=== PATIENT | female | born 1960 | race Caucasian/White ===

== ENCOUNTER 2016-12-31 16:29 | Inpatient (IN) ==
[2016-12-31] MEDS ORDERED: 0.9 % Sodium Chloride 1,000 ML IVC ONE ×2 (17:31→18:59)
--- NOTE | 2016-12-31 18:02 | Emergency Department Note ---
Disposition Clinical Impression: Sepsis Qualifiers: Sepsis type: sepsis due to unspecified organism Qualified Code(s): A41.9 - Sepsis, unspecified organism Pneumonia Qualifiers: Pneumonia type: due to unspecified organism Laterality: right Lung location: upper lobe of lung Qualified Code(s): J18.1 - Lobar pneumonia, unspecified organism Disposition: Admitted As Inpatient Condition: Undetermined Referrals: Karen Jones, [facility]ER [Primary Care Provider] - Forms: ED Satisfaction Letter Time of Disposition: 19:04 General Adult HPI - General Chief complaint: ED Fever Stated complaint: fever- sent from cancer center Time Seen by Provider: 12/31/16 17:31 Source: patient, family Mode of arrival: ambulatory Limitations: no limitations Nursing Notes Reviewed: Yes Vital Signs Reviewed: Yes - History of Present Illness HPI Narrative: 56-year-old female with metastatic lung cancer arrives to [facility] emergency department with concern for her. The patient was at [facility] where she was being evaluated noted have a fever as high as 102 degrees Fahrenheit. The patient is currently on chemotherapy as well as radiation therapy. The patient denies any complaints at this time with the exception of left lower extremity swelling. The patient has numerous metastasis to the hip with associated pain. She denies any cough, difficulty breathing, nausea, vomiting, current diarrhea. The patient does state she has intermittent diarrhea over the course the past few weeks. Patient denies any other complaints at this time. Onset (ago): Just [facility] Location: pelvis Pain Severity: mild, moderate Pain Scale: 5 Consistency: constant Improves with: nothing Worsens with: nothing Associated symptoms: Reports: denies other symptoms Treatments Prior to Arrival: none - Related Data Home Medications Medication Instructions Recorded Confirmed Baclofen [Lioresal] 10 mg PO TID 04/02/16 12/31/16 Omeprazole 40 mg PO DAILY 04/02/16 12/31/16 Zolpidem [Ambien] 10 mg PO HS PRN 04/02/16 12/31/16 Dexamethasone [Decadron] 10 ml PO QID PRN 10/04/16 12/31/16 Polyethylene Glycol 3350 [MiraLAX] 17 gm PO DAILY PRN 10/04/16 12/31/16 metFORMIN [Glucophage] 500 mg PO BIDWM 10/04/16 12/31/16 Hydromorphone HCl [Dilaudid] 4 mg PO Q2-3H PRN 10/14/16 12/31/16 FentaNYL PATCH [Duragesic] 75 mcg TD Q48H 10/20/16 12/31/16 Previous Rx's Medication Instructions Recorded Loratadine [Claritin] 10 mg PO DAILY #30 tablet 05/07/16 Magic Mouthwash [Magic Mouthwash 10 ml PO QID PRN #240 ml 05/07/16 BLM] Ondansetron HCl [Zofran] 4 mg PO Q6H PRN #30 tablet 05/07/16 Prochlorperazine Maleate 10 mg PO Q6HR PRN #60 tablet 05/07/16 [Compazine] Lidocaine/Prilocaine CREAM [Emla] 5 gm TP PRN PRN #1 tube 05/19/16 Ferrous Sulfate [Iron] 325 mg PO DAILY #30 tablet 09/21/16 Gabapentin [Neurontin] 300 mg PO TID #90 capsule 11/22/16 Apixaban [Eliquis] 5 mg PO BID #60 tablet 12/06/16 Docusate Sodium [Colace] 100 mg PO BID #60 cap 12/06/16 GuaiFENesin ER [Mucinex] 600 mg PO BID #21 tbbp.12hr 12/06/16 Levofloxacin [Levaquin] 500 mg PO DAILY #5 tablet 12/06/16 Pantoprazole Sodium [Protonix] 40 mg PO DAILY #30 tablet. 12/30/16 Folic Acid 1 mg PO DAILY #30 tablet 12/31/16 Allergies Allergy/AdvReac Type Severity Reaction Status Date / Time menthol Allergy See Unverified 12/31/16 18:48 Comments meperidine Allergy See Unverified 12/31/16 18:48 Comments methyl salicylate Allergy See Unverified 12/31/16 18:48 Comments Psyllium [From Hydrocil] Allergy See Unverified 12/31/16 18:48 Comments codeine AdvReac Muscle Pain Verified 12/31/16 18:48 All systems ED: reviewed and negative except as stated. Constitutional: Reports: weakness, weight change. Denies: fever, chills Cardiovascular: Denies: chest pain, palpitations, dyspnea on exertion, edema, syncope Respiratory: Denies: cough, dyspnea, wheezes, hemoptysis, stridor Gastrointestinal: Reports: nausea, diarrhea. Denies: abdominal pain, vomiting, constipation, hematemesis, melena, hematochezia Genitourinary: Denies: dysuria, frequency, hematuria, discharge Musculoskeletal: Reports: back pain. Denies: neck pain, arthralgia, myalgia Integumentary: Denies: rash, abrasion, lesions Neurological: Denies: headache, weakness, numbness, paresthesias, confusion, abnormal gait, vertigo Past Medical History - Past Medical History Attestation: Yes The following information was validated with the patient. Source: patient, old records reviewed Medical history: Reports: cancer (metastatic lung), diabetes, GERD, hypertension Surgical history: Reports: cholecystectomy Psychiatric history: Reports: no psych history - Social History Smoking Status: Former smoker Smokeless Tobacco Status: No Alcohol use: Reports: none Drug use: Reports: none Physical Exam - General Limitations: no limitations General appearance: alert, in no apparent distress, cachectic - Head Head exam: atraumatic, normocephalic, normal inspection - Eye Eye exam: Present: normal appearance, PERRL, EOMI - ENT ENT exam: normal exam, normal oropharynx, mucous membranes moist, other (Mild right erythema of Right ear) - Neck Neck exam: Present: normal inspection, full ROM, trachea midline - Chest Chest inspection: Present: normal inspection, symmetric chest wall rise, other ( Right port in place) - Respiratory Respiratory exam: Present: normal lung sounds bilaterally - Cardiovascular Cardiovascular exam: Present: regular rate, normal rhythm, normal heart sounds - Abdominal Exam Abdominal exam: Present: soft, Non-Tender. Absent: tenderness, distention, guarding, rebound, rigidity - Extremities Exam Extremities exam: Present: normal inspection, full ROM. Absent: tenderness, pedal edema - Back Exam Back exam: Present: normal inspection, full ROM. Absent: tenderness - Neurological Exam Neurological exam: Present: alert, oriented X3, CN II-XII intact - Skin Skin exam: Present: warm, dry, intact, normal color Course Vital Signs Temperature 99.4 F 12/31/16 16:37 Pulse Rate 90 12/31/16 16:37 Respiratory Rate 18 12/31/16 16:37 Blood Pressure 89/53 12/31/16 16:37 O2 Sat by Pulse Oximetry 95 12/31/16 16:37 Temperature 99.4 F 12/31/16 16:37 Pulse Rate 88 12/31/16 18:47 Respiratory Rate 20 12/31/16 18:47 Blood Pressure 110/73 12/31/16 18:47 O2 Sat by Pulse Oximetry 98 12/31/16 18:47 Oxygen Delivery Oxygen Delivery Room Air Medical Decision Making - MDM Narrative Medical decision making narrative: Patient experienced leukocytosis as well as elevated lactic acid. The patient appears to be septic. Given the patient's symptoms and history of chemotherapy combined with radiation and metastatic lung cancer, we will admit the patient to the hospital for further care and workup. The patient was begun on vancomycin and Zosyn. The patient was made aware. The patient did have CT of head and cervical, thoracic, lumbar spine with concern for possible metastasis. The patient will be admitted to the hospitalist service with oncology notified. Accepted by Too Sheriff. - Lab Data Lab results reviewed: Yes I reviewed the patient's lab results. Result diagrams: 12/31/16 17:50 12/31/16 17:50 Lab Results 12/31/16 12/31/16 12/31/16 Range/Units 17:50 17:50 17:50 WBC 34.9 H* (4.3-11.1) K/mcL RBC 2.76 L (3.82-4.97) M/mcL Hgb 7.2 L (11.5-15.4) g/dL Hct 23.9 L (35.3-44.9) % MCV 86.6 (83.0-100.0) fL MCH 26.1 L (28.0-33.3) pg MCHC 30.1 L (31.6-35.5) g/dL RDW 18.3 H (11.5-14.5) % Plt Count 621 H (140-400) K/mcL MPV 8.4 L (9.4-12.4) fL Immature Gran % 1.6 (0-4) % Seg Neutrophils % 93.1 % Lymphocytes % 1.6 % Monocytes % 3.3 % Eosinophils % 0.2 % Basophils % 0.2 % Neutrophils # 32.5 H (1.6-8.9) K/mcL Lymphocytes # 0.6 (0.6-4.6) K/mcL Monocytes # 1.2 (0.0-1.3) K/mcL Eosinophils # 0.1 (0.0-0.6) K/mcL Basophils # 0.1 (0.0-0.2) K/mcL Platelet Estimate Marked Increase H (Normal) Hypochromasia Present A (Not Present) Anisocytosis 1+ A (Not Present) PT 19.6 H (9.4-12.1) Seconds INR 1.8 APTT 28.5 (26.0-36.0) Seconds Sodium 129 L (136-145) mEq/L Potassium 4.6 H (3.5-4.5) mEq/L Chloride 94 L (98-109) mEq/L Carbon Dioxide 25 (19-29) mEq/L BUN 17 (7-20) mg/dL Creatinine 0.61 (0.57-1.11) mg/dL Est GFR ( Amer) > 60 (> 60) Est GFR (Non-Af Amer) > 60 (> 60) BUN/Creatinine Ratio 28 H (6-26) Glucose 129 H (70-99) mg/dL Calculated Osmolality 271 L (280-300) Lactic Acid (0.5-2.2) mmol/L Uric Acid 4.6 (2.6-6.0) mg/dL Calcium 9.6 (8.6-10.8) mg/dL Phosphorus 3.1 (2.3-4.7) mg/dL Magnesium 1.5 L (1.6-2.6) mg/dL Total Bilirubin 0.4 (0.2-1.2) mg/dL Direct Bilirubin 0.3 (0.0-0.5) mg/dL Indirect Bilirubin 0.1 (0.0-1.2) mg/dL AST 25 (5-34) Units/L ALT 19 (0-55) Units/L Alkaline Phosphatase 87 (38-126) Units/L Lactate Dehydrogenase 263 (159-327) Units/L Troponin I (0-0.03) ng/mL B-Natriuretic Peptide (0-100) pg/mL Serum Total Protein 6.3 (6.0-8.3) g/dL Albumin 2.0 L (3.5-5.0) g/dL Globulin 4.3 H (2.4-3.5) g/dL Albumin/Globulin Ratio 0.5 L (1.1-2.2) Random Cortisol 13.2 mcg/dl 12/31/16 12/31/16 12/31/16 Range/Units 17:50 17:50 17:50 WBC (4.3-11.1) K/mcL RBC (3.82-4.97) M/mcL Hgb (11.5-15.4) g/dL Hct (35.3-44.9) % MCV (83.0-100.0) fL MCH (28.0-33.3) pg MCHC (31.6-35.5) g/dL RDW (11.5-14.5) % Plt Count (140-400) K/mcL MPV (9.4-12.4) fL Immature Gran % (0-4) % Seg Neutrophils % % Lymphocytes % % Monocytes % % Eosinophils % % Basophils % % Neutrophils # (1.6-8.9) K/mcL Lymphocytes # (0.6-4.6) K/mcL Monocytes # (0.0-1.3) K/mcL Eosinophils # (0.0-0.6) K/mcL Basophils # (0.0-0.2) K/mcL Platelet Estimate (Normal) Hypochromasia (Not Present) Anisocytosis (Not Present) PT (9.4-12.1) Seconds INR APTT (26.0-36.0) Seconds Sodium (136-145) mEq/L Potassium (3.5-4.5) mEq/L Chloride (98-109) mEq/L Carbon Dioxide (19-29) mEq/L BUN (7-20) mg/dL Creatinine (0.57-1.11) mg/dL Est GFR ( Amer) (> 60) Est GFR (Non-Af Amer) (> 60) BUN/Creatinine Ratio (6-26) Glucose (70-99) mg/dL Calculated Osmolality (280-300) Lactic Acid 2.4 H (0.5-2.2) mmol/L Uric Acid (2.6-6.0) mg/dL Calcium (8.6-10.8) mg/dL Phosphorus (2.3-4.7) mg/dL Magnesium (1.6-2.6) mg/dL Total Bilirubin (0.2-1.2) mg/dL Direct Bilirubin (0.0-0.5) mg/dL Indirect Bilirubin (0.0-1.2) mg/dL AST (5-34) Units/L ALT (0-55) Units/L Alkaline Phosphatase (38-126) Units/L Lactate Dehydrogenase (159-327) Units/L Troponin I 0.00 (0-0.03) ng/mL B-Natriuretic Peptide 62 (0-100) pg/mL Serum Total Protein (6.0-8.3) g/dL Albumin (3.5-5.0) g/dL Globulin (2.4-3.5) g/dL Albumin/Globulin Ratio (1.1-2.2) Random Cortisol mcg/dl - Radiology Data Radiology results reviewed: Yes I reviewed the patient's radiology results. - EKG Data EKG #1 EKG attestation: Yes I reviewed and interpreted this EKG. EKG results narrative: Rate is 70 bpm period. 117 milliseconds. QTc 350 ms. Normal axis. Normal sinus rhythm. No ST elevation or ST depression noted. No previous EKG. Attestation Statement - Attestation Attestation: I, Akin Alejandre DO, examined this patient [id number] and my medical decision-making was reviewed with Dr. Too Ochoa, Resident Physician. I agree with the documented findings, disposition and treatment plan as described except to the extent set forth below. Please see my progress notes for details. 1-year-old female presents emergency room at the request of her oncologist for evaluation of fever up to 102 at home. Vital signs at presentation otherwise stable here. Patient is currently in chemoradiation therapy for lung cancer metastases to bone. Concern is noted for infectious etiology. She has had some intermittent paresthesias in the upper and lower extremities and pain in the bones at this time. CT imaging of the cervical thoracic and lumbar spine as well as chest x-ray labs are collected this point. Patient does have a significantly elevated white blood cell count mild lactic acidosis. Patient provided with fluids and antibiotics for treatment of what appears to be ammonia on chest x-ray. Imaging still pending of the spine but this does not dictate the admission process of this point. Patient has otherwise been stable EKG and labs otherwise reviewed and are negative. Antibiotic regimen started on blood cultures. Patient will be admitted for definitive management. See detailed documentation of medical intervention medical decision-making process as well as the treatment course providing an emergency room consultation of hospitals. Physical exam is otherwise benign fair. Female mentating appropriately in no apparent distress presents for evaluation. Lungs are clear with no intermittent crackles noted on exam. Abdominal examination shows soft abdomen no distress admission process to be completed. Patient provided with antibiotics and fluid resuscitation here. Poor clinical outcome for future based on the patient's medical history and presentation her today. Patient family informed of the medical intervention recommended Ayan. Patient is otherwise stable.
[2016-12-31 18:06] LABS: Basophils # 0.1 K/mcL (0.0-0.2); Basophils % 0.2 %; Lymphocytes % 1.6 %; Mean Platelet Volume 8.4 fL (9.4-12.4); Monocytes # 1.2 K/mcL (0.0-1.3); Monocytes % 3.3 %
[2016-12-31] MEDS ORDERED: Piperacillin/Tazobactam 3.375 GM in D5% in Water (Mini-Bag+) 100 ML IVPB ONE (18:07)
[2016-12-31] MEDS ORDERED: Vancomycin 1,000 MG in D5% in Water 250 ML IVPB ONE (18:07)
[2016-12-31 18:08] LABS: Eosinophils # 0.1 K/mcL (0.0-0.6); Eosinophils % 0.2 %; Hematocrit 23.9 % (35.3-44.9); Immature Granulocytes % 1.6 % (0-4); Lymphocytes # 0.6 K/mcL (0.6-4.6); Mean Corpuscular HGB Conc 30.1 g/dL (31.6-35.5); Mean Corpuscular Hemoglobin 26.1 pg (28.0-33.3); Mean Corpuscular Volume 86.6 fL (83.0-100.0); Neutrophils # 32.5 K/mcL (1.6-8.9); Platelet Count 621 K/mcL (140-400); Red Blood Count 2.76 M/mcL (3.82-4.97); Red Cell Distribution Width 18.3 % (11.5-14.5); Segmented Neutrophils % 93.1 %
[2016-12-31 18:12] LABS: INR 1.8; Prothrombin Time 19.6 Seconds (9.4-12.1)
[2016-12-31 18:14] LABS: Activated Partial Thrombo Time 28.5 Seconds (26.0-36.0)
[2016-12-31 18:22] LABS: Alanine Aminotransferase 19 Units/L (0-55); Albumin/Globulin Ratio 0.5 (1.1-2.2); Alkaline Phosphatase 87 Units/L (38-126); Aspartate Amino Transferase 25 Units/L (5-34); BUN/Creatinine Ratio 28 (6-26); Bilirubin,Direct 0.3 mg/dL (0.0-0.5); Bilirubin,Indirect 0.1 mg/dL (0.0-1.2); Bilirubin,Total 0.4 mg/dL (0.2-1.2); Blood Urea Nitrogen 17 mg/dL (7-20); Calcium 9.6 mg/dL (8.6-10.8); Carbon Dioxide 25 mEq/L (19-29); Chloride 94 mEq/L (98-109); Globulin 4.3 g/dL (2.4-3.5); Glucose 129 mg/dL (70-99); Magnesium 1.5 mg/dL (1.6-2.6); Osmolality,Calculated 271 (280-300); Phosphorous 3.1 mg/dL (2.3-4.7); Potassium 4.6 mEq/L (3.5-4.5); Sodium 129 mEq/L (136-145); Total Protein 6.3 g/dL (6.0-8.3); eGFR For African Americans > 60 (> 60); eGFR For Non-African Americans > 60 (> 60)
[2016-12-31 18:24] LABS: Hemoglobin 7.2 g/dL (11.5-15.4)
[2016-12-31] MEDS ORDERED: *HR* FentaNYL PATCH 75 MCG PATCH TD STA (18:24)
[2016-12-31 18:42] LABS: Anisocytosis 1+ (Not Present); Hypochromasia Present (Not Present); Platelet Estimate Marked Increase (Normal)
[2016-12-31 19:17] LABS: Lactate Dehydrogenase 263 Units/L (159-327); Uric Acid 4.6 mg/dL (2.6-6.0)
[2016-12-31 19:34] LABS: Bilirubin,Urine Negative (Negative); Blood,Urine Negative (Negative); Clarity,Urine Cloudy (Clear); Color,Urine Dark Yellow (Yellow); Glucose,Urine (UA) Normal (Normal); Ketones,Urine Negative (Negative); Leukocyte Esterase,Urine Small (Negative); Nitrite,Urine Negative (Negative); Protein,Urine Trace mg/dL (Neg-Trace); Specific Gravity,Urine 1.022 (1.010-1.025); Urobilinogen,Urine Normal (Normal)
[2016-12-31 19:38] LABS: Bacteria,Urine None Seen per hpf (None-Few); Hyaline Casts,Urine None Seen per lpf (None-Few); RBC,Urine 0-3 per hpf (0-3); Squamous Epithelial Cell,Urine Many per lpf (None-Few)
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
[2016-12-31] MEDS ORDERED: Naloxone 0.4 MG/ML INJ IVP PRN (21:12)
[2016-12-31] MEDS ORDERED: D5% in Water 1,000 ML IVC PRN (21:12)
[2016-12-31] MEDS ORDERED: Dextrose Gel 15 GM PO PRN ×2 (21:12)
[2016-12-31] MEDS ORDERED: *HR* Dextrose 50 % in Water (Syg) 50 ML SYRINGE IVP PRN (21:12)
[2016-12-31] MEDS ORDERED: Ondansetron 4 MG/2 ML VIAL IVP PRN (21:12)
[2016-12-31] MEDS ORDERED: Magic Mouthwash 10 ML UD Cup PO PRN (21:22)
[2016-12-31] MEDS ORDERED: DEXAMETHASONE 0.5 MG/5 ML PO PRN (21:22)
[2016-12-31] MEDS ORDERED: *HR* FentaNYL PATCH 25 MCG PATCH TD SCH (22:00)
[2016-12-31] MEDS ORDERED: Vancomycin (wt based) 1,000 MG VIAL IVPB SCH (22:00)
[2016-12-31] MEDS: 0.9 % Sodium Chloride 1,000 ML IVC SCH (22:50)
[2016-12-31] MEDS: *HR* FentaNYL PATCH 75 MCG PATCH TD SCH (23:11)
[2017-01-01] MEDS ORDERED: Piperacillin/Tazobactam 3.375 GM in D5% in Water (Mini-Bag+) 100 ML IVPB SCH (02:00)
[2017-01-01] MEDS: Piperacillin/Tazobactam 3.375 GM in D5% in Water (Mini-Bag+) 100 ML IVPB SCH ×3 (03:45→20:01)
[2017-01-01 04:33] LABS: Basophils % 0.2 %; Hemoglobin 6.3 g/dL (11.5-15.4)
[2017-01-01 04:34] LABS: Basophils # 0.1 K/mcL (0.0-0.2); Eosinophils # 0.1 K/mcL (0.0-0.6); Eosinophils % 0.3 %; Hematocrit 20.7 % (35.3-44.9); Immature Granulocytes % 1.9 % (0-4); Lymphocytes # 0.4 K/mcL (0.6-4.6); Lymphocytes % 1.4 %; Mean Corpuscular HGB Conc 30.4 g/dL (31.6-35.5); Mean Corpuscular Hemoglobin 26.3 pg (28.0-33.3); Mean Corpuscular Volume 86.3 fL (83.0-100.0); Mean Platelet Volume 8.4 fL (9.4-12.4); Monocytes # 1.3 K/mcL (0.0-1.3); Monocytes % 4.3 %; Neutrophils # 28.5 K/mcL (1.6-8.9); Platelet Count 498 K/mcL (140-400); Red Cell Distribution Width 18.3 % (11.5-14.5); Segmented Neutrophils % 91.9 %
[2017-01-01 04:54] LABS: BUN/Creatinine Ratio 22 (6-26); Blood Urea Nitrogen 12 mg/dL (7-20); C-Reactive Protein 163 mg/L (Less than 5); Calcium 8.5 mg/dL (8.6-10.8); Carbon Dioxide 24 mEq/L (19-29); Chloride 98 mEq/L (98-109); Glucose 106 mg/dL (70-99); Magnesium 1.2 mg/dL (1.6-2.6); Osmolality,Calculated 270 (280-300); Phosphorous 3.3 mg/dL (2.3-4.7); Sodium 130 mEq/L (136-145); eGFR For African Americans > 60 (> 60); eGFR For Non-African Americans > 60 (> 60)
[2017-01-01 04:57] LABS: Anisocytosis 1+ (Not Present); Macrocytosis Present (Not Present); Microcytosis Present (Not Present); Platelet Estimate Increased (Normal)
--- NOTE | 2017-01-01 05:03 | Event Note ---
Date of Encounter: 01/01/17 Time of Encounter: 05:03 Patient seen and examined with director medical affairs. Agree with the assessment and plan
[2017-01-01] MEDS: Pantoprazole 40 MG VIAL IVP SCH (06:00)
[2017-01-01] MEDS: Vancomycin 1,000 MG in D5% in Water 250 ML IVPB SCH ×2 (07:37→20:00)
[2017-01-01] MEDS ORDERED: Magnesium Sulfate 2 GM in D5% in Water 100 ML IVPB ONE ×2 (08:04→15:00)
[2017-01-01] MEDS: Insulin LISPRO 300 UNITS/3 ML VIAL SQ SCH ×4 (08:18→20:26)
[2017-01-01] MEDS: Folic Acid 1 MG TABLET PO SCH (08:30)
[2017-01-01] MEDS: Gabapentin 300 MG CAPSULE PO SCH ×3 (08:30→20:00)
[2017-01-01] MEDS: Baclofen 10 MG TABLET PO SCH ×3 (08:30→20:00)
[2017-01-01] MEDS: *HR* HYDROmorphone 4 MG TABLET PO PRN ×5 (08:30→21:23)
[2017-01-01] MEDS: APIXABAN 5 MG TABLET PO SCH ×2 (08:30→20:00)
--- NOTE | 2017-01-01 08:54 | Internal Med Progress Note ---
<Napoleon Aldrich - Last Filed: 01/01/17 13:53> Date of Encounter: 01/01/17 Time of Encounter: 08:54 - Assessment and plan (1) Sepsis Current Visit: Yes Status: Acute Assessment and plan: Patient admitted form [facility] after having recorded temperature of 102F. Lactic Acid 2.4 on admission Hypotension 89/53 on admission WBC 34.9 on admission. CXR revealed mild hazy ground glass opacities in right upper lobe and irregular ill defined spiculation in left upper concerning for spiculated mass. Patient received 2L normal saline bolus in ED Started on Broad specturm antibiotics Urine antigens for Legioinella and S. pneumonia returned negative Influenza swab negative. No additional fevers overnight, nontachycardic, nontachypneic, bp 97-108/59-61, WBC decreased to 31.0, ESR elevated at 25, CRP 163 -Blood cultures ordered -Sputum cultures ordered -Urine culture ordered -Continue Vancomycin and Zosyn d1. -Continue monitoring vitals and labs. -Tylenol prn for fever -Echo ordered -Continue IV fluids Patient is at high risk due to her history of immunosuppression due to treatment with chem and radiation for her cancer. Qualifiers: Sepsis type: sepsis due to unspecified organism Qualified Code(s): A41.9 - Sepsis, unspecified organism (2) Healthcare-associated pneumonia Current Visit: Yes Status: Acute Assessment and plan: Due to history of immunosuppression due to cancer treatments and close interactions with medical community, patient's pneumonia based on imaging is likely HCAP vs CAP based on new guidelines. CXR revealed CXR revealed mild hazy ground glass opacities in right upper lobe and irregular ill defined spiculation in left upper concerning for spiculated mass. WBC down at 31.0 from 34.9 yesterday -Continue monitoring labs and vitals -Continue broad spectrum antibiotics per plan in assessmnet above. Vanc and Zosyn d1. (3) Anemia Current Visit: Yes Status: Acute Assessment and plan: Hb 6.3 this morning from 7.2 on admission. Known history of severe iron deficiency anemia, had recently received iron transfusion. -Transfusion pRBC ordered Continue monitoring labs Qualifiers: Anemia type: iron deficiency Iron deficiency anemia type: unspecified iron deficiency Qualified Code(s): D50.9 - Iron deficiency anemia, unspecified (4) Hyponatremia Current Visit: Yes Status: Chronic Assessment and plan: Patient determined to have sodium 129 on admission. Sodium 130 on labs this morning. Patient has known chronic hyponatremia. Continue to monitor labs. Cotinue with IV fluids. (5) Adenocarcinoma of left lung, stage 4 Current Visit: Yes Status: Chronic Assessment and plan: Known history of primary adenocarcinoma of left lung stage 4 with mets to spine and pelvis. Currently undergoing palliative chemoradiation at [facility]. (6) Cancer related pain Current Visit: Yes Status: Chronic Assessment and plan: Pain secondary to mets to pelvis, and pain of legs bilaterally resulting in her now wheelchair bound status. Conitnue home pain medication regimenL 75 mcg fentanyl patches q48 and 4mg hydromorphone po q2-3hr prn. (7) Bone metastasis Current Visit: Yes Status: Chronic Assessment and plan: Per cameron in assessment above. (8) DVT (deep venous thrombosis) Current Visit: Yes Status: Resolved Assessment and plan: Known history of DVT -Continue Eliquis. Qualifiers: DVT location: lower extremity Affected thrombotic vein of extremity: unspecified vein of extremity Chronicity: unspecified Laterality: left Qualified Code(s): I82.402 - Acute embolism and thrombosis of unspecified deep veins of left lower extremity (9) Abnormal finding on imaging Current Visit: Yes Status: Acute Assessment and plan: Patient found to have small focus of abnormal attenuation in the right thalamus that is nonspecific and possibly artifactual. Given patient history of lung cancer brain metastases cannot be ruled out. She might need MRI as outpatient for further evaluation per the discretion of her oncologist (10) Diabetes mellitus type 2 in nonobese Current Visit: Yes Status: Acute Assessment and plan: Continue with ADA diet and low dose insulin sliding scale. COntinue monitoring labs. - Subjective Interval history: Patient reprts having some sweats overnight, but overall is feeling better. Patient denies fevers, chills, nausea, vomiting, headache, changes in vision or hearing, chest pain, shorntess of breath, abdominal pain, changes in bowels or bladder, or loss of sensation. Patient reports chronic leg pain L>R due to metastatic cancer from lung cancer. Patient reports weakness due to pain and has resulted in her over the past couple months requiring wheelchair. - Constitutional Vitals: Temp Pulse Resp BP Pulse Ox 98.4 F 74 15 108/59 92 01/01/17 07:22 01/01/17 07:22 01/01/17 07:22 01/01/17 08:21 01/01/17 07:45 General appearance: Present: cooperative, A&O X 3, pleasant, no acute distress, answers questions appropriately - Head Head exam: Present: atraumatic, normal inspection, normocephalic - Eye Eye exam: Present: EOMI, normal appearance - ENT ENT exam: Present: mucous membranes moist, normal exam, normal oropharynx - Neck Neck exam general surgery: Present: full ROM, normal inspection, supple, trachea midline. Absent: tenderness - Respiratory Respiratory exam: Present: CTAB. Absent: decreased breath sounds, rales, respiratory distress, rhonchi, wheezes, tachypnea Additional comments: Right upper chest port, clean dry intact without surround erythema - Cardiovascular Cardiovascular exam: Present: RRR, +S1, +S2. Absent: diastolic murmur, JVD, systolic murmur - GI/Abdominal GI/Abdominal exam: Present: normal bowel sounds, soft. Absent: distended, guarding, tenderness - Extremities Exam Extremities exam: Present: full ROM, normal inspection, tenderness, warm, radial pulses palpable and symmetrical. Absent: pedal edema Additional comments: Upper extremities normal exam. Lower extremities bilaterally strenght 4/5, pain with movement and tenderness to palpation - Back Exam Back exam: Present: normal inspection, paraspinal tenderness, vertebral tenderness. Absent: rash noted - Neurological Exam Neurological exam: Present: alert, CN II-XII intact, oriented X3, no focal deficits, strengths equal and symetr throughout. Absent: facial droop, speech deficit - Psychiatric Psychiatric exam: Present: normal affect, normal mood - Skin Skin exam: Present: dry, intact, normal color, warm. Absent: rash Internal Medicine: Result - Labs CBC & Chem 7: 01/01/17 04:19 01/01/17 04:19 Labs: Short CBC 01/01/17 Range/Units 04:19 WBC 31.0 H* (4.3-11.1) K/mcL Hgb 6.3 L (11.5-15.4) g/dL Hct 20.7 L (35.3-44.9) % Plt Count 498 H (140-400) K/mcL Neutrophils # 28.5 H (1.6-8.9) K/mcL BMP 01/01/17 04:19 Sodium 130 L Potassium 4.0 Chloride 98 Carbon Dioxide 24 BUN 12 Creatinine 0.54 L Glucose 106 H Calcium 8.5 L - ABG Interpretation ABG results: PT/INR, D-dimer PT 19.6 Seconds (9.4-12.1) H 12/31/16 17:50 Consult Discharge Plan - Plan Referrals: Karen Jones, TAMALE MAKER [Primary Care Provider] - <Pierre Alex - Last Filed: 01/01/17 15:09> Date of Encounter: 01/01/17 - Constitutional Vitals: Temp Pulse Resp BP Pulse Ox 97.9 F 70 16 103/61 95 01/01/17 12:31 01/01/17 12:31 01/01/17 12:31 01/01/17 12:31 01/01/17 12:31 Internal Medicine: Result - Labs CBC & Chem 7: 01/01/17 04:19 01/01/17 04:19 Labs: Short CBC 01/01/17 Range/Units 04:19 WBC 31.0 H* (4.3-11.1) K/mcL Hgb 6.3 L (11.5-15.4) g/dL Hct 20.7 L (35.3-44.9) % Plt Count 498 H (140-400) K/mcL Neutrophils # 28.5 H (1.6-8.9) K/mcL [facility] 01/01/17 04:19 Sodium 130 L Potassium 4.0 Chloride 98 Carbon Dioxide 24 BUN 12 Creatinine 0.54 L Glucose 106 H Calcium 8.5 L - ABG Interpretation ABG results: PT/INR, D-dimer PT 19.6 Seconds (9.4-12.1) H 12/31/16 17:50 - Attending Attestation I have independently seen and examined this patient on 01/01/17, I have reviewed plan of care with patient and resident physician 56 YO F with PMH of Stage IV Lung adenocarcinoma with bone mets, on palliative chemo-radiation. She also has Iron deficiency anemia, DM, Chronic pain She is admitted and being managed for severe sepsis with hypotension on admission, lactic acidosis Sepsis is secondary to HCAP. Physical exam: She is afebrile, tachycardic, not in distress. Her BP is improving, She is chronically ill-looking and cachectic. She speaks full sentences and denies any pain. Oral mucosa is moist, she is not cyanotic, she has RML rhonchi. She has a nodular lesion on her back. Spine examination is unremarkable. She has no pedal edema Labs and Imaging reviewed Leukocytosis: WBC 31 with left shift, HB 6.3, thrombocytosis. mag 1.2. Random cortisol normal. CRP 163. UA dirty. Urine legionella and Strep Ag negative, Chest imaging shows pneumonia Blood, Urine cultures are pending. A/P *Severe Sepsis *lactic acidosis *HCAP *Iron deficiency anemia: *Moderate-Severe protein calorie malnutrition *Stage 4 Lung CA *Hypomagnessemia *DM *chronic pain *Chronic hyponatremia *Hx of DVT -Continue current antibiotics, add Levaquin for double pseudomonas coverage, follow all cultures -lactate is normal now -Blood pressure is improving -Leukocytosis is severe, but improving -Replace Mag -Continue home medications -Transfuse one unit RBC *Rpt CBC pm Rest of details as in resident physician's documentation
[2017-01-01] MEDS ORDERED: 0.9 % Sodium Chloride 250 ML ONE (09:04)
[2017-01-01] MEDS: Acetaminophen 325 MG TABLET PO PRN (16:45)
[2017-01-01] MEDS: 0.9 % Sodium Chloride 1,000 ML IVC SCH (18:13)
[2017-01-02 04:00] LABS: Basophils # 0.1 K/mcL (0.0-0.2); Basophils % 0.2 %; Eosinophils # 0.1 K/mcL (0.0-0.6); Eosinophils % 0.3 %; Hematocrit 23.7 % (35.3-44.9); Hemoglobin 7.3 g/dL (11.5-15.4); Immature Granulocytes % 1.6 % (0-4); Lymphocytes # 0.3 K/mcL (0.6-4.6); Lymphocytes % 0.9 %; Mean Corpuscular HGB Conc 30.8 g/dL (31.6-35.5); Mean Corpuscular Hemoglobin 25.7 pg (28.0-33.3); Mean Corpuscular Volume 83.5 fL (83.0-100.0); Mean Platelet Volume 8.5 fL (9.4-12.4); Monocytes # 1.2 K/mcL (0.0-1.3); Monocytes % 3.8 %; Neutrophils # 29.6 K/mcL (1.6-8.9); Platelet Count 513 K/mcL (140-400); Red Blood Count 2.84 M/mcL (3.82-4.97); Red Cell Distribution Width 19.8 % (11.5-14.5); Segmented Neutrophils % 93.2 %
[2017-01-02 04:03] LABS: BUN/Creatinine Ratio 18 (6-26); Blood Urea Nitrogen 11 mg/dL (7-20); Calcium 8.2 mg/dL (8.6-10.8); Carbon Dioxide 22 mEq/L (19-29); Chloride 99 mEq/L (98-109); Glucose 117 mg/dL (70-99); Osmolality,Calculated 268 (280-300); Potassium 4.4 mEq/L (3.5-4.5); Sodium 129 mEq/L (136-145); eGFR For African Americans > 60 (> 60); eGFR For Non-African Americans > 60 (> 60)
[2017-01-02] MEDS: 0.9 % Sodium Chloride 1,000 ML IVC SCH ×2 (04:16→09:01)
[2017-01-02] MEDS: Piperacillin/Tazobactam 3.375 GM in D5% in Water (Mini-Bag+) 100 ML IVPB SCH ×3 (04:17→19:54)
[2017-01-02 04:19] LABS: Anisocytosis 2+ (Not Present); Platelet Estimate Increased (Normal); Polychromasia 1+ (Not Present)
[2017-01-02 04:20] LABS: Hypochromasia Present (Not Present); Microcytosis Present (Not Present)
[2017-01-02] MEDS: Acetaminophen 325 MG TABLET PO PRN ×2 (04:28→17:28)
[2017-01-02] MEDS: Pantoprazole 40 MG VIAL IVP SCH (06:15)
--- NOTE | 2017-01-02 07:50 | Internal Med Progress Note ---
<Napoleon Aldrich - Last Filed: 01/02/17 11:51> Date of Encounter: 01/02/17 Time of Encounter: 07:49 - Assessment and plan (1) Sepsis Current Visit: Yes Status: Acute Assessment and plan: Patient admitted form [facility] after having recorded temperature of 102F. Lactic Acid 2.4 on admisson, dropped to 1.5 following antibiotics and fluids Hypotension 89/53 on admission WBC 34.9 on admission, Known baseline 19 prior to admission. CXR revealed mild hazy ground glass opacities in right upper lobe and irregular ill defined spiculation in left upper concerning for spiculated mass. Patient received 2L normal saline bolus in ED Started on Broad spectrum antibiotics Urine antigens for Legioinella and S. pneumonia returned negative Influenza swab negative. Mild fevers of 100.1 noted overnight, nontachycardic, nontachypneic, bp stable, WBC increased from 31.0 yesterday to 31.8. Urine culture negative. Echo revealed EF 60%, normal LV systolic and diastolic function, normal LV, mildly dilated LA, mild mitral regurgitation, no evidence of pulm htn, no evidence of valvular vegetations -Blood cultures pending. -Sputum cultures ordered -If develops notable fevers again, redraw blood cultures. -If has diarrhea, consider c.diff testing. -Continue Vancomycin and Zosyn d2, Levaquin d2 -Continue monitoring vitals and labs. -Tylenol prn for fever -Continue IV fluids -ID consulted -to consult oncology on Tuesday Patient is at high risk due to her history of immunosuppression due to treatment with chem and radiation for her cancer. Qualifiers: Sepsis type: sepsis due to unspecified organism Qualified Code(s): A41.9 - Sepsis, unspecified organism (2) Healthcare-associated pneumonia Current Visit: Yes Status: Acute Assessment and plan: Due to history of immunosuppression due to cancer treatments and close interactions with medical community, patient's pneumonia based on imaging is likely HCAP vs CAP based on new guidelines. CXR revealed CXR revealed mild hazy ground glass opacities in right upper lobe and irregular ill defined spiculation in left upper concerning for spiculated mass. WBC 31.8, increased from 31.0 yesterday. -Continue monitoring labs and vitals -Sputum culture ordered. -Continue broad spectrum antibiotics per plan in assessmnet above. Vanc and Zosyn d2, Levaquin d2 (3) Anemia Current Visit: Yes Status: Acute Assessment and plan: Hb 7.3 this morning Required pRBC transfusion x1 01/01/17 due to Hb 6.3 Known history of severe iron deficiency anemia, had recently received iron transfusion. Continue monitoring labs Qualifiers: Anemia type: iron deficiency Iron deficiency anemia type: unspecified iron deficiency Qualified Code(s): D50.9 - Iron deficiency anemia, unspecified (4) Hyponatremia Current Visit: Yes Status: Chronic Assessment and plan: Patient determined to have sodium 129 on admission. Sodium 129 on labs this morning. Patient has known chronic hyponatremia. Continue to monitor labs. Cotinue with IV fluids. (5) Adenocarcinoma of left lung, stage 4 Current Visit: Yes Status: Chronic Assessment and plan: Known history of primary adenocarcinoma of left lung stage 4 with mets to spine and pelvis. Currently undergoing palliative chemoradiation at [facility]. -Consult Oncology Tuesday, tomorrow for inpatient evaluation. (6) Cancer related pain Current Visit: Yes Status: Chronic Assessment and plan: Pain secondary to mets to pelvis, and pain of legs bilaterally resulting in her now wheelchair bound status. Conitnue home pain medication regimenL 75 mcg fentanyl patches q48 and 4mg hydromorphone po q2-3hr prn. -Social work for placement, currently wheelchair bound. (7) Bone metastasis Current Visit: Yes Status: Chronic Assessment and plan: Per plan in assessment above. (8) DVT (deep venous thrombosis) Current Visit: Yes Status: Resolved Assessment and plan: Known history of DVT -Continue Eliquis. Qualifiers: DVT location: lower extremity Affected thrombotic vein of extremity: unspecified vein of extremity Chronicity: unspecified Laterality: left Qualified Code(s): I82.402 - Acute embolism and thrombosis of unspecified deep veins of left lower extremity (9) Abnormal finding on imaging Current Visit: Yes Status: Acute Assessment and plan: Patient found to have small focus of abnormal attenuation in the right thalamus that is nonspecific and possibly artifact. Given patient history of lung cancer brain metastases cannot be ruled out. She might need MRI as outpatient for further evaluation per the discretion of her oncologist (10) Diabetes mellitus type 2 in nonobese Current Visit: Yes Status: Acute Assessment and plan: Continue with ADA diet and low dose insulin sliding scale. Continue monitoring labs. - Subjective Interval history: Patient reports no concern overnight other than continued night sweats. She is noted to have an almost completely drenched shirt. She continues to report feeling better overall and is having troubles coughing up sputum for the culture that was ordered. Patient denies fevers, chills, nausea, vomiting, headache, changes in vision or hearing, chest pain, shortness of breath, hemoptysis, abdominal pain, changes in bowels or bladder, or loss of sensation. Continues to have chronic leg pain and lower extremity weakness which was present before admission. - Constitutional Vitals: Temp Pulse Resp BP Pulse Ox 100.1 F H 79 18 104/48 94 01/02/17 04:01/02/17 04:01/02/17 04:01/02/17 04:01/02/17 04:09 General appearance: Present: cooperative, A&O X 3, pleasant, no acute distress, answers questions appropriately Exam: shirt drenched in sweat, no diaphoresis of face/forehead, skin otherwise not clammy or cold - Head Head exam: Present: atraumatic, normal inspection, normocephalic - Eye Eye exam: Present: EOMI, normal appearance - ENT ENT exam: Present: mucous membranes dry, normal exam, normal oropharynx - Neck Neck exam general surgery: Present: full ROM, normal inspection, supple, trachea midline. Absent: tenderness - Respiratory Respiratory exam: Present: CTAB. Absent: rales, rhonchi, wheezes Additional comments: Right upper chest port, clena dry intact without surrounding erythema - Cardiovascular Cardiovascular exam: Present: RRR, +S1, +S2. Absent: diastolic murmur, JVD, systolic murmur - GI/Abdominal GI/Abdominal exam: Present: normal bowel sounds, soft. Absent: diminished bowel sounds, guarding, tenderness - Extremities Exam Extremities exam: Present: full ROM, normal inspection, tenderness, warm, radial pulses palpable and symmetrical. Absent: pedal edema Additional comments: Upper ext exam normal. Lower ext exam with 4/5 strenght bilaterally, pain with movement and tenderness to palpation. - Neurological Exam Neurological exam: Present: alert, CN II-XII intact, oriented X3, no focal deficits, strengths equal and symetr throughout. Absent: facial droop, speech deficit - Psychiatric Psychiatric exam: Present: normal affect, normal mood - Skin Skin exam: Present: intact, normal color, warm. Absent: pallor, rash Internal Medicine: Result - Labs CBC & Chem 7: 01/02/17 03:40 01/02/17 03:40 Labs: Short CBC 01/02/17 Range/Units 03:40 WBC 31.8 H* (4.3-11.1) K/mcL Hgb 7.3 L (11.5-15.4) g/dL Hct 23.7 L (35.3-44.9) % Plt Count 513 H (140-400) K/mcL Neutrophils # 29.6 H (1.6-8.9) K/mcL BMP 01/02/17 03:40 Sodium 129 L Potassium 4.4 Chloride 99 Carbon Dioxide 22 BUN 11 Creatinine 0.62 Glucose 117 H Calcium 8.2 L - ABG Interpretation ABG results: PT/INR, D-dimer PT 19.6 Seconds (9.4-12.1) H 12/31/16 17:50 Consult Discharge Plan - Plan Referrals: Karen Jones, [employer] PREPARER [Primary Care Provider] - <Pierre Alex - Last Filed: 01/02/17 13:00> Date of Encounter: 01/02/17 - Constitutional Vitals: Temp Pulse Resp BP Pulse Ox 97.5 F L 69 14 120/73 100 01/02/17 12:27 01/02/17 12:27 01/02/17 12:27 01/02/17 12:27 01/02/17 12:27 Internal Medicine: Result - Labs CBC & Chem 7: 01/02/17 03:40 01/02/17 03:40 Labs: Short CBC 01/02/17 Range/Units 03:40 WBC 31.8 H* (4.3-11.1) K/mcL Hgb 7.3 L (11.5-15.4) g/dL Hct 23.7 L (35.3-44.9) % Plt Count 513 H (140-400) K/mcL Neutrophils # 29.6 H (1.6-8.9) K/mcL BMP 01/02/17 03:40 Sodium 129 L Potassium 4.4 Chloride 99 Carbon Dioxide 22 BUN 11 Creatinine 0.62 Glucose 117 H Calcium 8.2 L - ABG Interpretation ABG results: PT/INR, D-dimer PT 19.6 Seconds (9.4-12.1) H 12/31/16 17:50 - Attending Attestation I have independently seen and examined this patient on 01/02/17, I have reviewed plan of care with patient and resident physician 56 YO F with PMH of Stage IV Lung adenocarcinoma with bone mets, on palliative chemo-radiation. She also has Iron deficiency anemia, DM, Chronic pain She is admitted and being managed for severe sepsis with hypotension on admission, lactic acidosis Sepsis is secondary to HCAP. Today she reports her GERD symptoms have improved She also complains of drenching night sweats Physical exam: She is afebrile, tachycardic, not in distress. Her BP is improving, She is chronically ill-looking and cachectic. She speaks full sentences and denies any pain. Oral mucosa is moist, she is not cyanotic, she has RML rhonchi. She has a nodular lesion on her back. Spine examination is unremarkable. She has no pedal edema Labs and Imaging reviewed Leukocytosis: WBC 31.8 with left shift, HB 7.3, thrombocytosis. Urine legionella and Strep Ag negative, Chest imaging shows pneumonia Blood culture preliminary no growth Urine culture is negative vanco trough sub-therapeutic 11.2 A/P *Severe Sepsis *lactic acidosis *HCAP *Iron deficiency anemia: *Moderate-Severe protein calorie malnutrition *Stage 4 Lung CA *Hypomagnessemia *DM *chronic pain *Chronic hyponatremia *Hx of DVT -Continue current antibiotics, sputum culture is patient is able to make sputum. -Consult Onc. -lactate is normal now -Blood pressure is improving -D/C IVF -Leukocytosis is severe, rue out other causes like C.diff. EMR shows patient has been having leukocytosis since 09/2016 with her baseline around 17,000. -Check Mag -Continue home medications -Hb is stable now Rest of details as in resident physician's documentation
[2017-01-02] MEDS: Insulin LISPRO 300 UNITS/3 ML VIAL SQ SCH ×4 (09:00→22:18)
[2017-01-02] MEDS: APIXABAN 5 MG TABLET PO SCH ×2 (09:06→19:53)
[2017-01-02] MEDS: Baclofen 10 MG TABLET PO SCH ×3 (09:06→19:53)
[2017-01-02] MEDS: Folic Acid 1 MG TABLET PO SCH (09:06)
[2017-01-02] MEDS: Gabapentin 300 MG CAPSULE PO SCH ×3 (09:06→19:53)
[2017-01-02] MEDS: *HR* HYDROmorphone 4 MG TABLET PO PRN ×4 (09:06→16:42)
[2017-01-02] MEDS: Levofloxacin 750 MG/150 ML 750 MG/150 ML BAG IVPB SCH (09:08)
[2017-01-02] MEDS: Vancomycin 1,250 MG in D5% in Water 250 ML IVPB SCH ×2 (09:09→19:53)
[2017-01-02] MEDS: *HR* FentaNYL PATCH 75 MCG PATCH TD SCH (23:34)
[2017-01-03 04:39] LABS: Basophils % 0.3 %; Eosinophils % 0.1 %; Lymphocytes % 1.1 %; Red Cell Distribution Width 19.9 % (11.5-14.5)
[2017-01-03 04:40] LABS: Basophils # 0.1 K/mcL (0.0-0.2); Hematocrit 24.4 % (35.3-44.9); Hemoglobin 7.3 g/dL (11.5-15.4); Immature Granulocytes % 3.2 % (0-4); Lymphocytes # 0.4 K/mcL (0.6-4.6); Mean Corpuscular HGB Conc 29.9 g/dL (31.6-35.5); Mean Corpuscular Hemoglobin 24.8 pg (28.0-33.3); Mean Platelet Volume 8.4 fL (9.4-12.4); Monocytes # 1.5 K/mcL (0.0-1.3); Monocytes % 4.5 %; Neutrophils # 29.6 K/mcL (1.6-8.9); Platelet Count 573 K/mcL (140-400); Red Blood Count 2.94 M/mcL (3.82-4.97); Segmented Neutrophils % 90.8 %
[2017-01-03 04:50] LABS: BUN/Creatinine Ratio 16 (6-26); Blood Urea Nitrogen 9 mg/dL (7-20); Calcium 8.3 mg/dL (8.6-10.8); Carbon Dioxide 23 mEq/L (19-29); Chloride 100 mEq/L (98-109); Glucose 143 mg/dL (70-99); Osmolality,Calculated 275 (280-300); Potassium 4.3 mEq/L (3.5-4.5); Sodium 132 mEq/L (136-145); eGFR For African Americans > 60 (> 60); eGFR For Non-African Americans > 60 (> 60)
[2017-01-03] MEDS: *HR* HYDROmorphone 4 MG TABLET PO PRN ×6 (04:50→20:36)
[2017-01-03] MEDS: Piperacillin/Tazobactam 3.375 GM in D5% in Water (Mini-Bag+) 100 ML IVPB SCH ×3 (04:51→20:36)
[2017-01-03 05:15] LABS: Platelet Estimate Increased (Normal); Reactive Lymphocytes Present (Not Present)
[2017-01-03 05:16] LABS: Anisocytosis 1+ (Not Present); Hypersegmented Neutrophils Present (Not Present); Polychromasia 1+ (Not Present); Toxic Granulation Present (Not Present)
[2017-01-03] MEDS: Pantoprazole 40 MG VIAL IVP SCH (05:30)
[2017-01-03] MEDS: APIXABAN 5 MG TABLET PO SCH ×2 (08:34→20:36)
[2017-01-03] MEDS: Vancomycin 1,250 MG in D5% in Water 250 ML IVPB SCH ×2 (08:34→20:53)
[2017-01-03] MEDS: Baclofen 10 MG TABLET PO SCH ×3 (08:34→20:36)
[2017-01-03] MEDS: Folic Acid 1 MG TABLET PO SCH (08:34)
[2017-01-03] MEDS: Gabapentin 300 MG CAPSULE PO SCH ×3 (08:34→20:36)
--- NOTE | 2017-01-03 09:08 | Internal Med Progress Note ---
<Napoleon Aldrich - Last Filed: 01/03/17 11:58> Date of Encounter: 01/03/17 Time of Encounter: 09:08 - Assessment and plan (1) Sepsis Current Visit: Yes Status: Acute Assessment and plan: Patient admitted form [facility] after having recorded temperature of 102F. Lactic Acid 2.4 on admisson, dropped to 1.5 following antibiotics and fluids Hypotension 89/53 on admission WBC 34.9 on admission, Known baseline 19 prior to admission. CXR revealed mild hazy ground glass opacities in right upper lobe and irregular ill defined spiculation in left upper concerning for spiculated mass. Patient received 2L normal saline bolus in ED Started on Broad spectrum antibiotics Urine antigens for Legioinella and S. pneumonia returned negative Influenza swab negative. Fevere of 100.5 overnight, nontachycardic, nontachypneic, bp stable, WBC increased to 32.6 from 31.8 yesterday. Urine culture negative. Echo revealed EF 60%, normal LV systolic and diastolic function, normal LV, mildly dilated LA, mild mitral regurgitation, no evidence of pulm htn, no evidence of valvular vegetations -Blood cultures no growth to date -Sputum cultures pending -If develops notable fevers again, redraw blood cultures. -If has diarrhea, consider c.diff testing. -Continue Vancomycin d3 and Zosyn d3, Levaquin d3 -Continue monitoring vitals and labs. -Tylenol prn for fever -IV fluids discontinued -ID consulted -Oncology consulted -Blood smear ordered Patient is at high risk due to her history of immunosuppression due to treatment with chem and radiation for her cancer. Qualifiers: Sepsis type: sepsis due to unspecified organism Qualified Code(s): A41.9 - Sepsis, unspecified organism (2) Healthcare-associated pneumonia Current Visit: Yes Status: Acute Assessment and plan: Due to history of immunosuppression due to cancer treatments and close interactions with medical community, patient's pneumonia based on imaging is likely HCAP vs CAP based on new guidelines. CXR revealed CXR revealed mild hazy ground glass opacities in right upper lobe and irregular ill defined spiculation in left upper concerning for spiculated mass. WBC 32.6, increased from 31.8 yesterday. -Continue monitoring labs and vitals -Sputum culture pending -Continue broad spectrum antibiotics per plan in assessment above. Vanc and Zosyn d3, Levaquin d3 (3) Anemia Current Visit: Yes Status: Acute Assessment and plan: Hb 7.3 this morning Required pRBC transfusion x1 01/01/17 due to Hb 6.3 Known history of severe iron deficiency anemia, had recently received iron transfusion. Continue monitoring labs Qualifiers: Anemia type: iron deficiency Iron deficiency anemia type: unspecified iron deficiency Qualified Code(s): D50.9 - Iron deficiency anemia, unspecified (4) Hyponatremia Current Visit: Yes Status: Chronic Assessment and plan: Patient determined to have sodium 129 on admission. Sodium 132 on labs this morning. Patient has known chronic hyponatremia. Continue to monitor labs. Discontinued IV fluids. (5) Adenocarcinoma of left lung, stage 4 Current Visit: Yes Status: Chronic Assessment and plan: Known history of primary adenocarcinoma of left lung stage 4 with mets to spine and pelvis. Currently undergoing palliative chemoradiation at [facility]. -Oncology consulted -Blood smear ordered. (6) Cancer related pain Current Visit: Yes Status: Chronic Assessment and plan: Pain secondary to mets to pelvis, and pain of legs bilaterally resulting in her now wheelchair bound status. Conitnue home pain medication regimenL 75 mcg fentanyl patches q48 and 4mg hydromorphone po q2-3hr prn. -Social work for placement, currently wheelchair bound. (7) Bone metastasis Current Visit: Yes Status: Chronic Assessment and plan: Per plan in assessment above. (8) Hypomagnesemia Current Visit: Yes Status: Acute Assessment and plan: Magnesium 1.5 on admission, 1.4 this morning, -4 mg magnesium IV ordered. -repeat in the morning. (9) DVT (deep venous thrombosis) Current Visit: Yes Status: Resolved Assessment and plan: Known history of DVT -Continue Eliquis. Qualifiers: DVT location: lower extremity Affected thrombotic vein of extremity: unspecified vein of extremity Chronicity: unspecified Laterality: left Qualified Code(s): I82.402 - Acute embolism and thrombosis of unspecified deep veins of left lower extremity (10) Abnormal finding on imaging Current Visit: Yes Status: Acute Assessment and plan: Patient found to have small focus of abnormal attenuation in the right thalamus that is nonspecific and possibly artifact. Given patient history of lung cancer brain metastases cannot be ruled out. She might need MRI as outpatient for further evaluation per the discretion of her oncologist (11) Diabetes mellitus type 2 in nonobese Current Visit: Yes Status: Acute Assessment and plan: Continue with ADA diet and low dose insulin sliding scale. Continue monitoring labs. (12) Protein-calorie malnutrition, moderate Current Visit: Yes Status: Acute - Subjective Interval history: Patient reports no concern overnight other than continued night sweats. She is noted tagain to be completely drenched on her shirt. She continues to report feeling better overall. Patient denies fevers, chills, nausea, vomiting, headache, changes in vision or hearing, chest pain, shortness of breath, hemoptysis, abdominal pain, changes in bowels or bladder, or loss of sensation. Continues to have chronic leg pain and lower extremity weakness which was present before admission. - Constitutional Vitals: Temp Pulse Resp BP Pulse Ox 99.1 F 76 20 124/64 95 01/03/17 07:23 01/03/17 07:23 01/03/17 07:23 01/03/17 08:21 01/03/17 07:23 General appearance: Present: cooperative, A&O X 3, pleasant, no acute distress, answers questions appropriately Exam: shirt drenched in sweat but no diaphoresis of face or forehead and skin not clammy or cold. - Head Head exam: Present: atraumatic, normal inspection, normocephalic - Eye Eye exam: Present: EOMI, normal appearance - ENT ENT exam: Present: mucous membranes moist, normal exam, normal oropharynx - Neck Neck exam general surgery: Present: full ROM, normal inspection, supple, trachea midline. Absent: tenderness - Respiratory Respiratory exam: Present: CTAB. Absent: rales, respiratory distress, rhonchi, wheezes, tachypnea Additional comments: RIght upper chest port clean dry without erythema - Cardiovascular Cardiovascular exam: Present: RRR, +S1, +S2. Absent: diastolic murmur, JVD, systolic murmur - GI/Abdominal GI/Abdominal exam: Present: normal bowel sounds, soft. Absent: distended, guarding, tenderness - Extremities Exam Extremities exam: Present: full ROM, normal inspection, tenderness, warm, radial pulses palpable and symmetrical. Absent: pedal edema Additional comments: Upper ext exam normal. Lower ext exam with 4/5 strength bilaterally, pain with movement and tenderness to palpation - Neurological Exam Neurological exam: Present: alert, CN II-XII intact, oriented X3, no focal deficits, strengths equal and symetr throughout. Absent: motor sensory deficit , facial droop, speech deficit - Psychiatric Psychiatric exam: Present: normal affect, normal mood - Skin Skin exam: Present: diaphoretic, intact, normal color, warm. Absent: rash Internal Medicine: Result - Labs CBC & Chem 7: 01/03/17 04:00 01/03/17 04:00 Labs: Short CBC 01/03/17 Range/Units 04:00 WBC 32.6 H* (4.3-11.1) K/mcL Hgb 7.3 L (11.5-15.4) g/dL Hct 24.4 L (35.3-44.9) % Plt Count 573 H (140-400) K/mcL Neutrophils # 29.6 H (1.6-8.9) K/mcL BMP 01/03/17 04:00 Sodium 132 L Potassium 4.3 Chloride 100 Carbon Dioxide 23 BUN 9 Creatinine 0.58 Glucose 143 H Calcium 8.3 L - ABG Interpretation ABG results: PT/INR, D-dimer PT 19.6 Seconds (9.4-12.1) H 12/31/16 17:50 Consult Discharge Plan - Plan Referrals: Judy Montez MD [Partnered Physician] - 01/10/17 9:30 am Karen Jones CNP [Primary Care Provider] - <Pierre Alex - Last Filed: 01/03/17 15:57> Date of Encounter: 01/03/17 - Constitutional Vitals: Temp Pulse Resp BP Pulse Ox 99.3 F 82 16 112/63 99 01/03/17 15:39 01/03/17 15:39 01/03/17 15:39 01/03/17 15:39 01/03/17 15:39 Internal Medicine: Result - Labs CBC & Chem 7: 01/03/17 04:00 01/03/17 04:00 Labs: Short CBC 01/03/17 Range/Units 04:00 WBC 32.6 H* (4.3-11.1) K/mcL Hgb 7.3 L (11.5-15.4) g/dL Hct 24.4 L (35.3-44.9) % Plt Count 573 H (140-400) K/mcL Neutrophils # 29.6 H (1.6-8.9) K/mcL BMP 01/03/17 04:00 Sodium 132 L Potassium 4.3 Chloride 100 Carbon Dioxide 23 BUN 9 Creatinine 0.58 Glucose 143 H Calcium 8.3 L - ABG Interpretation ABG results: PT/INR, D-dimer PT 19.6 Seconds (9.4-12.1) H 12/31/16 17:50 - Attending Attestation I have independently seen and examined this patient on 01/03/17, I have reviewed plan of care with patient and resident physician 56 YO F with PMH of Stage IV Lung adenocarcinoma with bone mets, on palliative chemo-radiation. She also has Iron deficiency anemia, DM, Chronic pain She is admitted and being managed for severe sepsis with hypotension on admission, lactic acidosis Sepsis is secondary to HCAP. She continues to have fever and leukocytosis is worsening her cultures are negative till date-Blood/Urine/Sputum Physical exam: She is afebrile, tachycardic, not in distress. HShe is chronically ill-looking and cachectic. She speaks full sentences and denies any pain. Oral mucosa is moist, she is not cyanotic, she has RML rhonchi. She has a nodular lesion on her back. Spine examination is unremarkable. She has no pedal edema Labs and Imaging reviewed A/P *Severe Sepsis secondary to HCAP *HCAP *lactic acidosis *HCAP *Iron deficiency anemia: *Moderate-Severe protein calorie malnutrition *Stage 4 Lung CA *Hypomagnessemia *DM *chronic pain *Chronic hyponatremia *Hx of DVT -Continue current antibiotics, follow sputum cultures -Consult Onc. -Leukocytosis is severe, rule out other causes like C.diff or hematologic process. EMR shows patient has been having leukocytosis since 09/2016 with her baseline around 17,000. -Replace mag with 4g of Magnesium -ID was consulted, pending review -Monitor Vanco trough -Hyponatremia is chronic Rest of details as in resident physician's documentation
--- NOTE | 2017-01-03 09:22 | Venous Imaging Report ---
LE Venous Duplex Patient Name:Karen Coker Order Number:[id number] Procedure Date:12/31/2016 Date:1960ge:56 yrs Gender:Female Location:[facility] ED Room #: ED2 Stockbroking Dealer:Karen Dangelo RDCS Referring MD:Akin Alejandre DO house mover:Karen Jones NP Reading MD:Garland Johnson MD Primary Indications:Swelling Secondary Indications: Risk Factors Yes/No Anticoagulants Hx of Chemotherapy Impressions: Normal left lower extremity deep and superficial venous exam. Normal contralateral common femoral vein. Recommendations: Test completed on 12/31/2016 at 7:25:00 pm. Critical findings reported to Dr. Ochoa-ED- in person at 7:25:00 pm on 12/31/2016 by Karen Dangelo RDCS. Lower Extremity Venous Duplex Side Vein Compress Spontaneous Flow Augment Diameter (cm) Depth (cm) Left Distal Iliac Normal Yes Phasic Yes Left Common Femoral Normal Yes Phasic Yes Left Superficial Femoral Normal Yes Phasic Yes Left Popliteal Normal Yes Phasic Yes Left Posterior Tibial Normal Yes Phasic Yes Left Peroneal Normal Yes Phasic Yes Left Saphenofemoral [place]unction Normal Yes Phasic Yes Left Great Saphenous Normal Yes Phasic Yes Left Lesser Saphenous Normal Yes Phasic Yes Right Common Femoral Normal Yes Phasic Yes Updated by Garland Johnson MD on 01/03/2017 9:17:42 AM electronically signed on 01/03/2017 9:18:11 AM with status of Final
--- NOTE | 2017-01-03 10:31 | Electrocardiograph Report ---
[place] [id number] Test Date: 2016-12-31 Pat Name: Karen Coker Department: 102 Room: 2A Gender: F Director Ambulatory: Humberto : 1960 Requested By: Akin Alejandre Order Number: [id number] Reading MD: Luc Woods MD Measurements Intervals [place] Rate: 87 P: 60 [place]: 117 QRS: 38 QRSD: 79 T: 66 QT: 305 QTc: 350 Interpretive Statements SINUS RHYTHM WITH SHORT [place] INTERVAL BASELINE ARTIFACT Electronically Signed On 01-03-2017 10:29:38 EDT by Luc Woods MD
[2017-01-03] MEDS: Insulin LISPRO 300 UNITS/3 ML VIAL SQ SCH ×4 (10:32→23:42)
[2017-01-03] MEDS: Levofloxacin 750 MG/150 ML 750 MG/150 ML BAG IVPB SCH (10:50)
--- NOTE | 2017-01-03 12:10 | Oncology Inp Consult Note ---
Date of Encounter: 01/03/17 Time of Encounter: 11:00 Assessment and Plan (1) Leucocytosis Status: Acute Assessment and plan: I personally reviewed her blood smear, and there was not evidence of blasts or other immature forms suggestive of a primary malignant bone marrow disorder ( e.g secondary AML). Her blood smear shows predominant segmented WBC, with some bands and occasional metamyelocytes; bands showed dohle bodies and toxic granules, what would favor a reactive process. There was evidence of thrombocytosis, what would favor too a reactive process. The differential diagnosis in her case included an underlying infectious process ( such as HCAP in view of her CT findings). UTI would be another consideration, specially taking in consideration the associated left sided hydronephrosis, but the absence of left flank pain, significant pyuria ( only 5-15 HPF) and negative urine cultures, makes this diagnosis less likely. Another potential explanation would be cancer related leucocytosis/neuthrophilia secondary to cytokine release from the tumor. She denies any recent ingestion of steroids and this was confirmed by our inpatient pharmacy. I'd recommend an ID consult. Today is day 4 of empiric IV antibiotics. If her cultures remain negative, and clinically she does not present findings suggestive of a source of infection, a short course of antibiotic therapy ( ? 5 days) could be considered after discussion with ID. Qualifiers: Leukocytosis type: other Qualified Code(s): D72.828 - Other elevated white blood cell count (2) Fever Status: Acute Assessment and plan: Again, as discussed in the above section, her fever could be related to the above mentioned factors ( infection, cancer related fever). Please discuss with ID the consideration for a short course of antibiotics and symptomatic management of her fever with tylenol PRN ( no NSAIDS in view that she is taking apixaban). Qualifiers: Fever type: unspecified Qualified Code(s): R50.9 - Fever, unspecified (3) Adenocarcinoma of left lung, stage 4 Problem details: with bone metastases Status: Chronic Assessment and plan: She is currently on day 15 cycle 6 of palliative Nivolumab, in fact she is due for cycle 7 today. She is progressing on Nivolumab, so she will need to see her primary oncologist at the office shortly after discharge, to discuss options of third line therapy for management of her stage IV cancer. I discussed goals of care today, and she expressed clear her decision to pursue further therapy. - She is due for palliative radiation today, please inform radiation oncologist ( Dr. Martins) to assess whether her radiation treatments need to be resumed as inpatient. (4) Diabetes mellitus type 2 in nonobese Status: Acute Assessment and plan: Her BGs remain within acceptable values. Management as per primary team. (5) DVT (deep venous thrombosis) Status: Resolved Assessment and plan: - There is still some edema in her left lower extremity, probably due to post thrombotic syndrome in view that that her doppler US from 12/31/16 showed not evidence of residual DVT. - Continue apixaban 5 mg BID. Qualifiers: DVT location: lower extremity Affected thrombotic vein of extremity: unspecified vein of extremity Chronicity: unspecified Laterality: left Qualified Code(s): I82.402 - Acute embolism and thrombosis of unspecified deep veins of left lower extremity - Data of Consult Requesting Physician: Pierre Alex MD Primary Care Provider: Karen Jones CNP - Consult Narrative Reason for consult: Worsening leucocytosis. History of present illness: Ms. Coker is a 56 year old female with history of metastatic adenocarcinoma of likely lung origen, history of DM, DVT ( currently on full anticoagulation: apixaban) admitted due to sepsis-like picture consisting of fever, chills, worsening leucocytosis and lactic acidosis. Ms. Coker was seen by her primary oncologist Dr. Montez on 12/31/16 and referred to the ED due to persistent fever , and leucocytosis. She reports a history of fever and chills going on for several weeks. Reports that her fever does not have an specific pattern, and reports not being taken tylenol or NSAIDS at home for symptomatic management. Her labs revealed that on August 27, 2016 her WBC counts were within normal values, then since October 04, 2016 there has been a gradual increase of her WBC counts, with a peak on 12/20/16. Since being admitted, her WBC counts have continued to raise in despite of symptomatic improvement, and management with broad spectrum IV antibiotics. She was admitted on 12/31/16, and has experienced fever in a daily basis, last episode febrile on 01/02: 1005 F. Upon review of her records, I noticed that from the period of 04/02/16 and may 19, 2016 she experienced moderate degree of leucocytosis ( peak on 04/15/16 with 30.5 K) with counts returning to normal by 06/04/16. During her current admission her cultures have not shown conclusive evidence of infection, although her CT chest from 12/01/16 revealed patchy ground glass attenuation in the right upper lobe reported as likely infectious or inflammatory in etiology. Regarding her cancer history, she is due today 01/03/17 for cycle 7 of nivolumab that is administered as palliative chemotherapy, second line. Her disease progressed after 6 cycles of palliative chemotherapy ( first carbo/taxol/avastin , and for the last couple of cycles taxol was substituted for Alimta). She completed cycle 6 of carbo/alimta on 08/27/16. She was started on second line nivolumab on 10/01/16.. Her CT scans from 12/01/16 were consistent with disease progression, and her case was discussed in our weekly tumor board, with considerations for third line therapy with either single agent gemzar or combination chemotherapy with taxotere/ramucirumab. I personally reviewed her CT scan from 12/01/16 that revealed findings consistent with disease progression, including extension and enlargement of the left upper lobe nodule and slight incresase in size of the left iliac bone metastasis, as well as probable new L3-L4 bone metastasis. She denies pain at the level of her lumbar or thoracic spine. Her CT showed too increase in the size of retroperitoneal mass, now 7.5 x 7 cm ( previously 2.3 cm) what is causing left side ureter compression and hydronephrosis, interestingly she denies significant pain at that level, complaining of pain in the opposite flank/hip, what she attributes to referred pain. In despite of the hydronephrosis, her renal function remains within normal parameters. While discussing her prior cancer history, she expressed a strong determination to pursue further therapy. She reports that right prior to admission, she used to be independent at home, although with significant restrictions and limitations due to weakness and pain. She reports not being able to ambulate, but being independent with transfers from bed to her wheelchair, and being independent to go to the toilet and with feeding. Denies any recent fall. She was started on palliative radiation prior to admission ( she has received 2 prior courses of palliative radiation so far , this being number 2). She reports receiving 3 sessions of radiation therapy ( since last tuesday), with number 4th being due today. Past Med Surg Social Fam HX - Past Medical History Medical history: cancer (metastatic lung), diabetes, GERD, hypertension Psychiatric history: no psych history - Past Surgical History Surgical History: cholecystectomy - Social History Smoking Status: Former smoker Smokeless Tobacco Status: No Alcohol use: none Drug use: none - Family History Mother Age: 85 Living Status: Still Living Hx Family Cardiac Disorders: Yes Medications and Allergies Baclofen [Lioresal] 10 mg PO TID 04/02/16 [History] Omeprazole 40 mg PO DAILY 04/02/16 [History] Zolpidem [Ambien] 10 mg PO HS PRN 04/02/16 [History] Loratadine [Claritin] 10 mg PO DAILY #30 tablet 05/07/16 [Rx] Magic Mouthwash [Magic Mouthwash BLM] 10 ml PO QID PRN #240 ml 05/07/16 [Rx] Ondansetron HCl [Zofran] 4 mg PO Q6H PRN #30 tablet 05/07/16 [Rx] Prochlorperazine Maleate [Compazine] 10 mg PO Q6HR PRN #60 tablet 05/07/16 [Rx] Lidocaine/Prilocaine CREAM [Emla] 5 gm TP PRN PRN #1 tube 05/19/16 [Rx] Ferrous Sulfate [Iron] 325 mg PO DAILY #30 tablet 09/21/16 [Rx] Dexamethasone [Decadron] 1 mg PO QID PRN 10/04/16 [History] Polyethylene Glycol 3350 [MiraLAX] 17 gm PO DAILY PRN 10/04/16 [History] metFORMIN [Glucophage] 500 mg PO BIDWM 10/04/16 [History] Hydromorphone HCl [Dilaudid] 4 mg PO Q2-3H PRN 10/14/16 [History] FentaNYL PATCH [Duragesic] 75 mcg TD Q48H 10/20/16 [History] Gabapentin [Neurontin] 300 mg PO TID #90 capsule 11/22/16 [Rx] Apixaban [Eliquis] 5 mg PO BID #60 tablet 12/06/16 [Rx] Docusate Sodium [Colace] 100 mg PO BID #60 cap 12/06/16 [Rx] GuaiFENesin ER [Mucinex] 600 mg PO BID #21 tbbp.12hr 12/06/16 [Rx] Pantoprazole Sodium [Protonix] 40 mg PO DAILY #30 tablet. 12/30/16 [Rx] Folic Acid 1 mg PO DAILY #30 tablet 12/31/16 [Rx] 3 Allergy/AdvReac Type Severity Reaction Status Date / Time menthol Allergy See Verified 12/31/16 19:54 Comments meperidine Allergy See Verified 12/31/16 19:54 Comments methyl salicylate Allergy See Verified 12/31/16 19:54 Comments Psyllium [From Hydrocil] Allergy See Verified 12/31/16 19:54 Comments codeine AdvReac Muscle Pain Verified 12/31/16 19:53 Constitutional: Present: fatigue, fever(s), malaise, night sweats, weakness, weight loss. Absent: frequent falls, headache(s) Eyes: Absent: diplopia, discharge Cardiovascular: Absent: chest pain, chest pain at rest, chest pain with activity , dyspnea, leg ulcers, palpitations Respiratory: Present: cough (Occasional cough.). Absent: hemoptysis, dyspnea on exertion, wheezing, pain on inspiration, chest congestion, excessive phlegm production Gastrointestinal: Absent: abdominal pain, change in bowel habits, coffee ground emesis, constipation, diarrhea, hematemesis, hematochezia Genitourinary: Absent: flank pain, metrorrhagia Musculoskeletal: Present: muscle weakness. Absent: back pain Integumentary: Absent: change in pigmentation, photosensitivity, pruritus, rash , jaundice Neurological: Present: weakness. Absent: abnormal speech, behavioral changes, focal weakness, frequent falls Psychiatric: Absent: auditory hallucinations, panic attacks, visual hallucinations Endocrine: Present: fatigue. Absent: polyphagia Hematologic/Lymphatic: Absent: easy bleeding, easy bruising Allergic/Immunologic: Absent: throat swelling, wheezing Oncology - Exam - Constitutional Vitals: Temp Pulse Resp BP Pulse Ox 99.6 F 78 20 100/57 97 01/03/17 10:48 01/03/17 10:48 01/03/17 10:48 01/03/17 10:48 01/03/17 10:48 - Head Head exam: Absent: normal inspection, normocephalic - Eye Eye exam: Present: EOMI, normal appearance. Absent: periorbital swelling, periorbital tenderness - ENT ENT exam: Present: normal exam, normal external ear exam - Neck Neck exam: Present: normal inspection. Absent: lymphadenopathy - Respiratory Respiratory exam: Present: CTAB. Absent: chest wall tenderness, decreased breath sounds, prolonged expiratory phase, rales, respiratory distress - Cardiovascular Cardiovascular exam: Present: RRR. Absent: diastolic murmur, gallop, irregular rhythm - GI/Abdominal GI/Abdominal exam: Present: normal bowel sounds. Absent: distended, guarding, organomegaly, rebound - Extremities Exam Extremities exam: Present: normal capillary refill. Absent: joint swelling, tenderness (left leg edema, but not tenderness.) - Back Exam Back exam: Absent: paraspinal tenderness, rash noted (no cervical, thoracic or lumbar tenderness to palpation. ), vertebral tenderness - Neurological Exam Neurological exam: Present: alert, altered, CN II-XII intact, oriented X3, reflexes normal. Absent: no focal deficits (motor: 5/5 in upper extremities. 3/ 5 in both lower extremities, being able to move both extremties against gravity , although unble to hold it in that position.) - Psychiatric Psychiatric exam: Present: normal affect. Absent: anxious, flat affect - Skin Skin exam: Present: intact, normal color. Absent: diaphoretic, petechiae Oncology - Results Labs: Short CBC 01/03/17 Range/Units 04:00 WBC 32.6 H* (4.3-11.1) K/mcL Hgb 7.3 L (11.5-15.4) g/dL Hct 24.4 L (35.3-44.9) % Plt Count 573 H (140-400) K/mcL Neutrophils # 29.6 H (1.6-8.9) K/mcL BMP 01/03/17 04:00 Sodium 132 L Potassium 4.3 Chloride 100 Carbon Dioxide 23 BUN 9 Creatinine 0.58 Glucose 143 H Calcium 8.3 L Consult Discharge Plan - Plan Referrals: Karen Jones, [employer] [Primary Care Provider] -
[2017-01-03] MEDS: Magnesium Sulfate 1 GM in D5% in Water 100 ML IVPB SCH ×3 (12:13→19:27)
[2017-01-03] MEDS ORDERED: Aminoglycoside Consult 1 EACH MC ONE (12:54)
[2017-01-04] MEDS: *HR* HYDROmorphone 4 MG TABLET PO PRN ×7 (00:06→23:08)
[2017-01-04] MEDS: Magnesium Sulfate 1 GM in D5% in Water 100 ML IVPB SCH (00:06)
[2017-01-04] MEDS: Piperacillin/Tazobactam 3.375 GM in D5% in Water (Mini-Bag+) 100 ML IVPB SCH (04:15)
[2017-01-04 05:09] LABS: Basophils # 0.1 K/mcL (0.0-0.2); Basophils % 0.3 %; Eosinophils % 0.1 %; Hematocrit 21.4 % (35.3-44.9); Hemoglobin 6.6 g/dL (11.5-15.4); Immature Granulocytes % 1.9 % (0-4); Lymphocytes # 0.5 K/mcL (0.6-4.6); Lymphocytes % 1.6 %; Mean Corpuscular HGB Conc 30.8 g/dL (31.6-35.5); Mean Corpuscular Hemoglobin 25.8 pg (28.0-33.3); Mean Corpuscular Volume 83.6 fL (83.0-100.0); Mean Platelet Volume 8.6 fL (9.4-12.4); Monocytes # 1.5 K/mcL (0.0-1.3); Monocytes % 4.7 %; Platelet Count 495 K/mcL (140-400); Red Blood Count 2.56 M/mcL (3.82-4.97); Red Cell Distribution Width 19.8 % (11.5-14.5); Segmented Neutrophils % 91.4 %
[2017-01-04 05:24] LABS: Neutrophils # 28.5 K/mcL (1.6-8.9)
[2017-01-04 05:25] LABS: Alanine Aminotransferase 13 Units/L (0-55); Albumin/Globulin Ratio 0.4 (1.1-2.2); Alkaline Phosphatase 74 Units/L (38-126); Aspartate Amino Transferase 17 Units/L (5-34); BUN/Creatinine Ratio 15 (6-26); Bilirubin,Total 0.5 mg/dL (0.2-1.2); Blood Urea Nitrogen 9 mg/dL (7-20); Carbon Dioxide 23 mEq/L (19-29); Chloride 96 mEq/L (98-109); Globulin 3.5 g/dL (2.4-3.5); Glucose 110 mg/dL (70-99); Magnesium 1.8 mg/dL (1.6-2.6); Osmolality,Calculated 263 (280-300); Potassium 4.4 mEq/L (3.5-4.5); Sodium 127 mEq/L (136-145); eGFR For African Americans > 60 (> 60); eGFR For Non-African Americans > 60 (> 60)
[2017-01-04 05:27] LABS: Albumin 1.5 g/dL (3.5-5.0)
[2017-01-04] MEDS: Pantoprazole 40 MG VIAL IVP SCH (05:56)
[2017-01-04] MEDS: Insulin LISPRO 300 UNITS/3 ML VIAL SQ SCH ×4 (08:15→21:13)
[2017-01-04] MEDS: APIXABAN 5 MG TABLET PO SCH ×2 (08:16→19:35)
[2017-01-04] MEDS: Gabapentin 300 MG CAPSULE PO SCH ×3 (08:16→19:35)
[2017-01-04] MEDS: Baclofen 10 MG TABLET PO SCH ×3 (08:16→19:35)
[2017-01-04] MEDS: Folic Acid 1 MG TABLET PO SCH (08:16)
[2017-01-04] MEDS: Levofloxacin 750 MG/150 ML 750 MG/150 ML BAG IVPB SCH (08:16)
--- NOTE | 2017-01-04 08:30 | Internal Med Progress Note ---
<Napoleon Aldrich - Last Filed: 01/04/17 10:29> Date of Encounter: 01/04/17 Time of Encounter: 08:30 - Assessment and plan (1) Sepsis Current Visit: Yes Status: Acute Assessment and plan: Patient admitted form [facility], [place] after having recorded temperature of 102F. Lactic Acid 2.4 on admisson, dropped to 1.5 following antibiotics and fluids Hypotension 89/53 on admission WBC 34.9 on admission, Known baseline 19 prior to admission. CXR revealed mild hazy ground glass opacities in right upper lobe and irregular ill defined spiculation in left upper concerning for spiculated mass. Patient received 2L normal saline bolus in ED Started on Broad spectrum antibiotics Urine antigens for Legioinella and S. pneumonia returned negative Influenza swab negative. Urine culture negative. Echo revealed EF 60%, normal LV systolic and diastolic function, normal LV, mildly dilated LA, mild mitral regurgitation, no evidence of pulm htn, no evidence of valvular vegetations Sputum cultures mixed serg, moderate wbc. Blood smear 01/03/17 revealed reactive changes, no findings suggestive of new or active malignancy Fever of 100.4 overnight, nontachycardic, nontachypneic, bp stable but low normal, WBC increased to 31.2, decreased from 32.6 yesterday. Blood cultures 12/31/16 no growth to date -additional blood culutres ordered 01/04/17 -If continues to develop fevers, blood cultures draws -If has diarrhea, consider c.diff testing. -Stop Vancomycing d4, Zosyn d4. Continue Levaquin d4. -Start Cefepime d0 and Linezolid d0 -Continue monitoring vitals and labs. -Tylenol prn for fever -IV fluids discontinued -ID consulted, called 01/04/17 unable to see patient due to complexity of case. Transfer option was discussed with patient who wishes at this moment to continue medical treatment at [place]. -Oncology on board, recommended ID consult and continuance of therapy Patient is at high risk due to her history of immunosuppression due to treatment with chem and radiation for her cancer. Qualifiers: Sepsis type: sepsis due to unspecified organism Qualified Code(s): A41.9 - Sepsis, unspecified organism (2) Healthcare-associated pneumonia Current Visit: Yes Status: Acute Assessment and plan: Due to history of immunosuppression due to cancer treatments and close interactions with medical community, patient's pneumonia based on imaging is likely HCAP vs CAP based on new guidelines. CXR revealed CXR revealed mild hazy ground glass opacities in right upper lobe and irregular ill defined spiculation in left upper concerning for spiculated mass. SPutum cultures mixed serg, moderate wbc WBC 31.2, down from 32.6 yesterday. -Continue monitoring labs and vitals -Continue broad spectrum antibiotics per plan in assessment above. Vanc and Zosyn d4, Levaquin d4 (3) Anemia Current Visit: Yes Status: Acute Assessment and plan: Hb 6.6 this morning, from 7.3 yesterday Required pRBC transfusion x1 01/01/17 due to Hb 6.3 Known history of severe iron deficiency anemia, had recently received iron transfusion. Additional pRBC transfusion ordered 01/04/17 this morning. Continue monitoring labs Qualifiers: Anemia type: iron deficiency Iron deficiency anemia type: unspecified iron deficiency Qualified Code(s): D50.9 - Iron deficiency anemia, unspecified (4) Hyponatremia Current Visit: Yes Status: Chronic Assessment and plan: Patient determined to have sodium 129 on admission. Sodium 127 on labs this morning, from 132 yesterday Patient has known chronic hyponatremia. Continue to monitor labs. (5) Adenocarcinoma of left lung, stage 4 Current Visit: Yes Status: Chronic Assessment and plan: Known history of primary adenocarcinoma of left lung stage 4 with mets to spine and pelvis. Currently undergoing palliative chemoradiation at [facility]. -Oncology on board (6) Cancer related pain Current Visit: Yes Status: Chronic Assessment and plan: Pain secondary to mets to pelvis, and pain of legs bilaterally resulting in her now wheelchair bound status. Conitnue home pain medication regimenL 75 mcg fentanyl patches q48 and 4mg hydromorphone po q2-3hr prn. -Social work for placement, currently wheelchair bound. (7) Bone metastasis Current Visit: Yes Status: Chronic Assessment and plan: Per plan in assessment above. (8) Hypomagnesemia Current Visit: Yes Status: Acute Assessment and plan: Magnesium 1.5 on admission, 1.8 this morning, received 6mg magnesium replacement since admission. (9) DVT (deep venous thrombosis) Current Visit: Yes Status: Resolved Assessment and plan: Known history of DVT -Continue Eliquis. Qualifiers: DVT location: lower extremity Affected thrombotic vein of extremity: unspecified vein of extremity Chronicity: unspecified Laterality: left Qualified Code(s): I82.402 - Acute embolism and thrombosis of unspecified deep veins of left lower extremity (10) Abnormal finding on imaging Current Visit: Yes Status: Acute Assessment and plan: Patient found to have small focus of abnormal attenuation in the right thalamus that is nonspecific and possibly artifact. Given patient history of lung cancer brain metastases cannot be ruled out. She might need MRI as outpatient for further evaluation per the discretion of her oncologist (11) Diabetes mellitus type 2 in nonobese Current Visit: Yes Status: Acute Assessment and plan: Continue with ADA diet and low dose insulin sliding scale. Continue monitoring labs. (12) Protein-calorie malnutrition, severe Current Visit: Yes Status: Acute Assessment and plan: Consulted Nutrition for po recommendations. - Subjective Interval history: Patient reports no concerns overnight, still having continued night sweats. Her shirt looks less drenched than yesterday but is still moisty. Patient reports she feels about the same. Patient denies fevers, chills, nausea, vomiting, headache, changes in vision or hearing, chest pain, shortness of breath, hemoptysis, abdominal pain, changes in bowels or bladder, or loss of sensation. Continues to have chronic leg pain and lower extremity weakness which was present before admission. - Constitutional Vitals: Temp Pulse Resp BP Pulse Ox 98.1 F 86 18 127/65 100 01/04/17 07:50 01/04/17 07:50 01/04/17 07:50 01/04/17 07:50 01/04/17 07:50 General appearance: Present: cooperative, A&O X 3, pleasant, no acute distress, answers questions appropriately - Head Head exam: Present: atraumatic, normal inspection, normocephalic - Eye Eye exam: Present: EOMI, normal appearance - ENT ENT exam: Present: mucous membranes moist, normal exam, normal oropharynx - Neck Neck exam general surgery: Present: full ROM, normal inspection, supple, trachea midline. Absent: tenderness - Respiratory Respiratory exam: Present: CTAB. Absent: rales, respiratory distress, rhonchi, wheezes, tachypnea - Cardiovascular Cardiovascular exam: Present: RRR, +S1, +S2. Absent: diastolic murmur, JVD, systolic murmur - GI/Abdominal GI/Abdominal exam: Present: normal bowel sounds, soft. Absent: distended, guarding, tenderness - Extremities Exam Extremities exam: Present: normal capillary refill, normal inspection, tenderness, warm, radial pulses palpable and symmetrical. Absent: pedal edema Additional comments: Upper ext exam normal. Lower ext exam with 4/5 strength bilaterally, pain with movement and tenderness to palpation - Neurological Exam Neurological exam: Present: alert, CN II-XII intact, oriented X3, no focal deficits, strengths equal and symetr throughout. Absent: motor sensory deficit , facial droop, speech deficit - Psychiatric Psychiatric exam: Present: normal affect, normal mood - Skin Skin exam: Present: diaphoretic, intact, normal color, warm. Absent: rash Additional comments: Right upper chest port clean dry intact without erythema. Internal Medicine: Result - Labs CBC & Chem 7: 01/04/17 04:08 01/04/17 04:08 Labs: Short CBC 01/03/17 01/04/17 Range/Units 04:00 04:08 WBC 32.6 H* 31.2 H* (4.3-11.1) K/mcL Hgb 7.3 L 6.6 L (11.5-15.4) g/dL Hct 24.4 L 21.4 L (35.3-44.9) % Plt Count 573 H 495 H (140-400) K/mcL Neutrophils # 29.6 H 28.5 H (1.6-8.9) K/mcL BMP 01/04/17 04:08 Sodium 127 L Potassium 4.4 Chloride 96 L Carbon Dioxide 23 BUN 9 Creatinine 0.61 Glucose 110 H Calcium 8.0 L Liver Function 01/04/17 Range/Units 04:08 Total Bilirubin 0.5 (0.2-1.2) mg/dL AST 17 (5-34) Units/L ALT 13 (0-55) Units/L Alkaline Phosphatase 74 (38-126) Units/L Albumin 1.5 L (3.5-5.0) g/dL - ABG Interpretation ABG results: PT/INR, D-dimer PT 19.6 Seconds (9.4-12.1) H 12/31/16 17:50 Consult Discharge Plan - Plan Referrals: Judy Montez MD [Partnered Physician] - 01/10/17 9:30 am Karen Jones, EXTERNAL RELATIONS DIRECTOR [Primary Care Provider] - <Edward Ohara H - Last Filed: 01/04/17 10:34> Date of Encounter: 01/04/17 - Constitutional Vitals: Temp Pulse Resp BP Pulse Ox 98.1 F 86 18 127/65 100 01/04/17 07:50 01/04/17 07:50 01/04/17 07:50 01/04/17 07:50 01/04/17 07:50 Internal Medicine: Result - Labs CBC & Chem 7: 01/04/17 04:08 01/04/17 04:08 Labs: Short CBC 01/04/17 Range/Units 04:08 WBC 31.2 H* (4.3-11.1) K/mcL Hgb 6.6 L (11.5-15.4) g/dL Hct 21.4 L (35.3-44.9) % Plt Count 495 H (140-400) K/mcL Neutrophils # 28.5 H (1.6-8.9) K/mcL BMP 01/04/17 04:08 Sodium 127 L Potassium 4.4 Chloride 96 L Carbon Dioxide 23 BUN 9 Creatinine 0.61 Glucose 110 H Calcium 8.0 L Liver Function 01/04/17 Range/Units 04:08 Total Bilirubin 0.5 (0.2-1.2) mg/dL AST 17 (5-34) Units/L ALT 13 (0-55) Units/L Alkaline Phosphatase 74 (38-126) Units/L Albumin 1.5 L (3.5-5.0) g/dL - ABG Interpretation ABG results: PT/INR, D-dimer PT 19.6 Seconds (9.4-12.1) H 12/31/16 17:50 - Attending Attestation Sepsis secondary to healthcare associated pneumonia present upon admission, not improving on Vanc and Zosyn d4, Levaquin d4 Discontinue vancomycin and Zosyn, start cefepime and linezolid The patient was given the option to be transferred to another facility as we do not have an infectious diseases specialist at the moment in-house but she prefers to switch her antibiotic therapy and stay here for now I examined this patient and my medical decision-making was reviewed with the Resident Physician. I agree with the documented findings, disposition and treatment plan as described except to the extent set forth below.
[2017-01-04] MEDS: Vancomycin 1,250 MG in D5% in Water 250 ML IVPB SCH (08:37)
[2017-01-04] MEDS: Cefepime HCl 2,000 MG in D5% in Water (Mini-Bag+) 100 ML IVPB SCH ×2 (10:53→17:05)
[2017-01-04 16:06] LABS: Bilirubin,Urine Negative (Negative); Blood,Urine Negative (Negative); Clarity,Urine Clear (Clear); Color,Urine Yellow (Yellow); Glucose,Urine (UA) Normal (Normal); Ketones,Urine Negative (Negative); Leukocyte Esterase,Urine Negative (Negative); Nitrite,Urine Negative (Negative); PH,Urine 6.5 pH Units (5.0-8.0); Protein,Urine Negative (Neg-Trace); Specific Gravity,Urine 1.007 (1.010-1.025); Urobilinogen,Urine Normal (Normal)
[2017-01-04] MEDS: *HR* FentaNYL PATCH 75 MCG PATCH TD SCH (23:07)
[2017-01-05] MEDS: *HR* HYDROmorphone 4 MG TABLET PO PRN ×8 (02:48→23:35)
[2017-01-05 05:49] LABS: Basophils % 0.2 %; Red Blood Count 3.08 M/mcL (3.82-4.97)
[2017-01-05 05:50] LABS: Basophils # 0.1 K/mcL (0.0-0.2); Eosinophils # 0.1 K/mcL (0.0-0.6); Eosinophils % 0.2 %; Hematocrit 25.6 % (35.3-44.9); Immature Granulocytes % 2.6 % (0-4); Lymphocytes % 1.5 %; Mean Corpuscular HGB Conc 31.3 g/dL (31.6-35.5); Mean Corpuscular Volume 83.1 fL (83.0-100.0); Mean Platelet Volume 8.4 fL (9.4-12.4); Monocytes # 1.5 K/mcL (0.0-1.3); Monocytes % 5.2 %; Platelet Count 491 K/mcL (140-400); Red Cell Distribution Width 19.8 % (11.5-14.5); Segmented Neutrophils % 90.3 %
[2017-01-05 05:52] LABS: Lymphocytes # 0.4 K/mcL (0.6-4.6); Neutrophils # 26.6 K/mcL (1.6-8.9)
[2017-01-05 06:00] LABS: BUN/Creatinine Ratio 16 (6-26); Blood Urea Nitrogen 9 mg/dL (7-20); Calcium 8.7 mg/dL (8.6-10.8); Carbon Dioxide 25 mEq/L (19-29); Chloride 98 mEq/L (98-109); Glucose 106 mg/dL (70-99); Osmolality,Calculated 265 (280-300); Potassium 4.5 mEq/L (3.5-4.5); Sodium 128 mEq/L (136-145); eGFR For African Americans > 60 (> 60); eGFR For Non-African Americans > 60 (> 60)
[2017-01-05] MEDS: Cefepime HCl 2,000 MG in D5% in Water (Mini-Bag+) 100 ML IVPB SCH ×2 (06:18→17:16)
[2017-01-05 06:49] LABS: Anisocytosis 1+ (Not Present)
[2017-01-05 06:50] LABS: Hypochromasia Present (Not Present)
--- NOTE | 2017-01-05 07:24 | Internal Med Progress Note ---
<Napoleon Aldrich - Last Filed: 01/05/17 10:10> Date of Encounter: 01/05/17 Time of Encounter: 07:23 - Assessment and plan (1) Sepsis Current Visit: Yes Status: Acute Assessment and plan: Patient admitted form [facility] after having recorded temperature of 102F. Lactic Acid 2.4 on admisson, dropped to 1.5 following antibiotics and fluids Hypotension 89/53 on admission WBC 34.9 on admission, Known baseline 19 prior to admission. CXR revealed mild hazy ground glass opacities in right upper lobe and irregular ill defined spiculation in left upper concerning for spiculated mass. Patient received 2L normal saline bolus in ED Started on Broad spectrum antibiotics Urine antigens for Legioinella and S. pneumonia returned negative Influenza swab negative. Urine culture negative. Echo revealed EF 60%, normal LV systolic and diastolic function, normal LV, mildly dilated LA, mild mitral regurgitation, no evidence of pulm htn, no evidence of valvular vegetations Sputum cultures mixed serg, moderate wbc. Blood smear 01/03/17 revealed reactive changes, no findings suggestive of new or active malignancy Afebrile overnight, nontachycardic, nontachypneic, bp stable but low normal, WBC decreased to 29.4 from 31.2 yesterday. Blood cultures 12/31/16 no growth to date -additional blood cultures ordered 01/04/17, apparently not drawn? -If continues to develop fevers, blood cultures draws -If has diarrhea, consider c.diff testing. -Discontinued 01/04/17 Vancomycin d4, Zosyn d4. -Stop Levaquin d5. -Cefepime d1, and Linezolid d1. -Continue monitoring vitals and labs. -Tylenol prn for fever -ID consulted, called 01/04/17 unable to see patient due to complexity of case. Transfer option was discussed with patient who wishes at this moment to continue medical treatment at [place]. -Oncology on board, recommended ID consult and continuance of therapy Patient is at high risk due to her history of immunosuppression due to treatment with chem and radiation for her cancer. Qualifiers: Sepsis type: sepsis due to unspecified organism Qualified Code(s): A41.9 - Sepsis, unspecified organism (2) Healthcare-associated pneumonia Current Visit: Yes Status: Acute Assessment and plan: Due to history of immunosuppression due to cancer treatments and close interactions with medical community, patient's pneumonia based on imaging is likely HCAP vs CAP based on new guidelines. CXR revealed CXR revealed mild hazy ground glass opacities in right upper lobe and irregular ill defined spiculation in left upper concerning for spiculated mass. SPutum cultures mixed serg, moderate wbc WBC 29.4, down from 31.2 yesterday. -Continue monitoring labs and vitals -Continue broad spectrum antibiotics per plan in assessment above. Cefepime d1 , Linezolid d1. Stop Levaquin d5. (3) Anemia Current Visit: Yes Status: Acute Assessment and plan: Hb 8.0 this morning, from 6.6 yesterday Required pRBC transfusion x1 01/01/17 due to Hb 6.3 Required pRBC transfusion x1 01/04/17 due to Hb 6.6. Known history of severe iron deficiency anemia, had recently received iron transfusion. Continue monitoring labs Qualifiers: Anemia type: iron deficiency Iron deficiency anemia type: unspecified iron deficiency Qualified Code(s): D50.9 - Iron deficiency anemia, unspecified (4) Hyponatremia Current Visit: Yes Status: Chronic Assessment and plan: Patient determined to have sodium 129 on admission. Sodium 128 on labs this morning, from 127 yesterday Patient has known chronic hyponatremia. Continue to monitor labs. (5) Adenocarcinoma of left lung, stage 4 Current Visit: Yes Status: Chronic Assessment and plan: Known history of primary adenocarcinoma of left lung stage 4 with mets to spine and pelvis. Currently undergoing palliative chemoradiation at [facility]. -Oncology on board (6) Cancer related pain Current Visit: Yes Status: Chronic Assessment and plan: Pain secondary to mets to pelvis, and pain of legs bilaterally resulting in her now wheelchair bound status. Conitnue home pain medication regimenL 75 mcg fentanyl patches q48 and 4mg hydromorphone po q2-3hr prn. -Social work for placement, currently wheelchair bound. (7) Bone metastasis Current Visit: Yes Status: Chronic Assessment and plan: Per plan in assessment above. (8) Hypomagnesemia Current Visit: Yes Status: Acute Assessment and plan: Magnesium 1.5 on admission, 1.8 this morning, Received 6mg magnesium replacement since admission. -recheck today. (9) DVT (deep venous thrombosis) Current Visit: Yes Status: Resolved Assessment and plan: Known history of DVT -Continue Eliquis. Qualifiers: DVT location: lower extremity Affected thrombotic vein of extremity: unspecified vein of extremity Chronicity: unspecified Laterality: left Qualified Code(s): I82.402 - Acute embolism and thrombosis of unspecified deep veins of left lower extremity (10) Abnormal finding on imaging Current Visit: Yes Status: Acute Assessment and plan: Patient found to have small focus of abnormal attenuation in the right thalamus that is nonspecific and possibly artifact. Given patient history of lung cancer brain metastases cannot be ruled out. She might need MRI as outpatient for further evaluation per the discretion of her oncologist (11) Diabetes mellitus type 2 in nonobese Current Visit: Yes Status: Acute Assessment and plan: Continue with ADA diet and low dose insulin sliding scale. Continue monitoring labs. (12) Protein-calorie malnutrition, severe Current Visit: Yes Status: Acute Assessment and plan: Consulted Nutrition for po recommendations. - Subjective Interval history: Patient has no concerns overnight, though they have hooked her up to continuous oximeter. She reports she has had some sweats, but it has improved significantly from yesterday. She reports feeling about the same overall. She has nasal cannula sitting next to her on her bed and is satting 96-7% on room air, she reports she has not been using the oxygen. Patient denies fevers, chills, nausea, vomiting, headache, changes in vision or hearing, chest pain, shortness of breath, hemoptysis, abdominal pain, changes in bowels or bladder, or loss of sensation. Continues to have chronic leg pain and lower extremity weakness which was present before admission. - Constitutional Vitals: Temp Pulse Resp BP Pulse Ox 98.5 F 67 16 92/53 98 01/05/17 05:05 01/05/17 05:05 01/05/17 05:05 01/05/17 05:05 01/05/17 05:05 General appearance: Present: cooperative, A&O X 3, pleasant, no acute distress, answers questions appropriately - Head Head exam: Present: atraumatic, normal inspection, normocephalic - Eye Eye exam: Present: EOMI, normal appearance - ENT ENT exam: Present: mucous membranes moist, normal exam, normal oropharynx - Neck Neck exam general surgery: Present: full ROM, normal inspection, supple, trachea midline. Absent: tenderness - Respiratory Respiratory exam: Present: CTAB. Absent: rales, rhonchi, wheezes - Cardiovascular Cardiovascular exam: Present: RRR, +S1, +S2. Absent: diastolic murmur, JVD, systolic murmur - GI/Abdominal GI/Abdominal exam: Present: normal bowel sounds, soft. Absent: distended, guarding, tenderness - Extremities Exam Extremities exam: Present: normal capillary refill, normal inspection, tenderness, warm, radial pulses palpable and symmetrical. Absent: pedal edema Additional comments: Upper ext exam normal. Lower ext exam with 4/5 strength bilaterally, pain with movement and tenderness to palpation - Neurological Exam Neurological exam: Present: alert, oriented X3, no focal deficits, strengths equal and symetr throughout. Absent: motor sensory deficit, facial droop, speech deficit - Psychiatric Psychiatric exam: Present: normal affect, normal mood - Skin Skin exam: Present: dry, intact, normal color, warm. Absent: rash Internal Medicine: Result - Labs CBC & Chem 7: 01/05/17 05:20 01/05/17 05:20 Labs: Short CBC 01/05/17 Range/Units 05:20 WBC 29.4 H (4.3-11.1) K/mcL Hgb 8.0 L (11.5-15.4) g/dL Hct 25.6 L (35.3-44.9) % Plt Count 491 H (140-400) K/mcL Neutrophils # 26.6 H (1.6-8.9) K/mcL BMP 01/05/17 05:20 Sodium 128 L Potassium 4.5 Chloride 98 Carbon Dioxide 25 BUN 9 Creatinine 0.56 L Glucose 106 H Calcium 8.7 Urine 01/04/17 Range/Units 15:50 Urine Color Yellow (Yellow) Urine Clarity Clear (Clear) Urine pH 6.5 (5.0-8.0) pH Units Ur Specific [place] 1.007 L (1.010-1.025) Urine Protein Negative (Neg-Trace) mg/dL Urine Glucose (UA) Normal (Normal) mg/dL - ABG Interpretation ABG results: PT/INR, D-dimer PT 19.6 Seconds (9.4-12.1) H 12/31/16 17:50 Consult Discharge Plan - Plan Referrals: Judy Montez MD [Partnered Physician] - 01/10/17 9:30 am Karen Jones, COMBUSTION ANALYST [Primary Care Provider] - <Edward Ohara H - Last Filed: 01/05/17 14:20> Date of Encounter: 01/05/17 - Constitutional Vitals: Temp Pulse Resp BP Pulse Ox 98.2 F 64 17 105/66 97 01/05/17 11:14 01/05/17 11:14 01/05/17 11:14 01/05/17 11:14 01/05/17 11:14 Internal Medicine: Result - Labs CBC & Chem 7: 01/05/17 05:20 01/05/17 05:20 Labs: Short CBC 01/05/17 Range/Units 05:20 WBC 29.4 H (4.3-11.1) K/mcL Hgb 8.0 L (11.5-15.4) g/dL Hct 25.6 L (35.3-44.9) % Plt Count 491 H (140-400) K/mcL Neutrophils # 26.6 H (1.6-8.9) K/mcL BMP 01/05/17 05:20 Sodium 128 L Potassium 4.5 Chloride 98 Carbon Dioxide 25 BUN 9 Creatinine 0.56 L Glucose 106 H Calcium 8.7 Urine 01/04/17 Range/Units 15:50 Urine Color Yellow (Yellow) Urine Clarity Clear (Clear) Urine pH 6.5 (5.0-8.0) pH Units Ur Specific [place] 1.007 L (1.010-1.025) Urine Protein Negative (Neg-Trace) mg/dL Urine Glucose (UA) Normal (Normal) mg/dL - ABG Interpretation ABG results: PT/INR, D-dimer PT 19.6 Seconds (9.4-12.1) H 12/31/16 17:50 - Attending Attestation Sepsis secondary to healthcare associated pneumonia present upon admission Discontinue Levaquin at day 5 Patient is improving on cefepime and linezolid day 2 I examined this patient and my medical decision-making was reviewed with the Resident Physician. I agree with the documented findings, disposition and treatment plan as described except to the extent set forth below.
[2017-01-05] MEDS: Insulin LISPRO 300 UNITS/3 ML VIAL SQ SCH ×4 (08:42→22:19)
[2017-01-05] MEDS: Levofloxacin 750 MG/150 ML 750 MG/150 ML BAG IVPB SCH (08:50)
[2017-01-05] MEDS: APIXABAN 5 MG TABLET PO SCH ×2 (08:50→19:53)
[2017-01-05] MEDS: Baclofen 10 MG TABLET PO SCH ×3 (08:50→19:54)
[2017-01-05] MEDS: Folic Acid 1 MG TABLET PO SCH (08:50)
[2017-01-05] MEDS: Gabapentin 300 MG CAPSULE PO SCH ×3 (08:50→19:53)
[2017-01-06] MEDS: *HR* HYDROmorphone 4 MG TABLET PO PRN ×9 (03:05→21:51)
[2017-01-06 04:54] LABS: Basophils # 0.1 K/mcL (0.0-0.2); Basophils % 0.2 %; Eosinophils # 0.1 K/mcL (0.0-0.6); Eosinophils % 0.4 %; Hematocrit 25.3 % (35.3-44.9); Hemoglobin 7.8 g/dL (11.5-15.4); Immature Granulocytes % 2.1 % (0-4); Immature Platelets 1.4 % (1.1-6.1); Lymphocytes # 0.4 K/mcL (0.6-4.6); Lymphocytes % 1.4 %; Mean Corpuscular HGB Conc 30.8 g/dL (31.6-35.5); Mean Corpuscular Hemoglobin 25.5 pg (28.0-33.3); Mean Corpuscular Volume 82.7 fL (83.0-100.0); Mean Platelet Volume 8.5 fL (9.4-12.4); Monocytes % 5.2 %; Neutrophils # 25.1 K/mcL (1.6-8.9); Platelet Count 631 K/mcL (140-400); Red Blood Count 3.06 M/mcL (3.82-4.97); Red Cell Distribution Width 19.8 % (11.5-14.5); Segmented Neutrophils % 90.7 %
[2017-01-06 04:56] LABS: Monocytes # 1.4 K/mcL (0.0-1.3)
[2017-01-06 05:43] LABS: Platelet Estimate Marked Increase (Normal); Toxic Granulation Present (Not Present); Toxic Vacuolation Present (Not Present)
[2017-01-06 06:08] LABS: BUN/Creatinine Ratio 17 (6-26); Blood Urea Nitrogen 10 mg/dL (7-20); Calcium 8.5 mg/dL (8.6-10.8); Carbon Dioxide 24 mEq/L (19-29); Chloride 96 mEq/L (98-109); Glucose 106 mg/dL (70-99); Magnesium 1.5 mg/dL (1.6-2.6); Osmolality,Calculated 269 (280-300); Potassium 4.4 mEq/L (3.5-4.5); Sodium 130 mEq/L (136-145); eGFR For African Americans > 60 (> 60); eGFR For Non-African Americans > 60 (> 60)
[2017-01-06] MEDS: Cefepime HCl 2,000 MG in D5% in Water (Mini-Bag+) 100 ML IVPB SCH ×2 (06:16→16:50)
[2017-01-06] MEDS ORDERED: Magnesium Sulfate 2 GM in D5% in Water 100 ML IVPB ONE (06:43)
--- NOTE | 2017-01-06 07:13 | Internal Med Progress Note ---
<Naopleon Aldrich - Last Filed: 01/06/17 09:09> Date of Encounter: 01/06/17 Time of Encounter: 07:10 - Assessment and plan (1) Sepsis Current Visit: Yes Status: Acute Assessment and plan: Patient admitted from [facility] after having recorded temperature of 102F. Lactic Acid 2.4 on admisson, dropped to 1.5 following antibiotics and fluids Hypotension 89/53 on admission WBC 34.9 on admission, Known baseline 19 prior to admission. CXR revealed mild hazy ground glass opacities in right upper lobe and irregular ill defined spiculation in left upper concerning for spiculated mass. Patient received 2L normal saline bolus in ED Started on Broad spectrum antibiotics Urine antigens for Legioinella and S. pneumonia returned negative Influenza swab negative. Urine culture negative. Echo revealed EF 60%, normal LV systolic and diastolic function, normal LV, mildly dilated LA, mild mitral regurgitation, no evidence of pulm htn, no evidence of valvular vegetations Sputum cultures mixed serg, moderate wbc. Blood smear 01/03/17 revealed reactive changes, no findings suggestive of new or active malignancy Afebrile overnight, nontachycardic, nontachypneic, bp stable and normal, WBC decreased to 27.7 from 29.4 yesterday. Blood cultures 12/31/16 no growth to date, Blood cultures 01/03/17 no growth to date -If continues to develop fevers, blood cultures draws -If has diarrhea, consider c.diff testing. -Discontinued 01/04/17 Vancomycin d4, Zosyn d4. -Stop Levaquin d5. -Cefepime d2, and Linezolid d2. -Continue monitoring vitals and labs. -Tylenol prn for fever -ID consulted, called 01/04/17 unable to see patient due to complexity of case. Transfer option was discussed with patient who wishes at this moment to continue medical treatment at [place]. -Oncology on board, recommended ID consult and continuance of therapy Patient is at high risk due to her history of immunosuppression due to treatment with chem and radiation for her cancer. Qualifiers: Sepsis type: sepsis due to unspecified organism Qualified Code(s): A41.9 - Sepsis, unspecified organism (2) Healthcare-associated pneumonia Current Visit: Yes Status: Acute Assessment and plan: Due to history of immunosuppression due to cancer treatments and close interactions with medical community, patient's pneumonia based on imaging is likely HCAP vs CAP based on new guidelines. CXR revealed CXR revealed mild hazy ground glass opacities in right upper lobe and irregular ill defined spiculation in left upper concerning for spiculated mass. Sputum cultures mixed serg, moderate wbc WBC 27.7, down from 29.4 yesterday. -Continue monitoring labs and vitals -Continue broad spectrum antibiotics per plan in assessment above. Cefepime d2 , Linezolid d2. (3) Anemia Current Visit: Yes Status: Acute Assessment and plan: Hb 7.8 this morning, from 8.0 yesterday, stable Required pRBC transfusion x1 01/01/17 due to Hb 6.3 Required pRBC transfusion x1 01/04/17 due to Hb 6.6. Known history of severe iron deficiency anemia, had recently received iron transfusion prior to admission. Continue monitoring labs Qualifiers: Anemia type: iron deficiency Iron deficiency anemia type: unspecified iron deficiency Qualified Code(s): D50.9 - Iron deficiency anemia, unspecified (4) Hyponatremia Current Visit: Yes Status: Chronic Assessment and plan: Patient determined to have sodium 129 on admission. Sodium 130 on labs this morning, from 128 yesterday Patient has known chronic hyponatremia. Continue to monitor labs. (5) Adenocarcinoma of left lung, stage 4 Current Visit: Yes Status: Chronic Assessment and plan: Known history of primary adenocarcinoma of left lung stage 4 with mets to spine and pelvis. Currently undergoing palliative chemoradiation at [facility]. -Oncology on board (6) Cancer related pain Current Visit: Yes Status: Chronic Assessment and plan: Pain secondary to mets to pelvis, and pain of legs bilaterally resulting in her now wheelchair bound status. Conitnue home pain medication regimenL 75 mcg fentanyl patches q48 and 4mg hydromorphone po q2-3hr prn. -Social work for placement, currently wheelchair bound. (7) Bone metastasis Current Visit: Yes Status: Chronic Assessment and plan: Per plan in assessment above. (8) Hypomagnesemia Current Visit: Yes Status: Acute Assessment and plan: Magnesium 1.5 on admission, 1.5 this morning, Received 6mg magnesium replacement since admission. -ordered additional 2mg magnesium today (9) DVT (deep venous thrombosis) Current Visit: Yes Status: Resolved Assessment and plan: Known history of DVT -Continue Eliquis. Qualifiers: DVT location: lower extremity Affected thrombotic vein of extremity: unspecified vein of extremity Chronicity: unspecified Laterality: left Qualified Code(s): I82.402 - Acute embolism and thrombosis of unspecified deep veins of left lower extremity (10) Abnormal finding on imaging Current Visit: Yes Status: Acute Assessment and plan: Patient found to have small focus of abnormal attenuation in the right thalamus that is nonspecific and possibly artifact. Given patient history of lung cancer brain metastases cannot be ruled out. She might need MRI as outpatient for further evaluation per the discretion of her oncologist (11) Diabetes mellitus type 2 in nonobese Current Visit: Yes Status: Acute Assessment and plan: Continue with ADA diet and low dose insulin sliding scale. Continue monitoring labs. (12) Protein-calorie malnutrition, severe Current Visit: Yes Status: Acute Assessment and plan: Consulted Nutrition for po recommendations. - Subjective Interval history: Patient reports sweats are continuing to decrease in amount and frequency, denies fevers or chills. Patient does report she has a bed sore developing, has a history of bed sore in the past that healed on its own. Patient reports pain when laying on her back so she tries staying on her side. Patient denies fevers, chills, nausea, vomiting, headache, changes in vision or hearing, chest pain, shortness of breath, hemoptysis, abdominal pain, changes in bowels or bladder, new weakness, or loss of sensation. Continues having chronic leg pain and lower extremity weakness present before admission, but she reports improving slightly. - Constitutional Vitals: Temp Pulse Resp BP Pulse Ox 98.0 F 70 18 114/69 98 01/06/17 06:34 01/06/17 06:34 01/06/17 06:34 01/06/17 06:34 01/06/17 06:34 General appearance: Present: cooperative, A&O X 3, pleasant, no acute distress, answers questions appropriately - Head Head exam: Present: atraumatic, normal inspection, normocephalic - Eye Eye exam: Present: EOMI, normal appearance - ENT ENT exam: Present: mucous membranes moist, normal exam, normal oropharynx - Neck Neck exam general surgery: Present: full ROM, normal inspection, supple, trachea midline. Absent: tenderness - Respiratory Respiratory exam: Present: CTAB. Absent: rales, respiratory distress, rhonchi, wheezes, tachypnea Additional comments: Right upper chest port noted, clean dry intact without erythema. - Cardiovascular Cardiovascular exam: Present: RRR, +S1, +S2. Absent: JVD, systolic murmur - GI/Abdominal GI/Abdominal exam: Present: normal bowel sounds, soft. Absent: distended, guarding, tenderness - Extremities Exam Extremities exam: Present: full ROM, normal inspection, tenderness, warm, radial pulses palpable and symmetrical. Absent: pedal edema Additional comments: Upper ext exam normal. Lower ext exam with 4/5 strength bilaterally, pain with movement and tenderness to palpation - Back Exam Back exam: Present: paraspinal tenderness Additional comments: presacral 5cm x 3 cm skin erythema nonblanchable and laxity with tenderness and without sloughing and currently intact, likely bed sore stage 1. - Neurological Exam Neurological exam: Present: alert, oriented X3, no focal deficits, strengths equal and symetr throughout. Absent: facial droop, speech deficit - Psychiatric Psychiatric exam: Present: normal affect, normal mood - Skin Skin exam: Present: dry, intact, normal color, warm. Absent: rash Internal Medicine: Result - Labs CBC & Chem 7: 01/06/17 04:05 01/06/17 04:05 Labs: Short CBC 01/06/17 Range/Units 04:05 WBC 27.7 H (4.3-11.1) K/mcL Hgb 7.8 L (11.5-15.4) g/dL Hct 25.3 L (35.3-44.9) % Plt Count 631 H (140-400) K/mcL Neutrophils # 25.1 H (1.6-8.9) K/mcL BMP 01/06/17 04:05 Sodium 130 L Potassium 4.4 Chloride 96 L Carbon Dioxide 24 BUN 10 Creatinine 0.58 Glucose 106 H Calcium 8.5 L - ABG Interpretation ABG results: PT/INR, D-dimer PT 19.6 Seconds (9.4-12.1) H 12/31/16 17:50 Consult Discharge Plan - Plan Referrals: Judy Montez MD [Partnered Physician] - 01/10/17 9:30 am Karen Jones, BILLING SERVICES MANAGER [Primary Care Provider] - <Edward Ohara H - Last Filed: 01/06/17 10:57> Date of Encounter: 01/06/17 - Constitutional Vitals: Temp Pulse Resp BP Pulse Ox 98.0 F 70 18 114/69 98 01/06/17 06:34 01/06/17 06:34 01/06/17 06:34 01/06/17 06:34 01/06/17 06:34 Internal Medicine: Result - Labs CBC & Chem 7: 01/06/17 04:05 01/06/17 04:05 Labs: Short CBC 01/06/17 Range/Units 04:05 WBC 27.7 H (4.3-11.1) K/mcL Hgb 7.8 L (11.5-15.4) g/dL Hct 25.3 L (35.3-44.9) % Plt Count 631 H (140-400) K/mcL Neutrophils # 25.1 H (1.6-8.9) K/mcL BMP 01/06/17 04:05 Sodium 130 L Potassium 4.4 Chloride 96 L Carbon Dioxide 24 BUN 10 Creatinine 0.58 Glucose 106 H Calcium 8.5 L - ABG Interpretation ABG results: PT/INR, D-dimer PT 19.6 Seconds (9.4-12.1) H 12/31/16 17:50 - Attending Attestation Sepsis secondary to healthcare associated pneumonia present upon admission Discontinuedd Levaquin at day 5 Patient is improving on cefepime and linezolid day 3 I examined this patient and my medical decision-making was reviewed with the Resident Physician. I agree with the documented findings, disposition and treatment plan as described except to the extent set forth below.
[2017-01-06] MEDS: Insulin LISPRO 300 UNITS/3 ML VIAL SQ SCH ×4 (07:43→21:52)
[2017-01-06] MEDS: APIXABAN 5 MG TABLET PO SCH ×2 (08:41→21:50)
[2017-01-06] MEDS: Gabapentin 300 MG CAPSULE PO SCH ×3 (08:41→21:51)
[2017-01-06] MEDS: Folic Acid 1 MG TABLET PO SCH (08:42)
[2017-01-06] MEDS: Baclofen 10 MG TABLET PO SCH ×3 (08:47→21:51)
[2017-01-07] MEDS: Acetaminophen 325 MG TABLET PO PRN ×2 (00:18→18:05)
[2017-01-07] MEDS: *HR* FentaNYL PATCH 75 MCG PATCH TD SCH (00:23)
[2017-01-07] MEDS: *HR* HYDROmorphone 4 MG TABLET PO PRN ×9 (00:31→21:25)
[2017-01-07 04:38] LABS: Hemoglobin 8.4 g/dL (11.5-15.4); Mean Corpuscular Volume 83.3 fL (83.0-100.0); Mean Platelet Volume 8.2 fL (9.4-12.4); Platelet Count 531 K/mcL (140-400); Red Blood Count 3.36 M/mcL (3.82-4.97); Red Cell Distribution Width 19.5 % (11.5-14.5)
[2017-01-07 04:39] LABS: BUN/Creatinine Ratio 18 (6-26); Blood Urea Nitrogen 10 mg/dL (7-20); Calcium 8.7 mg/dL (8.6-10.8); Carbon Dioxide 24 mEq/L (19-29); Chloride 98 mEq/L (98-109); Glucose 114 mg/dL (70-99); Magnesium 1.5 mg/dL (1.6-2.6); Osmolality,Calculated 276 (280-300); Potassium 4.4 mEq/L (3.5-4.5); Sodium 133 mEq/L (136-145); eGFR For African Americans > 60 (> 60); eGFR For Non-African Americans > 60 (> 60)
[2017-01-07] MEDS: Cefepime HCl 2,000 MG in D5% in Water (Mini-Bag+) 100 ML IVPB SCH (05:56)
[2017-01-07 06:01] LABS: Eosinophils # 0.6 K/mcL (0.0-0.6); Lymphocytes # 1.2 K/mcL (0.6-4.6); Monocytes # 0.6 K/mcL (0.0-1.3); Neutrophils # 26.7 K/mcL (1.6-8.9)
[2017-01-07 06:02] LABS: Hypersegmented Neutrophils Present (Not Present); Platelet Estimate Increased (Normal); Toxic Granulation Present (Not Present)
[2017-01-07 06:03] LABS: Hypochromasia Present (Not Present)
[2017-01-07 06:04] LABS: Microcytosis Present (Not Present); Polychromasia 1+ (Not Present)
--- NOTE | 2017-01-07 07:08 | Internal Med Progress Note ---
<JonvictorinaNapoleon dwyer - Last Filed: 01/07/17 10:31> Date of Encounter: 01/07/17 Time of Encounter: 07:03 - Assessment and plan (1) Sepsis Current Visit: Yes Status: Acute Assessment and plan: Patient admitted from [facility] after having recorded temperature of 102F. Lactic Acid 2.4 on admisson, dropped to 1.5 following antibiotics and fluids Hypotension 89/53 on admission WBC 34.9 on admission, Known baseline 19 prior to admission. CXR revealed mild hazy ground glass opacities in right upper lobe and irregular ill defined spiculation in left upper concerning for spiculated mass. Patient received 2L normal saline bolus in ED Started on Broad spectrum antibiotics Urine antigens for Legioinella and S. pneumonia returned negative Influenza swab negative. Urine culture negative. Echo revealed EF 60%, normal LV systolic and diastolic function, normal LV, mildly dilated LA, mild mitral regurgitation, no evidence of pulm htn, no evidence of valvular vegetations Sputum cultures mixed serg, moderate wbc. Blood smear 01/03/17 revealed reactive changes, no findings suggestive of new or active malignancy Fever of 101.5 overnight, nontachycardic, nontachypneic, bp stable but low, WBC increased overnight to 29.0 from 27.7 yesterday. Blood cultures 12/31/16 negative. Sputum culture negative, normal serg. Blood cultures 01/03/17 no growth to date Blood cultures 01/06/17 received -If continues to develop fevers, blood cultures draws -If has diarrhea, consider c.diff testing. -Discontinued 01/04/17 Vancomycin d4, Zosyn d4. Discontinued 01/05/17 Levaquin d5. Discontinued Cefepime d3 01/07/17. -Continue Linezolid d3. -Start Meropenem d0 -Continue monitoring vitals and labs. -Tylenol prn for fever -ID consulted, called 01/04/17 unable to see patient due to complexity of case. Transfer option was discussed with patient who wishes at this moment to continue medical treatment at [facility]. -Oncology on board, recommended ID consult and continuance of therapy -CT chest 01/07/17 revealed 1. Mild nodular right upper lobe ground-glass infiltrate, likely infectious or inflammatory in etiology. 2. New trace left pleural effusion. 3. Continued progression in size of a now 1.5 x 1.9 cm spiculated left upper lobe nodule. 4. New nonspecific semisolid 1.2 cm posterior left upper lobe nodular opacity. This may be related to post treatment change or scarring. Malignancy is felt to be less likely given the appearance. 5. New 1.1 cm prevascular lymph node, concerning for metastatic disease given the known findings in the abdomen. 6. Partial visualization of moderate left hydronephrosis, which is secondary to obstruction of the left ureter secondary to a retroperitoneal mass, as seen on the prior CT abdomen exam. -Respiratory Viral panel ordered -UA with reflex ordered Noted on exam, rebound on the left abdomen. May consider CT abdomen if abdominal pain worsens or we continued to have worsening status/no improvement while switching antibiotics. Patient is at high risk due to her history of immunosuppression due to treatment with chem and radiation for her cancer. Qualifiers: Sepsis type: sepsis due to unspecified organism Qualified Code(s): A41.9 - Sepsis, unspecified organism (2) Healthcare-associated pneumonia Current Visit: Yes Status: Acute Assessment and plan: Due to history of immunosuppression due to cancer treatments and close interactions with medical community, patient's pneumonia based on imaging is likely HCAP vs CAP based on new guidelines. CXR revealed CXR revealed mild hazy ground glass opacities in right upper lobe and irregular ill defined spiculation in left upper concerning for spiculated mass. Sputum culture negative, normal serg. WBC 29.0, increased from 27.7 yesterday. Developed fever overnight to 101.5F. -Continue monitoring labs and vitals -Continue broad spectrum antibiotics per plan in assessment above. Cefepime d3 , Linezolid d3. (3) Abdominal pain Current Visit: Yes Status: Acute Assessment and plan: Patient denies abdominal pain, but was noted to have Rebound tenderness on the left on exam 01/07/17. Abdominal exam otherwise normal without guarding or rigidity. CT abdomen/pelvis 12/01/16 revealed 1. Overall progression of disease with extension/enlargement of the primary left upper lobe spiculated nodule, and slight interval increase in size of left iliac bone metastasis as well as probable new L3-L4 osseous metastatic disease. 2. There is also increasing Infiltrating enhancing soft tissue compatible with metastatic disease within the retroperitoneum encasing the retroperitoneal vessels and extending into the left pelvis as well as the left ureter resulting in moderate left hydroureteronephrosis. 3. Patchy ground-glass attenuation in the right upper lobe likely infectious or inflammatory in etiology. 4. There is slight interval increase in size of a precarinal/subcarinal mediastinal lymph node which is nonspecific. Metastatic disease is not excluded. -Serial abdominal exams -Meropenem d0 -If continues to have abdominal pain or worsening status despite change in antibiotics, consider CT abd/pelvis to rule out possible microperforations. Qualifiers: Abdominal location: left lower quadrant Qualified Code(s): R10.32 - Left lower quadrant pain (4) Anemia Current Visit: Yes Status: Acute Assessment and plan: Hb 8.4 this morning, from 7.8 yesterday. stable.e Required pRBC transfusion x1 01/01/17 due to Hb 6.3 Required pRBC transfusion x1 01/04/17 due to Hb 6.6. Known history of severe iron deficiency anemia, had recently received iron transfusion prior to admission. Continue monitoring labs Qualifiers: Anemia type: iron deficiency Iron deficiency anemia type: unspecified iron deficiency Qualified Code(s): D50.9 - Iron deficiency anemia, unspecified (5) Hyponatremia Current Visit: Yes Status: Chronic Assessment and plan: Patient determined to have sodium 129 on admission. Sodium 133 on labs this morning, from 130 yesterday Patient has known chronic hyponatremia. Continue to monitor labs. (6) Adenocarcinoma of left lung, stage 4 Current Visit: Yes Status: Chronic Assessment and plan: Known history of primary adenocarcinoma of left lung stage 4 with mets to spine and pelvis. Currently undergoing palliative chemoradiation at [facility]. -Oncology on board (7) Cancer related pain Current Visit: Yes Status: Chronic Assessment and plan: Pain secondary to mets to pelvis, and pain of legs bilaterally resulting in her now wheelchair bound status. Conitnue home pain medication regimenL 75 mcg fentanyl patches q48 and 4mg hydromorphone po q2-3hr prn. -Social work for placement, currently wheelchair bound. (8) Bone metastasis Current Visit: Yes Status: Chronic Assessment and plan: Per plan in assessment above. (9) Hypomagnesemia Current Visit: Yes Status: Acute Assessment and plan: Magnesium 1.5 on admission, 1.5 this morning again. Received 6mg magnesium replacement since admission, 2mg yesterday. -ordered additional 2mg magnesium today (10) DVT (deep venous thrombosis) Current Visit: Yes Status: Resolved Assessment and plan: Known history of DVT -Continue Eliquis. Qualifiers: DVT location: lower extremity Affected thrombotic vein of extremity: unspecified vein of extremity Chronicity: unspecified Laterality: left Qualified Code(s): I82.402 - Acute embolism and thrombosis of unspecified deep veins of left lower extremity (11) Abnormal finding on imaging Current Visit: Yes Status: Acute Assessment and plan: Patient found to have small focus of abnormal attenuation in the right thalamus that is nonspecific and possibly artifact. Given patient history of lung cancer brain metastases cannot be ruled out. She might need MRI as outpatient for further evaluation per the discretion of her oncologist (12) Diabetes mellitus type 2 in nonobese Current Visit: Yes Status: Acute Assessment and plan: Continue with ADA diet and low dose insulin sliding scale. Continue monitoring labs. (13) Protein-calorie malnutrition, severe Current Visit: Yes Status: Acute Assessment and plan: Consulted Nutrition for po recommendations. (14) Pressure ulcer of sacral region, stage 1 Current Visit: Yes Status: Acute Assessment and plan: Continue rotating patient every 2 hours Pressure ulcers management per protocol. - Subjective Interval history: Patient developed fever of 101.5F and heavy sweating overnight. Patient reports she has a bed sore developing, no significant change since yesterday. Patient denies chills, headaches, lightheadedness, dizziness, changes in vision or hearing, neck pain. Denies chest pain, chest pressure, shortness of breath, cough, increase sputum. Denies runny nose, sore throat. Denies abdominal pain , diarrhea, constipation, changes in urination, dysuria, increased urination, new weakness, new loss of sensation, new skin lesions or sores, or new pains. Continues having chronic leg pain and lower extremity weakness present before admission, but she reports improving slightly. - Constitutional Vitals: Temp Pulse Resp BP Pulse Ox 97.7 F 66 20 132/75 93 01/07/17 03:59 01/07/17 03:59 01/07/17 03:59 01/07/17 03:59 01/07/17 03:59 General appearance: Present: cooperative, A&O X 3, pleasant, no acute distress, answers questions appropriately - Head Head exam: Present: atraumatic, normal inspection, normocephalic - Eye Eye exam: Present: EOMI, normal appearance - ENT ENT exam: Present: mucous membranes moist, normal exam, normal oropharynx - Neck Neck exam general surgery: Present: full ROM, normal inspection, supple, trachea midline. Absent: tenderness - Respiratory Respiratory exam: Present: CTAB. Absent: rales, respiratory distress, rhonchi, wheezes, tachypnea Additional comments: Right upper chest port, clean dry intact without erythema - Cardiovascular Cardiovascular exam: Present: RRR, +S1, +S2. Absent: diastolic murmur, JVD, systolic murmur - GI/Abdominal GI/Abdominal exam: Present: normal bowel sounds, rebound (Left sided rebound noted, otherwise no other tenderness or pain), soft. Absent: distended, guarding, tenderness - Extremities Exam Extremities exam: Present: full ROM, normal capillary refill, normal inspection , tenderness, warm, radial pulses palpable and symmetrical Additional comments: Upper ext exam normal. Lower ext exam with 4/5 strength bilaterally, pain with movement and tenderness to palpation - Back Exam Additional comments: presacral 5cm x 3 cm skin erythema nonblanchable and laxity with tenderness and without sloughing and currently intact, likely bed sore stage 1. - Neurological Exam Neurological exam: Present: alert, oriented X3, no focal deficits, strengths equal and symetr throughout. Absent: motor sensory deficit, facial droop, speech deficit - Psychiatric Psychiatric exam: Present: normal affect, normal mood - Skin Skin exam: Present: dry, intact, normal color, warm. Absent: cyanosis, diaphoretic, rash Internal Medicine: Result - Labs CBC & Chem 7: 01/07/17 04:20 01/07/17 04:20 Labs: Short CBC 01/07/17 Range/Units 04:20 WBC 29.0 H (4.3-11.1) K/mcL Hgb 8.4 L (11.5-15.4) g/dL Hct 28.0 L (35.3-44.9) % Plt Count 531 H (140-400) K/mcL Neutrophils # 26.7 H (1.6-8.9) K/mcL BMP 01/07/17 04:20 Sodium 133 L Potassium 4.4 Chloride 98 Carbon Dioxide 24 BUN 10 Creatinine 0.56 L Glucose 114 H Calcium 8.7 - ABG Interpretation ABG results: PT/INR, D-dimer PT 19.6 Seconds (9.4-12.1) H 12/31/16 17:50 Consult Discharge Plan - Plan Referrals: Judy Montez MD [Partnered Physician] - 01/10/17 9:30 am Karen Jones CNP [Primary Care Provider] - 01/12/17 9:00 am <KellieprimopedroEdward H - Last Filed: 01/07/17 15:51> Date of Encounter: 01/07/17 - Constitutional Vitals: Temp Pulse Resp BP Pulse Ox 98.3 F 69 16 117/65 100 01/07/17 11:11 01/07/17 11:11 01/07/17 11:11 01/07/17 11:11 01/07/17 11:11 Internal Medicine: Result - Labs CBC & Chem 7: 01/07/17 04:20 01/07/17 04:20 Labs: Short CBC 01/07/17 Range/Units 04:20 WBC 29.0 H (4.3-11.1) K/mcL Hgb 8.4 L (11.5-15.4) g/dL Hct 28.0 L (35.3-44.9) % Plt Count 531 H (140-400) K/mcL Neutrophils # 26.7 H (1.6-8.9) K/mcL BMP 01/07/17 04:20 Sodium 133 L Potassium 4.4 Chloride 98 Carbon Dioxide 24 BUN 10 Creatinine 0.56 L Glucose 114 H Calcium 8.7 Urine 01/07/17 Range/Units 13:10 Urine Color Yellow (Yellow) Urine Clarity Clear (Clear) Urine pH 7.0 (5.0-8.0) pH Units Ur Specific [place] 1.011 (1.010-1.025) Urine Protein Negative (Neg-Trace) mg/dL Urine Glucose (UA) Normal (Normal) mg/dL - ABG Interpretation ABG results: PT/INR, D-dimer PT 19.6 Seconds (9.4-12.1) H 12/31/16 17:50 - Impressions Impressions Chest CT 01/07/17 08:30 IMPRESSION: 1. Mild nodular right upper lobe ground-glass infiltrate, likely infectious or inflammatory in etiology. 2. New trace left pleural effusion. 3. Continued increase in size of a now 1.5 x 1.9 cm spiculated left upper lobe nodule, consistent with progression of metastatic disease. 4. New nonspecific semisolid 1.2 cm posterior left upper lobe nodular opacity. This may be related to post treatment change or scarring. Malignancy is felt to be less likely given the appearance. Continued CT follow-up suggested. 5. New 1.1 cm prevascular lymph node, concerning for progression of metastatic disease in the chest. 6. Partial visualization of moderate left hydronephrosis, which is secondary to obstruction of the left ureter secondary to a retroperitoneal mass, as seen on the prior CT abdomen exam. D/ / 01/07/2017 09:43:07 Isauro Castillo MD / [facility] Interpreting Provider: Isauro Castillo MD - Attending Attestation Sepsis secondary to healthcare associated pneumonia present upon admission stop cefepime and start meropenem consider CT of the abdomen ( history of abdominal mets) I examined this patient and my medical decision-making was reviewed with the Resident Physician. I agree with the documented findings, disposition and treatment plan as described except to the extent set forth below.
[2017-01-07] MEDS ORDERED: Magnesium Sulfate 2 GM in D5% in Water 100 ML IVPB ONE (07:17)
[2017-01-07] MEDS: Insulin LISPRO 300 UNITS/3 ML VIAL SQ SCH ×4 (08:12→21:18)
[2017-01-07] MEDS: Baclofen 10 MG TABLET PO SCH ×3 (08:21→21:26)
[2017-01-07] MEDS: Gabapentin 300 MG CAPSULE PO SCH ×3 (08:22→21:26)
[2017-01-07] MEDS: APIXABAN 5 MG TABLET PO SCH ×2 (08:22→21:26)
[2017-01-07] MEDS: Folic Acid 1 MG TABLET PO SCH (08:23)
[2017-01-07] MEDS: Meropenem 1,000 MG in 0.9 % Sodium Chloride Mini Bag 100 ML IVPB SCH ×2 (11:05→15:56)
[2017-01-07 11:22] LABS: Adenovirus Not Detected (Not Detect); Bordetella Pertussis Not Detected (Not Detect); Chlamydophila pneumoniae Not Detected (Not Detect); Coronavirus 229E Not Detected (Not Detect); Coronavirus HKU1 Not Detected (Not Detect); Coronavirus NL63 Not Detected (Not Detect); Coronavirus OC43 Not Detected (Not Detect); Human Metapneumovirus Not Detected (Not Detect); Human Rhinovirus/Enterovirus Not Detected (Not Detect); Influenza A Subtype 2009 H1 Not Detected (Not Detect); Influenza A Untypeable Not Detected (Not Detect); Influenza B Not Detected (Not Detect); Mycoplasma pneumoniae Not Detected (Not Detect); Parainfluenza Virus 1 Not Detected (Not Detect); Parainfluenza Virus 2 Not Detected (Not Detect); Parainfluenza Virus 3 Not Detected (Not Detect); Parainfluenza Virus 4 Not Detected (Not Detect); Respiratory Syncytial Virus Not Detected (Not Detect)
[2017-01-07 13:44] LABS: Bilirubin,Urine Negative (Negative); Blood,Urine Negative (Negative); Clarity,Urine Clear (Clear); Color,Urine Yellow (Yellow); Glucose,Urine (UA) Normal (Normal); Ketones,Urine Negative (Negative); Leukocyte Esterase,Urine Negative (Negative); Nitrite,Urine Negative (Negative); Protein,Urine Negative (Neg-Trace); Specific Gravity,Urine 1.011 (1.010-1.025); Urobilinogen,Urine Normal (Normal)
[2017-01-07] MEDS: *HR* FentaNYL PATCH 100 MCG PATCH TD SCH (15:40)
[2017-01-07] MEDS: *HR* HYDROmorphone (PF) 1 MG/ML SYRINGE IVP PRN (18:05)
[2017-01-08] MEDS: *HR* HYDROmorphone 4 MG TABLET PO PRN ×10 (00:15→22:49)
[2017-01-08] MEDS: Meropenem 1,000 MG in 0.9 % Sodium Chloride Mini Bag 100 ML IVPB SCH ×4 (00:16→23:38)
[2017-01-08 04:03] LABS: Basophils % 0.2 %; Eosinophils % 0.2 %; Lymphocytes % 1.4 %; Red Cell Distribution Width 19.7 % (11.5-14.5)
[2017-01-08 04:04] LABS: Basophils # 0.1 K/mcL (0.0-0.2); Eosinophils # 0.1 K/mcL (0.0-0.6); Hematocrit 27.5 % (35.3-44.9); Hemoglobin 8.6 g/dL (11.5-15.4); Immature Granulocytes % 1.7 % (0-4); Lymphocytes # 0.5 K/mcL (0.6-4.6); Mean Corpuscular HGB Conc 31.3 g/dL (31.6-35.5); Mean Corpuscular Hemoglobin 26.1 pg (28.0-33.3); Mean Corpuscular Volume 83.3 fL (83.0-100.0); Mean Platelet Volume 8.4 fL (9.4-12.4); Monocytes # 1.6 K/mcL (0.0-1.3); Monocytes % 4.3 %; Neutrophils # 33.5 K/mcL (1.6-8.9); Platelet Count 520 K/mcL (140-400); Segmented Neutrophils % 92.2 %
[2017-01-08 04:15] LABS: BUN/Creatinine Ratio 14 (6-26); Blood Urea Nitrogen 8 mg/dL (7-20); Carbon Dioxide 24 mEq/L (19-29); Chloride 96 mEq/L (98-109); Glucose 116 mg/dL (70-99); Magnesium 1.5 mg/dL (1.6-2.6); Osmolality,Calculated 267 (280-300); Potassium 4.6 mEq/L (3.5-4.5); Sodium 129 mEq/L (136-145); eGFR For African Americans > 60 (> 60); eGFR For Non-African Americans > 60 (> 60)
[2017-01-08 04:56] LABS: Platelet Estimate Increased (Normal); Schistocytes 1+ (Not Present)
[2017-01-08 04:57] LABS: Anisocytosis 1+ (Not Present); Poikilocytosis 1+ (Not Present); Toxic Granulation Present (Not Present)
[2017-01-08] MEDS: Folic Acid 1 MG TABLET PO SCH (08:27)
[2017-01-08] MEDS: Gabapentin 300 MG CAPSULE PO SCH ×3 (08:27→20:03)
[2017-01-08] MEDS: Insulin LISPRO 300 UNITS/3 ML VIAL SQ SCH ×4 (08:29→20:35)
[2017-01-08] MEDS: APIXABAN 5 MG TABLET PO SCH ×2 (08:29→20:03)
[2017-01-08] MEDS: Baclofen 10 MG TABLET PO SCH ×3 (08:29→20:03)
--- NOTE | 2017-01-08 13:49 | Internal Med Progress Note ---
<Too Herrera - Last Filed: 01/08/17 16:36> Date of Encounter: 01/08/17 Time of Encounter: 13:47 - Assessment and plan (1) Sepsis Current Visit: Yes Status: Acute Assessment and plan: Patient admitted from [facility] after having recorded temperature of 102F. Lactic Acid 2.4 on admisson, dropped to 1.5 following antibiotics and fluids she also had Hypotension 89/53 on admission, WBC 34.9 on admission, Known baseline 19 prior to admission. -CT revealed mild hazy ground glass opacities in right upper lobe and irregular ill defined spiculation in left upper concerning for spiculated mass. Started on Broad spectrum antibiotics - She was initially placed on broad-spectrum antibiotics for which she demonstrates some clinical improvement but her WBC continued to climb and her antibiotics were switched to Zyvox and then the addition of meropenem without further improvement. - Viral panel was all negative, blood cultures from 01/11/2017 are negative, sputum cultures are negative, influenza was negative. - Repeat chest CT without any significant new findings Today patient stated he see count is 36,000 up from 29,000 the day prior with a neutrophil count of 33.5. Patient denies any discomforts pains, fevers or chills though she did have a low-grade fever with a high of a temp of 101.3 yesterday evening. - Given her current treatments with meropenem and Zyvox, negative viral panels this brings into question whether her elevation in WBC count is related to her cancer and possible formation of AML versus abscess or necrotic mass not yet identified. Plan: - Continue broad-spectrum antibiotics - CT abdomen and pelvis with IV contrast for evaluation for possible abscess versus other pathologies - Continue to monitor vitals closely Qualifiers: Sepsis type: sepsis due to unspecified organism Qualified Code(s): A41.9 - Sepsis, unspecified organism (2) Cancer related pain Current Visit: Yes Status: Chronic Assessment and plan: Pain secondary to mets to pelvis, and pain of legs bilaterally resulting in her now wheelchair bound status. Conitnue home pain medication regimenL 75 mcg fentanyl patches q48 and 4mg hydromorphone po q2-3hr prn. -Social work for placement, currently wheelchair bound. (3) Adenocarcinoma of left lung, stage 4 Current Visit: Yes Status: Chronic Assessment and plan: Known history of primary adenocarcinoma of left lung stage 4 with mets to spine and pelvis. Currently undergoing palliative chemoradiation at [facility]. -Oncology on board (4) Healthcare-associated pneumonia Current Visit: Yes Status: Acute Assessment and plan: 56-year-old female who is immunocompromised with current metastatic lung cancer admitted with pneumonia. CXR revealed CXR revealed mild hazy ground glass opacities in right upper lobe and irregular ill defined spiculation in left upper concerning for spiculated mass. Sputum culture negative, normal serg. WBC 36,000, occasional fever up to 101.5 Plan: -Continue monitoring labs and vitals -Continue broad spectrum antibiotics: Meropenem, Zyvox. (5) Diabetes mellitus type 2 in nonobese Current Visit: Yes Status: Acute Assessment and plan: Continue with ADA diet and low dose insulin sliding scale. Continue monitoring labs. (6) Hypomagnesemia Current Visit: Yes Status: Acute Assessment and plan: Magnesium 1.5 on admission, 1.5 this morning again. Plan: - 2 g magnesium - Repeat magnesium in a.m. (7) Leucocytosis Current Visit: Yes Status: Acute Assessment and plan: As discussed above. Qualifiers: Leukocytosis type: other Qualified Code(s): D72.828 - Other elevated white blood cell count (8) Pressure ulcer of sacral region, stage 1 Current Visit: Yes Status: Acute Assessment and plan: Continue rotating patient every 2 hours Pressure ulcers management per protocol. (9) Abdominal pain Current Visit: Yes Status: Acute Assessment and plan: Patient denies abdominal pain, but was noted to have Rebound tenderness on the left on exam 01/07/17. Abdominal exam otherwise normal without guarding or rigidity. 01/08: Abdominal exam without tenderness or guarding or fullness to examination. Unable to reproduce rebound tenderness on today's exam. - CT of the abdomen/pelvis with IV and oral contrast. Qualifiers: Abdominal location: left lower quadrant Qualified Code(s): R10.32 - Left lower quadrant pain (10) Anemia Current Visit: Yes Status: Acute Assessment and plan: Hb 8.6 which has remained stable. Patient received 2 units PRBC transfusion on 01/04/2017. - Monitor daily and replace if hemoglobin falls below 7.0 Qualifiers: Anemia type: iron deficiency Iron deficiency anemia type: unspecified iron deficiency Qualified Code(s): D50.9 - Iron deficiency anemia, unspecified - Subjective Interval history: Mrs. Coker 48-year-old female has been seen about a patient bedside. She denies any pains, discomforts, fevers, chills, sweating, shortness of breath, reductive cough or sputum production, she denies any headaches, chest pains, palpitations, pleuritic pain, abdominal pain, nausea, vomiting, diarrhea, burning with urination, bladder pain with stools are frequent stools, pain or warmth in her extremities. She says overall she feels pretty good. She denies any concerns or questions at this time. - Constitutional Vitals: Temp Pulse Resp BP Pulse Ox 98.5 F 69 18 112/69 96 01/08/17 11:10 01/08/17 11:10 01/08/17 11:10 01/08/17 11:10 01/08/17 11:10 General appearance: Present: cooperative, A&O X 3, pleasant, no acute distress, answers questions appropriately Exam: General: Patient alert, awake, oriented 3, interactive, in no acute distress, thin female HEENT: Normocephalic, atraumatic, pupils equal reactive to light, nasal cavity patent and open septum median position, oral mucosa moist, uvula midline, neck supple trachea midline no palpable lymphadenopathy, no thyromegaly. Chest: Symmetric bilateral correlating with respiratory effort, effort nonlabored. Port in her right upper chest Cardiac: Regular rate and rhythm, positive S1 and S2. no bruits appreciated bilateral carotids, Radial pulses 2+ bilateral. Respiratory: Clear to auscultation all lung ontiveros Abdomen: Soft, nontender, slightly distended, positive bowel sounds, no palpable masses appreciated on examination Extremities: Symmetric bilateral, bilateral lower extremities without erythema or edema patient moving all 4 extremities spontaneously. Neurologic: No focal deficits appreciated on examination. Face symmetric, muscle strength symmetric bilateral upper and lower extremities. Internal Medicine: Result - Labs CBC & Chem 7: 01/08/17 03:55 01/08/17 03:55 Labs: Short CBC 01/08/17 Range/Units 03:55 WBC 36.3 H* (4.3-11.1) K/mcL Hgb 8.6 L (11.5-15.4) g/dL Hct 27.5 L (35.3-44.9) % Plt Count 520 H (140-400) K/mcL Neutrophils # 33.5 H (1.6-8.9) K/mcL BMP 01/08/17 03:55 Sodium 129 L Potassium 4.6 H Chloride 96 L Carbon Dioxide 24 BUN 8 Creatinine 0.58 Glucose 116 H Calcium 9.0 Urine 01/07/17 Range/Units 13:10 Urine Color Yellow (Yellow) Urine Clarity Clear (Clear) Urine pH 7.0 (5.0-8.0) pH Units Ur Specific Satin 1.011 (1.010-1.025) Urine Protein Negative (Neg-Trace) mg/dL Urine Glucose (UA) Normal (Normal) mg/dL - ABG Interpretation ABG results: PT/INR, D-dimer PT 19.6 Seconds (9.4-12.1) H 12/31/16 17:50 - Impressions Impressions Chest CT 01/07/17 08:30 IMPRESSION: 1. Mild nodular right upper lobe ground-glass infiltrate, likely infectious or inflammatory in etiology. 2. New trace left pleural effusion. 3. Continued increase in size of a now 1.5 x 1.9 cm spiculated left upper lobe nodule, consistent with progression of metastatic disease. 4. New nonspecific semisolid 1.2 cm posterior left upper lobe nodular opacity. This may be related to post treatment change or scarring. Malignancy is felt to be less likely given the appearance. Continued CT follow-up suggested. 5. New 1.1 cm prevascular lymph node, concerning for progression of metastatic disease in the chest. 6. Partial visualization of moderate left hydronephrosis, which is secondary to obstruction of the left ureter secondary to a retroperitoneal mass, as seen on the prior CT abdomen exam. D/ / 01/07/2017 09:43:07 Isauro Castillo MD / [facility] Interpreting Provider: Isauro Castillo MD Consult Discharge Plan - Plan Referrals: Judy Montez MD [Partnered Physician] - 01/10/17 9:30 am Karen Jones CNP [Primary Care Provider] - 01/12/17 9:00 am <Oren Sharp - Last Filed: 01/08/17 19:14> Date of Encounter: 01/08/17 - Assessment and plan (1) Sepsis Current Visit: Yes Status: Acute Qualifiers: Sepsis type: sepsis due to unspecified organism Qualified Code(s): A41.9 - Sepsis, unspecified organism (2) Leucocytosis Current Visit: Yes Status: Acute Qualifiers: Leukocytosis type: other Qualified Code(s): D72.828 - Other elevated white blood cell count (3) Hyponatremia Current Visit: Yes Status: Chronic (4) Cancer related pain Current Visit: Yes Status: Chronic (5) Protein-calorie malnutrition, severe Current Visit: Yes Status: Acute (6) Anemia Current Visit: Yes Status: Acute Qualifiers: Anemia type: iron deficiency Iron deficiency anemia type: other iron deficiency Qualified Code(s): D50.8 - Other iron deficiency anemias (7) Diabetes mellitus type 2 in nonobese Current Visit: Yes Status: Acute - Constitutional Vitals: Temp Pulse Resp BP Pulse Ox 99.2 F 82 18 109/56 97 01/08/17 16:31 01/08/17 16:31 01/08/17 16:31 01/08/17 16:31 01/08/17 16:31 Internal Medicine: Result - Labs CBC & Chem 7: 01/08/17 03:55 01/08/17 03:55 Labs: Short CBC 01/08/17 Range/Units 03:55 WBC 36.3 H* (4.3-11.1) K/mcL Hgb 8.6 L (11.5-15.4) g/dL Hct 27.5 L (35.3-44.9) % Plt Count 520 H (140-400) K/mcL Neutrophils # 33.5 H (1.6-8.9) K/mcL BMP 01/08/17 03:55 Sodium 129 L Potassium 4.6 H Chloride 96 L Carbon Dioxide 24 BUN 8 Creatinine 0.58 Glucose 116 H Calcium 9.0 - ABG Interpretation ABG results: PT/INR, D-dimer PT 19.6 Seconds (9.4-12.1) H 12/31/16 17:50 - Impressions Impressions Abdomen/Pelvis CT 01/08/17 17:45 IMPRESSION: Increase in retroperitoneal mass. Slight increase in narrowing of the abdominal aorta and common iliac arteries. These appear patent. Slight progression of hydronephrosis bilaterally. Soft tissue edema as well as edema throughout the mesentery and small volume ascites, progressed. Slight progression of osseous metastatic disease. Compression deformity at L3 has significantly compress with loss of approximately 90% vertebral body. D/ / Ariela Santo MD / Ariela Santo MD Interpreting Provider: Ariela Santo MD - Attending Attestation I examined this patient and my medical decision-making was reviewed with the Resident Physician on 01/08/17. I agree with the documented findings, disposition and treatment plan as described except to the extent set forth below. Ms. Coker is currently admitted for sepsis, leukocytosis and metastatic cancer. She remains moderate to high risk due to potential for worsening clinical status. Ms. Coker is tearful and frightened. No CP or SOB. No abd pain. WBC remains elevated. No diarrhea noted. Exam Alert. Comfortable Heart reg No wheeze Abd soft No edema I/P 1. Leukocytosis 2. Sepsis Check CT of abd/pelvis. May need further intervention depending on results - ? stent.
[2017-01-08 16:10] LABS: % Iron Saturation 17 % (15-50); Iron 19 mcg/dL (50-170); Transferrin 81 mg/dL (180-382)
[2017-01-08 17:01] LABS: Ferritin 3571 ng/ml (5-204)
[2017-01-08] MEDS: *HR* HYDROmorphone (PF) 1 MG/ML SYRINGE IVP PRN ×2 (20:03→22:14)
[2017-01-09] MEDS: Acetaminophen 325 MG TABLET PO PRN ×2 (00:24→23:50)
[2017-01-09] MEDS: *HR* HYDROmorphone 4 MG TABLET PO PRN ×8 (04:24→23:51)
[2017-01-09 05:01] LABS: Basophils % 0.2 %; Lymphocytes % 1.7 %
[2017-01-09 05:02] LABS: Basophils # 0.1 K/mcL (0.0-0.2); Eosinophils # 0.1 K/mcL (0.0-0.6); Eosinophils % 0.3 %; Hematocrit 25.3 % (35.3-44.9); Hemoglobin 7.9 g/dL (11.5-15.4); Immature Granulocytes % 1.3 % (0-4); Lymphocytes # 0.5 K/mcL (0.6-4.6); Mean Corpuscular HGB Conc 31.2 g/dL (31.6-35.5); Mean Corpuscular Hemoglobin 26.1 pg (28.0-33.3); Mean Corpuscular Volume 83.5 fL (83.0-100.0); Mean Platelet Volume 8.4 fL (9.4-12.4); Monocytes # 1.6 K/mcL (0.0-1.3); Monocytes % 5.7 %; Neutrophils # 24.8 K/mcL (1.6-8.9); Platelet Count 466 K/mcL (140-400); Red Blood Count 3.03 M/mcL (3.82-4.97); Red Cell Distribution Width 19.7 % (11.5-14.5); Segmented Neutrophils % 90.8 %
[2017-01-09 05:19] LABS: Alanine Aminotransferase 17 Units/L (0-55); Albumin/Globulin Ratio 0.4 (1.1-2.2); Alkaline Phosphatase 97 Units/L (38-126); Aspartate Amino Transferase 17 Units/L (5-34); BUN/Creatinine Ratio 17 (6-26); Bilirubin,Total 0.5 mg/dL (0.2-1.2); Blood Urea Nitrogen 10 mg/dL (7-20); Calcium 8.7 mg/dL (8.6-10.8); Carbon Dioxide 25 mEq/L (19-29); Chloride 98 mEq/L (98-109); Globulin 3.9 g/dL (2.4-3.5); Glucose 117 mg/dL (70-99); Magnesium 1.6 mg/dL (1.6-2.6); Osmolality,Calculated 272 (280-300); Phosphorous 3.7 mg/dL (2.3-4.7); Potassium 4.1 mEq/L (3.5-4.5); Sodium 131 mEq/L (136-145); Total Protein 5.5 g/dL (6.0-8.3); eGFR For African Americans > 60 (> 60); eGFR For Non-African Americans > 60 (> 60)
[2017-01-09 05:20] LABS: Albumin 1.6 g/dL (3.5-5.0)
[2017-01-09 05:29] LABS: Toxic Granulation Present (Not Present)
[2017-01-09 05:30] LABS: Anisocytosis 2+ (Not Present); Microcytosis Present (Not Present); Platelet Estimate Increased (Normal)
[2017-01-09] MEDS: Baclofen 10 MG TABLET PO SCH ×3 (09:01→20:10)
[2017-01-09] MEDS: APIXABAN 5 MG TABLET PO SCH ×2 (09:01→20:10)
[2017-01-09] MEDS: Folic Acid 1 MG TABLET PO SCH (09:01)
[2017-01-09] MEDS: Gabapentin 300 MG CAPSULE PO SCH ×3 (09:02→20:10)
[2017-01-09] MEDS: Meropenem 1,000 MG in 0.9 % Sodium Chloride Mini Bag 100 ML IVPB SCH ×2 (09:03→15:27)
[2017-01-09] MEDS: Insulin LISPRO 300 UNITS/3 ML VIAL SQ SCH ×4 (09:03→23:01)
[2017-01-09] MEDS ORDERED: *HR* LORazepam 0.5 MG TABLET PO PRN (12:38)
--- NOTE | 2017-01-09 13:57 | Internal Med Progress Note ---
<Too Herrera - Last Filed: 01/09/17 13:55> Date of Encounter: 01/09/17 Time of Encounter: 13:55 - Assessment and plan (1) Sepsis Current Visit: Yes Status: Acute Assessment and plan: Patient admitted from [facility] after having recorded temperature of 102F. Lactic Acid 2.4 on admisson, dropped to 1.5 following antibiotics and fluids she also had Hypotension 89/53 on admission, WBC 34.9 on admission, Known baseline 19 prior to admission. -CT revealed mild hazy ground glass opacities in right upper lobe and irregular ill defined spiculation in left upper concerning for spiculated mass. Started on Broad spectrum antibiotics - She was initially placed on broad-spectrum antibiotics for which she demonstrates some clinical improvement but her WBC continued to climb and her antibiotics were switched to Zyvox and then the addition of meropenem without further improvement. - Viral panel was all negative, blood cultures from 01/11/2017 are negative, sputum cultures are negative, influenza was negative. - Repeat chest CT without any significant new findings 01/08: patient stated he see count is 36,000 up from 29,000 the day prior with a neutrophil count of 33.5. Patient denies any discomforts pains, fevers or chills though she did have a low-grade fever with a high of a temp of 101.3 yesterday evening. - Given her current treatments with meropenem and Zyvox, negative viral panels this brings into question whether her elevation in WBC count is related to her cancer and possible formation of AML versus abscess or necrotic mass not yet identified. 01/09: WBC 27.3, patient denies any abdominal pain, change in her back or hip pain or any other concerning symptoms or findings. She has been afebrile, normotensive, appropriate respiratory rate and pulse with oxygen saturations greater than 90% on room air. - Still highly suspicious that her elevated WBC may be related to her cancer or evolution AML. Plan: - Continue broad-spectrum antibiotics - CT abdomen and pelvis with IV contrast for evaluation for possible abscess versus other pathologies - Continue to monitor vitals closely Qualifiers: Sepsis type: sepsis due to unspecified organism Qualified Code(s): A41.9 - Sepsis, unspecified organism (2) Cancer related pain Current Visit: Yes Status: Chronic Assessment and plan: Pain secondary to mets to pelvis, and pain of legs bilaterally resulting in her now wheelchair bound status. Conitnue home pain medication regimenL 75 mcg fentanyl patches q48 and 4mg hydromorphone po q2-3hr prn. -Social work for placement, currently wheelchair bound. (3) Adenocarcinoma of left lung, stage 4 Current Visit: Yes Status: Chronic Assessment and plan: Known history of primary adenocarcinoma of left lung stage 4 with mets to spine and pelvis. Currently undergoing palliative chemoradiation at [facility]. -Oncology on board (4) Healthcare-associated pneumonia Current Visit: Yes Status: Acute Assessment and plan: 56-year-old female who is immunocompromised with current metastatic lung cancer admitted with pneumonia. CXR revealed mild hazy ground glass opacities in right upper lobe and irregular ill defined spiculation in left upper concerning for spiculated mass. Sputum culture negative, normal serg. WBC 27,000, afebrile for the past 24 hours Plan: -Continue monitoring labs and vitals -Continue broad spectrum antibiotics: Meropenem, Zyvox. (5) Diabetes mellitus type 2 in nonobese Current Visit: Yes Status: Acute Assessment and plan: Continue with ADA diet and low dose insulin sliding scale. Continue monitoring labs. (6) Hypomagnesemia Current Visit: Yes Status: Acute Assessment and plan: Magnesium 1.5 on admission, 1.6 this morning again. Plan: - 2 g magnesium - Repeat magnesium in a.m. (7) Leucocytosis Current Visit: Yes Status: Acute Assessment and plan: As discussed above. Qualifiers: Leukocytosis type: other Qualified Code(s): D72.828 - Other elevated white blood cell count (8) Pressure ulcer of sacral region, stage 1 Current Visit: Yes Status: Acute Assessment and plan: Continue rotating patient every 2 hours Pressure ulcers management per protocol. (9) Abdominal pain Current Visit: Yes Status: Acute Assessment and plan: Patient denies abdominal pain, but was noted to have Rebound tenderness on the left on exam 01/07/17. Abdominal exam otherwise normal without guarding or rigidity. 01/08: Abdominal exam without tenderness or guarding or fullness to examination. Unable to reproduce rebound tenderness on today's exam. 01/09: No change CT Abdomen/Pelvis with contrast 01/08: IMPRESSION: Increase in retroperitoneal mass. Slight increase in narrowing of the abdominal aorta and common iliac arteries. These appear patent. Slight progression of hydronephrosis bilaterally. Soft tissue edema as well as edema throughout the mesentery and small volume ascites, progressed. Slight progression of osseous metastatic disease. Compression deformity at L3 has significantly compress with loss of approximately 90% vertebral body. Qualifiers: Abdominal location: left lower quadrant Qualified Code(s): R10.32 - Left lower quadrant pain (10) Anemia Current Visit: Yes Status: Acute Assessment and plan: Anemia which has remained stable. Patient received 2 units PRBC transfusion on 01/04/2017. - Monitor daily and replace if hemoglobin falls below 7.0 Qualifiers: Anemia type: iron deficiency Iron deficiency anemia type: other iron deficiency Qualified Code(s): D50.8 - Other iron deficiency anemias - Subjective Interval history: Mrs. Coker 56-year-old female has been seen about a patient bedside. She denies any acute changes overnight continues to have some mild constipation. She does say that she cannot find a position to be comfortable as she has pain in her lower back, hips and pelvic girdle. She associates this with the tumor that has been invading her bones. She denies any pains, discomforts, fevers, chills, sweating, shortness of breath, reductive cough or sputum production, she denies any headaches, chest pains, palpitations, pleuritic pain, abdominal pain, nausea, vomiting, diarrhea, burning with urination, bladder pain with stools are frequent stools, pain or warmth in her extremities. I sat down and talked with Mrs. Coker regarding her CT scan and she was very tearful stating that she has been strong but scared. After a lengthy discussion regarding her wishes she does wish to talk with palliative care tomorrow. - Constitutional Vitals: Temp Pulse Resp BP Pulse Ox 98.2 F 74 17 107/55 96 01/09/17 10:28 01/09/17 10:28 01/09/17 10:28 01/09/17 10:28 01/09/17 10:28 General appearance: Present: cooperative, A&O X 3, pleasant, no acute distress, answers questions appropriately Exam: General: Patient alert, awake, oriented 3, interactive, in no acute distress, thin female HEENT: Normocephalic, atraumatic, pupils equal reactive to light, nasal cavity patent and open septum median position, oral mucosa moist, uvula midline, neck supple trachea midline no palpable lymphadenopathy, no thyromegaly. Chest: Symmetric bilateral correlating with respiratory effort, effort nonlabored. Port in her right upper chest Cardiac: Regular rate and rhythm, positive S1 and S2. no bruits appreciated bilateral carotids, Radial pulses 2+ bilateral. Respiratory: Clear to auscultation all lung ontiveros Abdomen: Soft, nontender, slightly distended, positive bowel sounds, no palpable masses appreciated on examination Extremities: Symmetric bilateral, bilateral lower extremities without erythema or edema patient moving all 4 extremities spontaneously. Neurologic: No focal deficits appreciated on examination. Face symmetric, muscle strength symmetric bilateral upper and lower extremities. Internal Medicine: Result - Labs CBC & Chem 7: 01/09/17 04:17 01/09/17 04:17 Labs: Short CBC 01/09/17 Range/Units 04:17 WBC 27.3 H (4.3-11.1) K/mcL Hgb 7.9 L (11.5-15.4) g/dL Hct 25.3 L (35.3-44.9) % Plt Count 466 H (140-400) K/mcL Neutrophils # 24.8 H (1.6-8.9) K/mcL BMP 01/09/17 04:17 Sodium 131 L Potassium 4.1 Chloride 98 Carbon Dioxide 25 BUN 10 Creatinine 0.58 Glucose 117 H Calcium 8.7 Liver Function 01/09/17 Range/Units 04:17 Total Bilirubin 0.5 (0.2-1.2) mg/dL AST 17 (5-34) Units/L ALT 17 (0-55) Units/L Alkaline Phosphatase 97 (38-126) Units/L Albumin 1.6 L (3.5-5.0) g/dL - ABG Interpretation ABG results: PT/INR, D-dimer PT 19.6 Seconds (9.4-12.1) H 12/31/16 17:50 - Impressions Impressions Abdomen/Pelvis CT 01/08/17 17:45 IMPRESSION: Increase in retroperitoneal mass. Slight increase in narrowing of the abdominal aorta and common iliac arteries. These appear patent. Slight progression of hydronephrosis bilaterally. Soft tissue edema as well as edema throughout the mesentery and small volume ascites, progressed. Slight progression of osseous metastatic disease. Compression deformity at L3 has significantly compress with loss of approximately 90% vertebral body. D/ / Ariela Santo MD / Ariela Santo MD Interpreting Provider: Ariela Santo MD Consult Discharge Plan - Plan Referrals: Judy Montez MD [Partnered Physician] - 01/10/17 9:30 am Karen Jones CNP [Primary Care Provider] - 01/12/17 9:00 am <Oren Sharp - Last Filed: 01/09/17 18:35> Date of Encounter: 01/09/17 - Assessment and plan (1) Cancer related pain Current Visit: Yes Status: Chronic (2) Leucocytosis Current Visit: Yes Status: Acute Qualifiers: Leukocytosis type: other Qualified Code(s): D72.828 - Other elevated white blood cell count (3) Sepsis Current Visit: Yes Status: Acute Qualifiers: Sepsis type: sepsis due to unspecified organism Qualified Code(s): A41.9 - Sepsis, unspecified organism (4) Hyponatremia Current Visit: Yes Status: Chronic (5) Protein-calorie malnutrition, severe Current Visit: Yes Status: Acute (6) Anemia Current Visit: Yes Status: Acute Qualifiers: Anemia type: iron deficiency Iron deficiency anemia type: other iron deficiency Qualified Code(s): D50.8 - Other iron deficiency anemias (7) Diabetes mellitus type 2 in nonobese Current Visit: Yes Status: Acute - Constitutional Vitals: Temp Pulse Resp BP Pulse Ox 98.9 F 78 16 122/62 98 01/09/17 16:08 01/09/17 16:08 01/09/17 16:08 01/09/17 16:08 01/09/17 16:08 Internal Medicine: Result - Labs CBC & Chem 7: 01/09/17 04:17 01/09/17 04:17 Labs: Short CBC 01/09/17 Range/Units 04:17 WBC 27.3 H (4.3-11.1) K/mcL Hgb 7.9 L (11.5-15.4) g/dL Hct 25.3 L (35.3-44.9) % Plt Count 466 H (140-400) K/mcL Neutrophils # 24.8 H (1.6-8.9) K/mcL BMP 01/09/17 04:17 Sodium 131 L Potassium 4.1 Chloride 98 Carbon Dioxide 25 BUN 10 Creatinine 0.58 Glucose 117 H Calcium 8.7 Liver Function 01/09/17 Range/Units 04:17 Total Bilirubin 0.5 (0.2-1.2) mg/dL AST 17 (5-34) Units/L ALT 17 (0-55) Units/L Alkaline Phosphatase 97 (38-126) Units/L Albumin 1.6 L (3.5-5.0) g/dL - ABG Interpretation ABG results: PT/INR, D-dimer PT 19.6 Seconds (9.4-12.1) H 12/31/16 17:50 - Impressions Impressions Abdomen/Pelvis CT 01/08/17 17:45 IMPRESSION: Increase in retroperitoneal mass. Slight increase in narrowing of the abdominal aorta and common iliac arteries. These appear patent. Slight progression of hydronephrosis bilaterally. Soft tissue edema as well as edema throughout the mesentery and small volume ascites, progressed. Slight progression of osseous metastatic disease. Compression deformity at L3 has significantly compress with loss of approximately 90% vertebral body. D/ / Ariela Santo MD / Ariela Santo MD Interpreting Provider: Ariela Santo MD - Attending Attestation /I examined this patient and my medical decision-making was reviewed with the Resident Physician on 01/09/17. I agree with the documented findings, disposition and treatment plan as described except to the extent set forth below. Ms Coker is currently admitted for presumed sepsis with persistent leukocytosis. She remains moderate to high risk due to potential for worsening clinical status. Ms. Coker is very tearful. She has a lot of pain still. CT reviewed and has bilateral hydronephrosis. Mass is bigger. Exam Alert. Tearful Heart reg No wheeze Abd soft I/P 1. Sepsis 2. Hydronephrosis Further diagnoses and plan as above.
[2017-01-09] MEDS ORDERED: Magnesium Sulfate 1 GM in D5% in Water 100 ML IVPB ONE (14:05)
[2017-01-09] MEDS: *HR* FentaNYL PATCH 100 MCG PATCH TD SCH (15:24)
[2017-01-09] MEDS: *HR* HYDROmorphone (PF) 1 MG/ML SYRINGE IVP PRN ×2 (18:01→20:10)
[2017-01-10] MEDS: Meropenem 1,000 MG in 0.9 % Sodium Chloride Mini Bag 100 ML IVPB SCH ×4 (00:28→23:23)
[2017-01-10] MEDS: *HR* HYDROmorphone (PF) 1 MG/ML SYRINGE IVP PRN ×4 (00:28→19:58)
[2017-01-10 03:58] LABS: Hematocrit 25.7 % (35.3-44.9); Mean Corpuscular Volume 83.7 fL (83.0-100.0); Mean Platelet Volume 8.2 fL (9.4-12.4); Monocytes % 5.9 %; Red Blood Count 3.07 M/mcL (3.82-4.97); Red Cell Distribution Width 19.6 % (11.5-14.5)
[2017-01-10 04:00] LABS: Basophils # 0.1 K/mcL (0.0-0.2); Basophils % 0.2 %; Eosinophils # 0.1 K/mcL (0.0-0.6); Eosinophils % 0.3 %; Hemoglobin 7.9 g/dL (11.5-15.4); Immature Granulocytes % 1.6 % (0-4); Lymphocytes # 0.5 K/mcL (0.6-4.6); Lymphocytes % 1.9 %; Mean Corpuscular HGB Conc 30.7 g/dL (31.6-35.5); Mean Corpuscular Hemoglobin 25.7 pg (28.0-33.3); Monocytes # 1.7 K/mcL (0.0-1.3); Neutrophils # 25.3 K/mcL (1.6-8.9); Platelet Count 462 K/mcL (140-400); Segmented Neutrophils % 90.1 %
[2017-01-10 04:13] LABS: Alanine Aminotransferase 18 Units/L (0-55); Albumin 1.7 g/dL (3.5-5.0); Albumin/Globulin Ratio 0.4 (1.1-2.2); Alkaline Phosphatase 96 Units/L (38-126); Aspartate Amino Transferase 23 Units/L (5-34); BUN/Creatinine Ratio 18 (6-26); Bilirubin,Total 0.6 mg/dL (0.2-1.2); Blood Urea Nitrogen 10 mg/dL (7-20); Calcium 8.7 mg/dL (8.6-10.8); Carbon Dioxide 24 mEq/L (19-29); Chloride 97 mEq/L (98-109); Glucose 113 mg/dL (70-99); Osmolality,Calculated 266 (280-300); Potassium 4.3 mEq/L (3.5-4.5); Sodium 128 mEq/L (136-145); Total Protein 5.7 g/dL (6.0-8.3); eGFR For African Americans > 60 (> 60); eGFR For Non-African Americans > 60 (> 60)
[2017-01-10 04:22] LABS: Platelet Estimate Increased (Normal)
[2017-01-10 04:23] LABS: Anisocytosis 2+ (Not Present); Hypochromasia Present (Not Present)
[2017-01-10 04:24] LABS: Toxic Granulation Present (Not Present)
[2017-01-10] MEDS: *HR* HYDROmorphone 4 MG TABLET PO PRN ×7 (05:43→22:40)
--- NOTE | 2017-01-10 08:00 | Oncology Inp Progress Note ---
Date of Encounter: 01/10/17 Time of Encounter: 06:45 (1) Adenocarcinoma of left lung, stage 4 Current Visit: Yes Status: Chronic Assessment and plan: Patient has recently progressed on the nivolumab. As of now, she is not a treatment candidate. She is currently debilitated with a performance status of 3. In addition, she has evidence of ongoing infection with a fever and persistent leukocytosis. Given her overall debility, home physical therapy or possible rehabilitation stay will be required. As patient wants to be proactive and move forward with treatment for her cancer, which should try to limit her rehabilitation stay minimally as I will be unable to treat her cancer while in rehabilitation. If she does not progress over the next few days, hospice measures could be entertained (2) Leucocytosis Current Visit: Yes Status: Acute Assessment and plan: This is secondary to underlying infection and possibly inflammation related to her cancer. Would continue with current care per the primary team. We will add Procalcitonin level to help delineate if underlying infection is present. The patient does not have acute leukemia. Qualifiers: Leukocytosis type: other Qualified Code(s): D72.828 - Other elevated white blood cell count Oncology: Subj Interval history: Ms. Coker is doing okay this morning. She had a fever again last night to 102.8. She is very weak and fatigued. She requires assistance up and out of bed. She requires assistance ambulating to the restroom. She has been receiving physical therapy and occupational therapy per her report. She tells me there is a plan for stent placement today to ureters - Constitutional Vitals: Vital Signs Temp Pulse Resp BP Pulse Ox 01/10/17 07:14 98.1 F 63 17 109/58 98 01/10/17 03:24 97.4 F L 68 16 119/85 100 01/09/17 23:45 102.8 F H 86 16 114/54 97 01/09/17 20:51 99.2 F 86 16 103/47 97 01/09/17 16:08 98.9 F 78 16 122/62 98 01/09/17 10:28 98.2 F 74 17 107/55 96 Intake and Output 01/09/17 01/10/17 01/10/17 16:59 00:59 08:59 Intake Total 1680 / 1680 420 / 420 Output Total 700 / 700 1300 / 1300 Balance 980 / 980 420 / 420 -1300 / -1300 Intake: IV Fluids 200 / 200 300 / 300 Zyvox Premix 600mg/300mL 300 / 300 600 mg In 300 ml @ 150 mls/hr IVPB Q12HR DEANDRA Rx# :[id number] Merrem 1,000 MG In 0.9 % 200 / 200 Sodium Chloride (Mini-Bag +) 100 ML @ 200 mls/hr IVPB Q8HR DEANDRA Rx#: [id number] Oral 1480 / 1480 120 / 120 Output: Urine 700 / 700 1300 / 1300 Other: Meal Lunch Dinner Percent of Meal Consumed 25% 85% Stool Size Moderate Stool Consistency formed Stool Characteristics Normal for Patient Stool Color Brown # Bowel Movement Diapers 1 Weight 60.9 kg Blood Glucose* 95 153 130 Patient Weight 01/11/17 00:59 Weight 60.9 kg - Head Head exam: Present: atraumatic, normal inspection, normocephalic - Eye Eye exam: Present: conjuntiva pink, sclera anicteric - ENT ENT exam: Present: mucous membranes moist, normal exam - Neck Neck exam: Present: full ROM, normal inspection - Respiratory Respiratory exam: Present: decreased breath sounds, rhonchi - Cardiovascular Cardiovascular exam: Present: RRR - GI/Abdominal GI/Abdominal exam: Present: normal bowel sounds, soft - Extremities Exam Extremities exam: Present: normal inspection - Neurological Exam Neurological exam: Present: alert, CN II-XII intact, oriented X3 Oncology: Obj Data - Labs CBC & Chem 7: 01/10/17 03:50 01/10/17 03:50 Labs: Laboratory Results - last 24 hr 01/09/17 01/10/17 01/10/17 11:51 03:50 03:50 WBC 28.1 H RBC 3.07 L Hgb 7.9 L Hct 25.7 L MCV 83.7 MCH 25.7 L MCHC 30.7 L RDW 19.6 H Plt Count 462 H MPV 8.2 L Immature Gran % 1.6 Seg Neutrophils % 90.1 Lymphocytes % 1.9 Monocytes % 5.9 Eosinophils % 0.3 Basophils % 0.2 Neutrophils # 25.3 H Lymphocytes # 0.5 L Monocytes # 1.7 H Eosinophils # 0.1 Basophils # 0.1 Toxic Granulation Present A Platelet Estimate Increased H Hypochromasia Present A Anisocytosis 2+ A Sodium 128 L Potassium 4.3 Chloride 97 L Carbon Dioxide 24 BUN 10 Creatinine 0.56 L Est GFR ( Amer) > 60 Est GFR (Non-Af Amer) > 60 BUN/Creatinine Ratio 18 Glucose 113 H POC Glucose 114 H Calculated Osmolality 266 L Calcium 8.7 Total Bilirubin 0.6 AST 23 ALT 18 Alkaline Phosphatase 96 Serum Total Protein 5.7 L Albumin 1.7 L Globulin 4.0 H Albumin/Globulin Ratio 0.4 L - ABG Interpretation ABG results: PT/INR, D-dimer PT 19.6 Seconds (9.4-12.1) H 12/31/16 17:50 Consult Discharge Plan - Plan Referrals: Judy Montez MD [Partnered Physician] - 01/10/17 9:30 am Karen Jones CNP [Primary Care Provider] - 01/12/17 9:00 am
[2017-01-10] MEDS: Gabapentin 300 MG CAPSULE PO SCH ×3 (08:04→19:58)
[2017-01-10] MEDS: APIXABAN 5 MG TABLET PO SCH ×2 (08:04→19:58)
[2017-01-10] MEDS: Baclofen 10 MG TABLET PO SCH ×3 (08:04→19:58)
[2017-01-10] MEDS: Folic Acid 1 MG TABLET PO SCH (08:04)
[2017-01-10] MEDS: Insulin LISPRO 300 UNITS/3 ML VIAL SQ SCH ×4 (08:05→21:56)
--- NOTE | 2017-01-10 08:45 | Internal Med Progress Note ---
<JonvictorinaNapoleon dwyer - Last Filed: 01/10/17 12:03> Date of Encounter: 01/10/17 Time of Encounter: 08:45 - Assessment and plan (1) Sepsis Current Visit: Yes Status: Acute Assessment and plan: Patient admitted from [facility] after having recorded temperature of 102F. Lactic Acid 2.4 on admisson, dropped to 1.5 following antibiotics and fluids Hypotension 89/53 on admission WBC 34.9 on admission, Known baseline 19 prior to admission. CXR revealed mild hazy ground glass opacities in right upper lobe and irregular ill defined spiculation in left upper concerning for spiculated mass. Patient received 2L normal saline bolus in ED Started on Broad spectrum antibiotics Urine antigens for Legioinella and S. pneumonia returned negative Influenza swab negative. Urine culture negative. Echo revealed EF 60%, normal LV systolic and diastolic function, normal LV, mildly dilated LA, mild mitral regurgitation, no evidence of pulm htn, no evidence of valvular vegetations Sputum cultures mixed serg, moderate wbc. Blood smear 01/03/17 revealed reactive changes, no findings suggestive of new or active malignancy Repeat CT chest 01/07/17 revealed continued progression of spiculated left upper obe nodule to 1.5 x 1.9 cm, new nonspecific semisolic 1.2 cm posterior left upper lobe nodular opacity, and new 1.[address] abdomen 01/08/17 revealed increase in retroperitoneal mass from prior, slight increase in narrowing of abdominal aorta and common vance arteries, but still patent, slight progression of hydronephrosis bilaterally, and compression deformity of L33 to 90% of vertebral body loss. Blood cultures 12/31/16 negative. Sputum culture negative, normal serg. Blood cultures 01/03/17 negative. Respiratory viral panel negative UA repeat negative. Discontinued 01/04/17 Vancomycin d4, Zosyn d4. Discontinued 01/05/17 Levaquin d5. Discontinued Cefepime d3 01/07/17. Fever of 102.8 overnight, nontachycardic, nontachypneic, bp stable but low, WBC increased overnight to 28.1, from 27.3 yesterday. Blood cultures 01/08/17 no growth to date. -If continues to develop fevers, blood cultures draws -If has diarrhea, consider c.diff testing. -Continue Linezolid d5 and Meropenem d3 -Continue monitoring vitals and labs. -Tylenol prn for fever -ID consulted, called 01/04/17 unable to see patient due to complexity of case. Transfer option was discussed with patient who wishes at this moment to continue medical treatment at [facility]. -Oncology on board, recommended ID consult and continuance of therapy -Palliative on board -Urology consulted for possible ureteral stenting Patient is at high risk due to her history of immunosuppression due to treatment with chem and radiation for her cancer. Suspect fevers are due to cancer. Qualifiers: Sepsis type: sepsis due to unspecified organism Qualified Code(s): A41.9 - Sepsis, unspecified organism (2) Healthcare-associated pneumonia Current Visit: Yes Status: Acute Assessment and plan: Due to history of immunosuppression due to cancer treatments and close interactions with medical community, patient's pneumonia based on imaging is likely HCAP vs CAP based on new guidelines. CXR revealed CXR revealed mild hazy ground glass opacities in right upper lobe and irregular ill defined spiculation in left upper concerning for spiculated mass. CT chest revealed mild nodular right upper lobe ground glass infiltrate, and increased size of nodules and nodes. Sputum culture negative, normal serg. WBC 28.1, increased from 27.3 yesterday, developed fever of 102.8F overnight. -Continue monitoring labs and vitals -Continue broad spectrum antibiotics per plan in assessment above. Continue Linezolid d5 and Meropenem d3 (3) Abdominal pain Current Visit: Yes Status: Acute Assessment and plan: Patient denies abdominal pain, but was noted to have Rebound tenderness on the left on exam 01/07/17. Abdominal exam otherwise normal without guarding or rigidity. No additional rebound or abdominal pain noted on exams since 01/07/17. CT Abdomen/Pelvis with contrast 01/08: IMPRESSION: Increase in retroperitoneal mass. Slight increase in narrowing of the abdominal aorta and common iliac arteries. These appear patent. Slight progression of hydronephrosis bilaterally. Soft tissue edema as well as edema throughout the mesentery and small volume ascites, progressed. Slight progression of osseous metastatic disease. Compression deformity at L3 has significantly compress with loss of approximately 90% vertebral body. Qualifiers: Abdominal location: left lower quadrant Qualified Code(s): R10.32 - Left lower quadrant pain (4) Anemia Current Visit: Yes Status: Acute Assessment and plan: Hb 7.9 this morning, from 7.9 yesterday. stable. Required pRBC transfusion x1 01/01/17 due to Hb 6.3 Required pRBC transfusion x1 01/04/17 due to Hb 6.6. Known history of severe iron deficiency anemia, had recently received iron transfusion prior to admission. Continue monitoring labs. Consider pRBC transfusion if Hb <7 Qualifiers: Anemia type: iron deficiency Iron deficiency anemia type: other iron deficiency Qualified Code(s): D50.8 - Other iron deficiency anemias (5) Hyponatremia Current Visit: Yes Status: Chronic Assessment and plan: Patient determined to have sodium 129 on admission. Sodium 128 on labs this morning, from 131 yesterday Patient has known chronic hyponatremia. Continue to monitor labs. (6) Adenocarcinoma of left lung, stage 4 Current Visit: Yes Status: Chronic Assessment and plan: Known history of primary adenocarcinoma of left lung stage 4 with mets to spine and pelvis. Currently undergoing palliative chemoradiation at [facility]. -Oncology on board (7) Cancer related pain Current Visit: Yes Status: Chronic Assessment and plan: Pain secondary to mets to pelvis, and pain of legs bilaterally resulting in her now wheelchair bound status. Conitnue home pain medication regimenL 75 mcg fentanyl patches q48 and 4mg hydromorphone po q2-3hr prn. -Social work for placement, currently wheelchair bound. (8) Bone metastasis Current Visit: Yes Status: Chronic Assessment and plan: Per plan in assessment above. (9) Hypomagnesemia Current Visit: Yes Status: Acute Assessment and plan: Magnesium 1.5 on admission, 1.6 yesterday. Has received a total of 10grams magnesium since admission. (10) DVT (deep venous thrombosis) Current Visit: Yes Status: Resolved Assessment and plan: Known history of DVT -Continue Eliquis. Qualifiers: DVT location: lower extremity Affected thrombotic vein of extremity: unspecified vein of extremity Chronicity: unspecified Laterality: left Qualified Code(s): I82.402 - Acute embolism and thrombosis of unspecified deep veins of left lower extremity (11) Abnormal finding on imaging Current Visit: Yes Status: Acute Assessment and plan: Patient found to have small focus of abnormal attenuation in the right thalamus that is nonspecific and possibly artifact. Given patient history of lung cancer brain metastases cannot be ruled out. She might need MRI as outpatient for further evaluation per the discretion of her oncologist (12) Diabetes mellitus type 2 in nonobese Current Visit: Yes Status: Acute Assessment and plan: Continue with ADA diet and low dose insulin sliding scale. Continue monitoring labs. (13) Protein-calorie malnutrition, severe Current Visit: Yes Status: Acute Assessment and plan: Consulted Nutrition for po recommendations. (14) Pressure ulcer of sacral region, stage 1 Current Visit: Yes Status: Acute Assessment and plan: Continue rotating patient every 2 hours Pressure ulcers management per protocol. - Subjective Interval history: Patient developed fever of 102.8F and heavy sweating overnight. Patient continues reporting bed sore, but improving. Patient denies chills, headaches, lightheadedness, dizziness, changes in vision or hearing, neck pain, chest pain or pressure, shortness of breath, cough, increased sputum, abdominal pain, diarrhea constipation, changes in urination, dysuria, new weakness, or new loss of sensation. Patient continues reporting chronic leg pain and lower extremitye weakness present before admission. - Constitutional Vitals: Temp Pulse Resp BP Pulse Ox 98.1 F 63 17 109/58 98 01/10/17 07:14 01/10/17 07:14 01/10/17 07:14 01/10/17 07:14 01/10/17 07:14 General appearance: Present: cooperative, A&O X 3, pleasant, no acute distress, answers questions appropriately - Head Head exam: Present: atraumatic, normal inspection, normocephalic - Eye Eye exam: Present: EOMI, normal appearance - ENT ENT exam: Present: mucous membranes moist, normal exam, normal oropharynx - Neck Neck exam general surgery: Present: full ROM, normal inspection, supple, trachea midline. Absent: tenderness - Respiratory Respiratory exam: Present: CTAB. Absent: rales, respiratory distress, rhonchi, wheezes, tachypnea - Cardiovascular Cardiovascular exam: Present: RRR, +S1, +S2. Absent: JVD, systolic murmur - GI/Abdominal GI/Abdominal exam: Present: normal bowel sounds, soft. Absent: distended, guarding, tenderness, no peritoneal signs - Extremities Exam Extremities exam: Present: full ROM, normal capillary refill, normal inspection , tenderness, warm, radial pulses palpable and symmetrical. Absent: pedal edema Additional comments: normal upper extremities bilaterally, 4/5 strength lower extremities bilaterally , decreased ROM due to pain, normal capillary refill, warm - Neurological Exam Neurological exam: Present: alert, oriented X3, no focal deficits, strengths equal and symetr throughout. Absent: motor sensory deficit, facial droop, speech deficit - Psychiatric Psychiatric exam: Present: normal affect, normal mood - Skin Skin exam: Present: dry, intact, normal color, warm. Absent: rash Additional comments: mild nonblanching erythema over prescral region. Internal Medicine: Result - Labs CBC & Chem 7: 01/10/17 03:50 01/10/17 03:50 Labs: Short CBC 01/10/17 Range/Units 03:50 WBC 28.1 H (4.3-11.1) K/mcL Hgb 7.9 L (11.5-15.4) g/dL Hct 25.7 L (35.3-44.9) % Plt Count 462 H (140-400) K/mcL Neutrophils # 25.3 H (1.6-8.9) K/mcL BMP 01/10/17 03:50 Sodium 128 L Potassium 4.3 Chloride 97 L Carbon Dioxide 24 BUN 10 Creatinine 0.56 L Glucose 113 H Calcium 8.7 Liver Function 01/10/17 Range/Units 03:50 Total Bilirubin 0.6 (0.2-1.2) mg/dL AST 23 (5-34) Units/L ALT 18 (0-55) Units/L Alkaline Phosphatase 96 (38-126) Units/L Albumin 1.7 L (3.5-5.0) g/dL - ABG Interpretation ABG results: PT/INR, D-dimer PT 19.6 Seconds (9.4-12.1) H 12/31/16 17:50 Consult Discharge Plan - Plan Referrals: Judy Montez MD [Partnered Physician] - 01/10/17 9:30 am Karen Jones CNP [Primary Care Provider] - 01/12/17 9:00 am <Oren Sharp - Last Filed: 01/10/17 18:13> Date of Encounter: 01/10/17 - Assessment and plan (1) Adenocarcinoma of left lung, stage 4 Current Visit: Yes Status: Chronic (2) Cancer related pain Current Visit: Yes Status: Chronic (3) Hydronephrosis Current Visit: Yes Status: Acute Assessment and plan: Plan for cysto and stenting tomorrow. Qualifiers: Hydronephrosis type: with other ureteral stricture Qualified Code(s): N13.1 - Hydronephrosis with ureteral stricture, not elsewhere classified (4) Leucocytosis Current Visit: Yes Status: Acute Qualifiers: Leukocytosis type: other Qualified Code(s): D72.828 - Other elevated white blood cell count (5) Sepsis Current Visit: Yes Status: Acute Qualifiers: Sepsis type: sepsis due to unspecified organism Qualified Code(s): A41.9 - Sepsis, unspecified organism (6) Hyponatremia Current Visit: Yes Status: Chronic (7) Protein-calorie malnutrition, severe Current Visit: Yes Status: Acute (8) Anemia Current Visit: Yes Status: Acute Qualifiers: Anemia type: iron deficiency Iron deficiency anemia type: other iron deficiency Qualified Code(s): D50.8 - Other iron deficiency anemias (9) Diabetes mellitus type 2 in nonobese Current Visit: Yes Status: Acute - Constitutional Vitals: Temp Pulse Resp BP Pulse Ox 98.6 F 70 17 100/55 97 01/10/17 16:38 01/10/17 16:38 01/10/17 16:38 01/10/17 16:38 01/10/17 16:38 Internal Medicine: Result - Labs CBC & Chem 7: 01/10/17 03:50 01/10/17 03:50 Labs: Short CBC 01/10/17 Range/Units 03:50 WBC 28.1 H (4.3-11.1) K/mcL Hgb 7.9 L (11.5-15.4) g/dL Hct 25.7 L (35.3-44.9) % Plt Count 462 H (140-400) K/mcL Neutrophils # 25.3 H (1.6-8.9) K/mcL BMP 01/10/17 03:50 Sodium 128 L Potassium 4.3 Chloride 97 L Carbon Dioxide 24 BUN 10 Creatinine 0.56 L Glucose 113 H Calcium 8.7 Liver Function 01/10/17 Range/Units 03:50 Total Bilirubin 0.6 (0.2-1.2) mg/dL AST 23 (5-34) Units/L ALT 18 (0-55) Units/L Alkaline Phosphatase 96 (38-126) Units/L Albumin 1.7 L (3.5-5.0) g/dL - ABG Interpretation ABG results: PT/INR, D-dimer PT 19.6 Seconds (9.4-12.1) H 12/31/16 17:50 - Attending Attestation I examined this patient and my medical decision-making was reviewed with the Resident Physician on 01/10/17. I agree with the documented findings, disposition and treatment plan as described except to the extent set forth below. Ms. Coker is currently admitted for fever and leukocytosis with metastatic lung cancer. She remains moderate to high risk due to potential for worsening respiratory and onc issues. Ms. Coker feels about the same but had fever again last night. No fever now. No CP or SOB. Back and leg pain persists. Seen by palliative today and working on pain management and future plans. Exam Alert. Tearful Heart reg Lungs diminished Abd soft No edema I/P 1. Fever and leukocytosis - ? tumor related 2. Abd mass Further diagnoses and plan as above.
--- NOTE | 2017-01-10 11:20 | Palliative - Consult Note ---
Date of Encounter: 01/10/17 Time of Encounter: 11:15 - Assessment and Plan (1) Cancer related pain Current Visit: Yes Status: Chronic Assessment and plan: Patient continues to have what appears to be bony pain, states that increased in Fentanyl patch has helped some. Still utilizing Hydromorphone frequently = po x 9 doses last 24 hours and 3 IV doses. May benefit from steroids, will begin Dexamethasone 4mg BID, D/W Sue Aguilar NP. (2) Protein-calorie malnutrition, severe Current Visit: Yes Status: Acute Assessment and plan: She has adequate intake and eating approx 50-90 % of meals. Janitorial Services Supervisor following and receiving ensure shakes. Alb 1.7. Monitor (3) Counseling regarding advanced care planning and goals of care Current Visit: Yes Status: Acute Assessment and plan: Discussed goals of care with pt. She was very emotional and tearful during the conversation. She stated "I know they tell me I'm dying, I just don't feel like I'm dying". She has been told and understands that tumors are progressing despite treatment. Discussed code status, and she will consider, but did not make any decisions today. She has been given power of commercial real estate attorney papers previously, but has not filled these out. Stated her family situation is "complicated", and states some of her family not "even dealing with my illness as well as I am". She has limited support at home, and is willing to consider d/c to rehab facility to try and improve on strength. (Desires Signature) She previously did have [facility] prior to admission. She is aware that she may not improve enough for further treatment, and we did discuss hospice. She had hospice care when her passed in 2008 and is familiar with their services. She has limited support for care and this will be an issue for her moving forward. Will D/W Social work. Will follow up tomorrow with discussions. (4) Adenocarcinoma of left lung, stage 4 Current Visit: Yes Status: Chronic (5) Leucocytosis Current Visit: Yes Status: Acute Qualifiers: Leukocytosis type: other Qualified Code(s): D72.828 - Other elevated white blood cell count (6) Fever Current Visit: Yes Status: Acute Qualifiers: Fever type: unspecified Qualified Code(s): R50.9 - Fever, unspecified Palliative-CN HPI - Data of Consult Consult date: 01/10/17 Requesting Physician: Oren Sharp DO Primary Care Provider: Karen Jones CNP - Consult Narrative History of present illness: Ms. Coker is a 56 year old female with a history of metastatic lung cancer, who has now been in the hospital for 10 days. She was sent from [facility] , where she was found to have fever, and was admitted with suspected infection. She has been treated since admission with IV antibiotics, cultures have been negative and no infectious source found. Oncology has been following pt closely. She was most recently on nivolumab, but has had disease progression. She currently is quite debilitated, unable to get out of bed without assistance , has severe protein calorie malnutrition, and has developed a pressure ulcer. PT/OT is following. [facility] has also been consulted for possible stent placement as well. She continues to spike fevers (greater than 102 last night) . Upon my visit, no family is present. She is alert and oriented, does appear drowsy, and loses focus during conversation at times. C/o back pain, bilateral hip and leg pain at present. Describes pain as "constant", with sharp intermittent "stabbing" at times. Pain is worsened with movement. States has had few episodes nausea since admission, but overall eating fairly well. + BM this am and on 01/08. Participating with PT/OT and states mostly does exercises on edge of bed. Appears in no distress, does frequently rub right hip and leg during conversation. CC: Oren Sharp DO Past Med Surg Social Fam HX - Past Medical History Medical history: cancer (metastatic lung), diabetes, GERD, hypertension Psychiatric history: no psych history - Past Surgical History Surgical History: cholecystectomy - Social History Smoking Status: Former smoker Smokeless Tobacco Status: No Alcohol use: none Drug use: none - Family History Mother Age: 85 Living Status: Still Living Hx Family Cardiac Disorders: Yes Medications and Allergies Baclofen [Lioresal] 10 mg PO TID 04/02/16 [History] Omeprazole 40 mg PO DAILY 04/02/16 [History] Zolpidem [Ambien] 10 mg PO HS PRN 04/02/16 [History] Loratadine [Claritin] 10 mg PO DAILY #30 tablet 05/07/16 [Rx] Magic Mouthwash [Magic Mouthwash BLM] 10 ml PO QID PRN #240 ml 05/07/16 [Rx] Ondansetron HCl [Zofran] 4 mg PO Q6H PRN #30 tablet 05/07/16 [Rx] Prochlorperazine Maleate [Compazine] 10 mg PO Q6HR PRN #60 tablet 05/07/16 [Rx] Lidocaine/Prilocaine CREAM [Emla] 5 gm TP PRN PRN #1 tube 05/19/16 [Rx] Ferrous Sulfate [Iron] 325 mg PO DAILY #30 tablet 09/21/16 [Rx] Dexamethasone [Decadron] 1 mg PO QID PRN 10/04/16 [History] Polyethylene Glycol 3350 [MiraLAX] 17 gm PO DAILY PRN 10/04/16 [History] metFORMIN [Glucophage] 500 mg PO BIDWM 10/04/16 [History] Hydromorphone HCl [Dilaudid] 4 mg PO Q2-3H PRN 10/14/16 [History] FentaNYL PATCH [Duragesic] 75 mcg TD Q48H 10/20/16 [History] Gabapentin [Neurontin] 300 mg PO TID #90 capsule 11/22/16 [Rx] Apixaban [Eliquis] 5 mg PO BID #60 tablet 12/06/16 [Rx] Docusate Sodium [Colace] 100 mg PO BID #60 cap 12/06/16 [Rx] GuaiFENesin ER [Mucinex] 600 mg PO BID #21 tbbp.12hr 12/06/16 [Rx] Pantoprazole Sodium [Protonix] 40 mg PO DAILY #30 tablet. 12/30/16 [Rx] Folic Acid 1 mg PO DAILY #30 tablet 12/31/16 [Rx] 3 Allergy/AdvReac Type Severity Reaction Status Date / Time menthol Allergy See Verified 12/31/16 19:54 Comments meperidine Allergy See Verified 12/31/16 19:54 Comments methyl salicylate Allergy See Verified 12/31/16 19:54 Comments Psyllium [From Hydrocil] Allergy See Verified 12/31/16 19:54 Comments codeine AdvReac Muscle Pain Verified 12/31/16 19:53 All systems: reviewed and no additional remarkable complaints except as stated ( Pain in lower back, bilateral hips radiating to knees, generalized weakness, intermittent nausea) Palliative Care-Exam - Constitutional Vitals: Temp Pulse Resp BP Pulse Ox 98.1 F 63 17 109/58 98 01/10/17 07:14 01/10/17 07:14 01/10/17 07:14 01/10/17 07:14 01/10/17 07:14 General appearance: Present: no acute distress - Head Head Exam: Present: normal inspection, normocephalic - Respiratory Respiratory exam: Present: decreased breath sounds, CTAB - Cardiovascular Cardiovascular exam: Present: +S1, +S2 - GI/Abdominal Exam GI/Abdominal exam: Present: normal bowel sounds, soft - Extremities Exam Extremities exam: Present: normal capillary refill, normal inspection - Neurological Exam Neurological exam: Present: alert, oriented X3 - Psychiatric Psychiatric exam: Present: depressed, normal affect - Skin Skin exam: Present: dry, pallor, warm Internal Medicine - CN: Reslt - Labs CBC & Chem 7: 01/10/17 03:50 01/10/17 03:50 Labs: Short CBC 01/10/17 Range/Units 03:50 WBC 28.1 H (4.3-11.1) K/mcL Hgb 7.9 L (11.5-15.4) g/dL Hct 25.7 L (35.3-44.9) % Plt Count 462 H (140-400) K/mcL Neutrophils # 25.3 H (1.6-8.9) K/mcL BMP 01/10/17 03:50 Sodium 128 L Potassium 4.3 Chloride 97 L Carbon Dioxide 24 BUN 10 Creatinine 0.56 L Glucose 113 H Calcium 8.7 Liver Function 01/10/17 Range/Units 03:50 Total Bilirubin 0.6 (0.2-1.2) mg/dL AST 23 (5-34) Units/L ALT 18 (0-55) Units/L Alkaline Phosphatase 96 (38-126) Units/L Albumin 1.7 L (3.5-5.0) g/dL - ABG Interpretation ABG results: PT/INR, D-dimer PT 19.6 Seconds (9.4-12.1) H 12/31/16 17:50 Consult Discharge Plan - Plan Referrals: Judy Montez MD [Partnered Physician] - 01/10/17 9:30 am Karen Jones CNP [Primary Care Provider] - 01/12/17 9:00 am Palliative Quality Palliative Quality: Screen for Code Status: Yes, Screen for Goals of Care: Yes, Screen for Pain: Yes, If Pain Regimen Started, Initiate Bowel Regimen: Yes, Screen for Nausea/Vomitting: Yes
--- NOTE | 2017-01-10 13:58 | Urology - Consult Note ---
Date of Encounter: 01/10/17 Time of Encounter: 13:55 - Assessment and Plan (1) Hydronephrosis Current Visit: Yes Status: Acute Assessment and plan: 56-year-old woman with metastatic lung cancer and bilateral hydronephrosis with the left side being more severe than the right. I reviewed her CT scan. I discussed management with Mrs. Coker. Her performance status is poor. Fortunately, her renal function has been stable. We discussed management including observation versus bilateral ureteral stent placement versus bilateral nephrostomy tube. I reviewed the risks and benefits of all approaches. After discussion she wishes to proceed with a cystoscopy and bilateral ureteral stent placement. She was informed of the risks of the surgery which include but are not limited to bleeding, infection, injury to other structures, need for further procedures, failure in placement of the stents, need for nephrostomy tubes, and the risk of anesthesia. She is willing to proceed. 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 She has had fevers and an elevated white count. Although her blood cultures and urine cultures have been negative, a source other than her cancer has not been identified for her fevers. She has had a recent CT scan which shows worsening left hydroureteronephrosis associated with obstruction from this retroperitoneal mass. In addition there is now new right-sided hydronephrosis. Her kidney function has remained stable at 0.58. She is not having any flank pain associated with the obstruction. Past Med Surg Social Fam HX - Past Medical History Medical history: cancer (metastatic lung), diabetes, GERD, hypertension Psychiatric history: no psych history - Past Surgical History Surgical History: cholecystectomy - Social History Smoking Status: Former smoker Smokeless Tobacco Status: No Alcohol use: none Drug use: none - Family History Mother Age: 85 Living Status: Still Living Hx Family Cardiac Disorders: Yes Medications and Allergies Baclofen [Lioresal] 10 mg PO TID 04/02/16 [History] Omeprazole 40 mg PO DAILY 04/02/16 [History] Zolpidem [Ambien] 10 mg PO HS PRN 12/09/16 [History] Loratadine [Claritin] 10 mg PO DAILY #30 tablet 05/07/16 [Rx] Magic Mouthwash [Magic Mouthwash BLM] 10 ml PO QID PRN #240 ml 05/07/16 [Rx] Ondansetron HCl [Zofran] 4 mg PO Q6H PRN #30 tablet 05/07/16 [Rx] Prochlorperazine Maleate [Compazine] 10 mg PO Q6HR PRN #60 tablet 05/07/16 [Rx] Lidocaine/Prilocaine CREAM [Emla] 5 gm TP PRN PRN #1 tube 05/19/16 [Rx] Ferrous Sulfate [Iron] 325 mg PO DAILY #30 tablet 09/21/16 [Rx] Dexamethasone [Decadron] 1 mg PO QID PRN 10/04/16 [History] Polyethylene Glycol 3350 [MiraLAX] 17 gm PO DAILY PRN 10/04/16 [History] metFORMIN [Glucophage] 500 mg PO BIDWM 10/04/16 [History] Hydromorphone HCl [Dilaudid] 4 mg PO Q2-3H PRN 10/14/16 [History] FentaNYL PATCH [Duragesic] 75 mcg TD Q48H 10/20/16 [History] Gabapentin [Neurontin] 300 mg PO TID #90 capsule 11/22/16 [Rx] Apixaban [Eliquis] 5 mg PO BID #60 tablet 12/06/16 [Rx] Docusate Sodium [Colace] 100 mg PO BID #60 cap 12/06/16 [Rx] GuaiFENesin ER [Mucinex] 600 mg PO BID #21 tbbp.12hr 12/06/16 [Rx] Pantoprazole Sodium [Protonix] 40 mg PO DAILY #30 tablet. 12/30/16 [Rx] Folic Acid 1 mg PO DAILY #30 tablet 12/31/16 [Rx] 3 Allergy/AdvReac Type Severity Reaction Status Date / Time menthol Allergy See Verified 12/31/16 19:54 Comments meperidine Allergy See Verified 12/31/16 19:54 Comments methyl salicylate Allergy See Verified 12/31/16 19:54 Comments Psyllium [From Hydrocil] Allergy See Verified 12/31/16 19:54 Comments codeine AdvReac Muscle Pain Verified 12/31/16 19:53 Review of Systems - Constitutional no chills, no fever(s) - EENT Nose, mouth and throat: no dizziness - Cardiovascular no chest pain - Respiratory no dyspnea - Gastrointestinal no nausea, no vomiting - Genitourinary Genitourinary: no flank pain, no hematuria - Musculoskeletal no back pain - Integumentary no erythema, no rash - Neurological no weakness - Psychiatric no suicidal ideation - Hematologic/Lymphatic no easy bleeding - Allergic/Immunologic no wheezing Exam Initial Vital Signs Temp Pulse Resp BP Pulse Ox 99.4 F 90 18 89/53 95 12/31/16 16:37 12/31/16 16:37 12/31/16 16:37 12/31/16 16:37 12/31/16 16:37 - General physical appearance Present: well developed, well nourished, no distress - Eyes Absent: icteric - ENT Present: normal nares - Neck Present: trachea midline - Respiratory Present: normal respiratory effort - Cardiovascular Cardiovascular exam IM: RRR - Abdomen Abdomen: Present: soft Urology Results - Labs 01/10/17 03:50 01/10/17 03:50 Abnormal lab results WBC 28.1 K/mcL (4.3-11.1) H 01/10/17 03:50 RBC 3.07 M/mcL (3.82-4.97) L 01/10/17 03:50 Hgb 7.9 g/dL (11.5-15.4) L 01/10/17 03:50 Hct 25.7 % (35.3-44.9) L 01/10/17 03:50 MCH 25.7 pg (28.0-33.3) L 01/10/17 03:50 MCHC 30.7 g/dL (31.6-35.5) L 01/10/17 03:50 RDW 19.6 % (11.5-14.5) H 01/10/17 03:50 Plt Count 462 K/mcL (140-400) H 01/10/17 03:50 MPV 8.2 fL (9.4-12.4) L 01/10/17 03:50 Neutrophils # 25.3 K/mcL (1.6-8.9) H 01/10/17 03:50 Lymphocytes # 0.5 K/mcL (0.6-4.6) L 01/10/17 03:50 Monocytes # 1.7 K/mcL (0.0-1.3) H 01/10/17 03:50 Hypersegmented Neuts Present (Not Present) A 01/07/17 04:20 Reactive Lymphocytes Present (Not Present) A 01/03/17 04:00 Toxic Granulation Present (Not Present) A 01/10/17 03:50 Toxic Vacuolation Present (Not Present) A 01/06/17 04:05 Platelet Estimate Increased (Normal) H 01/10/17 03:50 Polychromasia 1+ (Not Present) A 01/07/17 04:20 Hypochromasia Present (Not Present) A 01/10/17 03:50 Poikilocytosis 1+ (Not Present) A 01/08/17 03:55 Anisocytosis 2+ (Not Present) A 01/10/17 03:50 Microcytosis Present (Not Present) A 01/09/17 04:17 Macrocytosis Present (Not Present) A 01/01/17 04:19 Schistocytes 1+ (Not Present) A 01/08/17 03:55 ESR 25 mm/hr (0-15) H 01/01/17 04:19 PT 19.6 Seconds (9.4-12.1) H 12/31/16 17:50 Sodium 128 mEq/L (136-145) L 01/10/17 03:50 Chloride 97 mEq/L (98-109) L 01/10/17 03:50 Creatinine 0.56 mg/dL (0.57-1.11) L 01/10/17 03:50 Glucose 113 mg/dL (70-99) H 01/10/17 03:50 POC Glucose 153 (58-89) H 01/09/17 20:48 Calculated Osmolality 266 (280-300) L 01/10/17 03:50 Iron 19 mcg/dL (50-170) L 01/08/17 15:52 Transferrin 81 mg/dL (180-382) L 01/08/17 15:52 Ferritin 3571 ng/ml (5-204) H 01/08/17 15:52 C-Reactive Protein 163 mg/L (Less than 5) H 01/01/17 04:19 Serum Total Protein 5.7 g/dL (6.0-8.3) L 01/10/17 03:50 Albumin 1.7 g/dL (3.5-5.0) L 01/10/17 03:50 Globulin 4.0 g/dL (2.4-3.5) H 01/10/17 03:50 Albumin/Globulin Ratio 0.4 (1.1-2.2) L 01/10/17 03:50 Urine Microscopic WBC 5-15 per hpf (0-3) H 12/31/16 19:00 Ur Squamous Epith Cells Many per lpf (None-Few) H 12/31/16 19:00 Diabetes panel 01/10/17 Range/Units 03:50 Sodium 128 L (136-145) mEq/L Potassium 4.3 (3.5-4.5) mEq/L Chloride 97 L (98-109) mEq/L Carbon Dioxide 24 (19-29) mEq/L BUN 10 (7-20) mg/dL Creatinine 0.56 L (0.57-1.11) mg/dL Glucose 113 H (70-99) mg/dL Calcium 8.7 (8.6-10.8) mg/dL AST 23 (5-34) Units/L ALT 18 (0-55) Units/L Alkaline Phosphatase 96 (38-126) Units/L Albumin 1.7 L (3.5-5.0) g/dL Calcium panel 01/10/17 Range/Units 03:50 Calcium 8.7 (8.6-10.8) mg/dL Albumin 1.7 L (3.5-5.0) g/dL Pituitary panel 01/10/17 Range/Units 03:50 Sodium 128 L (136-145) mEq/L Potassium 4.3 (3.5-4.5) mEq/L Chloride 97 L (98-109) mEq/L Carbon Dioxide 24 (19-29) mEq/L BUN 10 (7-20) mg/dL Creatinine 0.56 L (0.57-1.11) mg/dL Glucose 113 H (70-99) mg/dL Calcium 8.7 (8.6-10.8) mg/dL Adrenal panel 01/10/17 Range/Units 03:50 Sodium 128 L (136-145) mEq/L Potassium 4.3 (3.5-4.5) mEq/L Chloride 97 L (98-109) mEq/L Carbon Dioxide 24 (19-29) mEq/L BUN 10 (7-20) mg/dL Creatinine 0.56 L (0.57-1.11) mg/dL Glucose 113 H (70-99) mg/dL Calcium 8.7 (8.6-10.8) mg/dL Total Bilirubin 0.6 (0.2-1.2) mg/dL AST 23 (5-34) Units/L ALT 18 (0-55) Units/L Alkaline Phosphatase 96 (38-126) Units/L Albumin 1.7 L (3.5-5.0) g/dL All other labs normal. - Imaging CT scan - abdomen: report reviewed, image reviewed CT scan - pelvis: report reviewed, image reviewed Consult Discharge Plan - Plan Referrals: Judy Montez MD [Partnered Physician] - 01/10/17 9:30 am Karen Jones CNP [Primary Care Provider] - 01/12/17 9:00 am
--- NOTE | 2017-01-10 19:39 | Anesthesia Evaluation PreOp ---
Date of Encounter: 01/10/17 Time of Encounter: 19:00 - Past History Planned Operation: Cystoscopy Bilateral Stent Cardiac History: HTN, Hyperlipidemia, Other (Iron Deficiency Anemia) Pulmonary History: Other (Pneumonia on admission and treated, Stage 4 adenocarcinoma lung finished chemo radiation therapy) ELEVATOR MECHANIC History: Denies Any Significant HX Other Medical History: Renal (Hydronephrosis due to retroperitoneal mass), Diabetes Type II, GERD, Other (Bony metastasis to pelvis, Hyponatremia) Anesthesia History: No Prior Anesthetic Complications : No Alcohol Use: none Drug use: none Medications and Allergies Baclofen [Lioresal] 10 mg PO TID 04/02/16 [History] Omeprazole 40 mg PO DAILY 04/02/16 [History] Zolpidem [Ambien] 10 mg PO HS PRN 04/02/16 [History] Loratadine [Claritin] 10 mg PO DAILY #30 tablet 05/07/16 [Rx] Magic Mouthwash [Magic Mouthwash BLM] 10 ml PO QID PRN #240 ml 05/07/16 [Rx] Ondansetron HCl [Zofran] 4 mg PO Q6H PRN #30 tablet 05/07/16 [Rx] Prochlorperazine Maleate [Compazine] 10 mg PO Q6HR PRN #60 tablet 05/07/16 [Rx] Lidocaine/Prilocaine CREAM [Emla] 5 gm TP PRN PRN #1 tube 05/19/16 [Rx] Ferrous Sulfate [Iron] 325 mg PO DAILY #30 tablet 09/21/16 [Rx] Dexamethasone [Decadron] 1 mg PO QID PRN 10/04/16 [History] Polyethylene Glycol 3350 [MiraLAX] 17 gm PO DAILY PRN 10/04/16 [History] metFORMIN [Glucophage] 500 mg PO BIDWM 10/04/16 [History] Hydromorphone HCl [Dilaudid] 4 mg PO Q2-3H PRN 10/14/16 [History] FentaNYL PATCH [Duragesic] 75 mcg TD Q48H 10/20/16 [History] Gabapentin [Neurontin] 300 mg PO TID #90 capsule 11/22/16 [Rx] Apixaban [Eliquis] 5 mg PO BID #60 tablet 12/06/16 [Rx] Docusate Sodium [Colace] 100 mg PO BID #60 cap 12/06/16 [Rx] GuaiFENesin ER [Mucinex] 600 mg PO BID #21 tbbp.12hr 12/06/16 [Rx] Pantoprazole Sodium [Protonix] 40 mg PO DAILY #30 tablet. 12/30/16 [Rx] Folic Acid 1 mg PO DAILY #30 tablet 12/31/16 [Rx] 3 Allergy/AdvReac Type Severity Reaction Status Date / Time menthol Allergy See Verified 12/31/16 19:54 Comments meperidine Allergy See Verified 12/31/16 19:54 Comments methyl salicylate Allergy See Verified 12/31/16 19:54 Comments Psyllium [From Hydrocil] Allergy See Verified 12/31/16 19:54 Comments codeine AdvReac Muscle Pain Verified 12/31/16 19:53 - Meds/Allergy Pre-op Review Medications Reviewed: Yes Allergies Reviewed: Yes Beta Blockers on Current Med List: No Anesthesia Results - Labs 01/10/17 03:50 01/10/17 03:50 Laboratory Tests 01/10/17 01/10/17 03:50 03:50 Hgb 7.9 L Hct 25.7 L Plt Count 462 H Sodium 128 L Potassium 4.3 BUN 10 Creatinine 0.56 L - Imaging EKG: report reviewed (SR short IA) Additional studies: LVEF 60%, no vegetations Anesthesia Exam O2 Sat Weight 60.9 kg Weight 60.9 kg O2 Sat by Pulse Oximetry 97 O2 Sat by Pulse Oximetry 97 O2 Sat by Pulse Oximetry 98 O2 Sat by Pulse Oximetry 100 O2 Sat by Pulse Oximetry 97 O2 Sat by Pulse Oximetry 97 Vital Signs Temp Pulse Resp BP Pulse Ox 99.4 F 90 18 89/53 95 12/31/16 16:37 12/31/16 16:37 12/31/16 16:37 12/31/16 16:37 12/31/16 16:37 Height: 5'2 Weight: 134 lbs NPO (# of Hours): MN Pain Scale: 0 - HEENT Pupil (Motor): Pupils equal, EOMI Mallampati: II Teeth: Normal Oral Opening: Greater than 3 - ELEVATOR MECHANIC LOC: Oriented ELEVATOR MECHANIC Motor: Normal RUE, Normal LUE, Normal RLE, Normal LLE, Normal Face ELEVATOR MECHANIC Sensory: Normal: RUE, LUE, RLE, LLE, Face - Cardiac Rhythm: Regular Murmur: None JVD: No Carotid Bruit: No - Pulmonary Breath Sounds: bilateral Clear Respiratory Effort: Symmetrical Anesthesia Assess/Plan ASA Score: 4 (HTN, Anemia, Lung Cancer mets to bones and retroperitoneum, DM) Modified Mau Scale for Level of Consciousness: Cooperative, oriented, and tranquil Anesthetic Plan: General Monitoring Plan: Standard Monitors Recovery Plan: PACU (Discussed GA, agrees to proceed)
[2017-01-11] MEDS: *HR* HYDROmorphone 4 MG TABLET PO PRN ×5 (03:11→21:41)
[2017-01-11 03:26] LABS: Basophils % 0.1 %; Hematocrit 28.1 % (35.3-44.9); Hemoglobin 8.6 g/dL (11.5-15.4); Immature Granulocytes % 1.1 % (0-4); Lymphocytes # 0.3 K/mcL (0.6-4.6); Lymphocytes % 1.7 %; Mean Corpuscular HGB Conc 30.6 g/dL (31.6-35.5); Mean Corpuscular Volume 84.9 fL (83.0-100.0); Mean Platelet Volume 8.2 fL (9.4-12.4); Monocytes # 0.1 K/mcL (0.0-1.3); Monocytes % 0.6 %; Neutrophils # 18.9 K/mcL (1.6-8.9); Platelet Count 431 K/mcL (140-400); Red Blood Count 3.31 M/mcL (3.82-4.97); Red Cell Distribution Width 19.3 % (11.5-14.5); Segmented Neutrophils % 96.5 %
[2017-01-11 03:39] LABS: BUN/Creatinine Ratio 20 (6-26); Blood Urea Nitrogen 11 mg/dL (7-20); Carbon Dioxide 28 mEq/L (19-29); Chloride 100 mEq/L (98-109); Glucose 120 mg/dL (70-99); Osmolality,Calculated 283 (280-300); Potassium 4.6 mEq/L (3.5-4.5); Sodium 136 mEq/L (136-145); eGFR For African Americans > 60 (> 60); eGFR For Non-African Americans > 60 (> 60)
[2017-01-11] MEDS: *HR* HYDROmorphone (PF) 1 MG/ML SYRINGE IVP PRN ×5 (08:33→18:27)
--- NOTE | 2017-01-11 08:35 | Urology Progress Note ---
Date of Encounter: 01/11/17 Time of Encounter: 08:33 - Assessment and Plan (1) Hydronephrosis Current Visit: Yes Status: Acute Assessment and plan: Bilateral ureteral obstruction secondary to retroperitoneal mass. Plan for cystoscopy and bilateral stent placement. All risks were reviewed. She understands that I might not be able to get a stent in place. Qualifiers: Hydronephrosis type: with other ureteral stricture Qualified Code(s): N13.1 - Hydronephrosis with ureteral stricture, not elsewhere classified Progress Note Narrative: Doing well this morning. Plan for bilateral stent placement today. Objective Initial Vital Signs Temp Pulse Resp BP Pulse Ox 99.4 F 90 18 89/53 95 12/31/16 16:37 12/31/16 16:37 12/31/16 16:37 12/31/16 16:37 12/31/16 16:37 - General physical appearance Present: well developed, well nourished, no distress - Respiratory Present: normal respiratory effort - Abdomen Present: soft - Labs 01/11/17 03:17 01/11/17 03:17 Diabetes panel 01/11/17 Range/Units 03:17 Sodium 136 D (136-145) mEq/L Potassium 4.6 H (3.5-4.5) mEq/L Chloride 100 (98-109) mEq/L Carbon Dioxide 28 (19-29) mEq/L BUN 11 (7-20) mg/dL Creatinine 0.55 L (0.57-1.11) mg/dL Glucose 120 H (70-99) mg/dL Calcium 9.0 (8.6-10.8) mg/dL Calcium panel 01/11/17 Range/Units 03:17 Calcium 9.0 (8.6-10.8) mg/dL Pituitary panel 01/11/17 Range/Units 03:17 Sodium 136 D (136-145) mEq/L Potassium 4.6 H (3.5-4.5) mEq/L Chloride 100 (98-109) mEq/L Carbon Dioxide 28 (19-29) mEq/L BUN 11 (7-20) mg/dL Creatinine 0.55 L (0.57-1.11) mg/dL Glucose 120 H (70-99) mg/dL Calcium 9.0 (8.6-10.8) mg/dL Adrenal panel 01/11/17 Range/Units 03:17 Sodium 136 D (136-145) mEq/L Potassium 4.6 H (3.5-4.5) mEq/L Chloride 100 (98-109) mEq/L Carbon Dioxide 28 (19-29) mEq/L BUN 11 (7-20) mg/dL Creatinine 0.55 L (0.57-1.11) mg/dL Glucose 120 H (70-99) mg/dL Calcium 9.0 (8.6-10.8) mg/dL Consult Discharge Plan - Plan Referrals: Judy Montez MD [Partnered Physician] - 01/10/17 9:30 am Karen Jones CNP [Primary Care Provider] - 01/12/17 9:00 am
[2017-01-11] MEDS: Gabapentin 300 MG CAPSULE PO SCH ×3 (08:36→20:02)
[2017-01-11] MEDS: Baclofen 10 MG TABLET PO SCH ×3 (08:36→20:02)
[2017-01-11] MEDS: Meropenem 1,000 MG in 0.9 % Sodium Chloride Mini Bag 100 ML IVPB SCH ×3 (08:37→23:39)
[2017-01-11] MEDS: Folic Acid 1 MG TABLET PO SCH (08:37)
[2017-01-11] MEDS: APIXABAN 5 MG TABLET PO SCH ×2 (08:37→20:02)
[2017-01-11] MEDS: Insulin LISPRO 300 UNITS/3 ML VIAL SQ SCH ×4 (08:38→21:10)
--- NOTE | 2017-01-11 09:17 | Internal Med Progress Note ---
<JonvictorinaNapoleon dwyer - Last Filed: 01/11/17 11:05> Date of Encounter: 01/11/17 Time of Encounter: 09:17 - Assessment and plan (1) Sepsis Current Visit: Yes Status: Resolved Assessment and plan: Resolved 01/11/17 Patient admitted from [facility] after having recorded temperature of 102F. Lactic Acid 2.4 on admisson, dropped to 1.5 following antibiotics and fluids Hypotension 89/53 on admission WBC 34.9 on admission, Known baseline 19 prior to admission. CXR revealed mild hazy ground glass opacities in right upper lobe and irregular ill defined spiculation in left upper concerning for spiculated mass. Patient received 2L normal saline bolus in ED Started on Broad spectrum antibiotics Urine antigens for Legioinella and S. pneumonia returned negative Influenza swab negative. Urine culture negative. Echo revealed EF 60%, normal LV systolic and diastolic function, normal LV, mildly dilated LA, mild mitral regurgitation, no evidence of pulm htn, no evidence of valvular vegetations Sputum cultures mixed serg, moderate wbc. Blood smear 01/03/17 revealed reactive changes, no findings suggestive of new or active malignancy Repeat CT chest 01/07/17 revealed continued progression of spiculated left upper obe nodule to 1.5 x 1.9 cm, new nonspecific semisolic 1.2 cm posterior left upper lobe nodular opacity, and new 1.[address] abdomen 01/08/17 revealed increase in retroperitoneal mass from prior, slight increase in narrowing of abdominal aorta and common vance arteries, but still patent, slight progression of hydronephrosis bilaterally, and compression deformity of L33 to 90% of vertebral body loss. Blood cultures 12/31/16 negative. Sputum culture negative, normal serg. Blood cultures 01/03/17 negative. Respiratory viral panel negative UA repeat negative. Discontinued 01/04/17 Vancomycin d4, Zosyn d4. Discontinued 01/05/17 Levaquin d5. Discontinued Cefepime d3 01/07/17. Afebrile overnight, nontachycardic, nontachypneic, bp stable but low, WBC 19.6, down from 28.1 yesterday, approximate baseline of 19 prior to admission. Blood cultures 01/08/17 no growth to date. -If continues to develop fevers, blood cultures draws -If has diarrhea, consider c.diff testing. -Continue Linezolid d6 and Meropenem d4 -Continue monitoring vitals and labs. -Tylenol prn for fever -ID consulted, called 01/04/17 unable to see patient due to complexity of case. Transfer option was discussed with patient who wishes at this moment to continue medical treatment at [place]. -Oncology on board, recommended ID consult and continuance of therapy -Palliative on board -Urology consulted for ureteral stenting later today. Patient is at high risk due to her history of immunosuppression due to treatment with chem and radiation for her cancer. Suspect fevers are due to cancer. Qualifiers: Sepsis type: sepsis due to unspecified organism Qualified Code(s): A41.9 - Sepsis, unspecified organism (2) Healthcare-associated pneumonia Current Visit: Yes Status: Acute Assessment and plan: Due to history of immunosuppression due to cancer treatments and close interactions with medical community, patient's pneumonia based on imaging is likely HCAP vs CAP based on new guidelines. CXR revealed CXR revealed mild hazy ground glass opacities in right upper lobe and irregular ill defined spiculation in left upper concerning for spiculated mass. CT chest revealed mild nodular right upper lobe ground glass infiltrate, and increased size of nodules and nodes. Sputum culture negative, normal serg. WBC 19.7, down from 28.1 yesterday, afebrile overnight. -Continue monitoring labs and vitals -Continue broad spectrum antibiotics per plan in assessment above. Continue Linezolid d6 and Meropenem d4 (3) Abdominal pain Current Visit: Yes Status: Acute Assessment and plan: Patient denies abdominal pain, but was noted to have Rebound tenderness on the left on exam 01/07/17. Abdominal exam otherwise normal without guarding or rigidity. No additional rebound or abdominal pain noted on exams since 01/07/17. CT Abdomen/Pelvis with contrast 01/08: IMPRESSION: Increase in retroperitoneal mass. Slight increase in narrowing of the abdominal aorta and common iliac arteries. These appear patent. Slight progression of hydronephrosis bilaterally. Soft tissue edema as well as edema throughout the mesentery and small volume ascites, progressed. Slight progression of osseous metastatic disease. Compression deformity at L3 has significantly compress with loss of approximately 90% vertebral body. Qualifiers: Abdominal location: left lower quadrant Qualified Code(s): R10.32 - Left lower quadrant pain (4) Anemia Current Visit: Yes Status: Acute Assessment and plan: Hb 8.6 this morning, from 7.9 yesterday. stable. Required pRBC transfusion x1 01/01/17 due to Hb 6.3 Required pRBC transfusion x1 01/04/17 due to Hb 6.6. Known history of severe iron deficiency anemia, had recently received iron transfusion prior to admission. Continue monitoring labs. Consider pRBC transfusion if Hb <7 Qualifiers: Anemia type: iron deficiency Iron deficiency anemia type: other iron deficiency Qualified Code(s): D50.8 - Other iron deficiency anemias (5) Hyponatremia Current Visit: Yes Status: Chronic Assessment and plan: Patient determined to have sodium 129 on admission. Sodium 136 on labs this morning, from 128 yesterday Patient has known chronic hyponatremia. Likely improved due to NPO status overnight Continue to monitor labs. (6) Adenocarcinoma of left lung, stage 4 Current Visit: Yes Status: Chronic Assessment and plan: Known history of primary adenocarcinoma of left lung stage 4 with mets to spine and pelvis. Currently undergoing palliative chemoradiation at [facility]. -Oncology on board -Palliative on board (7) Cancer related pain Current Visit: Yes Status: Chronic Assessment and plan: Pain secondary to mets to pelvis, and pain of legs bilaterally resulting in her now wheelchair bound status. Conitnue home pain medication regimenL 75 mcg fentanyl patches q48 and 4mg hydromorphone po q2-3hr prn. -Social work for placement, currently wheelchair bound. (8) Bone metastasis Current Visit: Yes Status: Chronic Assessment and plan: Per plan in assessment above. (9) Hypomagnesemia Current Visit: Yes Status: Acute Assessment and plan: Magnesium 1.5 on admission, 1.6 01/09/17. Has received a total of 10grams magnesium since admission. -Recheck Magnesium later tomorrow. (10) DVT (deep venous thrombosis) Current Visit: Yes Status: Resolved Assessment and plan: Known history of DVT -Continue Eliquis. Qualifiers: DVT location: lower extremity Affected thrombotic vein of extremity: unspecified vein of extremity Chronicity: unspecified Laterality: left Qualified Code(s): I82.402 - Acute embolism and thrombosis of unspecified deep veins of left lower extremity (11) Abnormal finding on imaging Current Visit: Yes Status: Acute Assessment and plan: Patient found to have small focus of abnormal attenuation in the right thalamus that is nonspecific and possibly artifact. Given patient history of lung cancer brain metastases cannot be ruled out. She might need MRI as outpatient for further evaluation per the discretion of her oncologist (12) Diabetes mellitus type 2 in nonobese Current Visit: Yes Status: Acute Assessment and plan: Continue with ADA diet and low dose insulin sliding scale. Continue monitoring labs. (13) Protein-calorie malnutrition, severe Current Visit: Yes Status: Acute Assessment and plan: Consulted Nutrition for po recommendations. (14) Pressure ulcer of sacral region, stage 1 Current Visit: Yes Status: Acute Assessment and plan: Improving, almost resolved. Continue rotating patient every 2 hours Pressure ulcers management per protocol. - Subjective Interval history: Patient did well overnight, has no complaints. Reports that she is ready for them to put the stents in for her kidneys. Patient continues reports bed sore, but improving still. Denies fevers, chills, sweats, headaches, lightheadedness , nausea, vomiting, chest pain, shortness of breath, cough, abdominal pain, changes in bowels or bladder, weakness, or loss of sensation. Patient continues reports chronic leg pain and lower extremity weakness present before admission. - Constitutional Vitals: Temp Pulse Resp BP Pulse Ox 97.4 F L 64 14 106/65 99 01/11/17 06:54 01/11/17 06:54 01/11/17 06:54 01/11/17 06:54 01/11/17 06:54 General appearance: Present: cooperative, A&O X 3, pleasant, no acute distress, answers questions appropriately - Head Head exam: Present: atraumatic, normal inspection, normocephalic - Eye Eye exam: Present: EOMI, normal appearance - ENT ENT exam: Present: mucous membranes moist, normal exam, normal oropharynx - Neck Neck exam general surgery: Present: full ROM, normal inspection, supple, trachea midline. Absent: tenderness - Respiratory Respiratory exam: Present: CTAB. Absent: rales, rhonchi, wheezes - Cardiovascular Cardiovascular exam: Present: RRR, +S1, +S2. Absent: diastolic murmur, JVD, systolic murmur - GI/Abdominal GI/Abdominal exam: Present: normal bowel sounds, soft. Absent: distended, guarding, rebound, tenderness, no peritoneal signs - Extremities Exam Extremities exam: Present: full ROM, normal capillary refill, normal inspection , tenderness, warm, radial pulses palpable and symmetrical. Absent: pedal edema Additional comments: Normal upper extremities, 4/5 strength bilateral lower extremities, decreased ROM due to pain, normal capillary refill - Back Exam Back exam: Present: tenderness (mild presacral tenderness, improved almost unnoticeable nonblanching erythematous region) - Neurological Exam Neurological exam: Present: alert, oriented X3, no focal deficits, strengths equal and symetr throughout. Absent: motor sensory deficit, facial droop, speech deficit - Psychiatric Psychiatric exam: Present: normal affect, normal mood - Skin Skin exam: Present: dry, intact, normal color, warm. Absent: rash Internal Medicine: Result - Labs CBC & Chem 7: 01/11/17 03:17 01/11/17 03:17 Labs: Short CBC 01/11/17 Range/Units 03:17 WBC 19.6 H (4.3-11.1) K/mcL Hgb 8.6 L (11.5-15.4) g/dL Hct 28.1 L (35.3-44.9) % Plt Count 431 H (140-400) K/mcL Neutrophils # 18.9 H (1.6-8.9) K/mcL BMP 01/11/17 03:17 Sodium 136 D Potassium 4.6 H Chloride 100 Carbon Dioxide 28 BUN 11 Creatinine 0.55 L Glucose 120 H Calcium 9.0 - ABG Interpretation ABG results: PT/INR, D-dimer PT 19.6 Seconds (9.4-12.1) H 12/31/16 17:50 Consult Discharge Plan - Plan Referrals: Judy Montez MD [Partnered Physician] - 01/10/17 9:30 am Karen Jones CNP [Primary Care Provider] - 01/12/17 9:00 am <Frandy Carpenter - Last Filed: 01/11/17 19:19> Date of Encounter: 01/11/17 - Constitutional Vitals: Temp Pulse Resp BP Pulse Ox 97.5 F L 60 16 143/78 98 01/11/17 19:13 01/11/17 19:13 01/11/17 18:57 01/11/17 19:13 01/11/17 18:57 Internal Medicine: Result - Labs CBC & Chem 7: 01/11/17 03:17 01/11/17 03:17 Labs: Short CBC 01/11/17 Range/Units 03:17 WBC 19.6 H (4.3-11.1) K/mcL Hgb 8.6 L (11.5-15.4) g/dL Hct 28.1 L (35.3-44.9) % Plt Count 431 H (140-400) K/mcL Neutrophils # 18.9 H (1.6-8.9) K/mcL BMP 01/11/17 03:17 Sodium 136 D Potassium 4.6 H Chloride 100 Carbon Dioxide 28 BUN 11 Creatinine 0.55 L Glucose 120 H Calcium 9.0 - ABG Interpretation ABG results: PT/INR, D-dimer PT 19.6 Seconds (9.4-12.1) H 12/31/16 17:50 - Impressions Impressions Retrograde Pyelogram 01/11/17 00:00 IMPRESSION: Intraprocedural fluoroscopic spot images as above. See separate procedure report for more information. D/ / Rinku Bess MD / Rinku Bess MD Interpreting Provider: Rinku Bess MD - Attending Attestation I examined this patient and my medical decision-making was reviewed with the Resident Physician. I agree with the documented findings, disposition and treatment plan as described except to the extent set forth below. On exam she is in no acute distress heart is regular. Abdomen is soft. Lung sounds are diminished. There is 1+ lower extremity pitting edema bilaterally. Plan: Pain control, follow-up with palliative care.
--- NOTE | 2017-01-11 09:38 | Palliative Progress Note ---
Date of Encounter: 01/11/17 Time of Encounter: 09:30 - Assessment and plan (1) Cancer related pain Current Visit: Yes Status: Chronic Assessment and plan: Continue current regimen with Fentanyl 100mcg and Hydromorphone for breakthrough pain. Continue Decadron as started yesterday. She utilized less breakthrough pain medications over last 12 hours. Monitor (2) Protein-calorie malnutrition, severe Current Visit: Yes Status: Acute Assessment and plan: NPO at present for procedure. [employer] Wa[employer] Machine Operator following. Receiving ensure. Monitor (3) Counseling regarding advanced care planning and goals of care Current Visit: Yes Status: Acute Assessment and plan: Long discussion again this am re: goals of care. Patient remains very emotional when discussing. Revisits her husbands and daughter deaths, and fears of leaving her other 2 children when they have had so much loss. She has good support from relocation commissioner at [facility] and he was here this am. She is considering son Surya to be her primary POA, however, wants to speak with him first to ensure he is comfortable with her decision. Social work will follow up with her tomorrow regarding this. Re-discussed code status - she is leaning toward DNR-Arrest at this time, but still wants some time to consider. (4) Adenocarcinoma of left lung, stage 4 Current Visit: Yes Status: Chronic (5) Leucocytosis Current Visit: Yes Status: Acute Qualifiers: Leukocytosis type: other Qualified Code(s): D72.828 - Other elevated white blood cell count (6) Fever Current Visit: Yes Status: Acute Qualifiers: Fever type: unspecified Qualified Code(s): R50.9 - Fever, unspecified - Time Spent With Patient Total time spent is greater than 50% in coordination of care (as documented) at patient's floor/unit and/or counseling patient: 25 - 35 minutes - Subjective Interval history: Patient awake and alert. States slept very well last night - had increased pain this am, as she slept so well, she did not receive much medication through the night. NPO at present for stents later today. BM x2 yesterday. No temperature spike last night. WBC down to 19.6 - Constitutional Vitals: Abnormal lab results WBC 19.6 K/mcL (4.3-11.1) H 01/11/17 03:17 RBC 3.31 M/mcL (3.82-4.97) L 01/11/17 03:17 Hgb 8.6 g/dL (11.5-15.4) L 01/11/17 03:17 Hct 28.1 % (35.3-44.9) L 01/11/17 03:17 MCH 26.0 pg (28.0-33.3) L 01/11/17 03:17 MCHC 30.6 g/dL (31.6-35.5) L 01/11/17 03:17 RDW 19.3 % (11.5-14.5) H 01/11/17 03:17 Plt Count 431 K/mcL (140-400) H 01/11/17 03:17 MPV 8.2 fL (9.4-12.4) L 01/11/17 03:17 Neutrophils # 18.9 K/mcL (1.6-8.9) H 01/11/17 03:17 Lymphocytes # 0.3 K/mcL (0.6-4.6) L 01/11/17 03:17 Hypersegmented Neuts Present (Not Present) A 01/07/17 04:20 Reactive Lymphocytes Present (Not Present) A 01/03/17 04:00 Toxic Granulation Present (Not Present) A 01/10/17 03:50 Toxic Vacuolation Present (Not Present) A 01/06/17 04:05 Platelet Estimate Increased (Normal) H 01/10/17 03:50 Polychromasia 1+ (Not Present) A 01/07/17 04:20 Hypochromasia Present (Not Present) A 01/10/17 03:50 Poikilocytosis 1+ (Not Present) A 01/08/17 03:55 Anisocytosis 2+ (Not Present) A 01/10/17 03:50 Microcytosis Present (Not Present) A 01/09/17 04:17 Macrocytosis Present (Not Present) A 01/01/17 04:19 Schistocytes 1+ (Not Present) A 01/08/17 03:55 ESR 25 mm/hr (0-15) H 01/01/17 04:19 PT 19.6 Seconds (9.4-12.1) H 12/31/16 17:50 Potassium 4.6 mEq/L (3.5-4.5) H 01/11/17 03:17 Creatinine 0.55 mg/dL (0.57-1.11) L 01/11/17 03:17 Glucose 120 mg/dL (70-99) H 01/11/17 03:17 POC Glucose 166 (58-89) H 01/11/17 06:56 Iron 19 mcg/dL (50-170) L 01/08/17 15:52 Transferrin 81 mg/dL (180-382) L 01/08/17 15:52 Ferritin 3571 ng/ml (5-204) H 01/08/17 15:52 C-Reactive Protein 163 mg/L (Less than 5) H 01/01/17 04:19 Serum Total Protein 5.7 g/dL (6.0-8.3) L 01/10/17 03:50 Albumin 1.7 g/dL (3.5-5.0) L 01/10/17 03:50 Globulin 4.0 g/dL (2.4-3.5) H 01/10/17 03:50 Albumin/Globulin Ratio 0.4 (1.1-2.2) L 01/10/17 03:50 Urine Microscopic WBC 5-15 per hpf (0-3) H 12/31/16 19:00 Ur Squamous Epith Cells Many per lpf (None-Few) H 12/31/16 19:00 General appearance: Present: no acute distress - Respiratory Respiratory exam: Present: CTAB - Cardiovascular Cardiovascular exam: Present: +S1, +S2 - GI/Abdominal GI/Abdominal exam: Present: normal bowel sounds, soft - Extremities Exam Extremities exam: Present: normal capillary refill, normal inspection - Neurological Exam Neurological exam: Present: alert, oriented X3 - Skin Skin exam: Present: dry, pallor, warm Palliative Quality Palliative Quality: Screen for Code Status: Yes, Screen for Goals of Care: Yes, Screen for Pain: Yes, If Pain Regimen Started, Initiate Bowel Regimen: Yes, Screen for Nausea/Vomitting: Yes - Labs CBC & Chem 7: 01/11/17 03:17 01/11/17 03:17 Labs: Laboratory Results - last 24 hr 01/09/17 01/09/17 01/09/17 07:47 16:13 20:48 WBC RBC Hgb Hct MCV MCH MCHC RDW Plt Count MPV Immature Gran % Seg Neutrophils % Lymphocytes % Monocytes % Eosinophils % Basophils % Neutrophils # Lymphocytes # Monocytes # Eosinophils # Basophils # Sodium Potassium Chloride Carbon Dioxide BUN Creatinine Est GFR ( Amer) Est GFR (Non-Af Amer) BUN/Creatinine Ratio Glucose POC Glucose 113 H 95 H 153 H Calculated Osmolality Calcium 01/10/17 01/10/17 01/10/17 07:18 11:42 16:43 WBC RBC Hgb Hct MCV MCH MCHC RDW Plt Count MPV Immature Gran % Seg Neutrophils % Lymphocytes % Monocytes % Eosinophils % Basophils % Neutrophils # Lymphocytes # Monocytes # Eosinophils # Basophils # Sodium Potassium Chloride Carbon Dioxide BUN Creatinine Est GFR ( Amer) Est GFR (Non-Af Amer) BUN/Creatinine Ratio Glucose POC Glucose 130 H 115 H 168 H Calculated Osmolality Calcium 01/10/17 01/11/17 01/11/17 20:52 03:17 03:17 WBC 19.6 H RBC 3.31 L Hgb 8.6 L Hct 28.1 L MCV 84.9 MCH 26.0 L MCHC 30.6 L RDW 19.3 H Plt Count 431 H MPV 8.2 L Immature Gran % 1.1 Seg Neutrophils % 96.5 Lymphocytes % 1.7 Monocytes % 0.6 Eosinophils % 0.0 Basophils % 0.1 Neutrophils # 18.9 H Lymphocytes # 0.3 L Monocytes # 0.1 Eosinophils # 0.0 Basophils # 0.0 Sodium 136 D Potassium 4.6 H Chloride 100 Carbon Dioxide 28 BUN 11 Creatinine 0.55 L Est GFR ( Amer) > 60 Est GFR (Non-Af Amer) > 60 BUN/Creatinine Ratio 20 Glucose 120 H POC Glucose 264 H Calculated Osmolality 283 Calcium 9.0 01/11/17 06:56 WBC RBC Hgb Hct MCV MCH MCHC RDW Plt Count MPV Immature Gran % Seg Neutrophils % Lymphocytes % Monocytes % Eosinophils % Basophils % Neutrophils # Lymphocytes # Monocytes # Eosinophils # Basophils # Sodium Potassium Chloride Carbon Dioxide BUN Creatinine Est GFR ( Amer) Est GFR (Non-Af Amer) BUN/Creatinine Ratio Glucose POC Glucose 166 H Calculated Osmolality Calcium - ABG Interpretation ABG results: PT/INR, D-dimer PT 19.6 Seconds (9.4-12.1) H 12/31/16 17:50 Consult Discharge Plan - Plan Referrals: Judy Montez MD [Partnered Physician] - 01/10/17 9:30 am Karen Jones CNP [Primary Care Provider] - 01/12/17 9:00 am
[2017-01-11] MEDS ORDERED: *HR* Labetalol 20 MG/4 ML SYRINGE IVP PRN (15:58)
[2017-01-11] MEDS ORDERED: *HR* Promethazine 25 MG/ML VIAL IVP PRN (15:58)
[2017-01-11] MEDS ORDERED: *HR* FentaNYL (PF) 100 MCG/2 ML VIAL ONE ×2 (16:03→16:31)
[2017-01-11] MEDS ORDERED: *HR* Propofol 200 MG/20 ML VIAL IVP ONE (16:03)
[2017-01-11] MEDS ORDERED: Lidocaine -MPF 2% 2 ML VIAL ONE ×2 (16:04→16:07)
[2017-01-11] MEDS ORDERED: *HR* Succinylcholine 200 MG/10 ML VIAL IVP ONE (16:04)
[2017-01-11] MEDS ORDERED: Ondansetron 4 MG/2 ML VIAL ONE (16:20)
--- NOTE | 2017-01-11 16:52 | Operative Note ---
Date of procedure: 01/11/17 Pre-op diagnosis: Bilateral ureteral obstruction Post-op diagnosis: same Procedure: Cystoscopy, bilateral retrograde pyelogram, bilateral ureteral stent placement. Implants: Right 4.8 [place] by 24 cm double-J stent. Left 6 [place] by 26 cm double-J stent. Complications: none Anesthesia: DESMONDA Surgeon: Isauro Driscoll Estimated blood loss (cc): 1 Specimen: none Condition: stable Disposition: PACU Procedure in Detail: Indications: Lissette is a 56-year-old woman who has a history of bilateral ureteral obstruction secondary to malignancy. She elected to undergo a cystoscopy, bilateral retrograde pyelogram, and bilateral ureteral stent placement. She was informed of the risks of the surgery which include but are not limited to bleeding, infection, injury or structures, need for further procedures, and the risk of anesthesia. She is willing to proceed. Procedure: After informed consent was obtained the patient was brought back to the operating room and placed in the supine position. A timeout was performed. Gen. anesthesia was administered and an endotracheal tube was placed. She was then placed in the lithotomy position. Her genitalia were prepped and draped in usual sterile fashion. Cystoscopy was performed. The anterior urethra was remarkable. The ureteral orifices were in the normal orthotopic position. There is no bladder tumor. A zip wire was placed up the right ureteral orifice and brought the kidney under fluoroscopic guidance. A retrograde pyelogram was performed. There was mild hydronephrosis. There wire was replaced. I attempted to place a 6 [place] stent, but did not move past the distal ureter. Therefore, a 4.8 [place] by 24 cm double -J stent was then placed in the kidney with a good curl seen there and in the bladder. The dangle string was removed. Attention was then turned to the left ureteral orifice. The sensor wire was placed up the left ureteral orifice and brought into the kidney under fluoroscopic guidance. The previously used zip wire had fallen off the field. A retrograde pyelogram was performed. There was more severe hydronephrosis noted. The sensor wire was replaced and a 6 [place] by 24 cm double-J stent was placed with a good curl seen within the kidney and the bladder. The dangle string was removed. The bladder was emptied. She was then awakened from general anesthesia and brought to the recovery room in good condition. All sponge, needle, and instrument counts were correct.
--- NOTE | 2017-01-11 17:57 | Anesthesia Evaluation Post Op ---
Date of Encounter: 01/11/17 Time of Encounter: 17:56 - Vital Signs Vital Signs: Vital Signs/O2 Sat, Most Current Temp Pulse Resp BP Pulse Ox 97.2 F L 66 16 133/57 99 01/11/17 17:53 01/11/17 17:53 01/11/17 17:53 01/11/17 17:53 01/11/17 17:53 - Lungs Lungs: Clear Ascult./Percussion - Airway Airway: Non-obstructed - Cardiovascular Regular Rate - Mental Status Mental Status: Alert & Oriented, Answers Appropriately - Pain Pain Scale: 3 Pain Scale used: Numeric (1 - 10) - Nausea Vomiting Nausea Vomiting: Not Present - Hydration Hydration: Ice chips, Has not voided - Discharge PostOp Status: Transfer Patient to floor
[2017-01-11] MEDS: *HR* FentaNYL PATCH 100 MCG PATCH TD SCH (18:27)
[2017-01-12] MEDS ORDERED: Naloxone 0.4 MG/ML INJ IVP PRN (00:12)
[2017-01-12] MEDS ORDERED: Ondansetron 4 MG/2 ML VIAL IVP PRN (00:12)
[2017-01-12] MEDS ORDERED: D5% in Water 1,000 ML IVC PRN (00:12)
[2017-01-12] MEDS ORDERED: *HR* LORazepam 0.5 MG TABLET PO PRN (00:12)
[2017-01-12] MEDS ORDERED: Magic Mouthwash 10 ML UD Cup PO PRN (00:12)
[2017-01-12] MEDS ORDERED: *HR* Dextrose 50 % in Water (Syg) 50 ML SYRINGE IVP PRN (00:12)
[2017-01-12] MEDS ORDERED: Dextrose Gel 15 GM PO PRN ×2 (00:12)
[2017-01-12] MEDS ORDERED: Acetaminophen 325 MG TABLET PO PRN (00:12)
[2017-01-12 06:27] LABS: Basophils % 0.1 %; Immature Granulocytes % 1.3 % (0-4)
[2017-01-12 06:28] LABS: Hematocrit 28.9 % (35.3-44.9); Hemoglobin 8.7 g/dL (11.5-15.4); Lymphocytes # 0.5 K/mcL (0.6-4.6); Lymphocytes % 1.7 %; Mean Corpuscular HGB Conc 30.1 g/dL (31.6-35.5); Mean Corpuscular Volume 86.5 fL (83.0-100.0); Mean Platelet Volume 8.5 fL (9.4-12.4); Neutrophils # 25.7 K/mcL (1.6-8.9); Platelet Count 498 K/mcL (140-400); Red Blood Count 3.34 M/mcL (3.82-4.97); Red Cell Distribution Width 19.8 % (11.5-14.5); Segmented Neutrophils % 94.9 %
[2017-01-12] MEDS: *HR* HYDROmorphone 4 MG TABLET PO PRN ×6 (06:38→21:29)
[2017-01-12 06:46] LABS: Monocytes # 0.5 K/mcL (0.0-1.3)
[2017-01-12 07:09] LABS: BUN/Creatinine Ratio 24 (6-26); Blood Urea Nitrogen 13 mg/dL (7-20); Calcium 8.9 mg/dL (8.6-10.8); Carbon Dioxide 25 mEq/L (19-29); Chloride 104 mEq/L (98-109); Glucose 130 mg/dL (70-99); Magnesium 1.8 mg/dL (1.6-2.6); Osmolality,Calculated 288 (280-300); Potassium 4.6 mEq/L (3.5-4.5); Sodium 138 mEq/L (136-145); eGFR For African Americans > 60 (> 60); eGFR For Non-African Americans > 60 (> 60)
[2017-01-12 07:11] LABS: Anisocytosis 2+ (Not Present); Microcytosis Present (Not Present); Platelet Estimate Increased (Normal)
[2017-01-12 07:12] LABS: Polychromasia 1+ (Not Present)
--- NOTE | 2017-01-12 07:30 | Internal Med Progress Note ---
Date of Encounter: 01/12/17 Time of Encounter: 07:30 - Assessment and plan (1) Sepsis Current Visit: Yes Status: Resolved Assessment and plan: DOCUMENT CANCELLED, MEDITECH ERROR needing cosigner despite cancelled document. Qualifiers: Sepsis type: sepsis due to unspecified organism Qualified Code(s): A41.9 - Sepsis, unspecified organism (2) Healthcare-associated pneumonia Current Visit: Yes Status: Acute (3) Abdominal pain Current Visit: Yes Status: Acute Qualifiers: Abdominal location: left lower quadrant Qualified Code(s): R10.32 - Left lower quadrant pain (4) Anemia Current Visit: Yes Status: Acute Qualifiers: Anemia type: iron deficiency Iron deficiency anemia type: other iron deficiency Qualified Code(s): D50.8 - Other iron deficiency anemias (5) Hyponatremia Current Visit: Yes Status: Chronic (6) Adenocarcinoma of left lung, stage 4 Current Visit: Yes Status: Chronic (7) Cancer related pain Current Visit: Yes Status: Chronic (8) Bone metastasis Current Visit: Yes Status: Chronic (9) Hypomagnesemia Current Visit: Yes Status: Acute (10) DVT (deep venous thrombosis) Current Visit: Yes Status: Resolved Qualifiers: DVT location: lower extremity Affected thrombotic vein of extremity: unspecified vein of extremity Chronicity: unspecified Laterality: left Qualified Code(s): I82.402 - Acute embolism and thrombosis of unspecified deep veins of left lower extremity (11) Abnormal finding on imaging Current Visit: Yes Status: Acute (12) Diabetes mellitus type 2 in nonobese Current Visit: Yes Status: Acute (13) Protein-calorie malnutrition, severe Current Visit: Yes Status: Acute (14) Pressure ulcer of sacral region, stage 1 Current Visit: Yes Status: Resolved - Subjective Interval history: DOCUMENT CANCELLED, MEDITECH ERROR needing cosigner despite cancelled document. - Constitutional Vitals: Temp Pulse Resp BP Pulse Ox 97.5 F L 78 16 112/61 95 01/11/17 23:10 01/11/17 23:10 01/11/17 23:10 01/11/17 23:10 01/11/17 23:10 General appearance: Present: cooperative, A&O X 3, pleasant, no acute distress, answers questions appropriately Internal Medicine: Result - Labs CBC & Chem 7: 01/12/17 03:30 01/12/17 03:30 Labs: Short CBC 01/12/17 Range/Units 03:30 WBC 27.1 H (4.3-11.1) K/mcL Hgb 8.7 L (11.5-15.4) g/dL Hct 28.9 L (35.3-44.9) % Plt Count 498 H (140-400) K/mcL Neutrophils # 25.7 H (1.6-8.9) K/mcL BMP 01/12/17 03:30 Sodium 138 Potassium 4.6 H Chloride 104 Carbon Dioxide 25 BUN 13 Creatinine 0.54 L Glucose 130 H Calcium 8.9 - ABG Interpretation ABG results: PT/INR, D-dimer PT 19.6 Seconds (9.4-12.1) H 12/31/16 17:50 - Impressions Impressions Retrograde Pyelogram 01/11/17 00:00 IMPRESSION: Intraprocedural fluoroscopic spot images as above. See separate procedure report for more information. D/ / Rinku Bess MD / Rinku Bess MD Interpreting Provider: Rinku Bess MD - VTE Documentation of Mechanical Device: Intermittent pneumatic compression device Consult Discharge Plan - Plan Referrals: Judy Montez MD [Partnered Physician] - 01/10/17 9:30 am Karen Jones CNP [Primary Care Provider] - 01/12/17 9:00 am
[2017-01-12] MEDS: Insulin LISPRO 300 UNITS/3 ML VIAL SQ SCH ×4 (07:47→21:22)
--- NOTE | 2017-01-12 08:40 | Urology Progress Note ---
Date of Encounter: 01/12/17 Time of Encounter: 08:38 - Assessment and Plan (1) Hydronephrosis Current Visit: Yes Status: Acute Assessment and plan: s/p bilateral stents. POD #1. 1. Doing well. Urinating well. Pain is controlled. 2. Okay to follow up with me in the office in 2 weeks after discharge. 3. Will change out stents in 3-4 months. Qualifiers: Hydronephrosis type: with other ureteral stricture Qualified Code(s): N13.1 - Hydronephrosis with ureteral stricture, not elsewhere classified Progress Note Narrative: 56 year old woman status post bilateral stent placement. POD #1. Doing well. Objective Initial Vital Signs Temp Pulse Resp BP Pulse Ox 99.4 F 90 18 89/53 95 12/31/16 16:37 12/31/16 16:37 12/31/16 16:37 12/31/16 16:37 12/31/16 16:37 - General physical appearance Present: well developed, well nourished, no distress - Respiratory Present: normal respiratory effort - Abdomen Present: soft - Labs 01/12/17 03:30 01/12/17 03:30 Diabetes panel 01/12/17 Range/Units 03:30 Sodium 138 (136-145) mEq/L Potassium 4.6 H (3.5-4.5) mEq/L Chloride 104 (98-109) mEq/L Carbon Dioxide 25 (19-29) mEq/L BUN 13 (7-20) mg/dL Creatinine 0.54 L (0.57-1.11) mg/dL Glucose 130 H (70-99) mg/dL Calcium 8.9 (8.6-10.8) mg/dL Calcium panel 01/12/17 Range/Units 03:30 Calcium 8.9 (8.6-10.8) mg/dL Pituitary panel 01/12/17 Range/Units 03:30 Sodium 138 (136-145) mEq/L Potassium 4.6 H (3.5-4.5) mEq/L Chloride 104 (98-109) mEq/L Carbon Dioxide 25 (19-29) mEq/L BUN 13 (7-20) mg/dL Creatinine 0.54 L (0.57-1.11) mg/dL Glucose 130 H (70-99) mg/dL Calcium 8.9 (8.6-10.8) mg/dL Adrenal panel 01/12/17 Range/Units 03:30 Sodium 138 (136-145) mEq/L Potassium 4.6 H (3.5-4.5) mEq/L Chloride 104 (98-109) mEq/L Carbon Dioxide 25 (19-29) mEq/L BUN 13 (7-20) mg/dL Creatinine 0.54 L (0.57-1.11) mg/dL Glucose 130 H (70-99) mg/dL Calcium 8.9 (8.6-10.8) mg/dL - VTE Documentation of Mechanical Device: Intermittent pneumatic compression device Consult Discharge Plan - Plan Referrals: Judy Montez MD [Partnered Physician] - 01/10/17 9:30 am Karen Jones CNP [Primary Care Provider] - 01/12/17 9:00 am
[2017-01-12] MEDS: Baclofen 10 MG TABLET PO SCH ×3 (09:13→21:29)
[2017-01-12] MEDS: APIXABAN 5 MG TABLET PO SCH ×2 (09:14→21:29)
[2017-01-12] MEDS: Gabapentin 300 MG CAPSULE PO SCH ×3 (09:14→21:39)
[2017-01-12] MEDS: Meropenem 1,000 MG in 0.9 % Sodium Chloride Mini Bag 100 ML IVPB SCH ×2 (09:15→14:49)
[2017-01-12] MEDS: Folic Acid 1 MG TABLET PO SCH (09:15)
--- NOTE | 2017-01-12 09:37 | Palliative Progress Note ---
Date of Encounter: 01/12/17 Time of Encounter: 07:05 - Assessment and plan (1) Cancer related pain Current Visit: Yes Status: Chronic Assessment and plan: Current regimen is working well. Patient got a total of 5 doses yesterday allotted and 3 mg 3 doses of IV. However after the procedure it was only for a total of 3 doses. I think we will watch today and then adjust patch tomorrow. The patient agrees. I believe that the Decadron is helping we will continue this. I do not feel we need to go up on it at this time although there is room for that. (2) Counseling regarding advanced care planning and goals of care Current Visit: Yes Status: Acute Assessment and plan: The patient remains full code. He has no questions regarding conversation that was at length yesterday. We will continue to follow up on this. (3) Bone metastasis Current Visit: Yes Status: Chronic Assessment and plan: Continue Decadron, do not feel we need to go up on the dose at this time although there is room to do so. Continue current meds we will adjust fentanyl patch as needed tomorrow. - Time Spent With Patient Total time spent is greater than 50% in coordination of care (as documented) at patient's floor/unit and/or counseling patient: - Subjective Interval history: Pain medications are working well for the patient. Feels that the Decadron has probably helped to some degree. Appetite may be getting a little bit better. - Constitutional Vitals: Abnormal lab results WBC 27.1 K/mcL (4.3-11.1) H 01/12/17 03:30 RBC 3.34 M/mcL (3.82-4.97) L 01/12/17 03:30 Hgb 8.7 g/dL (11.5-15.4) L 01/12/17 03:30 Hct 28.9 % (35.3-44.9) L 01/12/17 03:30 MCH 26.0 pg (28.0-33.3) L 01/12/17 03:30 MCHC 30.1 g/dL (31.6-35.5) L 01/12/17 03:30 RDW 19.8 % (11.5-14.5) H 01/12/17 03:30 Plt Count 498 K/mcL (140-400) H 01/12/17 03:30 MPV 8.5 fL (9.4-12.4) L 01/12/17 03:30 Neutrophils # 25.7 K/mcL (1.6-8.9) H 01/12/17 03:30 Lymphocytes # 0.5 K/mcL (0.6-4.6) L 01/12/17 03:30 Hypersegmented Neuts Present (Not Present) A 01/07/17 04:20 Reactive Lymphocytes Present (Not Present) A 01/03/17 04:00 Toxic Granulation Present (Not Present) A 01/10/17 03:50 Toxic Vacuolation Present (Not Present) A 01/06/17 04:05 Platelet Estimate Increased (Normal) H 01/12/17 03:30 Polychromasia 1+ (Not Present) A 01/12/17 03:30 Hypochromasia Present (Not Present) A 01/10/17 03:50 Poikilocytosis 1+ (Not Present) A 01/08/17 03:55 Anisocytosis 2+ (Not Present) A 01/12/17 03:30 Microcytosis Present (Not Present) A 01/12/17 03:30 Macrocytosis Present (Not Present) A 01/01/17 04:19 Schistocytes 1+ (Not Present) A 01/08/17 03:55 ESR 25 mm/hr (0-15) H 01/01/17 04:19 PT 19.6 Seconds (9.4-12.1) H 12/31/16 17:50 Potassium 4.6 mEq/L (3.5-4.5) H 01/12/17 03:30 Creatinine 0.54 mg/dL (0.57-1.11) L 01/12/17 03:30 Glucose 130 mg/dL (70-99) H 01/12/17 03:30 POC Glucose 171 (58-89) H 01/11/17 20:32 Iron 19 mcg/dL (50-170) L 01/08/17 15:52 Transferrin 81 mg/dL (180-382) L 01/08/17 15:52 Ferritin 3571 ng/ml (5-204) H 01/08/17 15:52 C-Reactive Protein 163 mg/L (Less than 5) H 01/01/17 04:19 Serum Total Protein 5.7 g/dL (6.0-8.3) L 01/10/17 03:50 Albumin 1.7 g/dL (3.5-5.0) L 01/10/17 03:50 Globulin 4.0 g/dL (2.4-3.5) H 01/10/17 03:50 Albumin/Globulin Ratio 0.4 (1.1-2.2) L 01/10/17 03:50 Procalcitonin 0.21 ng/mL (<=0.10) H 01/10/17 08:21 Urine Microscopic WBC 5-15 per hpf (0-3) H 12/31/16 19:00 Ur Squamous Epith Cells Many per lpf (None-Few) H 12/31/16 19:00 General appearance: Present: no acute distress - Head Head exam: Present: atraumatic, normal inspection - Eye Eye exam: Present: normal appearance - ENT ENT exam: Present: mucous membranes moist - Neck Neck exam: Present: normal inspection - Respiratory Respiratory exam: Present: CTAB - Cardiovascular Cardiovascular exam: Present: RRR - GI/Abdominal GI/Abdominal exam: Present: normal bowel sounds, soft. Absent: tenderness - Extremities Exam Extremities exam: Present: normal inspection. Absent: tenderness - Neurological Exam Neurological exam: Present: alert, oriented X3 - Psychiatric Psychiatric exam: Present: normal affect, normal mood. Absent: agitated, anxious - Skin Skin exam: Present: dry, warm Palliative Quality Palliative Quality: Screen for Code Status: Yes, Screen for Goals of Care: Yes, Screen for Pain: Yes, If Pain Regimen Started, Initiate Bowel Regimen: Yes, Screen for Nausea/Vomitting: Yes - Labs CBC & Chem 7: 01/12/17 03:30 01/12/17 03:30 Labs: Laboratory Results - last 24 hr 01/10/17 01/11/17 01/11/17 08:21 10:44 18:58 WBC RBC Hgb Hct MCV MCH MCHC RDW Plt Count MPV Immature Gran % Seg Neutrophils % Lymphocytes % Monocytes % Eosinophils % Basophils % Neutrophils # Lymphocytes # Monocytes # Eosinophils # Basophils # Platelet Estimate Polychromasia Anisocytosis Microcytosis Sodium Potassium Chloride Carbon Dioxide BUN Creatinine Est GFR ( Amer) Est GFR (Non-Af Amer) BUN/Creatinine Ratio Glucose POC Glucose 125 H 133 H Calculated Osmolality Calcium Magnesium Procalcitonin 0.21 H 01/11/17 01/12/17 01/12/17 20:32 03:30 03:30 WBC 27.1 H RBC 3.34 L Hgb 8.7 L Hct 28.9 L MCV 86.5 MCH 26.0 L MCHC 30.1 L RDW 19.8 H Plt Count 498 H MPV 8.5 L Immature Gran % 1.3 Seg Neutrophils % 94.9 Lymphocytes % 1.7 Monocytes % 2.0 Eosinophils % 0.0 Basophils % 0.1 Neutrophils # 25.7 H Lymphocytes # 0.5 L Monocytes # 0.5 Eosinophils # 0.0 Basophils # 0.0 Platelet Estimate Increased H Polychromasia 1+ A Anisocytosis 2+ A Microcytosis Present A Sodium 138 Potassium 4.6 H Chloride 104 Carbon Dioxide 25 BUN 13 Creatinine 0.54 L Est GFR ( Amer) > 60 Est GFR (Non-Af Amer) > 60 BUN/Creatinine Ratio 24 Glucose 130 H POC Glucose 171 H Calculated Osmolality 288 Calcium 8.9 Magnesium 1.8 Procalcitonin - Impressions Impressions Retrograde Pyelogram 01/11/17 00:00 IMPRESSION: Intraprocedural fluoroscopic spot images as above. See separate procedure report for more information. D/ / Rinku Bess MD / Rinku Bess MD Interpreting Provider: Rinku Bess MD - ABG Interpretation ABG results: PT/INR, D-dimer PT 19.6 Seconds (9.4-12.1) H 12/31/16 17:50 Consult Discharge Plan - Plan Referrals: Judy Montez MD [Partnered Physician] - 01/10/17 9:30 am Karen Jones CNP [Primary Care Provider] - 01/12/17 9:00 am
[2017-01-12] MEDS: *HR* HYDROmorphone (PF) 1 MG/ML SYRINGE IVP PRN ×5 (10:15→22:59)
--- NOTE | 2017-01-12 13:36 | Internal Med Progress Note ---
<Napoleon Aldrich - Last Filed: 01/12/17 15:49> Date of Encounter: 01/12/17 Time of Encounter: 13:33 - Assessment and plan (1) Sepsis Current Visit: Yes Status: Resolved Assessment and plan: Resolved 01/11/17 Patient admitted from [facility] after having recorded temperature of 102F. Lactic Acid 2.4 on admisson, dropped to 1.5 following antibiotics and fluids Hypotension 89/53 on admission WBC 34.9 on admission, Known baseline 19 prior to admission. CXR revealed mild hazy ground glass opacities in right upper lobe and irregular ill defined spiculation in left upper concerning for spiculated mass. Patient received 2L normal saline bolus in ED Started on Broad spectrum antibiotics Urine antigens for Legioinella and S. pneumonia returned negative Influenza swab negative. Urine culture negative. Echo revealed EF 60%, normal LV systolic and diastolic function, normal LV, mildly dilated LA, mild mitral regurgitation, no evidence of pulm htn, no evidence of valvular vegetations Sputum cultures mixed serg, moderate wbc. Blood smear 01/03/17 revealed reactive changes, no findings suggestive of new or active malignancy Repeat CT chest 01/07/17 revealed continued progression of spiculated left upper obe nodule to 1.5 x 1.9 cm, new nonspecific semisolic 1.2 cm posterior left upper lobe nodular opacity, and new 1.[address] abdomen 01/08/17 revealed increase in retroperitoneal mass from prior, slight increase in narrowing of abdominal aorta and common vance arteries, but still patent, slight progression of hydronephrosis bilaterally, and compression deformity of L33 to 90% of vertebral body loss. Blood cultures 12/31/16 negative. Sputum culture negative, normal serg. Blood cultures 01/03/17 negative. Respiratory viral panel negative UA repeat negative. Discontinued 01/04/17 Vancomycin d4, Zosyn d4. Discontinued 01/05/17 Levaquin d5. Discontinued Cefepime d3 01/07/17. Afebrile overnight, nontachycardic, nontachypneic, bp stable but low, WBC increased to 27.1 from 19.6 yesterday, approximate baseline of 19 prior to admission. Most likely associated to Decadron for bone pain per Palliative. Blood cultures 01/08/17 no growth to date. -If continues to develop fevers, blood cultures draws -If has diarrhea, consider c.diff testing. -Discontinue Linezolid d7 and Meropenem d5 -Continue monitoring vitals and labs. -Tylenol prn for fever -ID consulted, called 01/04/17 unable to see patient due to complexity of case. Transfer option was discussed with patient who wishes at this moment to continue medical treatment at [facility]. -Oncology on board, recommended ID consult and continuance of therapy -Palliative on board -Urology performed bilateral ureteral stenting yesterday. Patient is at high risk due to her history of immunosuppression due to treatment with chem and radiation for her cancer. Suspect fevers are due to cancer. Qualifiers: Sepsis type: sepsis due to unspecified organism Qualified Code(s): A41.9 - Sepsis, unspecified organism (2) Healthcare-associated pneumonia Current Visit: Yes Status: Acute Assessment and plan: Due to history of immunosuppression due to cancer treatments and close interactions with medical community, patient's pneumonia based on imaging is likely HCAP vs CAP based on new guidelines. CXR revealed CXR revealed mild hazy ground glass opacities in right upper lobe and irregular ill defined spiculation in left upper concerning for spiculated mass. CT chest revealed mild nodular right upper lobe ground glass infiltrate, and increased size of nodules and nodes. Sputum culture negative, normal serg. WBC 27.1, increased from 19.6 yesterday, afebrile overnight. Likely secondary to Decadron. -Continue monitoring labs and vitals -Continue broad spectrum antibiotics per plan in assessment above. Discontinue Linezolid d7 and Meropenem d5 (3) Abdominal pain Current Visit: Yes Status: Acute Assessment and plan: Patient denies abdominal pain, but was noted to have Rebound tenderness on the left on exam 01/07/17. Abdominal exam otherwise normal without guarding or rigidity. No additional rebound or abdominal pain noted on exams since 01/07/17. CT Abdomen/Pelvis with contrast 01/08: IMPRESSION: Increase in retroperitoneal mass. Slight increase in narrowing of the abdominal aorta and common iliac arteries. These appear patent. Slight progression of hydronephrosis bilaterally. Soft tissue edema as well as edema throughout the mesentery and small volume ascites, progressed. Slight progression of osseous metastatic disease. Compression deformity at L3 has significantly compress with loss of approximately 90% vertebral body. Qualifiers: Abdominal location: left lower quadrant Qualified Code(s): R10.32 - Left lower quadrant pain (4) Anemia Current Visit: Yes Status: Acute Assessment and plan: Hb 8.7 this morning, from 8.6 yesterday. stable. Required pRBC transfusion x1 01/01/17 due to Hb 6.3 Required pRBC transfusion x1 01/04/17 due to Hb 6.6. Known history of severe iron deficiency anemia, had recently received iron transfusion prior to admission. Continue monitoring labs. Consider pRBC transfusion if Hb <7 Qualifiers: Anemia type: iron deficiency Iron deficiency anemia type: other iron deficiency Qualified Code(s): D50.8 - Other iron deficiency anemias (5) Hyponatremia Current Visit: Yes Status: Chronic Assessment and plan: Patient determined to have sodium 129 on admission. Sodium 138 on labs this morning, from 136 yesterday Patient has known chronic hyponatremia. Likely improved due to NPO status overnight Continue to monitor labs. (6) Adenocarcinoma of left lung, stage 4 Current Visit: Yes Status: Chronic Assessment and plan: Known history of primary adenocarcinoma of left lung stage 4 with mets to spine and pelvis. Currently undergoing palliative chemoradiation at [facility]. -Oncology on board -Palliative on board (7) Cancer related pain Current Visit: Yes Status: Chronic Assessment and plan: Pain secondary to mets to pelvis, and pain of legs bilaterally resulting in her now wheelchair bound status. Conitnue home pain medication regimenL 75 mcg fentanyl patches q48 and 4mg hydromorphone po q2-3hr prn. -Social work for placement, currently wheelchair bound. (8) Bone metastasis Current Visit: Yes Status: Chronic Assessment and plan: Per plan in assessment above. (9) Hypomagnesemia Current Visit: Yes Status: Acute Assessment and plan: Magnesium 1.5 on admission, 1.6 01/09/17. Has received a total of 10grams magnesium since admission. Magnesium is 1.8 today. (10) DVT (deep venous thrombosis) Current Visit: Yes Status: Resolved Assessment and plan: Known history of DVT -Continue Eliquis. Qualifiers: DVT location: lower extremity Affected thrombotic vein of extremity: unspecified vein of extremity Chronicity: unspecified Laterality: left Qualified Code(s): I82.402 - Acute embolism and thrombosis of unspecified deep veins of left lower extremity (11) Abnormal finding on imaging Current Visit: Yes Status: Acute Assessment and plan: Patient found to have small focus of abnormal attenuation in the right thalamus that is nonspecific and possibly artifact. Given patient history of lung cancer brain metastases cannot be ruled out. She might need MRI as outpatient for further evaluation per the discretion of her oncologist (12) Diabetes mellitus type 2 in nonobese Current Visit: Yes Status: Acute Assessment and plan: Continue with ADA diet and low dose insulin sliding scale. Continue monitoring labs. (13) Protein-calorie malnutrition, severe Current Visit: Yes Status: Acute Assessment and plan: Consulted Nutrition for po recommendations. (14) Pressure ulcer of sacral region, stage 1 Current Visit: Yes Status: Resolved Assessment and plan: Resolved Pressure ulcers management per protocol. (15) Hydronephrosis Current Visit: Yes Status: Acute Assessment and plan: Hydronephrosis noted on CT abdomen/pelvis worsening. Underwent bilateral stenting of ureters bilaterally 01/11/17. Continues to have some dysuria at end of urination and hematuria. Continue to monitor urine output and monitor for improvement in symptoms and labs. Qualifiers: Hydronephrosis type: with other ureteral stricture Qualified Code(s): N13.1 - Hydronephrosis with ureteral stricture, not elsewhere classified (16) Leucocytosis Current Visit: Yes Status: Chronic Assessment and plan: Acute on chronic, baseline about 19 prior to admission. Baseline elevation likely secondary to chemo medications. Blood smear was unconcerning for malignancy of blood. Continue per plan in assessments above. Likely secondary to Decadron adminstration for Palliative bone pain. Has been afebrile and no sweats. Qualifiers: Leukocytosis type: other Qualified Code(s): D72.828 - Other elevated white blood cell count - Subjective Interval history: Patient did well overnight, no fevers or sweats. Reports she had stents placed yesterday and has had some burning at end of urination and some blood in her urine. Patient reports her bed sore is no longer painful and resolved. Patient denies headaches, lightheadedness, nausea, vomiting, chest pain, shortness of breaht, abdominal pain, changes in bowels, new weakness, or loss of sensation. Continues to have chronic leg pain and lower extremity weakness that was present before admission, but patient reports slight improvement in strength now that she has been participating with PT/OT. Social work note reviewed 01/12/17, continue to wait for precert on [facility]. - Constitutional Vitals: Temp Pulse Resp BP Pulse Ox 97.9 F 73 16 125/69 99 01/12/17 11:06 01/12/17 11:06 01/12/17 11:06 01/12/17 11:06 01/12/17 11:06 General appearance: Present: cooperative, A&O X 3, pleasant, no acute distress, answers questions appropriately - Head Head exam: Present: atraumatic, normal inspection, normocephalic - Eye Eye exam: Present: EOMI, normal appearance - ENT ENT exam: Present: mucous membranes moist, normal exam, normal oropharynx - Neck Neck exam general surgery: Present: full ROM, normal inspection, supple, trachea midline. Absent: tenderness - Respiratory Respiratory exam: Present: CTAB. Absent: rales, rhonchi, wheezes - Cardiovascular Cardiovascular exam: Present: RRR, +S1, +S2. Absent: diastolic murmur, JVD, systolic murmur - GI/Abdominal GI/Abdominal exam: Present: normal bowel sounds, soft. Absent: distended, guarding, rebound, tenderness, no peritoneal signs - Extremities Exam Extremities exam: Present: full ROM, normal capillary refill, normal inspection , pedal edema (1+ nonpitting left foot edema), tenderness, warm, radial pulses palpable and symmetrical Additional comments: Normal upper extremities, 4/5 strength bilateral lower extremities, decreased ROM due to pain, normal capillary refill. Decreased muscle tone extremities. - Neurological Exam Neurological exam: Present: alert, oriented X3, no focal deficits, strengths equal and symetr throughout. Absent: facial droop, speech deficit - Psychiatric Psychiatric exam: Present: normal affect, normal mood - Skin Skin exam: Present: dry, intact, normal color, warm. Absent: rash Additional comments: presacral region without erythema or bed pressure sore noted. Internal Medicine: Result - Labs CBC & Chem 7: 01/12/17 03:30 01/12/17 03:30 Labs: Short CBC 01/12/17 Range/Units 03:30 WBC 27.1 H (4.3-11.1) K/mcL Hgb 8.7 L (11.5-15.4) g/dL Hct 28.9 L (35.3-44.9) % Plt Count 498 H (140-400) K/mcL Neutrophils # 25.7 H (1.6-8.9) K/mcL BMP 01/12/17 03:30 Sodium 138 Potassium 4.6 H Chloride 104 Carbon Dioxide 25 BUN 13 Creatinine 0.54 L Glucose 130 H Calcium 8.9 - ABG Interpretation ABG results: PT/INR, D-dimer PT 19.6 Seconds (9.4-12.1) H 12/31/16 17:50 - Impressions Impressions Retrograde Pyelogram 01/11/17 00:00 IMPRESSION: Intraprocedural fluoroscopic spot images as above. See separate procedure report for more information. D/ / Rinku Bess MD / Rinku Bess MD Interpreting Provider: Rinku Bess MD - VTE Documentation of Mechanical Device: Intermittent pneumatic compression device Consult Discharge Plan - Plan Referrals: Judy Montez MD [Partnered Physician] - 01/10/17 9:30 am Karen Jones CNP [Primary Care Provider] - 01/12/17 9:00 am <Frandy Carpenter - Last Filed: 01/12/17 17:15> Date of Encounter: 01/12/17 - Constitutional Vitals: Temp Pulse Resp BP Pulse Ox 97.7 F 68 18 154/78 98 01/12/17 16:20 01/12/17 16:20 01/12/17 16:20 01/12/17 16:20 01/12/17 16:20 Internal Medicine: Result - Labs CBC & Chem 7: 01/12/17 03:30 01/12/17 03:30 Labs: Short CBC 01/12/17 Range/Units 03:30 WBC 27.1 H (4.3-11.1) K/mcL Hgb 8.7 L (11.5-15.4) g/dL Hct 28.9 L (35.3-44.9) % Plt Count 498 H (140-400) K/mcL Neutrophils # 25.7 H (1.6-8.9) K/mcL BMP 01/12/17 03:30 Sodium 138 Potassium 4.6 H Chloride 104 Carbon Dioxide 25 BUN 13 Creatinine 0.54 L Glucose 130 H Calcium 8.9 - ABG Interpretation ABG results: PT/INR, D-dimer PT 19.6 Seconds (9.4-12.1) H 12/31/16 17:50 - Impressions Impressions Retrograde Pyelogram 01/11/17 00:00 IMPRESSION: Intraprocedural fluoroscopic spot images as above. See separate procedure report for more information. D/ / Rinku Bess MD / Rinku Bess MD Interpreting Provider: Rinku Bess MD - Attending Attestation I examined this patient and my medical decision-making was reviewed with the Resident Physician. I agree with the documented findings, disposition and treatment plan as described except to the extent set forth below. Patient is in no acute distress awake alert oriented. Heart is regular. Lungs are clear. Abdomen is soft and nontender. We will stop meropenem and Zyvox. Monitor WBC trend and temperature curve. There is no clear source of infection. Follow-up with palliative care. Discharge planning and placement.
[2017-01-13] MEDS: Meropenem 1,000 MG in 0.9 % Sodium Chloride Mini Bag 100 ML IVPB SCH ×2 (01:00→07:47)
[2017-01-13] MEDS: *HR* HYDROmorphone 4 MG TABLET PO PRN ×5 (03:43→16:18)
[2017-01-13 04:07] LABS: Mean Platelet Volume 8.1 fL (9.4-12.4)
[2017-01-13 04:09] LABS: Basophils # 0.1 K/mcL (0.0-0.2); Basophils % 0.2 %; Hematocrit 30.5 % (35.3-44.9); Hemoglobin 9.2 g/dL (11.5-15.4); Immature Granulocytes % 1.8 % (0-4); Immature Platelets 0.7 % (1.1-6.1); Lymphocytes # 0.5 K/mcL (0.6-4.6); Lymphocytes % 1.4 %; Mean Corpuscular HGB Conc 30.2 g/dL (31.6-35.5); Mean Corpuscular Hemoglobin 26.1 pg (28.0-33.3); Mean Corpuscular Volume 86.6 fL (83.0-100.0); Monocytes # 0.8 K/mcL (0.0-1.3); Monocytes % 2.3 %; Neutrophils # 31.3 K/mcL (1.6-8.9); Platelet Count 648 K/mcL (140-400); Red Blood Count 3.52 M/mcL (3.82-4.97); Segmented Neutrophils % 94.3 %
[2017-01-13 04:21] LABS: BUN/Creatinine Ratio 29 (6-26); Blood Urea Nitrogen 15 mg/dL (7-20); Calcium 9.2 mg/dL (8.6-10.8); Carbon Dioxide 25 mEq/L (19-29); Chloride 102 mEq/L (98-109); Glucose 129 mg/dL (70-99); Osmolality,Calculated 287 (280-300); Potassium 4.5 mEq/L (3.5-4.5); Sodium 137 mEq/L (136-145); eGFR For African Americans > 60 (> 60); eGFR For Non-African Americans > 60 (> 60)
[2017-01-13 04:44] LABS: Anisocytosis 1+ (Not Present); Platelet Estimate Increased (Normal)
[2017-01-13] MEDS: *HR* HYDROmorphone (PF) 1 MG/ML SYRINGE IVP PRN ×7 (05:28→23:21)
[2017-01-13] MEDS: Insulin LISPRO 300 UNITS/3 ML VIAL SQ SCH ×4 (07:01→20:11)
[2017-01-13] MEDS: Folic Acid 1 MG TABLET PO SCH (07:46)
[2017-01-13] MEDS: Baclofen 10 MG TABLET PO SCH ×3 (07:46→20:28)
[2017-01-13] MEDS: Gabapentin 300 MG CAPSULE PO SCH ×3 (07:47→20:29)
[2017-01-13] MEDS: APIXABAN 5 MG TABLET PO SCH ×2 (07:47→20:29)
--- NOTE | 2017-01-13 08:39 | Internal Med Progress Note ---
<Napoleon Aldrich - Last Filed: 01/13/17 17:27> Date of Encounter: 01/13/17 Time of Encounter: 08:39 - Assessment and plan (1) Sepsis Current Visit: Yes Status: Resolved Assessment and plan: Resolved. Patient admitted from [facility] after having recorded temperature of 102F. Lactic Acid 2.4 on admisson, dropped to 1.5 following antibiotics and fluids Hypotension 89/53 on admission WBC 34.9 on admission, Known baseline 19 prior to admission. CXR revealed mild hazy ground glass opacities in right upper lobe and irregular ill defined spiculation in left upper concerning for spiculated mass. Patient received 2L normal saline bolus in ED Started on Broad spectrum antibiotics Urine antigens for Legioinella and S. pneumonia returned negative Influenza swab negative. Urine culture negative. Echo revealed EF 60%, normal LV systolic and diastolic function, normal LV, mildly dilated LA, mild mitral regurgitation, no evidence of pulm htn, no evidence of valvular vegetations Sputum cultures mixed serg, moderate wbc. Blood smear 01/03/17 revealed reactive changes, no findings suggestive of new or active malignancy Repeat CT chest 01/07/17 revealed continued progression of spiculated left upper obe nodule to 1.5 x 1.9 cm, new nonspecific semisolic 1.2 cm posterior left upper lobe nodular opacity, and new 1.[address] abdomen 01/08/17 revealed increase in retroperitoneal mass from prior, slight increase in narrowing of abdominal aorta and common vance arteries, but still patent, slight progression of hydronephrosis bilaterally, and compression deformity of L33 to 90% of vertebral body loss. Blood cultures 12/31/16 negative. Sputum culture negative, normal serg. Blood cultures 01/03/17 negative. Respiratory viral panel negative UA repeat negative. Discontinued 01/04/17 Vancomycin d4, Zosyn d4. Discontinued 01/05/17 Levaquin d5. Discontinued Cefepime d3 01/07/17. Discontinued Linezolid d7, Meropenem d5. Afebrile overnight, nontachycardic, nontachypneic, bp stable but low, WBC increased to 33.2 from 27.1 yesterday, approximate baseline of 19 prior to admission. Most likely associated to Decadron for bone pain per Palliative. Blood cultures 01/08/17 no growth to date. -If continues to develop fevers, blood cultures draws -If has diarrhea, consider c.diff testing. -Continue monitoring vitals and labs. -Tylenol prn for fever -ID consulted, called 01/04/17 unable to see patient due to complexity of case. Transfer option was discussed with patient who wishes at this moment to continue medical treatment at [place]. -Oncology on board, recommended ID consult and continuance of therapy -Palliative on board -Urology performed bilateral ureteral stenting 01/11/17 Patient is at high risk due to her history of immunosuppression due to treatment with chem and radiation for her cancer. Suspect fevers are due to cancer. Placement prior to discharge pending. Qualifiers: Sepsis type: sepsis due to unspecified organism Qualified Code(s): A41.9 - Sepsis, unspecified organism (2) Healthcare-associated pneumonia Current Visit: Yes Status: Acute Assessment and plan: Due to history of immunosuppression due to cancer treatments and close interactions with medical community, patient's pneumonia based on imaging is likely HCAP vs CAP based on new guidelines. CXR revealed CXR revealed mild hazy ground glass opacities in right upper lobe and irregular ill defined spiculation in left upper concerning for spiculated mass. CT chest revealed mild nodular right upper lobe ground glass infiltrate, and increased size of nodules and nodes. Sputum culture negative, normal serg. WBC 33.2, increased from 27.1 yesterday, afebrile overnight. Likely secondary to Decadron. -Continue monitoring labs and vitals -Continue broad spectrum antibiotics per plan in assessment above. Discontinue Linezolid d7 and Meropenem d5 (3) Abdominal pain Current Visit: Yes Assessment and plan: Patient denies abdominal pain, but was noted to have Rebound tenderness on the left on exam 01/07/17. Abdominal exam otherwise normal without guarding or rigidity. No additional rebound or abdominal pain noted on exams since 01/07/17. CT Abdomen/Pelvis with contrast 01/08: IMPRESSION: Increase in retroperitoneal mass. Slight increase in narrowing of the abdominal aorta and common iliac arteries. These appear patent. Slight progression of hydronephrosis bilaterally. Soft tissue edema as well as edema throughout the mesentery and small volume ascites, progressed. Slight progression of osseous metastatic disease. Compression deformity at L3 has significantly compress with loss of approximately 90% vertebral body. Qualifiers: Abdominal location: left lower quadrant Qualified Code(s): R10.32 - Left lower quadrant pain (4) Anemia Current Visit: Yes Status: Acute Assessment and plan: Hb 9.2 this morning, from 8.7 yesterday. stable. Required pRBC transfusion x1 01/01/17 due to Hb 6.3 Required pRBC transfusion x1 01/04/17 due to Hb 6.6. Known history of severe iron deficiency anemia, had recently received iron transfusion prior to admission. Continue monitoring labs. Consider pRBC transfusion if Hb <7 Qualifiers: Anemia type: iron deficiency Iron deficiency anemia type: other iron deficiency Qualified Code(s): D50.8 - Other iron deficiency anemias (5) Hyponatremia Current Visit: Yes Status: Resolved Assessment and plan: Patient determined to have sodium 129 on admission. Sodium 137 on labs this morning, from 138 yesterday Patient has known chronic hyponatremia. Continue to monitor labs. (6) Adenocarcinoma of left lung, stage 4 Current Visit: Yes Status: Chronic Assessment and plan: Known history of primary adenocarcinoma of left lung stage 4 with mets to spine and pelvis. Currently undergoing palliative chemoradiation at [facility], [place]. -Oncology on board -Palliative on board (7) Cancer related pain Current Visit: Yes Status: Chronic Assessment and plan: Pain secondary to mets to pelvis, and pain of legs bilaterally resulting in her now wheelchair bound status. Conitnue home pain medication regimenL 125 mcg fentanyl patches q48 and 4mg hydromorphone po q2-3hr prn. 4mg Decadron bid -Social work for placement, currently wheelchair bound. -Palliative on board. (8) Bone metastasis Current Visit: Yes Status: Chronic Assessment and plan: Per plan in assessment above. (9) Hypomagnesemia Current Visit: Yes Status: Acute Assessment and plan: Magnesium 1.5 on admission, 1.6 01/09/17. Has received a total of 10grams magnesium since admission. Magnesium is 1.8 yesterday. (10) DVT (deep venous thrombosis) Current Visit: Yes Status: Resolved Assessment and plan: Known history of DVT -Continue Eliquis. Qualifiers: DVT location: lower extremity Affected thrombotic vein of extremity: unspecified vein of extremity Chronicity: unspecified Laterality: left Qualified Code(s): I82.402 - Acute embolism and thrombosis of unspecified deep veins of left lower extremity (11) Abnormal finding on imaging Current Visit: Yes Status: Acute Assessment and plan: Patient found to have small focus of abnormal attenuation in the right thalamus that is nonspecific and possibly artifact. Given patient history of lung cancer brain metastases cannot be ruled out. She might need MRI as outpatient for further evaluation per the discretion of her oncologist (12) Diabetes mellitus type 2 in nonobese Current Visit: Yes Status: Acute Assessment and plan: Continue with ADA diet and low dose insulin sliding scale. Continue monitoring labs. (13) Protein-calorie malnutrition, severe Current Visit: Yes Status: Acute Assessment and plan: Consulted Nutrition for po recommendations. (14) Pressure ulcer of sacral region, stage 1 Current Visit: Yes Status: Resolved Assessment and plan: Resolved Pressure ulcers management per protocol. (15) Leucocytosis Current Visit: Yes Status: Chronic Assessment and plan: Acute on chronic, baseline about 19 prior to admission. Baseline elevation likely secondary to chemo medications. Blood smear was unconcerning for malignancy of blood. WBC 33.2 from 27.1 yesterday. Continue per plan in assessments above. Likely secondary to Decadron adminstration for Palliative bone pain. Has been afebrile and no sweats. Qualifiers: Leukocytosis type: other Qualified Code(s): D72.828 - Other elevated white blood cell count (16) Hydronephrosis Current Visit: Yes Status: Acute Assessment and plan: Hydronephrosis noted on CT abdomen/pelvis worsening. Underwent bilateral stenting of ureters bilaterally 01/11/17. Continues to have some dysuria at end of urination and hematuria. Continue to monitor urine output and monitor for improvement in symptoms and labs. Qualifiers: Hydronephrosis type: with other ureteral stricture Qualified Code(s): N13.1 - Hydronephrosis with ureteral stricture, not elsewhere classified (17) Hematuria Current Visit: Yes Status: Acute Assessment and plan: Continues to have hematuria. S/p bilateral ureteral stents 01/11/17. Continue to monitor. Qualifiers: Hematuria type: unspecified type Qualified Code(s): R31.9 - Hematuria, unspecified - Subjective Interval history: Patient did well overnight, no fevers or sweats. Reports having continued blood in urine, but burning and pain at end of urination now has resolved. Patient denies headaches, lightheadedness, nausea, vomiting, chest pain, shortness of breaht, abdominal pain, changes in bowels, new weakness, or loss of sensation. Continues to have chronic leg pain and lower extremity weakness that was present before admission, but patient reports continued improvement in strength now that she has been participating with PT/OT. Social work note reviewed 01/12/17, continue to wait for precert on [facility]. - Constitutional Vitals: Temp Pulse Resp BP Pulse Ox 98.0 F 64 18 155/88 96 01/13/17 06:54 01/13/17 06:54 01/13/17 06:54 01/13/17 06:54 01/13/17 06:54 General appearance: Present: cooperative, A&O X 3, pleasant, no acute distress, answers questions appropriately - Head Head exam: Present: atraumatic, normal inspection, normocephalic - Eye Eye exam: Present: EOMI, normal appearance - ENT ENT exam: Present: mucous membranes moist, normal exam, normal oropharynx - Neck Neck exam general surgery: Present: full ROM, normal inspection, supple, trachea midline. Absent: tenderness - Respiratory Respiratory exam: Present: CTAB. Absent: rales, respiratory distress, rhonchi, wheezes, tachypnea - Cardiovascular Cardiovascular exam: Present: RRR, +S1, +S2. Absent: diastolic murmur, JVD, systolic murmur - GI/Abdominal GI/Abdominal exam: Present: normal bowel sounds, soft. Absent: distended, guarding, tenderness - Extremities Exam Extremities exam: Present: full ROM, normal capillary refill, normal inspection , pedal edema (1+ nonpitting left foot edema), tenderness, warm, radial pulses palpable and symmetrical Additional comments: Normal upper extremities, 5/5 strength bilateral lower extremities, decreased ROM due to pain, normal capillary refill. Decreased muscle tone extremities. - Back Exam Back exam: Present: normal inspection. Absent: rash noted - Neurological Exam Neurological exam: Present: alert, oriented X3, no focal deficits, strengths equal and symetr throughout. Absent: motor sensory deficit, facial droop, speech deficit - Psychiatric Psychiatric exam: Present: normal affect, normal mood - Skin Skin exam: Present: dry, intact, normal color, warm. Absent: rash Internal Medicine: Result - Labs CBC & Chem 7: 01/13/17 03:53 01/13/17 03:53 Labs: Short CBC 01/13/17 Range/Units 03:53 WBC 33.2 H* (4.3-11.1) K/mcL Hgb 9.2 L (11.5-15.4) g/dL Hct 30.5 L (35.3-44.9) % Plt Count 648 H (140-400) K/mcL Neutrophils # 31.3 H (1.6-8.9) K/mcL BMP 01/13/17 03:53 Sodium 137 Potassium 4.5 Chloride 102 Carbon Dioxide 25 BUN 15 Creatinine 0.52 L Glucose 129 H Calcium 9.2 - ABG Interpretation ABG results: PT/INR, D-dimer PT 19.6 Seconds (9.4-12.1) H 12/31/16 17:50 - VTE Documentation of Mechanical Device: Intermittent pneumatic compression device Consult Discharge Plan - Plan Referrals: Judy Montez MD [Partnered Physician] - Karen Jones CNP [Primary Care Provider] - (Patient will follow up with ECF PCP ) <Frandy Carpenter - Last Filed: 01/13/17 18:20> Date of Encounter: 01/13/17 - Constitutional Vitals: Temp Pulse Resp BP Pulse Ox 98.2 F 75 17 160/84 99 01/13/17 15:51 01/13/17 15:51 01/13/17 15:51 01/13/17 15:51 01/13/17 15:51 Internal Medicine: Result - Labs CBC & Chem 7: 01/13/17 03:53 01/13/17 03:53 Labs: Short CBC 01/13/17 Range/Units 03:53 WBC 33.2 H* (4.3-11.1) K/mcL Hgb 9.2 L (11.5-15.4) g/dL Hct 30.5 L (35.3-44.9) % Plt Count 648 H (140-400) K/mcL Neutrophils # 31.3 H (1.6-8.9) K/mcL BMP 01/13/17 03:53 Sodium 137 Potassium 4.5 Chloride 102 Carbon Dioxide 25 BUN 15 Creatinine 0.52 L Glucose 129 H Calcium 9.2 - ABG Interpretation ABG results: PT/INR, D-dimer PT 19.6 Seconds (9.4-12.1) H 12/31/16 17:50 - Attending Attestation I examined this patient and my medical decision-making was reviewed with the Resident Physician. I agree with the documented findings, disposition and treatment plan as described except to the extent set forth below. She reports left leg pain and back pain which is fairly controlled with oral and IV Dilaudid. On exam she is in no acute distress. Abdomen is soft, nontender and nondistended. We will continue adjusting her pain medication. I discussed the case in a [id number] appeal with her insurance medical authorization specialist who upheld his denial of the patient's transfer to subacute rehabilitation. The argument being that she has poor rehabilitation potential due to uncontrolled pain and advanced metastatic cancer.
--- NOTE | 2017-01-13 09:25 | Palliative Progress Note ---
Date of Encounter: 01/13/17 Time of Encounter: 09:20 - Assessment and plan (1) Cancer related pain Current Visit: Yes Status: Chronic Assessment and plan: Has utilized po breakthrough pain medication x7 and IV x6 last 24 hours. Will increase Fentanyl patch today to 125mcg. Will re-eval in am and most likely increase breakthrough pain medication dose. Monitor (2) Protein-calorie malnutrition, severe Current Visit: Yes Status: Acute Assessment and plan: Continue monitoring intake. No n/v. [employer] Supervisor following (3) Counseling regarding advanced care planning and goals of care Current Visit: Yes Status: Acute Assessment and plan: Code status changed to DNRCC-Arrest after another lengthy conversation. Patient still continues to desire aggressive care, but no resuscitation for cardiac/resp arrest. Awaiting approval for [facility]. (4) Adenocarcinoma of left lung, stage 4 Current Visit: Yes Status: Chronic (5) Leucocytosis Current Visit: Yes Status: Chronic Qualifiers: Leukocytosis type: other Qualified Code(s): D72.828 - Other elevated white blood cell count (6) Fever Current Visit: Yes Status: Acute Qualifiers: Fever type: unspecified Qualified Code(s): R50.9 - Fever, unspecified - Time Spent With Patient Total time spent is greater than 50% in coordination of care (as documented) at patient's floor/unit and/or counseling patient: - Subjective Interval history: Patient awake and alert. C/o increasing pelvic pain and has required more breakthrough medication last 24 hours. States groin pain and urination have improved after stent placement. Denies constipation. Reports eating well. No fever greater than 48 hours. - Constitutional Vitals: Abnormal lab results WBC 33.2 K/mcL (4.3-11.1) H* 01/13/17 03:53 RBC 3.52 M/mcL (3.82-4.97) L 01/13/17 03:53 Hgb 9.2 g/dL (11.5-15.4) L 01/13/17 03:53 Hct 30.5 % (35.3-44.9) L 01/13/17 03:53 MCH 26.1 pg (28.0-33.3) L 01/13/17 03:53 MCHC 30.2 g/dL (31.6-35.5) L 01/13/17 03:53 RDW 20.0 % (11.5-14.5) H 01/13/17 03:53 Plt Count 648 K/mcL (140-400) H 01/13/17 03:53 MPV 8.1 fL (9.4-12.4) L 01/13/17 03:53 Neutrophils # 31.3 K/mcL (1.6-8.9) H 01/13/17 03:53 Lymphocytes # 0.5 K/mcL (0.6-4.6) L 01/13/17 03:53 Hypersegmented Neuts Present (Not Present) A 01/07/17 04:20 Reactive Lymphocytes Present (Not Present) A 01/03/17 04:00 Toxic Granulation Present (Not Present) A 01/10/17 03:50 Toxic Vacuolation Present (Not Present) A 01/06/17 04:05 Platelet Estimate Increased (Normal) H 01/13/17 03:53 Immature Plt Fraction 0.7 % (1.1-6.1) L 01/13/17 03:53 Polychromasia 1+ (Not Present) A 01/12/17 03:30 Hypochromasia Present (Not Present) A 01/10/17 03:50 Poikilocytosis 1+ (Not Present) A 01/08/17 03:55 Anisocytosis 1+ (Not Present) A 01/13/17 03:53 Microcytosis Present (Not Present) A 01/12/17 03:30 Macrocytosis Present (Not Present) A 01/01/17 04:19 Schistocytes 1+ (Not Present) A 01/08/17 03:55 ESR 25 mm/hr (0-15) H 01/01/17 04:19 PT 19.6 Seconds (9.4-12.1) H 12/31/16 17:50 Creatinine 0.52 mg/dL (0.57-1.11) L 01/13/17 03:53 BUN/Creatinine Ratio 29 (6-26) H 01/13/17 03:53 Glucose 129 mg/dL (70-99) H 01/13/17 03:53 POC Glucose 133 (58-89) H 01/13/17 06:52 Iron 19 mcg/dL (50-170) L 01/08/17 15:52 Transferrin 81 mg/dL (180-382) L 01/08/17 15:52 Ferritin 3571 ng/ml (5-204) H 01/08/17 15:52 C-Reactive Protein 163 mg/L (Less than 5) H 01/01/17 04:19 Serum Total Protein 5.7 g/dL (6.0-8.3) L 01/10/17 03:50 Albumin 1.7 g/dL (3.5-5.0) L 01/10/17 03:50 Globulin 4.0 g/dL (2.4-3.5) H 01/10/17 03:50 Albumin/Globulin Ratio 0.4 (1.1-2.2) L 01/10/17 03:50 Procalcitonin 0.21 ng/mL (<=0.10) H 01/10/17 08:21 Urine Microscopic WBC 5-15 per hpf (0-3) H 12/31/16 19:00 Ur Squamous Epith Cells Many per lpf (None-Few) H 12/31/16 19:00 General appearance: Present: no acute distress - Respiratory Respiratory exam: Present: decreased breath sounds, CTAB - Cardiovascular Cardiovascular exam: Present: +S1, +S2 - GI/Abdominal GI/Abdominal exam: Present: normal bowel sounds, soft - Extremities Exam Extremities exam: Present: normal capillary refill, normal inspection - Neurological Exam Neurological exam: Present: alert, oriented X3 - Skin Skin exam: Present: dry, pallor, warm Palliative Quality Palliative Quality: Screen for Code Status: Yes, Screen for Goals of Care: Yes, Screen for Pain: Yes, If Pain Regimen Started, Initiate Bowel Regimen: Yes, Screen for Nausea/Vomitting: Yes - Labs CBC & Chem 7: 01/13/17 03:53 01/13/17 03:53 Labs: Laboratory Results - last 24 hr 01/12/17 01/12/17 01/12/17 07:34 11:07 16:23 WBC RBC Hgb Hct MCV MCH MCHC RDW Plt Count MPV Immature Gran % Seg Neutrophils % Lymphocytes % Monocytes % Eosinophils % Basophils % Neutrophils # Lymphocytes # Monocytes # Eosinophils # Basophils # Platelet Estimate Immature Plt Fraction Anisocytosis Sodium Potassium Chloride Carbon Dioxide BUN Creatinine Est GFR ( Amer) Est GFR (Non-Af Amer) BUN/Creatinine Ratio Glucose POC Glucose 116 H 171 H 166 H Calculated Osmolality Calcium 01/12/17 01/13/17 01/13/17 20:23 03:53 03:53 WBC 33.2 H* RBC 3.52 L Hgb 9.2 L Hct 30.5 L MCV 86.6 MCH 26.1 L MCHC 30.2 L RDW 20.0 H Plt Count 648 H MPV 8.1 L Immature Gran % 1.8 Seg Neutrophils % 94.3 Lymphocytes % 1.4 Monocytes % 2.3 Eosinophils % 0.0 Basophils % 0.2 Neutrophils # 31.3 H Lymphocytes # 0.5 L Monocytes # 0.8 Eosinophils # 0.0 Basophils # 0.1 Platelet Estimate Increased H Immature Plt Fraction 0.7 L Anisocytosis 1+ A Sodium 137 Potassium 4.5 Chloride 102 Carbon Dioxide 25 BUN 15 Creatinine 0.52 L Est GFR ( Amer) > 60 Est GFR (Non-Af Amer) > 60 BUN/Creatinine Ratio 29 H Glucose 129 H POC Glucose 168 H Calculated Osmolality 287 Calcium 9.2 01/13/17 06:52 WBC RBC Hgb Hct MCV MCH MCHC RDW Plt Count MPV Immature Gran % Seg Neutrophils % Lymphocytes % Monocytes % Eosinophils % Basophils % Neutrophils # Lymphocytes # Monocytes # Eosinophils # Basophils # Platelet Estimate Immature Plt Fraction Anisocytosis Sodium Potassium Chloride Carbon Dioxide BUN Creatinine Est GFR ( Amer) Est GFR (Non-Af Amer) BUN/Creatinine Ratio Glucose POC Glucose 133 H Calculated Osmolality Calcium - ABG Interpretation ABG results: PT/INR, D-dimer PT 19.6 Seconds (9.4-12.1) H 12/31/16 17:50 Consult Discharge Plan - Plan Referrals: Judy Montez MD [Partnered Physician] - Karen Jones CNP [Primary Care Provider] - (Patient will follow up with ECF PCP )
[2017-01-13] MEDS: FentaNYL PATCH 100 MCG, FentaNYL PATCH 25 MCG TD SCH (09:42)
[2017-01-13] MEDS ORDERED: *HR* FentaNYL PATCH 100 MCG PATCH TD SCH ×3 (10:00→18:00)
[2017-01-14] MEDS: *HR* HYDROmorphone (PF) 1 MG/ML SYRINGE IVP PRN ×2 (02:32→05:23)
[2017-01-14 05:57] LABS: Lymphocytes % 1.8 %
[2017-01-14 05:59] LABS: Basophils % 0.1 %; Hemoglobin 9.5 g/dL (11.5-15.4); Immature Granulocytes % 1.2 % (0-4); Lymphocytes # 0.6 K/mcL (0.6-4.6); Mean Corpuscular HGB Conc 29.7 g/dL (31.6-35.5); Mean Corpuscular Hemoglobin 25.8 pg (28.0-33.3); Mean Platelet Volume 8.5 fL (9.4-12.4); Monocytes # 1.1 K/mcL (0.0-1.3); Monocytes % 3.3 %; Neutrophils # 31.3 K/mcL (1.6-8.9); Platelet Count 507 K/mcL (140-400); Red Blood Count 3.68 M/mcL (3.82-4.97); Segmented Neutrophils % 93.6 %
[2017-01-14 06:14] LABS: BUN/Creatinine Ratio 25 (6-26); Blood Urea Nitrogen 13 mg/dL (7-20); Calcium 9.6 mg/dL (8.6-10.8); Carbon Dioxide 27 mEq/L (19-29); Chloride 103 mEq/L (98-109); Glucose 133 mg/dL (70-99); Osmolality,Calculated 292 (280-300); Potassium 4.3 mEq/L (3.5-4.5); Sodium 140 mEq/L (136-145); eGFR For African Americans > 60 (> 60); eGFR For Non-African Americans > 60 (> 60)
[2017-01-14 06:49] LABS: Anisocytosis 1+ (Not Present); Hypochromasia Present (Not Present); Platelet Estimate Increased (Normal)
[2017-01-14] MEDS: Insulin LISPRO 300 UNITS/3 ML VIAL SQ SCH ×4 (08:39→20:00)
[2017-01-14] MEDS: *HR* HYDROmorphone 4 MG TABLET PO PRN ×6 (08:50→23:17)
[2017-01-14] MEDS: APIXABAN 5 MG TABLET PO SCH ×2 (08:50→20:10)
[2017-01-14] MEDS: Gabapentin 300 MG CAPSULE PO SCH ×3 (08:50→20:10)
[2017-01-14] MEDS: Baclofen 10 MG TABLET PO SCH ×3 (08:51→20:10)
[2017-01-14] MEDS: Folic Acid 1 MG TABLET PO SCH (08:51)
--- NOTE | 2017-01-14 10:22 | Palliative Progress Note ---
Date of Encounter: 01/14/17 Time of Encounter: 10:15 - Assessment and plan (1) Cancer related pain Current Visit: Yes Status: Chronic Assessment and plan: Fentanyl patch was increased to 125mcg yesterday afternoon. She still is using multiple doses of IV Hydromorphone (8mg in last 24 hours) and PO Hydromorphone ( 4mg last 24 hours.). Will increase breakthrough po dose to 8mg and D/C IV Hydromorphone. Continue Dexamethasone and Neurontin. I did discuss pt with Dr. Emmanuel Martins, who stated that further radiation treatments would not be beneficial for her. Continue to monitor closely. (2) Protein-calorie malnutrition, severe Current Visit: Yes Status: Acute (3) Counseling regarding advanced care planning and goals of care Current Visit: Yes Status: Acute Assessment and plan: Meeting held with pt and her 2 aunts, who are actually the family that participates most in her care. KRISHAN Hayes present and notified that her insurance will not approve ECF. Patient's aunts are elderly and not physically able to care for pt at home. They are also assisted with pt mother and pt brother. 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 Updated Dr. Carpenter (4) Adenocarcinoma of left lung, stage 4 Current Visit: Yes Status: Chronic (5) Leucocytosis Current Visit: Yes Status: Chronic Qualifiers: Leukocytosis type: other Qualified Code(s): D72.828 - Other elevated white blood cell count (6) Fever Current Visit: Yes Status: Acute Qualifiers: Fever type: unspecified Qualified Code(s): R50.9 - Fever, unspecified - Time Spent With Patient Total time spent is greater than 50% in coordination of care (as documented) at patient's floor/unit and/or counseling patient: 25 - 35 minutes - Subjective Interval history: Patient awake and alert. Still C/o severe pain in lower back, bilateral hips and thighs. Aunts at bedside. - Constitutional Vitals: Abnormal lab results WBC 33.4 K/mcL (4.3-11.1) H* 01/14/17 05:52 RBC 3.68 M/mcL (3.82-4.97) L 01/14/17 05:52 Hgb 9.5 g/dL (11.5-15.4) L 01/14/17 05:52 Hct 32.0 % (35.3-44.9) L 01/14/17 05:52 MCH 25.8 pg (28.0-33.3) L 01/14/17 05:52 MCHC 29.7 g/dL (31.6-35.5) L 01/14/17 05:52 RDW 20.0 % (11.5-14.5) H 01/14/17 05:52 Plt Count 507 K/mcL (140-400) H 01/14/17 05:52 MPV 8.5 fL (9.4-12.4) L 01/14/17 05:52 Neutrophils # 31.3 K/mcL (1.6-8.9) H 01/14/17 05:52 Hypersegmented Neuts Present (Not Present) A 01/07/17 04:20 Reactive Lymphocytes Present (Not Present) A 01/03/17 04:00 Toxic Granulation Present (Not Present) A 01/10/17 03:50 Toxic Vacuolation Present (Not Present) A 01/06/17 04:05 Platelet Estimate Increased (Normal) H 01/14/17 05:52 Immature Plt Fraction 0.7 % (1.1-6.1) L 01/13/17 03:53 Polychromasia 1+ (Not Present) A 01/12/17 03:30 Hypochromasia Present (Not Present) A 01/14/17 05:52 Poikilocytosis 1+ (Not Present) A 01/08/17 03:55 Anisocytosis 1+ (Not Present) A 01/14/17 05:52 Microcytosis Present (Not Present) A 01/12/17 03:30 Macrocytosis Present (Not Present) A 01/01/17 04:19 Schistocytes 1+ (Not Present) A 01/08/17 03:55 ESR 25 mm/hr (0-15) H 01/01/17 04:19 PT 19.6 Seconds (9.4-12.1) H 12/31/16 17:50 Creatinine 0.52 mg/dL (0.57-1.11) L 01/14/17 05:52 Glucose 133 mg/dL (70-99) H 01/14/17 05:52 POC Glucose 133 (58-89) H 01/13/17 06:52 Iron 19 mcg/dL (50-170) L 01/08/17 15:52 Transferrin 81 mg/dL (180-382) L 01/08/17 15:52 Ferritin 3571 ng/ml (5-204) H 01/08/17 15:52 C-Reactive Protein 163 mg/L (Less than 5) H 01/01/17 04:19 Serum Total Protein 5.7 g/dL (6.0-8.3) L 01/10/17 03:50 Albumin 1.7 g/dL (3.5-5.0) L 01/10/17 03:50 Globulin 4.0 g/dL (2.4-3.5) H 01/10/17 03:50 Albumin/Globulin Ratio 0.4 (1.1-2.2) L 01/10/17 03:50 Procalcitonin 0.21 ng/mL (<=0.10) H 01/10/17 08:21 Urine Microscopic WBC 5-15 per hpf (0-3) H 12/31/16 19:00 Ur Squamous Epith Cells Many per lpf (None-Few) H 12/31/16 19:00 General appearance: Present: no acute distress - Respiratory Respiratory exam: Present: decreased breath sounds - Cardiovascular Cardiovascular exam: Present: +S1, +S2 - GI/Abdominal GI/Abdominal exam: Present: normal bowel sounds, soft - Extremities Exam Extremities exam: Present: normal capillary refill, normal inspection - Neurological Exam Neurological exam: Present: alert, oriented X3 - Skin Skin exam: Present: dry, pallor, warm Palliative Quality Palliative Quality: Screen for Code Status: Yes, Screen for Goals of Care: Yes, Screen for Pain: Yes, If Pain Regimen Started, Initiate Bowel Regimen: Yes, Screen for Nausea/Vomitting: Yes Code Status: 01/13/17 09:22 DNR [Resuscitation Status: Active] [RES] Routine Comment: Resuscitation Status: DNR-Comfort Care-Arrest - Labs CBC & Chem 7: 01/14/17 05:52 01/14/17 05:52 Labs: Laboratory Results - last 24 hr 01/14/17 01/14/17 05:52 05:52 WBC 33.4 H* RBC 3.68 L Hgb 9.5 L Hct 32.0 L MCV 87.0 MCH 25.8 L MCHC 29.7 L RDW 20.0 H Plt Count 507 H MPV 8.5 L Immature Gran % 1.2 Seg Neutrophils % 93.6 Lymphocytes % 1.8 Monocytes % 3.3 Eosinophils % 0.0 Basophils % 0.1 Neutrophils # 31.3 H Lymphocytes # 0.6 Monocytes # 1.1 Eosinophils # 0.0 Basophils # 0.0 Platelet Estimate Increased H Hypochromasia Present A Anisocytosis 1+ A Sodium 140 Potassium 4.3 Chloride 103 Carbon Dioxide 27 BUN 13 Creatinine 0.52 L Est GFR ( Amer) > 60 Est GFR (Non-Af Amer) > 60 BUN/Creatinine Ratio 25 Glucose 133 H Calculated Osmolality 292 Calcium 9.6 - ABG Interpretation ABG results: PT/INR, D-dimer PT 19.6 Seconds (9.4-12.1) H 12/31/16 17:50 Consult Discharge Plan - Plan Referrals: Judy Montez MD [Partnered Physician] - Karen Jones CNP [Primary Care Provider] - (Patient will follow up with ECF PCP )
--- NOTE | 2017-01-14 11:24 | Internal Med Progress Note ---
<Napoleon Aldrich - Last Filed: 01/14/17 11:30> Date of Encounter: 01/14/17 Time of Encounter: 11:24 - Assessment and plan (1) Sepsis Current Visit: Yes Status: Resolved Assessment and plan: Resolved. Patient admitted from [facility] after having recorded temperature of 102F. Lactic Acid 2.4 on admisson, dropped to 1.5 following antibiotics and fluids Hypotension 89/53 on admission WBC 34.9 on admission, Known baseline 19 prior to admission. CXR revealed mild hazy ground glass opacities in right upper lobe and irregular ill defined spiculation in left upper concerning for spiculated mass. Patient received 2L normal saline bolus in ED Started on Broad spectrum antibiotics Urine antigens for Legioinella and S. pneumonia returned negative Influenza swab negative. Urine culture negative. Echo revealed EF 60%, normal LV systolic and diastolic function, normal LV, mildly dilated LA, mild mitral regurgitation, no evidence of pulm htn, no evidence of valvular vegetations Sputum cultures mixed serg, moderate wbc. Blood smear 01/03/17 revealed reactive changes, no findings suggestive of new or active malignancy Repeat CT chest 01/07/17 revealed continued progression of spiculated left upper obe nodule to 1.5 x 1.9 cm, new nonspecific semisolic 1.2 cm posterior left upper lobe nodular opacity, and new 1.[address] abdomen 01/08/17 revealed increase in retroperitoneal mass from prior, slight increase in narrowing of abdominal aorta and common vance arteries, but still patent, slight progression of hydronephrosis bilaterally, and compression deformity of L33 to 90% of vertebral body loss. Blood cultures 12/31/16 negative. Sputum culture negative, normal serg. Blood cultures 01/03/17 negative. Blood cultures 01/08/17 negative. Respiratory viral panel negative UA repeat negative. Discontinued 01/04/17 Vancomycin d4, Zosyn d4. Discontinued 01/05/17 Levaquin d5. Discontinued Cefepime d3 01/07/17. Discontinued Linezolid d7, Meropenem d5. Afebrile overnight, nontachycardic, nontachypneic, bp stable but low, WBC increased to 33.4 from 33.2 yesterday, approximate baseline of 19 prior to admission. Most likely associated to Decadron for bone pain per Palliative. -If continues to develop fevers, blood cultures draws -If has diarrhea, consider c.diff testing. -Continue monitoring vitals -Tylenol prn for fever -ID consulted, called 01/04/17 unable to see patient due to complexity of case. Transfer option was discussed with patient who wishes at this moment to continue medical treatment at [place]. -Oncology on board, recommended ID consult and continuance of therapy -Palliative on board -Urology performed bilateral ureteral stenting 01/11/17 -No additional lab testing recommended, unless change in status. Patient is at high risk due to her history of immunosuppression due to treatment with chem and radiation for her cancer. Suspect fevers are due to cancer. Placement prior to discharge pending. Qualifiers: Sepsis type: sepsis due to unspecified organism Qualified Code(s): A41.9 - Sepsis, unspecified organism (2) Healthcare-associated pneumonia Current Visit: Yes Status: Acute Assessment and plan: Due to history of immunosuppression due to cancer treatments and close interactions with medical community, patient's pneumonia based on imaging is likely HCAP vs CAP based on new guidelines. CXR revealed CXR revealed mild hazy ground glass opacities in right upper lobe and irregular ill defined spiculation in left upper concerning for spiculated mass. CT chest revealed mild nodular right upper lobe ground glass infiltrate, and increased size of nodules and nodes. Sputum culture negative, normal serg. WBC 33.4, increased from 33.2 yesterday, afebrile overnight. Likely secondary to Decadron. -Continue monitoring labs and vitals -Continue broad spectrum antibiotics per plan in assessment above. Discontinue Linezolid d7 and Meropenem d5 (3) Abdominal pain Current Visit: Yes Assessment and plan: Patient denies abdominal pain, but was noted to have Rebound tenderness on the left on exam 01/07/17. Abdominal exam otherwise normal without guarding or rigidity. No additional rebound or abdominal pain noted on exams since 01/07/17. CT Abdomen/Pelvis with contrast 01/08: IMPRESSION: Increase in retroperitoneal mass. Slight increase in narrowing of the abdominal aorta and common iliac arteries. These appear patent. Slight progression of hydronephrosis bilaterally. Soft tissue edema as well as edema throughout the mesentery and small volume ascites, progressed. Slight progression of osseous metastatic disease. Compression deformity at L3 has significantly compress with loss of approximately 90% vertebral body. Qualifiers: Abdominal location: left lower quadrant Qualified Code(s): R10.32 - Left lower quadrant pain (4) Anemia Current Visit: Yes Status: Chronic Assessment and plan: Hb 9.5 this morning, from 9.2 yesterday. stable. Required pRBC transfusion x1 01/01/17 due to Hb 6.3 Required pRBC transfusion x1 01/04/17 due to Hb 6.6. Known history of severe iron deficiency anemia, had recently received iron transfusion prior to admission. -No additional lab testing recommended, unless change in status. Qualifiers: Anemia type: iron deficiency Iron deficiency anemia type: other iron deficiency Qualified Code(s): D50.8 - Other iron deficiency anemias (5) Hyponatremia Current Visit: Yes Status: Resolved Assessment and plan: Patient determined to have sodium 129 on admission. Sodium 140 on labs this morning, from 137 yesterday Patient has known chronic hyponatremia. -No additional lab testing recommended, unless change in status. (6) Adenocarcinoma of left lung, stage 4 Current Visit: Yes Status: Chronic Assessment and plan: Known history of primary adenocarcinoma of left lung stage 4 with mets to spine and pelvis. Currently undergoing palliative chemoradiation at [facility]. -Oncology on board -Palliative on board (7) Cancer related pain Current Visit: Yes Status: Chronic Assessment and plan: Pain secondary to mets to pelvis, and pain of legs bilaterally resulting in her now wheelchair bound status. Conitnue home pain medication regimenL 125 mcg fentanyl patches q48 and 4mg hydromorphone po q2-3hr prn. 4mg Decadron bid Consider switching to oral pain medication prior to discharge. -Social work for placement, currently wheelchair bound. -Palliative on board. (8) Bone metastasis Current Visit: Yes Status: Chronic Assessment and plan: Per plan in assessment above. (9) Hypomagnesemia Current Visit: Yes Status: Acute Assessment and plan: Magnesium 1.5 on admission, 1.6 01/09/17. Has received a total of 10grams magnesium since admission. Magnesium is 1.8 01/12/17. (10) DVT (deep venous thrombosis) Current Visit: Yes Status: Resolved Assessment and plan: Known history of DVT -Continue Eliquis. Qualifiers: DVT location: lower extremity Affected thrombotic vein of extremity: unspecified vein of extremity Chronicity: unspecified Laterality: left Qualified Code(s): I82.402 - Acute embolism and thrombosis of unspecified deep veins of left lower extremity (11) Abnormal finding on imaging Current Visit: Yes Status: Acute Assessment and plan: Patient found to have small focus of abnormal attenuation in the right thalamus that is nonspecific and possibly artifact. Given patient history of lung cancer brain metastases cannot be ruled out. She might need MRI as outpatient for further evaluation per the discretion of her oncologist (12) Diabetes mellitus type 2 in nonobese Current Visit: Yes Status: Acute Assessment and plan: Continue with ADA diet and low dose insulin sliding scale. Continue monitoring labs. (13) Protein-calorie malnutrition, severe Current Visit: Yes Status: Acute Assessment and plan: Consulted Nutrition for po recommendations. (14) Pressure ulcer of sacral region, stage 1 Current Visit: Yes Status: Resolved Assessment and plan: Resolved Pressure ulcers management per protocol. (15) Leucocytosis Current Visit: Yes Status: Chronic Assessment and plan: Acute on chronic, baseline about 19 prior to admission. Baseline elevation likely secondary to chemo medications. Blood smear was unconcerning for malignancy of blood. WBC 33.4 from 33.2 yesterday. Continue per plan in assessments above. Likely secondary to Decadron adminstration for Palliative bone pain. Has been afebrile and no sweats. -No additional lab testing recommended, unless change in status. Qualifiers: Leukocytosis type: other Qualified Code(s): D72.828 - Other elevated white blood cell count (16) Hydronephrosis Current Visit: Yes Status: Acute Assessment and plan: Hydronephrosis noted on CT abdomen/pelvis worsening. Underwent bilateral stenting of ureters bilaterally 01/11/17. hematuria and dysuria s/p stenting resolved. Continue to monitor urine output and monitor for improvement in symptoms and labs. Qualifiers: Hydronephrosis type: with other ureteral stricture Qualified Code(s): N13.1 - Hydronephrosis with ureteral stricture, not elsewhere classified (17) Hematuria Current Visit: Yes Status: Resolved Assessment and plan: Resolved. S/p bilateral ureteral stents 01/11/17. Qualifiers: Hematuria type: unspecified type Qualified Code(s): R31.9 - Hematuria, unspecified - Subjective Interval history: Patient did well overnight, no fevers or sweats, reports no additional blood in urine. Patient denies headaches, lightheadedness, nausea, vomiting, chest pain , shortness of breath, abdominal pain, changes in bowels, new weakness, or loss of sensation. Continues to have chronic leg pain and lower extremity weakness that was present before admission, but patient reports continued improvement in strength now that she has been participating with PT/OT. Social work note reviewed. Still pending placement. - Constitutional Vitals: Temp Pulse Resp BP Pulse Ox 97.6 F 96 18 139/89 99 01/14/17 08:10 01/14/17 08:10 01/14/17 08:10 01/14/17 08:10 01/14/17 08:10 General appearance: Present: cooperative, A&O X 3, pleasant, no acute distress, answers questions appropriately - Head Head exam: Present: atraumatic, normal inspection, normocephalic - Eye Eye exam: Present: EOMI, normal appearance - ENT ENT exam: Present: mucous membranes moist, normal exam, normal oropharynx - Neck Neck exam general surgery: Present: full ROM, normal inspection, supple, trachea midline. Absent: tenderness - Respiratory Respiratory exam: Present: CTAB. Absent: rales, respiratory distress, rhonchi, wheezes - Cardiovascular Cardiovascular exam: Present: RRR, +S1, +S2. Absent: diastolic murmur, JVD, systolic murmur - GI/Abdominal GI/Abdominal exam: Present: normal bowel sounds, soft. Absent: distended, guarding, tenderness - Extremities Exam Extremities exam: Present: full ROM, normal capillary refill, normal inspection , pedal edema (1+ nonpitting left foot edema), tenderness, warm, radial pulses palpable and symmetrical Additional comments: Normal upper extremities, 5/5 strength bilateral lower extremities, decreased ROM due to pain, normal capillary refill. Decreased muscle tone extremities. - Back Exam Back exam: Present: normal inspection. Absent: rash noted - Neurological Exam Neurological exam: Present: alert, oriented X3, no focal deficits, strengths equal and symetr throughout. Absent: motor sensory deficit, facial droop, speech deficit - Psychiatric Psychiatric exam: Present: normal affect, normal mood - Skin Skin exam: Present: dry, intact, normal color, warm. Absent: rash Internal Medicine: Result - Labs CBC & Chem 7: 01/14/17 05:52 01/14/17 05:52 Labs: Short CBC 01/14/17 Range/Units 05:52 WBC 33.4 H* (4.3-11.1) K/mcL Hgb 9.5 L (11.5-15.4) g/dL Hct 32.0 L (35.3-44.9) % Plt Count 507 H (140-400) K/mcL Neutrophils # 31.3 H (1.6-8.9) K/mcL [facility] 01/14/17 05:52 Sodium 140 Potassium 4.3 Chloride 103 Carbon Dioxide 27 BUN 13 Creatinine 0.52 L Glucose 133 H Calcium 9.6 - ABG Interpretation ABG results: PT/INR, D-dimer PT 19.6 Seconds (9.4-12.1) H 12/31/16 17:50 - VTE Documentation of Mechanical Device: Intermittent pneumatic compression device Consult Discharge Plan - Plan Referrals: Judy Montez MD [Partnered Physician] - Karen Jones CNP [Primary Care Provider] - (Patient will follow up with ECF PCP ) <Frandy Carpenter - Last Filed: 01/14/17 17:21> Date of Encounter: 01/14/17 - Constitutional Vitals: Temp Pulse Resp BP Pulse Ox 98.0 F 75 18 147/84 98 01/14/17 16:18 01/14/17 16:18 01/14/17 16:18 01/14/17 16:18 01/14/17 16:18 Internal Medicine: Result - Labs CBC & Chem 7: 01/14/17 05:52 01/14/17 05:52 Labs: Short CBC 01/14/17 Range/Units 05:52 WBC 33.4 H* (4.3-11.1) K/mcL Hgb 9.5 L (11.5-15.4) g/dL Hct 32.0 L (35.3-44.9) % Plt Count 507 H (140-400) K/mcL Neutrophils # 31.3 H (1.6-8.9) K/mcL [facility] 01/14/17 05:52 Sodium 140 Potassium 4.3 Chloride 103 Carbon Dioxide 27 BUN 13 Creatinine 0.52 L Glucose 133 H Calcium 9.6 - ABG Interpretation ABG results: PT/INR, D-dimer PT 19.6 Seconds (9.4-12.1) H 09/08/17 17:50 - Attending Attestation I examined this patient and my medical decision-making was reviewed with the Resident Physician. I agree with the documented findings, disposition and treatment plan as described except to the extent set forth below. The patient still requires multiple doses of IV Dilaudid. She is at high risk for morbidity, mortality and complications due to treatment with IV opiates for pain. I discussed the case with palliative care who recommends increasing fentanyl patch and considering methadone for pain.
[2017-01-15] MEDS: *HR* HYDROmorphone 4 MG TABLET PO PRN ×7 (04:25→21:42)
[2017-01-15] MEDS: Insulin LISPRO 300 UNITS/3 ML VIAL SQ SCH ×4 (08:15→20:12)
[2017-01-15] MEDS: Baclofen 10 MG TABLET PO SCH ×3 (08:27→20:05)
[2017-01-15] MEDS: Folic Acid 1 MG TABLET PO SCH (08:27)
[2017-01-15] MEDS: Gabapentin 300 MG CAPSULE PO SCH ×3 (08:27→20:05)
[2017-01-15] MEDS: APIXABAN 5 MG TABLET PO SCH ×2 (08:28→20:05)
[2017-01-15] MEDS: FentaNYL PATCH 100 MCG, FentaNYL PATCH 25 MCG TD SCH (11:04)
--- NOTE | 2017-01-15 11:08 | Palliative Progress Note ---
Date of Encounter: 01/15/17 Time of Encounter: 10:30 - Assessment and plan (1) Cancer related pain Current Visit: Yes Status: Chronic Assessment and plan: Patient receiving Fentanyl patch 125mcg and po Dilaudid 8mg po PRN. Requested 5 doses in past 24hrs for 40 mg po intake. Complained of bed mattress uncomfortable and positioned for comfort. No overlay for bed available. May consider specialty bed if long stay given DC plan. Will leave current regimen and evaluate in AM. Also has decradon ad neurontin. (2) Protein-calorie malnutrition, moderate Current Visit: Yes Status: Acute Assessment and plan: Appetite is doing well. Ensure protein supplement being consumed. Likes meals. (3) Counseling regarding advanced care planning and goals of care Current Visit: Yes Status: Acute Assessment and plan: Discussed goals for possible PT/OT. Patient reports she is participating but it induces a great deal of discomfort. Discussed options and patient is well informed of options for hospice care and is deciding on ECF placement. SS on case. Filed for Medicaid and this is pending. (4) Adenocarcinoma of left lung, stage 4 Current Visit: Yes Status: Chronic Assessment and plan: Metastatic to pelvis and spine. Discussed goals for pain and comfort. - Time Spent With Patient Total time spent is greater than 50% in coordination of care (as documented) at patient's floor/unit and/or counseling patient: 25 - 35 minutes - Subjective Interval history: Sitting up in bed watching TV. Reports having some pain to back area in the area of L3 and across abdomen, generalized. Reports pain is little better. Chart reviewed and discussed hospital course with patient. - Constitutional Vitals: Abnormal lab results WBC 33.4 K/mcL (4.3-11.1) H* 01/14/17 05:52 RBC 3.68 M/mcL (3.82-4.97) L 01/14/17 05:52 Hgb 9.5 g/dL (11.5-15.4) L 01/14/17 05:52 Hct 32.0 % (35.3-44.9) L 01/14/17 05:52 MCH 25.8 pg (28.0-33.3) L 01/14/17 05:52 MCHC 29.7 g/dL (31.6-35.5) L 01/14/17 05:52 RDW 20.0 % (11.5-14.5) H 01/14/17 05:52 Plt Count 507 K/mcL (140-400) H 01/14/17 05:52 MPV 8.5 fL (9.4-12.4) L 01/14/17 05:52 Neutrophils # 31.3 K/mcL (1.6-8.9) H 01/14/17 05:52 Hypersegmented Neuts Present (Not Present) A 01/07/17 04:20 Reactive Lymphocytes Present (Not Present) A 01/03/17 04:00 Toxic Granulation Present (Not Present) A 01/10/17 03:50 Toxic Vacuolation Present (Not Present) A 01/06/17 04:05 Platelet Estimate Increased (Normal) H 01/14/17 05:52 Immature Plt Fraction 0.7 % (1.1-6.1) L 01/13/17 03:53 Polychromasia 1+ (Not Present) A 01/12/17 03:30 Hypochromasia Present (Not Present) A 01/14/17 05:52 Poikilocytosis 1+ (Not Present) A 01/08/17 03:55 Anisocytosis 1+ (Not Present) A 01/14/17 05:52 Microcytosis Present (Not Present) A 01/12/17 03:30 Macrocytosis Present (Not Present) A 01/01/17 04:19 Schistocytes 1+ (Not Present) A 01/08/17 03:55 ESR 25 mm/hr (0-15) H 01/01/17 04:19 PT 19.6 Seconds (9.4-12.1) H 12/31/16 17:50 Creatinine 0.52 mg/dL (0.57-1.11) L 01/14/17 05:52 Glucose 133 mg/dL (70-99) H 01/14/17 05:52 POC Glucose 205 (58-89) H 01/14/17 16:21 Iron 19 mcg/dL (50-170) L 01/08/17 15:52 Transferrin 81 mg/dL (180-382) L 01/08/17 15:52 Ferritin 3571 ng/ml (5-204) H 01/08/17 15:52 C-Reactive Protein 163 mg/L (Less than 5) H 01/01/17 04:19 Serum Total Protein 5.7 g/dL (6.0-8.3) L 01/10/17 03:50 Albumin 1.7 g/dL (3.5-5.0) L 01/10/17 03:50 Globulin 4.0 g/dL (2.4-3.5) H 01/10/17 03:50 Albumin/Globulin Ratio 0.4 (1.1-2.2) L 01/10/17 03:50 Procalcitonin 0.21 ng/mL (<=0.10) H 01/10/17 08:21 Urine Microscopic WBC 5-15 per hpf (0-3) H 12/31/16 19:00 Ur Squamous Epith Cells Many per lpf (None-Few) H 12/31/16 19:00 - Head Head exam: Present: atraumatic - Eye Eye exam: Present: PERRL Pupils: Present: PERRL - ENT ENT exam: Present: mucous membranes moist - Neck Neck exam: Present: full ROM - Respiratory Respiratory exam: Present: decreased breath sounds, CTAB - Expanded Respiratory Exam Location: decreased breath sounds: Left, Right, Lower - Cardiovascular Cardiovascular exam: Present: +S1, +S2 - Expanded Cardiovascular Exam Peripheral pulses: 1+: Femoral (L) PM, Femoral (R) PM, Posterior Tibialis (L), Posterior Tibialis (R), 2+: Carotid (L) PM, Carotid (R) PM, Radial (L), Radial ( R), Dorsalis Pedis (L) PM, Dorsalis Pedis (R) PM - GI/Abdominal GI/Abdominal exam: Present: normal bowel sounds, soft, tenderness (left lower quad tenderness with palpation) - Extremities Exam Extremities exam: Present: tenderness (left hip and lower back area) - Back Exam Back exam: Present: tenderness, vertebral tenderness (L3) - Neurological Exam Neurological exam: Present: alert, CN II-XII intact, oriented X3 - Psychiatric Psychiatric exam: Present: normal affect, normal mood - Skin Skin exam: Present: pallor, warm Palliative Quality Palliative Quality: Screen for Code Status: Yes, Screen for Goals of Care: Yes, Screen for Pain: Yes, If Pain Regimen Started, Initiate Bowel Regimen: Yes, Screen for Nausea/Vomitting: Yes Code Status: 01/13/17 09:22 DNR [Resuscitation Status: Active] [RES] Routine Comment: Resuscitation Status: DNR-Comfort Care-Arrest - Labs CBC & Chem 7: 01/14/17 05:52 01/14/17 05:52 Labs: Laboratory Results - last 24 hr 01/13/17 01/13/17 01/13/17 10:48 15:49 19:21 POC Glucose 188 H 174 H 169 H 01/14/17 01/14/17 01/14/17 08:16 11:28 16:21 POC Glucose 102 H 169 H 205 H - ABG Interpretation ABG results: PT/INR, D-dimer PT 19.6 Seconds (9.4-12.1) H 12/31/16 17:50 Consult Discharge Plan - Plan Referrals: Judy Montez MD [Partnered Physician] - Karen Jones CNP [Primary Care Provider] - (Patient will follow up with ECF PCP )
--- NOTE | 2017-01-15 15:31 | Internal Med Progress Note ---
Date of Encounter: 01/15/17 Time of Encounter: 15:27 - Assessment and plan (1) Cancer related pain Current Visit: Yes Status: Chronic Assessment and plan: Pain secondary to mets to pelvis, and pain of legs bilaterally resulting in her now wheelchair bound status. Conitnue home pain medication regimenL 125 mcg fentanyl patches q48 and 8mg hydromorphone po q2-3hr prn. 4mg Decadron bid She is off IV opiates in preparation for discharge. We will continue to avoid IV pain medication. -Social work for placement, currently wheelchair bound. Pending application for Medicaid for long-term placement. She was denied subacute rehabilitation, I have called and discussed the case in a [id number] appeal and a denial was upheld. -Palliative on board. (2) Adenocarcinoma of left lung, stage 4 Current Visit: Yes Status: Chronic Assessment and plan: Known history of primary adenocarcinoma of left lung stage 4 with mets to spine and pelvis. Currently undergoing palliative chemoradiation at [facility]. -Oncology on board -Palliative on board (3) Diabetes mellitus type 2 in nonobese Current Visit: Yes Status: Acute Assessment and plan: Continue with ADA diet and low dose insulin sliding scale. Continue monitoring labs. (4) Hydronephrosis Current Visit: Yes Status: Acute Assessment and plan: Hydronephrosis noted on CT abdomen/pelvis worsening. Underwent bilateral stenting of ureters bilaterally 01/11/17. hematuria and dysuria s/p stenting resolved. Continue to monitor urine output and monitor for improvement in symptoms and labs. Qualifiers: Hydronephrosis type: with other ureteral stricture Qualified Code(s): N13.1 - Hydronephrosis with ureteral stricture, not elsewhere classified (5) DVT (deep venous thrombosis) Current Visit: Yes Status: Resolved Assessment and plan: Known history of DVT -Continue Eliquis. Qualifiers: DVT location: lower extremity Affected thrombotic vein of extremity: unspecified vein of extremity Chronicity: unspecified Laterality: left Qualified Code(s): I82.402 - Acute embolism and thrombosis of unspecified deep veins of left lower extremity - Subjective Interval history: Patient reports lower back pain and bilateral thigh pain, dull and aching, well- controlled at rest and improved with oral Dilaudid, worse with any kind of movement. Denies chest pain shortness of breath fevers chills and cough. - Constitutional Vitals: Temp Pulse Resp BP Pulse Ox 97.6 F 82 18 121/66 97 01/15/17 11:23 01/15/17 11:23 01/15/17 11:23 01/15/17 11:23 01/15/17 11:23 General appearance: Present: cooperative, A&O X 3, pleasant, no acute distress, answers questions appropriately - Respiratory Respiratory exam: Present: CTAB. Absent: accessory muscle use, rales, rhonchi, wheezes - Cardiovascular Cardiovascular exam: Present: RRR, +S1, +S2. Absent: diastolic murmur, gallop, rubs, systolic murmur - GI/Abdominal GI/Abdominal exam: Present: normal bowel sounds, soft, no peritoneal signs. Absent: distended, tenderness - Extremities Exam Extremities exam: Present: warm, radial pulses palpable and symmetrical. Absent : calf tenderness, cyanotic, pedal edema - Skin Skin exam: Present: dry, intact Internal Medicine: Result - Labs CBC & Chem 7: 01/14/17 05:52 01/14/17 05:52 - ABG Interpretation ABG results: PT/INR, D-dimer PT 19.6 Seconds (9.4-12.1) H 12/31/16 17:50 - VTE Documentation of Mechanical Device: Intermittent pneumatic compression device Consult Discharge Plan - Plan Referrals: Judy Montez MD [Partnered Physician] - Karen Jones CNP [Primary Care Provider] - (Patient will follow up with ECF PCP )
[2017-01-16] MEDS: *HR* HYDROmorphone 4 MG TABLET PO PRN ×6 (04:59→20:29)
[2017-01-16] MEDS: Baclofen 10 MG TABLET PO SCH ×3 (08:05→20:29)
[2017-01-16] MEDS: Gabapentin 300 MG CAPSULE PO SCH ×3 (08:05→20:29)
[2017-01-16] MEDS: APIXABAN 5 MG TABLET PO SCH ×2 (08:05→20:30)
[2017-01-16] MEDS: Folic Acid 1 MG TABLET PO SCH (08:06)
[2017-01-16] MEDS: Insulin LISPRO 300 UNITS/3 ML VIAL SQ SCH ×4 (08:06→20:33)
--- NOTE | 2017-01-16 12:19 | Palliative Progress Note ---
Date of Encounter: 01/16/17 Time of Encounter: 11:00 - Assessment and plan (1) Cancer related pain Current Visit: Yes Status: Chronic Assessment and plan: Patient receiving Fentanyl patch 125mcg and po Dilaudid 8mg po PRN. Requested 7 doses in past 24hrs for 48 mg po intake. Complained of bed mattress uncomfortable and positioned for comfort. No overlay for bed available. May consider specialty bed if long stay given DC plan. Will continue current regimen. Also has decradon ad neurontin. (2) Protein-calorie malnutrition, moderate Current Visit: Yes Status: Acute Assessment and plan: Appetite is doing well. Ensure protein supplement being consumed. Likes meals. (3) Counseling regarding advanced care planning and goals of care Current Visit: Yes Status: Acute Assessment and plan: Discussed goals for possible PT/OT. Patient reports she is participating but it induces a great deal of discomfort. Discussed options and patient is well informed of options for hospice care and is deciding on ECF placement. SS on case. Filed for Medicaid and this is pending. (4) Adenocarcinoma of left lung, stage 4 Current Visit: Yes Status: Chronic Assessment and plan: Metastatic to pelvis and spine. Discussed goals for pain and comfort. - Time Spent With Patient Total time spent is greater than 50% in coordination of care (as documented) at patient's floor/unit and/or counseling patient: 25 - 35 minutes - Subjective Interval history: Sitting up in bed. Visitors at bedside. Patient reports pain has improved. - Constitutional Vitals: Abnormal lab results WBC 33.4 K/mcL (4.3-11.1) H* 01/14/17 05:52 RBC 3.68 M/mcL (3.82-4.97) L 01/14/17 05:52 Hgb 9.5 g/dL (11.5-15.4) L 01/14/17 05:52 Hct 32.0 % (35.3-44.9) L 01/14/17 05:52 MCH 25.8 pg (28.0-33.3) L 01/14/17 05:52 MCHC 29.7 g/dL (31.6-35.5) L 01/14/17 05:52 RDW 20.0 % (11.5-14.5) H 01/14/17 05:52 Plt Count 507 K/mcL (140-400) H 01/14/17 05:52 MPV 8.5 fL (9.4-12.4) L 01/14/17 05:52 Neutrophils # 31.3 K/mcL (1.6-8.9) H 01/14/17 05:52 Hypersegmented Neuts Present (Not Present) A 01/07/17 04:20 Reactive Lymphocytes Present (Not Present) A 01/03/17 04:00 Toxic Granulation Present (Not Present) A 01/10/17 03:50 Toxic Vacuolation Present (Not Present) A 01/06/17 04:05 Platelet Estimate Increased (Normal) H 01/14/17 05:52 Immature Plt Fraction 0.7 % (1.1-6.1) L 01/13/17 03:53 Polychromasia 1+ (Not Present) A 01/12/17 03:30 Hypochromasia Present (Not Present) A 01/14/17 05:52 Poikilocytosis 1+ (Not Present) A 01/08/17 03:55 Anisocytosis 1+ (Not Present) A 01/14/17 05:52 Microcytosis Present (Not Present) A 01/12/17 03:30 Macrocytosis Present (Not Present) A 01/01/17 04:19 Schistocytes 1+ (Not Present) A 01/08/17 03:55 ESR 25 mm/hr (0-15) H 01/01/17 04:19 PT 19.6 Seconds (9.4-12.1) H 12/31/16 17:50 Creatinine 0.52 mg/dL (0.57-1.11) L 01/14/17 05:52 Glucose 133 mg/dL (70-99) H 01/14/17 05:52 POC Glucose 175 (58-89) H 01/14/17 19:50 Iron 19 mcg/dL (50-170) L 01/08/17 15:52 Transferrin 81 mg/dL (180-382) L 01/08/17 15:52 Ferritin 3571 ng/ml (5-204) H 01/08/17 15:52 C-Reactive Protein 163 mg/L (Less than 5) H 01/01/17 04:19 Serum Total Protein 5.7 g/dL (6.0-8.3) L 01/10/17 03:50 Albumin 1.7 g/dL (3.5-5.0) L 01/10/17 03:50 Globulin 4.0 g/dL (2.4-3.5) H 01/10/17 03:50 Albumin/Globulin Ratio 0.4 (1.1-2.2) L 01/10/17 03:50 Procalcitonin 0.21 ng/mL (<=0.10) H 01/10/17 08:21 Urine Microscopic WBC 5-15 per hpf (0-3) H 12/31/16 19:00 Ur Squamous Epith Cells Many per lpf (None-Few) H 12/31/16 19:00 - Head Head exam: Present: atraumatic - Eye Eye exam: Present: PERRL Pupils: Present: PERRL - ENT ENT exam: Present: mucous membranes moist - Neck Neck exam: Present: full ROM - Respiratory Respiratory exam: Present: decreased breath sounds - Expanded Respiratory Exam Location: decreased breath sounds: Left, Right, Lower - Cardiovascular Cardiovascular exam: Present: RRR, +S1, +S2 - GI/Abdominal GI/Abdominal exam: Present: normal bowel sounds - Extremities Exam Extremities exam: Present: full ROM - Neurological Exam Neurological exam: Present: alert, oriented X3 - Psychiatric Psychiatric exam: Present: normal affect, normal mood - Skin Skin exam: Present: intact, pallor, warm Palliative Quality Palliative Quality: Screen for Code Status: Yes, Screen for Goals of Care: Yes, Screen for Pain: Yes, If Pain Regimen Started, Initiate Bowel Regimen: Yes, Screen for Nausea/Vomitting: Yes Code Status: 01/13/17 09:22 DNR [Resuscitation Status: Active] [RES] Routine Comment: Resuscitation Status: DNR-Comfort Care-Arrest - Labs CBC & Chem 7: 01/14/17 05:52 01/14/17 05:52 Labs: Laboratory Results - last 24 hr 01/14/17 19:50 POC Glucose 175 H - ABG Interpretation ABG results: PT/INR, D-dimer PT 19.6 Seconds (9.4-12.1) H 12/31/16 17:50 Consult Discharge Plan - Plan Referrals: Judy Montez MD [Partnered Physician] - Karen Jones CNP [Primary Care Provider] - (Patient will follow up with ECF PCP )
--- NOTE | 2017-01-16 15:17 | Internal Med Progress Note ---
Date of Encounter: 01/16/17 Time of Encounter: 13:00 - Assessment and plan (1) Cancer related pain Current Visit: Yes Status: Chronic Assessment and plan: Pain secondary to mets to pelvis, and pain of legs bilaterally resulting in her now wheelchair bound status. Conitnue home pain medication regimenL 125 mcg fentanyl patches q48 and 8mg hydromorphone po q2-3hr prn. 4mg Decadron bid She is off IV opiates in anticipation of discharge. We will continue to avoid IV pain medication. -Social work for placement, currently wheelchair bound. - Pending application for Medicaid for long-term placement. -Palliative on board. (2) Adenocarcinoma of left lung, stage 4 Current Visit: Yes Status: Chronic Assessment and plan: Known history of primary adenocarcinoma of left lung stage 4 with mets to spine and pelvis. Currently undergoing palliative chemoradiation at [facility]. -Oncology on board -Palliative on board (3) Diabetes mellitus type 2 in nonobese Current Visit: Yes Status: Acute Assessment and plan: I will resume ADA diet , the patient is currently on regular diet. Continue with low dose insulin sliding scale. (4) Hydronephrosis Current Visit: Yes Status: Acute Assessment and plan: Hydronephrosis noted on CT abdomen/pelvis worsening. Underwent bilateral stenting of ureters bilaterally 01/11/17. hematuria and dysuria s/p stenting resolved. Continue to monitor urine output and monitor for improvement in symptoms and labs. Qualifiers: Hydronephrosis type: with other ureteral stricture Qualified Code(s): N13.1 - Hydronephrosis with ureteral stricture, not elsewhere classified (5) DVT (deep venous thrombosis) Current Visit: Yes Status: Resolved Assessment and plan: Known history of DVT -Continue Eliquis. Qualifiers: DVT location: lower extremity Affected thrombotic vein of extremity: unspecified vein of extremity Chronicity: unspecified Laterality: left Qualified Code(s): I82.402 - Acute embolism and thrombosis of unspecified deep veins of left lower extremity - Subjective Interval history: Patient reports lower back pain and mild left thigh pain, dull and aching, well- controlled at rest and improved with oral Dilaudid, worse with movement in bed. She has not been able to ambulate. Denies chest pain shortness of breath fevers chills and cough. - Constitutional Vitals: Temp Pulse Resp BP Pulse Ox 97.6 F 83 17 133/76 98 01/16/17 10:40 01/16/17 10:40 01/16/17 10:40 01/16/17 10:40 01/16/17 10:40 General appearance: Present: cooperative, A&O X 3, pleasant, no acute distress, answers questions appropriately - Respiratory Respiratory exam: Present: CTAB. Absent: accessory muscle use, rales, rhonchi, wheezes - Cardiovascular Cardiovascular exam: Present: RRR, +S1, +S2. Absent: diastolic murmur, gallop, rubs, systolic murmur - GI/Abdominal GI/Abdominal exam: Present: normal bowel sounds, soft, no peritoneal signs. Absent: distended, tenderness - Extremities Exam Extremities exam: Present: warm, radial pulses palpable and symmetrical. Absent : calf tenderness, cyanotic, pedal edema - Skin Skin exam: Present: dry, intact Internal Medicine: Result - Labs CBC & Chem 7: 01/14/17 05:52 01/14/17 05:52 - ABG Interpretation ABG results: PT/INR, D-dimer PT 19.6 Seconds (9.4-12.1) H 12/31/16 17:50 - VTE Documentation of Mechanical Device: Intermittent pneumatic compression device Consult Discharge Plan - Plan Referrals: Judy Montez MD [Partnered Physician] - Karen Jones CNP [Primary Care Provider] - (Patient will follow up with ECF PCP )
[2017-01-17] MEDS: *HR* HYDROmorphone 4 MG TABLET PO PRN ×8 (00:32→23:44)
[2017-01-17] MEDS: Baclofen 10 MG TABLET PO SCH ×3 (08:08→21:42)
[2017-01-17] MEDS: APIXABAN 5 MG TABLET PO SCH ×2 (08:08→21:42)
[2017-01-17] MEDS: Folic Acid 1 MG TABLET PO SCH (08:09)
[2017-01-17] MEDS: Gabapentin 300 MG CAPSULE PO SCH (08:09)
[2017-01-17] MEDS: FentaNYL PATCH 100 MCG, FentaNYL PATCH 25 MCG TD SCH (08:16)
[2017-01-17] MEDS: Insulin LISPRO 300 UNITS/3 ML VIAL SQ SCH ×4 (08:18→21:43)
--- NOTE | 2017-01-17 10:31 | Internal Med Progress Note ---
<Miladys Worthington - Last Filed: 01/17/17 14:08> Date of Encounter: 01/17/17 Time of Encounter: 10:30 - Assessment and plan (1) Cancer related pain Current Visit: Yes Status: Chronic Assessment and plan: -Pain secondary to mets to pelvis, and pain of legs bilaterally resulting in her now wheelchair bound status -Continue home pain medication regimen 125 mcg fentanyl patches q48 and 8mg hydromorphone po q2-3hr prn. 4mg Decadron bid Continue to avoid IV pain medication due to anticipation of discharge -Social work- placement and currently wheelchair bound -Pending application for Medicaid for long-term placement -Palliative on board (2) Adenocarcinoma of left lung, stage 4 Current Visit: Yes Status: Chronic Assessment and plan: -Known history of primary adenocarcinoma of left lung stage 4 with mets to spine and pelvis. Currently undergoing palliative chemoradiation at [facility]. -Oncology on board -Palliative on board (3) Diabetes mellitus type 2 in nonobese Current Visit: Yes Status: Acute Assessment and plan: -Continue with low dose insulin sliding scale -diabetic diet (4) Hydronephrosis Current Visit: Yes Status: Acute Assessment and plan: -Hydronephrosis noted on CT abdomen/pelvis worsening -Underwent bilateral stenting of ureters bilaterally 01/11/17 -patient reports that hematuria and dysuria s/p stenting resolved -Continue to monitor urine output Qualifiers: Hydronephrosis type: with other ureteral stricture Qualified Code(s): N13.1 - Hydronephrosis with ureteral stricture, not elsewhere classified (5) DVT (deep venous thrombosis) Current Visit: Yes Status: Resolved Assessment and plan: -history of DVT -Continue Eliquis. Qualifiers: DVT location: lower extremity Affected thrombotic vein of extremity: unspecified vein of extremity Chronicity: unspecified Laterality: left Qualified Code(s): I82.402 - Acute embolism and thrombosis of unspecified deep veins of left lower extremity - Subjective Interval history: Patient is sitting up in bed doing well. She has no complaints at this time. She is curious to where she will be transferred to. - Constitutional Vitals: Temp Pulse Resp BP Pulse Ox 97.5 F L 59 17 135/74 99 01/17/17 07:31 01/17/17 07:31 01/17/17 07:31 01/17/17 07:31 01/17/17 07:31 General appearance: Present: cooperative, A&O X 3, pleasant, no acute distress, answers questions appropriately Exam: Gen.: Vitals noted. No acute distress. AAOx3 HEENT: oropharynx clear, Normocephalic, atraumatic Cardiac: RRR, no murmur, +S1/S2 Pulmonary: CTA bilaterally, no wheezes, rales or rhonchi, equal chest expansion Abdomen: soft, nontender, Bowel sounds noted, no guarding Extremities: no BLE edema, nontender calf, no cyanosis or clubbing Neuro: A&Ox3, moves all extremities, no focal deficits Psych: Appropriate mood and behavior Internal Medicine: Result - Labs CBC & Chem 7: 01/14/17 05:52 01/14/17 05:52 - ABG Interpretation ABG results: PT/INR, D-dimer PT 19.6 Seconds (9.4-12.1) H 12/31/16 17:50 - VTE Documentation of Mechanical Device: Intermittent pneumatic compression device Consult Discharge Plan - Plan Referrals: Judy Montez MD [Partnered Physician] - Karen Jones CNP [Primary Care Provider] - (Patient will follow up with [facility] PCP ) <Frandy Carpenter - Last Filed: 01/17/17 18:36> Date of Encounter: 01/17/17 - Assessment and plan (1) Cancer related pain Current Visit: Yes Status: Chronic (2) Adenocarcinoma of left lung, stage 4 Current Visit: Yes Status: Chronic (3) Diabetes mellitus type 2 in nonobese Current Visit: Yes Status: Acute (4) Hydronephrosis Current Visit: Yes Status: Acute Qualifiers: Hydronephrosis type: with other ureteral stricture Qualified Code(s): N13.1 - Hydronephrosis with ureteral stricture, not elsewhere classified (5) DVT (deep venous thrombosis) Current Visit: Yes Status: Resolved Qualifiers: DVT location: lower extremity Affected thrombotic vein of extremity: unspecified vein of extremity Chronicity: unspecified Laterality: left Qualified Code(s): I82.402 - Acute embolism and thrombosis of unspecified deep veins of left lower extremity - Constitutional Vitals: Temp Pulse Resp BP Pulse Ox 98.3 F 84 16 134/82 98 01/17/17 10:42 01/17/17 10:42 01/17/17 10:42 01/17/17 10:42 01/17/17 10:42 Internal Medicine: Result - Labs CBC & Chem 7: 01/14/17 05:52 01/14/17 05:52 - ABG Interpretation ABG results: PT/INR, D-dimer PT 19.6 Seconds (9.4-12.1) H 12/31/16 17:50 - Attending Attestation I examined this patient and my medical decision-making was reviewed with the Resident Physician, Dr Worthington. I agree with the documented findings, disposition and treatment plan as described except to the extent set forth below. My findings are summarized below: Patient is in no acute distress awake alert oriented. Heart is regular abdomen is soft. Continue discharge planning, pending Medicaid approval she has a bed at [facility].
--- NOTE | 2017-01-17 12:01 | Palliative Progress Note ---
Date of Encounter: 01/17/17 Time of Encounter: 11:50 - Assessment and plan (1) Cancer related pain Current Visit: Yes Status: Chronic Assessment and plan: Continue current regimen with Fentanyl 125mcg patch and Hydromorphone 8mg for breakthrough. Utilized x7 last 24 hours. Will increase Gabapentin to 400 tid for increase in neuropathic pain to left upper leg. MOnitor (2) Protein-calorie malnutrition, severe Current Visit: Yes Status: Acute (3) Counseling regarding advanced care planning and goals of care Current Visit: Yes Status: Acute Assessment and plan: Awaiting Medicaid for placement. Patient states she has not heard any updates since Tuesday. Plan on rat exterminator placement. (4) Adenocarcinoma of left lung, stage 4 Current Visit: Yes Status: Chronic (5) Leucocytosis Current Visit: Yes Status: Chronic Qualifiers: Leukocytosis type: other Qualified Code(s): D72.828 - Other elevated white blood cell count (6) Fever Current Visit: Yes Status: Acute Qualifiers: Fever type: unspecified Qualified Code(s): R50.9 - Fever, unspecified - Time Spent With Patient Total time spent is greater than 50% in coordination of care (as documented) at patient's floor/unit and/or counseling patient: 25 - 35 minutes - Subjective Interval history: Patient awake and alert. Aunt and father at bedside. C/o some tingling pain left thigh, other than that, states pain regimen working well. + BM. Good appetite. - Constitutional Vitals: Abnormal lab results WBC 33.4 K/mcL (4.3-11.1) H* 01/14/17 05:52 RBC 3.68 M/mcL (3.82-4.97) L 01/14/17 05:52 Hgb 9.5 g/dL (11.5-15.4) L 01/14/17 05:52 Hct 32.0 % (35.3-44.9) L 01/14/17 05:52 MCH 25.8 pg (28.0-33.3) L 01/14/17 05:52 MCHC 29.7 g/dL (31.6-35.5) L 01/14/17 05:52 RDW 20.0 % (11.5-14.5) H 01/14/17 05:52 Plt Count 507 K/mcL (140-400) H 01/14/17 05:52 MPV 8.5 fL (9.4-12.4) L 01/14/17 05:52 Neutrophils # 31.3 K/mcL (1.6-8.9) H 01/14/17 05:52 Hypersegmented Neuts Present (Not Present) A 01/07/17 04:20 Reactive Lymphocytes Present (Not Present) A 01/03/17 04:00 Toxic Granulation Present (Not Present) A 01/10/17 03:50 Toxic Vacuolation Present (Not Present) A 01/06/17 04:05 Platelet Estimate Increased (Normal) H 01/14/17 05:52 Immature Plt Fraction 0.7 % (1.1-6.1) L 01/13/17 03:53 Polychromasia 1+ (Not Present) A 01/12/17 03:30 Hypochromasia Present (Not Present) A 01/14/17 05:52 Poikilocytosis 1+ (Not Present) A 01/08/17 03:55 Anisocytosis 1+ (Not Present) A 01/14/17 05:52 Microcytosis Present (Not Present) A 01/12/17 03:30 Macrocytosis Present (Not Present) A 01/01/17 04:19 Schistocytes 1+ (Not Present) A 01/08/17 03:55 ESR 25 mm/hr (0-15) H 01/01/17 04:19 PT 19.6 Seconds (9.4-12.1) H 12/31/16 17:50 Creatinine 0.52 mg/dL (0.57-1.11) L 01/14/17 05:52 Glucose 133 mg/dL (70-99) H 01/14/17 05:52 POC Glucose 185 (58-89) H 01/17/17 10:43 Iron 19 mcg/dL (50-170) L 01/08/17 15:52 Transferrin 81 mg/dL (180-382) L 01/08/17 15:52 Ferritin 3571 ng/ml (5-204) H 01/08/17 15:52 C-Reactive Protein 163 mg/L (Less than 5) H 01/01/17 04:19 Serum Total Protein 5.7 g/dL (6.0-8.3) L 01/10/17 03:50 Albumin 1.7 g/dL (3.5-5.0) L 01/10/17 03:50 Globulin 4.0 g/dL (2.4-3.5) H 01/10/17 03:50 Albumin/Globulin Ratio 0.4 (1.1-2.2) L 01/10/17 03:50 Procalcitonin 0.21 ng/mL (<=0.10) H 01/10/17 08:21 Urine Microscopic WBC 5-15 per hpf (0-3) H 12/31/16 19:00 Ur Squamous Epith Cells Many per lpf (None-Few) H 12/31/16 19:00 General appearance: Present: no acute distress - Respiratory Respiratory exam: Present: CTAB - Cardiovascular Cardiovascular exam: Present: +S1, +S2 - GI/Abdominal GI/Abdominal exam: Present: normal bowel sounds, soft - Extremities Exam Extremities exam: Present: normal capillary refill, normal inspection - Neurological Exam Neurological exam: Present: alert, oriented X3 Additional comments: Limited motion to lower extremities r/t pain. Uses upper body to move left lower extremity - Skin Skin exam: Present: dry, pallor, warm Palliative Quality Palliative Quality: Screen for Code Status: Yes, Screen for Goals of Care: Yes, Screen for Pain: Yes, If Pain Regimen Started, Initiate Bowel Regimen: Yes, Screen for Nausea/Vomitting: Yes Code Status: 01/13/17 09:22 DNR [Resuscitation Status: Active] [RES] Routine Comment: Resuscitation Status: DNR-Comfort Care-Arrest - Labs CBC & Chem 7: 01/14/17 05:52 01/14/17 05:52 Labs: Laboratory Results - last 24 hr 01/15/17 01/16/17 01/16/17 16:06 16:55 20:33 POC Glucose 225 H 120 H 237 H 01/17/17 01/17/17 07:43 10:43 POC Glucose 117 H 185 H - ABG Interpretation ABG results: PT/INR, D-dimer PT 19.6 Seconds (9.4-12.1) H 12/31/16 17:50 Consult Discharge Plan - Plan Referrals: Judy Montez MD [Partnered Physician] - Karen Jones CNP [Primary Care Provider] - (Patient will follow up with [facility] PCP )
[2017-01-17] MEDS: Gabapentin 400 MG CAPSULE PO SCH ×2 (16:30→21:42)
[2017-01-18] MEDS: *HR* HYDROmorphone 4 MG TABLET PO PRN ×8 (03:05→22:40)
[2017-01-18] MEDS: Insulin LISPRO 300 UNITS/3 ML VIAL SQ SCH ×4 (08:58→22:41)
[2017-01-18] MEDS: Folic Acid 1 MG TABLET PO SCH (09:00)
[2017-01-18] MEDS: Gabapentin 400 MG CAPSULE PO SCH ×3 (09:00→20:51)
[2017-01-18] MEDS: Baclofen 10 MG TABLET PO SCH ×3 (09:00→20:51)
[2017-01-18] MEDS: APIXABAN 5 MG TABLET PO SCH ×2 (09:01→20:51)
--- NOTE | 2017-01-18 10:18 | Internal Med Progress Note ---
<Miladys Worthington - Last Filed: 01/18/17 16:13> Date of Encounter: 01/18/17 Time of Encounter: 09:45 - Assessment and plan (1) Cancer related pain Current Visit: Yes Status: Chronic Assessment and plan: -Pain secondary to mets to pelvis, and pain of legs bilaterally resulting in her now wheelchair bound status -Continue home pain medication regimen 125 mcg fentanyl patches q48 and 8mg hydromorphone po q2-3hr prn. 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 Currently undergoing palliative chemoradiation at [facility]. -Oncology on board -Palliative on board (3) Diabetes mellitus type 2 in nonobese Current Visit: Yes Status: Acute Assessment and plan: -Continue with low dose insulin sliding scale -diabetic diet (4) Hydronephrosis Current Visit: Yes Status: Acute Assessment and plan: -Hydronephrosis noted on CT abdomen/pelvis worsening -Underwent bilateral stenting of ureters bilaterally 01/11/17 -patient reports that hematuria and dysuria s/p stenting resolved -Continue to monitor urine output Qualifiers: Hydronephrosis type: with other ureteral stricture Qualified Code(s): N13.1 - Hydronephrosis with ureteral stricture, not elsewhere classified (5) DVT (deep venous thrombosis) Current Visit: Yes Status: Resolved Assessment and plan: -history of DVT -Continue Eliquis. Qualifiers: DVT location: lower extremity Affected thrombotic vein of extremity: unspecified vein of extremity Chronicity: unspecified Laterality: left Qualified Code(s): I82.402 - Acute embolism and thrombosis of unspecified deep veins of left lower extremity - Subjective Interval history: Patient is sitting up in bed doing well. She has no complaints at this time. Patient is in good spirits eating candy talking with her nurse denies chest pain, shortness of breathe, fever, chills, - Constitutional Vitals: Temp Pulse Resp BP Pulse Ox 97.5 F L 55 18 111/58 100 01/18/17 07:14 09/26/17 07:14 01/18/17 07:14 01/18/17 07:14 01/18/17 07:14 General appearance: Present: cooperative, A&O X 3, pleasant, no acute distress, answers questions appropriately Exam: Gen.: Vitals noted. No acute distress. AAOx3 HEENT: oropharynx clear, Normocephalic, atraumatic Cardiac: bradycardia, regular, no murmur, +S1/S2 Pulmonary: CTA bilaterally, no wheezes, rales or rhonchi, equal chest expansion Abdomen: soft, nontender, Bowel sounds noted, no guarding MSK: ROM intact, no joint swelling noted Extremities: no BLE edema, nontender calf, no cyanosis or clubbing Neuro: A&Ox3, moves all extremities, Psych: Appropriate mood and behavior Internal Medicine: Result - Labs CBC & Chem 7: 01/14/17 05:52 01/14/17 05:52 - ABG Interpretation ABG results: PT/INR, D-dimer PT 19.6 Seconds (9.4-12.1) H 12/31/16 17:50 - VTE Documentation of Mechanical Device: Intermittent pneumatic compression device Consult Discharge Plan - Plan Referrals: Judy Montez MD [Partnered Physician] - Karen Jones CNP [Primary Care Provider] - (Patient will follow up with [facility] PCP ) <Frandy Carpenter - Last Filed: 01/19/17 07:30> Date of Encounter: 01/18/17 - Assessment and plan (1) Cancer related pain Current Visit: Yes Status: Chronic (2) Adenocarcinoma of left lung, stage 4 Current Visit: Yes Status: Chronic (3) Diabetes mellitus type 2 in nonobese Current Visit: Yes Status: Acute (4) Hydronephrosis Current Visit: Yes Status: Acute Qualifiers: Hydronephrosis type: with other ureteral stricture Qualified Code(s): N13.1 - Hydronephrosis with ureteral stricture, not elsewhere classified (5) DVT (deep venous thrombosis) Current Visit: Yes Status: Resolved Qualifiers: DVT location: lower extremity Affected thrombotic vein of extremity: unspecified vein of extremity Chronicity: unspecified Laterality: left Qualified Code(s): I82.402 - Acute embolism and thrombosis of unspecified deep veins of left lower extremity - Constitutional Vitals: Temp Pulse Resp BP Pulse Ox 97.9 F 56 17 150/70 99 01/19/17 07:27 01/19/17 07:27 01/19/17 07:27 01/19/17 07:27 01/19/17 07:27 Internal Medicine: Result - Labs CBC & Chem 7: 01/14/17 05:52 01/14/17 05:52 - ABG Interpretation ABG results: PT/INR, D-dimer PT 19.6 Seconds (9.4-12.1) H 12/31/16 17:50 - Attending Attestation I examined this patient and my medical decision-making was reviewed with the Resident Physician, Dr. Worthington. I agree with the documented findings, disposition and treatment plan as described except to the extent set forth below. I have independently obtained history and examined the patient and my findings are summarized below: Patient's pain is controlled with oral medication. Heart exam reveals regular S1-S2. Lungs are clear. Plan: We will continue with pain control. Discharge planning is ongoing pending Medicaid approval.
--- NOTE | 2017-01-18 13:07 | Palliative Progress Note ---
Date of Encounter: 01/18/17 Time of Encounter: 11:20 - Assessment and plan (1) Cancer related pain Current Visit: Yes Status: Chronic Assessment and plan: Continue current regimen with Fentanyl 125mcg, Hydromorphone 8mg, and Gabapentin 400 TID. MOnitor (2) Protein-calorie malnutrition, severe Current Visit: Yes Status: Acute (3) Counseling regarding advanced care planning and goals of care Current Visit: Yes Status: Acute Assessment and plan: Awaiting placement and approval for Medicaid. D/W social work. Hopefully process will be completed within next 24-48 hours (4) Adenocarcinoma of left lung, stage 4 Current Visit: Yes Status: Chronic (5) Leucocytosis Current Visit: Yes Status: Chronic Qualifiers: Leukocytosis type: other Qualified Code(s): D72.828 - Other elevated white blood cell count (6) Fever Current Visit: Yes Status: Acute Qualifiers: Fever type: unspecified Qualified Code(s): R50.9 - Fever, unspecified - Time Spent With Patient Total time spent is greater than 50% in coordination of care (as documented) at patient's floor/unit and/or counseling patient: 25 - 35 minutes - Subjective Interval history: Patient awake and alert. Aunt at bedside. Patient in good spirits, stated had good night. Pain well controlled on current regiment. Good appetite. +BM - Constitutional Vitals: Abnormal lab results WBC 33.4 K/mcL (4.3-11.1) H* 01/14/17 05:52 RBC 3.68 M/mcL (3.82-4.97) L 01/14/17 05:52 Hgb 9.5 g/dL (11.5-15.4) L 01/14/17 05:52 Hct 32.0 % (35.3-44.9) L 01/14/17 05:52 MCH 25.8 pg (28.0-33.3) L 01/14/17 05:52 MCHC 29.7 g/dL (31.6-35.5) L 01/14/17 05:52 RDW 20.0 % (11.5-14.5) H 01/14/17 05:52 Plt Count 507 K/mcL (140-400) H 01/14/17 05:52 MPV 8.5 fL (9.4-12.4) L 01/14/17 05:52 Neutrophils # 31.3 K/mcL (1.6-8.9) H 01/14/17 05:52 Hypersegmented Neuts Present (Not Present) A 01/07/17 04:20 Reactive Lymphocytes Present (Not Present) A 01/03/17 04:00 Toxic Granulation Present (Not Present) A 01/10/17 03:50 Toxic Vacuolation Present (Not Present) A 01/06/17 04:05 Platelet Estimate Increased (Normal) H 01/14/17 05:52 Immature Plt Fraction 0.7 % (1.1-6.1) L 01/13/17 03:53 Polychromasia 1+ (Not Present) A 01/12/17 03:30 Hypochromasia Present (Not Present) A 01/14/17 05:52 Poikilocytosis 1+ (Not Present) A 01/08/17 03:55 Anisocytosis 1+ (Not Present) A 01/14/17 05:52 Microcytosis Present (Not Present) A 01/12/17 03:30 Macrocytosis Present (Not Present) A 01/01/17 04:19 Schistocytes 1+ (Not Present) A 01/08/17 03:55 ESR 25 mm/hr (0-15) H 01/01/17 04:19 PT 19.6 Seconds (9.4-12.1) H 12/31/16 17:50 Creatinine 0.52 mg/dL (0.57-1.11) L 01/14/17 05:52 Glucose 133 mg/dL (70-99) H 01/14/17 05:52 POC Glucose 172 (58-89) H 01/18/17 11:06 Iron 19 mcg/dL (50-170) L 01/08/17 15:52 Transferrin 81 mg/dL (180-382) L 01/08/17 15:52 Ferritin 3571 ng/ml (5-204) H 01/08/17 15:52 C-Reactive Protein 163 mg/L (Less than 5) H 01/01/17 04:19 Serum Total Protein 5.7 g/dL (6.0-8.3) L 01/10/17 03:50 Albumin 1.7 g/dL (3.5-5.0) L 01/10/17 03:50 Globulin 4.0 g/dL (2.4-3.5) H 01/10/17 03:50 Albumin/Globulin Ratio 0.4 (1.1-2.2) L 01/10/17 03:50 Procalcitonin 0.21 ng/mL (<=0.10) H 01/10/17 08:21 Urine Microscopic WBC 5-15 per hpf (0-3) H 12/31/16 19:00 Ur Squamous Epith Cells Many per lpf (None-Few) H 12/31/16 19:00 General appearance: Present: no acute distress - Respiratory Respiratory exam: Present: decreased breath sounds, CTAB - Cardiovascular Cardiovascular exam: Present: +S1, +S2 - GI/Abdominal GI/Abdominal exam: Present: normal bowel sounds, soft - Extremities Exam Extremities exam: Present: normal capillary refill, normal inspection - Neurological Exam Neurological exam: Present: alert, oriented X3 Additional comments: Difficulty with lower leg strength r/t metastatic disease - Skin Skin exam: Present: dry, pallor, warm Palliative Quality Palliative Quality: Screen for Code Status: Yes, Screen for Goals of Care: Yes, Screen for Pain: Yes, If Pain Regimen Started, Initiate Bowel Regimen: Yes, Screen for Nausea/Vomitting: Yes Code Status: 01/13/17 09:22 DNR [Resuscitation Status: Active] [RES] Routine Comment: Resuscitation Status: DNR-Comfort Care-Arrest - Labs CBC & Chem 7: 01/14/17 05:52 01/14/17 05:52 Labs: Laboratory Results - last 24 hr 01/15/17 01/16/17 01/16/17 20:11 07:48 10:43 POC Glucose 191 H 112 H 195 H 01/18/17 01/18/17 07:20 11:06 POC Glucose 122 H 172 H - ABG Interpretation ABG results: PT/INR, D-dimer PT 19.6 Seconds (9.4-12.1) H 12/31/16 17:50 Consult Discharge Plan - Plan Referrals: Judy Montez MD [Partnered Physician] - Karen Jones CNP [Primary Care Provider] - (Patient will follow up with [facility] PCP )
--- NOTE | 2017-01-18 13:27 | Oncology Inp Progress Note ---
Date of Encounter: 01/18/17 Time of Encounter: 13:25 (1) Leucocytosis Current Visit: Yes Status: Chronic Assessment and plan: More likely non infectious. Remains afebrile in despite of being off antibiotics. Low pro calcitonin. Qualifiers: Leukocytosis type: other Qualified Code(s): D72.828 - Other elevated white blood cell count (2) Adenocarcinoma of left lung, stage 4 Current Visit: Yes Status: Chronic Assessment and plan: -No acute oncology issues. Follow up with primary oncologist Dr. Barber to discuss further options of therapy. Oncology: Subj Interval history: Patient reports feeling well. Denies complaints. remains afebrile. Tolerating meals. - Constitutional Vitals: Vital Signs Temp Pulse Resp BP Pulse Ox 01/18/17 07:14 97.5 F L 55 18 111/58 100 01/17/17 23:32 98.5 F 67 16 98/62 96 01/17/17 20:17 99.3 F 86 16 121/75 96 Intake and Output 01/17/17 01/18/17 01/18/17 23:59 07:59 15:59 Intake Total 270 / 270 Output Total 1300 / 1300 650 / 650 0 / 0 Balance -1300 / -1300 -650 / -650 270 / 270 Intake: Oral 270 / 270 Output: Urine 1300 / 1300 650 / 650 0 / 0 Other: Meal Lunch Percent of Meal Consumed 100% # Voids 1 Weight 50.8 kg Blood Glucose* 162 112 172 Patient Weight 01/18/17 23:59 Weight 50.8 kg - Head Head exam: Present: normal inspection, normocephalic - Eye Eye exam: Present: EOMI - ENT ENT exam: Present: normal exam - Respiratory Respiratory exam: Present: CTAB - Cardiovascular Cardiovascular exam: Present: RRR - GI/Abdominal GI/Abdominal exam: Present: normal bowel sounds Oncology: Obj Data - Labs CBC & Chem 7: 01/14/17 05:52 01/14/17 05:52 Labs: Laboratory Results - last 24 hr 01/15/17 01/16/17 01/16/17 20:11 07:48 10:43 POC Glucose 191 H 112 H 195 H 01/18/17 01/18/17 07:20 11:06 POC Glucose 122 H 172 H - ABG Interpretation ABG results: PT/INR, D-dimer PT 19.6 Seconds (9.4-12.1) H 12/31/16 17:50 Consult Discharge Plan - Plan Referrals: Judy Montez MD [Partnered Physician] - Karen Jones CNP [Primary Care Provider] - (Patient will follow up with [facility] PCP )
[2017-01-19] MEDS: *HR* HYDROmorphone 4 MG TABLET PO PRN ×9 (01:52→23:16)
[2017-01-19] MEDS: Gabapentin 400 MG CAPSULE PO SCH ×3 (08:13→21:15)
[2017-01-19] MEDS: Baclofen 10 MG TABLET PO SCH ×3 (08:13→21:15)
[2017-01-19] MEDS: Folic Acid 1 MG TABLET PO SCH (08:13)
[2017-01-19] MEDS: FentaNYL PATCH 100 MCG, FentaNYL PATCH 25 MCG TD SCH (08:14)
[2017-01-19] MEDS: APIXABAN 5 MG TABLET PO SCH ×2 (08:14→21:15)
[2017-01-19] MEDS: Insulin LISPRO 300 UNITS/3 ML VIAL SQ SCH ×4 (08:18→21:20)
--- NOTE | 2017-01-19 09:40 | Internal Med Progress Note ---
<Miladys Worthington - Last Filed: 01/19/17 10:59> Date of Encounter: 01/19/17 Time of Encounter: 09:38 - Assessment and plan (1) Cancer related pain Current Visit: Yes Status: Chronic Assessment and plan: -Pain secondary to mets to pelvis, and pain of legs bilaterally resulting in her now wheelchair bound status -patient reports that her pain is tolerable in this controlled with the medication regimen -Continue home pain medication regimen 125 mcg fentanyl patches q48 and 8mg hydromorphone po q2-3hr prn. 4mg Decadron bid Continue to avoid IV pain medication due to anticipation of discharge -Social work- placement and currently wheelchair bound -Pending application for Medicaid for long-term placement: patient reported that she was told she will probably be transferred on January 23 -Palliative on board (2) Adenocarcinoma of left lung, stage 4 Current Visit: Yes Status: Chronic Assessment and plan: -Known history of primary adenocarcinoma of left lung stage 4 with mets to spine and pelvis. Currently undergoing palliative chemoradiation at [facility]. -Oncology on board -Palliative on board (3) Diabetes mellitus type 2 in nonobese Current Visit: Yes Status: Acute Assessment and plan: -Continue with low dose insulin sliding scale -diabetic diet (4) Hydronephrosis Current Visit: Yes Status: Acute Assessment and plan: -Hydronephrosis noted on CT abdomen/pelvis worsening -Underwent bilateral stenting of ureters bilaterally 01/11/17 -patient reports that hematuria and dysuria s/p stenting resolved -Continue to monitor urine output Qualifiers: Hydronephrosis type: with other ureteral stricture Qualified Code(s): N13.1 - Hydronephrosis with ureteral stricture, not elsewhere classified (5) DVT (deep venous thrombosis) Current Visit: Yes Status: Resolved Assessment and plan: -history of DVT -Continue Eliquis. Qualifiers: DVT location: lower extremity Affected thrombotic vein of extremity: unspecified vein of extremity Chronicity: unspecified Laterality: left Qualified Code(s): I82.402 - Acute embolism and thrombosis of unspecified deep veins of left lower extremity - Subjective Interval history: Patient is sitting up in bed doing well. She has no complaints at this time. She states that she has some pain but it is tolerable. Patient is in good spirits drawling with her coloring book. She denies chest pain, shortness of breathe, fever, chills, - Constitutional Vitals: Temp Pulse Resp BP Pulse Ox 97.9 F 56 17 150/70 99 01/19/17 07:27 01/19/17 07:27 01/19/17 07:27 01/19/17 07:27 01/19/17 07:27 General appearance: Present: cooperative, A&O X 3, pleasant, no acute distress, answers questions appropriately Exam: Gen.: Vitals noted. No acute distress. AAOx3 HEENT: oropharynx clear, Normocephalic, atraumatic Cardiac: RRR, no murmur, +S1/S2 Pulmonary: CTA bilaterally, no wheezes, rales or rhonchi, equal chest expansion Abdomen: soft, nontender, Bowel sounds noted, no guarding MSK: ROM intact, no joint swelling noted Extremities: no BLE edema, nontender calf, no cyanosis or clubbing Neuro: A&Ox3, moves all extremities Psych: Appropriate mood and behavior Internal Medicine: Result - Labs CBC & Chem 7: 01/14/17 05:52 01/14/17 05:52 - ABG Interpretation ABG results: PT/INR, D-dimer PT 19.6 Seconds (9.4-12.1) H 12/31/16 17:50 - VTE Documentation of Mechanical Device: Intermittent pneumatic compression device Consult Discharge Plan - Plan Referrals: Judy Montez MD [Partnered Physician] - Karen Jones CNP [Primary Care Provider] - ([facility] ) Prescriptions: FentaNYL PATCH [Duragesic] 100 mcg TD Q48H #10 patch.[id number] FentaNYL PATCH [Duragesic] 25 mcg TD Q48H #10 patch.td72 HYDROmorphone [Dilaudid] 8 mg PO Q2H PRN #120 tablet PRN Reason: Cancer related pain <Frandy Carpenter - Last Filed: 01/19/17 17:48> Date of Encounter: 01/19/17 - Assessment and plan (1) Cancer related pain Current Visit: Yes Status: Chronic (2) Adenocarcinoma of left lung, stage 4 Current Visit: Yes Status: Chronic (3) Diabetes mellitus type 2 in nonobese Current Visit: Yes Status: Acute (4) Hydronephrosis Current Visit: Yes Status: Acute Qualifiers: Hydronephrosis type: with other ureteral stricture Qualified Code(s): N13.1 - Hydronephrosis with ureteral stricture, not elsewhere classified (5) DVT (deep venous thrombosis) Current Visit: Yes Status: Resolved Qualifiers: DVT location: lower extremity Affected thrombotic vein of extremity: unspecified vein of extremity Chronicity: unspecified Laterality: left Qualified Code(s): I82.402 - Acute embolism and thrombosis of unspecified deep veins of left lower extremity - Constitutional Vitals: Temp Pulse Resp BP Pulse Ox 98.4 F 81 17 147/82 96 01/19/17 15:36 01/19/17 15:36 01/19/17 15:36 01/19/17 15:36 01/19/17 15:36 Internal Medicine: Result - Labs CBC & Chem 7: 01/14/17 05:52 01/14/17 05:52 - ABG Interpretation ABG results: PT/INR, D-dimer PT 19.6 Seconds (9.4-12.1) H 12/31/16 17:50 - Attending Attestation I examined this patient and my medical decision-making was reviewed with the Resident Physician, Dr. Worthington. I agree with the documented findings, disposition and treatment plan as described except to the extent set forth below. I have independently obtained history and examined the patient and my findings are summarized below: She is in no acute distress. Heart regular S1-S2, no murmurs. Lungs are clear. Plan: Her inpatient medical needs have been met. She is medically stable for discharge to [facility]. Pending Medicaid application.
--- NOTE | 2017-01-19 09:43 | Palliative Progress Note ---
Date of Encounter: 01/19/17 Time of Encounter: 09:30 - Assessment and plan (1) Cancer related pain Current Visit: Yes Status: Chronic Assessment and plan: Continue current regimen. She is using 7-9 breakthough doses of Hydromorphone every 24 hours. Discussed could increase patch to 150 mcg, however, she would like to maintain with current medication schedule at this time. Gabapentin was increased to 400tid on Tuesday (2) Protein-calorie malnutrition, severe Current Visit: Yes Status: Acute (3) Counseling regarding advanced care planning and goals of care Current Visit: Yes Status: Acute Assessment and plan: Awaiting placement. SW involved. (4) Adenocarcinoma of left lung, stage 4 Current Visit: Yes Status: Chronic (5) Leucocytosis Current Visit: Yes Status: Chronic Qualifiers: Leukocytosis type: other Qualified Code(s): D72.828 - Other elevated white blood cell count (6) Fever Current Visit: Yes Status: Acute Qualifiers: Fever type: unspecified Qualified Code(s): R50.9 - Fever, unspecified - Time Spent With Patient Total time spent is greater than 50% in coordination of care (as documented) at patient's floor/unit and/or counseling patient: - Subjective Interval history: Patient awake and alert In good spirits. Eating well. Pain well controlled on current regimen. Awaiting placement at [facility]. She is pleased with this plan. - Constitutional Vitals: Abnormal lab results WBC 33.4 K/mcL (4.3-11.1) H* 01/14/17 05:52 RBC 3.68 M/mcL (3.82-4.97) L 01/14/17 05:52 Hgb 9.5 g/dL (11.5-15.4) L 01/14/17 05:52 Hct 32.0 % (35.3-44.9) L 01/14/17 05:52 MCH 25.8 pg (28.0-33.3) L 01/14/17 05:52 MCHC 29.7 g/dL (31.6-35.5) L 01/14/17 05:52 RDW 20.0 % (11.5-14.5) H 01/14/17 05:52 Plt Count 507 K/mcL (140-400) H 01/14/17 05:52 MPV 8.5 fL (9.4-12.4) L 01/14/17 05:52 Neutrophils # 31.3 K/mcL (1.6-8.9) H 01/14/17 05:52 Hypersegmented Neuts Present (Not Present) A 01/07/17 04:20 Reactive Lymphocytes Present (Not Present) A 01/03/17 04:00 Toxic Granulation Present (Not Present) A 01/10/17 03:50 Toxic Vacuolation Present (Not Present) A 01/06/17 04:05 Platelet Estimate Increased (Normal) H 01/14/17 05:52 Immature Plt Fraction 0.7 % (1.1-6.1) L 01/13/17 03:53 Polychromasia 1+ (Not Present) A 01/12/17 03:30 Hypochromasia Present (Not Present) A 01/14/17 05:52 Poikilocytosis 1+ (Not Present) A 01/08/17 03:55 Anisocytosis 1+ (Not Present) A 01/14/17 05:52 Microcytosis Present (Not Present) A 01/12/17 03:30 Macrocytosis Present (Not Present) A 01/01/17 04:19 Schistocytes 1+ (Not Present) A 01/08/17 03:55 ESR 25 mm/hr (0-15) H 01/01/17 04:19 PT 19.6 Seconds (9.4-12.1) H 12/31/16 17:50 Creatinine 0.52 mg/dL (0.57-1.11) L 01/14/17 05:52 Glucose 133 mg/dL (70-99) H 01/14/17 05:52 POC Glucose 125 (58-89) H 01/19/17 07:36 Iron 19 mcg/dL (50-170) L 01/08/17 15:52 Transferrin 81 mg/dL (180-382) L 01/08/17 15:52 Ferritin 3571 ng/ml (5-204) H 01/08/17 15:52 C-Reactive Protein 163 mg/L (Less than 5) H 01/01/17 04:19 Serum Total Protein 5.7 g/dL (6.0-8.3) L 01/10/17 03:50 Albumin 1.7 g/dL (3.5-5.0) L 01/10/17 03:50 Globulin 4.0 g/dL (2.4-3.5) H 01/10/17 03:50 Albumin/Globulin Ratio 0.4 (1.1-2.2) L 01/10/17 03:50 Procalcitonin 0.21 ng/mL (<=0.10) H 01/10/17 08:21 Urine Microscopic WBC 5-15 per hpf (0-3) H 12/31/16 19:00 Ur Squamous Epith Cells Many per lpf (None-Few) H 12/31/16 19:00 General appearance: Present: no acute distress - Respiratory Respiratory exam: Present: decreased breath sounds, CTAB - Cardiovascular Cardiovascular exam: Present: +S1, +S2 - GI/Abdominal GI/Abdominal exam: Present: normal bowel sounds, soft - Extremities Exam Extremities exam: Present: normal capillary refill, normal inspection - Neurological Exam Neurological exam: Present: alert, oriented X3, strengths equal and symetr throughout - Skin Skin exam: Present: dry, warm Palliative Quality Palliative Quality: Screen for Code Status: Yes, Screen for Goals of Care: Yes, Screen for Pain: Yes, If Pain Regimen Started, Initiate Bowel Regimen: Yes, Screen for Nausea/Vomitting: Yes Code Status: 01/13/17 09:22 DNR [Resuscitation Status: Active] [RES] Routine Comment: Resuscitation Status: DNR-Comfort Care-Arrest - Labs CBC & Chem 7: 01/14/17 05:52 01/14/17 05:52 Labs: Laboratory Results - last 24 hr 01/17/17 01/17/17 01/18/17 16:34 20:28 07:20 POC Glucose 263 H 162 H 122 H 01/18/17 01/18/17 01/18/17 11:06 15:32 21:15 POC Glucose 172 H 222 H 324 H 01/19/17 07:36 POC Glucose 125 H - ABG Interpretation ABG results: PT/INR, D-dimer PT 19.6 Seconds (9.4-12.1) H 12/31/16 17:50 Consult Discharge Plan - Plan Referrals: Judy Montez MD [Partnered Physician] - Karen Jones CNP [Primary Care Provider] - (Patient will follow up with F PCP )
[2017-01-20] MEDS: *HR* HYDROmorphone 4 MG TABLET PO PRN ×3 (03:46→08:17)
[2017-01-20 06:55] VITALS: BP 113/68
[2017-01-20] MEDS: Folic Acid 1 MG TABLET PO SCH (08:17)
[2017-01-20] MEDS: Baclofen 10 MG TABLET PO SCH (08:17)
[2017-01-20] MEDS: Gabapentin 400 MG CAPSULE PO SCH (08:18)
[2017-01-20] MEDS: Insulin LISPRO 300 UNITS/3 ML VIAL SQ SCH (08:19)
[2017-01-20] MEDS: APIXABAN 5 MG TABLET PO SCH (08:19)
[2017-01-20] MEDS ORDERED: *HR* HYDROmorphone 4 MG TABLET PO PRN (09:09)
--- NOTE | 2017-01-20 09:35 | Discharge Summary ---
<Miladys Worthington - Last Filed: 01/20/17 10:17> Date of Encounter: 01/20/17 Time of Encounter: 09:33 - Discharge Diagnosis (1) Cancer related pain Priority: Primary Status: Chronic (2) Adenocarcinoma of left lung, stage 4 Priority: Secondary Status: Chronic (3) Diabetes mellitus type 2 in nonobese Priority: Secondary Status: Acute (4) Hydronephrosis Priority: Secondary Status: Acute Qualifiers: Hydronephrosis type: with other ureteral stricture Qualified Code(s): N13.1 - Hydronephrosis with ureteral stricture, not elsewhere classified (5) DVT (deep venous thrombosis) Priority: Secondary Status: Resolved Qualifiers: DVT location: lower extremity Affected thrombotic vein of extremity: unspecified vein of extremity Chronicity: unspecified Laterality: left Qualified Code(s): I82.402 - Acute embolism and thrombosis of unspecified deep veins of left lower extremity - Discharge Medications Prescriptions: FentaNYL PATCH [Duragesic] 100 mcg TD Q48H #10 patch.td72 FentaNYL PATCH [Duragesic] 25 mcg TD Q48H #10 patch.td72 Gabapentin [Neurontin] 400 mg PO TID 7 Days #21 capsule HYDROmorphone [Dilaudid] 8 mg PO Q2H PRN #120 tablet PRN Reason: Cancer related pain LORazepam [Ativan] 0.5 mg PO TID PRN 7 Days #21 tablet PRN Reason: Anxiety Home Medications: Baclofen [Lioresal] 10 mg PO TID 04/02/16 [History] Omeprazole 40 mg PO DAILY 04/02/16 [History] Zolpidem [Ambien] 10 mg PO HS PRN 04/02/16 [History] Loratadine [Claritin] 10 mg PO DAILY #30 tablet 05/07/16 [Rx] Magic Mouthwash [Magic Mouthwash BLM] 10 ml PO QID PRN #240 ml 05/07/16 [Rx] Ondansetron HCl [Zofran] 4 mg PO Q6H PRN #30 tablet 05/07/16 [Rx] Prochlorperazine Maleate [Compazine] 10 mg PO Q6HR PRN #60 tablet 05/07/16 [Rx] Lidocaine/Prilocaine CREAM [Emla] 5 gm TP PRN PRN #1 tube 05/19/16 [Rx] Ferrous Sulfate [Iron] 325 mg PO DAILY #30 tablet 09/21/16 [Rx] Dexamethasone [Decadron] 1 mg PO QID PRN 10/04/16 [History] Polyethylene Glycol 3350 [MiraLAX] 17 gm PO DAILY PRN 10/04/16 [History] metFORMIN [Glucophage] 500 mg PO BIDWM 10/04/16 [History] Hydromorphone HCl [Dilaudid] 4 mg PO Q2-3H PRN 10/14/16 [History] FentaNYL PATCH [Duragesic] 75 mcg TD Q48H 10/20/16 [History] Apixaban [Eliquis] 5 mg PO BID #60 tablet 12/06/16 [Rx] Docusate Sodium [Colace] 100 mg PO BID #60 cap 12/06/16 [Rx] GuaiFENesin ER [Mucinex] 600 mg PO BID #21 tbbp.12hr 12/06/16 [Rx] Pantoprazole Sodium [Protonix] 40 mg PO DAILY #30 tablet. 12/30/16 [Rx] Folic Acid 1 mg PO DAILY #30 tablet 12/31/16 [Rx] FentaNYL PATCH [Duragesic] 25 mcg TD Q48H #10 patch.td72 01/19/17 [Rx] FentaNYL PATCH [Duragesic] 100 mcg TD Q48H #10 patch.td72 01/19/17 [Rx] HYDROmorphone [Dilaudid] 8 mg PO Q2H PRN #120 tablet 01/19/17 [Rx] Gabapentin [Neurontin] 400 mg PO TID 7 Days #21 capsule 01/20/17 [Rx] LORazepam [Ativan] 0.5 mg PO TID PRN 7 Days #21 tablet 01/20/17 [Rx] Allergies/Adverse Reactions: 3 Allergy/AdvReac Type Severity Reaction Status Date / Time menthol Allergy See Verified 12/31/16 19:54 Comments meperidine Allergy See Verified 12/31/16 19:54 Comments methyl salicylate Allergy See Verified 12/31/16 19:54 Comments Psyllium [From Hydrocil] Allergy See Verified 12/31/16 19:54 Comments codeine AdvReac Muscle Pain Verified 12/31/16 19:53 Date of admission: 12/31/16 21:12 Primary care physician: Karen Jones CNP Consults: 12/31/16 21:39 Consult to Infectious Diseases [CONS] Routine Consulting Provider: [facility] [place] Reason for Consult: Patient has history of lung cancer, currently on chemoradiation, who has fever/chills that has been ongoing for weeks. CXR shows mild upper lobe infiltrate. Concern for additional infectious process. Call Completed: No 12/31/16 22:58 Consult to [employer] Programs Director [CONS] Routine Reason for SW Consult: speak about advanced directives setup 12/31/16 23:00 Consult to Pastoral Services [CONS] Routine Comment: Patient requests to see a hospital director of individual giving 01/03/17 09:05 Consult to Oncology [CONS] Routine Consulting Provider: [facility] [place] Reason for Consult: Fevers, continued elevated WBC from baseline of 19, adenoCA stage 4 with mets, not responding to triple antibiotic therapy Call Completed: Yes 01/04/17 07:22 Consult to Nutrition [CONS] Routine Comment: severe protein malnutrition Consulting Provider: NUTRITION Reason for Dietary Consult: PO Supplementation 01/06/17 11:11 Consult to Occupational Therapy [CONS] Routine Comment: Evaluate, develop and implement POC Reason for Consult: eval for poss ecf Consult to Physical Therapy [CONS] Routine Comment: Evaluate, develop and implement POC Reason for Consult: eval for poss ecf 01/09/17 14:04 Consult to Palliative Care [CONS] Routine Comment: Consulting Provider: [facility] [place] Reason for Consult: Terminal cancer, goals of care and palliative care discussion. Spoke with patient and she agrees. Call Completed: No 01/10/17 11:24 Consult to Urology [CONS] Routine Consulting Provider: Urology [place] Reason for Consult: Hydronephrosis Left, mass surrounding ureter and aorta, palliative. Call Completed: Yes Discharging clinician: Frandy Carpenter - Patient Status Disposition: Transfer LTC Condition: Serious Functional capacity at discharge: uses cane/walker Overall status at discharge: patient is not back to baseline - Discharge Instructions Follow Up With: Judy Montez MD [Partnered Physician] - Karen Jones CNP [Primary Care Provider] - (Patient will follow up with ECF PCP ) - Diet and Activity Activity: ambulate only with your walker Diet: regular diet Hospital course: Ms. 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 She is currently undergoing palliative chemoradiation through the [facility], she was at the office of her oncologist, Dr. Montez, he was found to have an elevated temperature of 102 degrees and was sent to the ER for further evaluation and workup. She reports that she has had intermittent fevers have been ongoing for several weeks and had received a short course of Bactrim prior, but only came to the hospital for the recommendation of her oncologist. She states the fever/chills spine intermittent and feels that in the time she said the fevers she has been feeling progressively weaker. She does report she has had some nausea and vomiting, but is unsure if this is due to the current chemotherapy or possible infection. She does report having chronic diarrhea without any sign of blood or melena. She denies any lightheadedness, confusion, or vision changes but does report that she does have some tingling in her extremities on account of her chemotherapy. She reports that for several weeks she has been having intermittent stream in her urine or she will stop and wait a while before restarting again. She denies having any dysuria, hematuria, or flank painShe had been diagnosed with iron deficiency anemia and received a iron infusion 2 weeks ago with another scheduled iron infusion on Tuesday01/03/17. She denies having any hematuria, hematochezia, melena, hematemesis. The patient was admitted and treated for sepsis upon admission. CXR and CT revealed mild hazy ground glass opacities in right upper lobe and irregular ill defined spiculation in left upper concerning for spiculated mass. Started on Broad specturm antibiotics. The patient was admitted. She was also found to have hemoglobin of 6.3 it was transfused pRBC. Echo revealed EF 60%, normal LV systolic and diastolic function, normal LV, mildly dilated LA, mild mitral regurgitation, no evidence of pulm htn, no evidence of valvular vegetations. Influenza flop, urine culture, blood cultures revealed no organisms. Sputum culture showed mixed serg moderate WBC. Oncology and palliative care from participation and a medication regimen was in place. Patient's pain has been well controlled according to the patient. Patient was continued on Steph M eponym. Urology was consulted due to bilateral hydronephrosis to review the CT scan abdomen and placement of bilateral stents was performed. The patient tolerated the treatment well. Patient continue to improve and was a febrile, non-tachycardic and non- tachypnieic. Antibiotics were discontinued. The elevated WBC was most likely due to Decadron she takes for bone pain. Palliative care for the patient who chose to change her current status to DNR- [facility]. [facility] notified the patient that her insurance would not approve ECF and so the patient filed for Medicaid for long-term placement. Patient was continually monitored and Medicaid approval was pending. The day that Medicaid was approved the patient denied chest pain, shortness of breath, palpitations, wheezing, abdominal pain, fever, chills, abdominal pain, , dysuria, hematuria. The patient stated a clear understanding of the treatment plan and all questions were answered. The patient will be going to [facility] upon her own request. The patient was advised to protective hospital should she worsen. - Time Spent with Patient Total time spent providing and/or coordinating discharge services: - Constitutional Vitals: Temp Pulse Resp BP Pulse Ox 97.8 F 68 18 113/68 99 01/20/17 06:52 01/20/17 06:52 01/20/17 06:52 01/20/17 06:52 01/20/17 06:52 General appearance: Present: cooperative, A&O X 3, pleasant, no acute distress, answers questions appropriately Exam: Gen.: Vitals noted. No acute distress. AAOx3 HEENT: oropharynx clear, Normocephalic, atraumatic Neck: Supple. No adenopathy. Cardiac: RRR, no murmur, +S1/S2 Pulmonary: CTA bilaterally, no wheezes, rales or rhonchi, equal chest expansion Abdomen: soft, nontender, Bowel sounds noted, no guarding MSK: no joint swelling noted Extremities: no BLE edema, nontender calf, no cyanosis or clubbing Neuro: A&Ox3, moves all extremities Psych: Appropriate mood and behavior - VTE Documentation of Mechanical Device: Intermittent pneumatic compression device <Frandy Carpenter - Last Filed: 01/20/17 14:50> Date of Encounter: 01/20/17 - Discharge Diagnosis (1) Cancer related pain Status: Chronic (2) Adenocarcinoma of left lung, stage 4 Status: Chronic (3) Diabetes mellitus type 2 in nonobese Status: Acute (4) Hydronephrosis Status: Acute Qualifiers: Hydronephrosis type: with other ureteral stricture Qualified Code(s): N13.1 - Hydronephrosis with ureteral stricture, not elsewhere classified (5) DVT (deep venous thrombosis) Status: Resolved Qualifiers: DVT location: lower extremity Affected thrombotic vein of extremity: unspecified vein of extremity Chronicity: unspecified Laterality: left Qualified Code(s): I82.402 - Acute embolism and thrombosis of unspecified deep veins of left lower extremity Date of admission: 12/31/16 21:12 Primary care physician: Karen Jones CNP Consults: 12/31/16 21:39 Consult to Infectious Diseases [CONS] Routine Consulting Provider: Infectious Disease [place] Reason for Consult: Patient has history of lung cancer, currently on chemoradiation, who has fever/chills that has been ongoing for weeks. CXR shows mild upper lobe infiltrate. Concern for additional infectious process. Call Completed: No 12/31/16 22:58 Consult to [employer] Programs Director [CONS] Routine Reason for SW Consult: speak about advanced directives setup 12/31/16 23:00 Consult to Pastoral Services [CONS] Routine Comment: Patient requests to see a hospital director of individual giving 01/03/17 09:05 Consult to Oncology [CONS] Routine Consulting Provider: [facility] [place] Reason for Consult: Fevers, continued elevated WBC from baseline of 19, adenoCA stage 4 with mets, not responding to triple antibiotic therapy Call Completed: Yes 01/04/17 07:22 Consult to Nutrition [CONS] Routine Comment: severe protein malnutrition Consulting Provider: NUTRITION Reason for Dietary Consult: PO Supplementation 01/06/17 11:11 Consult to Occupational Therapy [CONS] Routine Comment: Evaluate, develop and implement POC Reason for Consult: eval for poss ecf Consult to Physical Therapy [CONS] Routine Comment: Evaluate, develop and implement POC Reason for Consult: eval for poss ecf 01/09/17 14:04 Consult to Palliative Care [CONS] Routine Comment: Consulting Provider: Palliative [facility] [place] Reason for Consult: Terminal cancer, goals of care and palliative care discussion. Spoke with patient and she agrees. Call Completed: No 01/10/17 11:24 Consult to Urology [CONS] Routine Consulting Provider: Urology [place] Reason for Consult: Hydronephrosis Left, mass surrounding ureter and aorta, palliative. Call Completed: Yes Hospital course: Ms. Coker is a 56 year old female - Time Spent with Patient Total time spent providing and/or coordinating discharge services: - Constitutional Vitals: Temp Pulse Resp BP Pulse Ox 97.8 F 68 18 113/68 99 01/20/17 06:52 01/20/17 06:52 01/20/17 06:52 01/20/17 06:52 01/20/17 06:52 - Attending Attestation I examined this patient and my medical decision-making was reviewed with the Resident Physician, Dr. Worthington. I agree with the documented findings, disposition and treatment plan as described except to the extent set forth below. I have independently obtained history and examined the patient and my findings are summarized below: Patient is in no acute distress awake alert oriented. Heart is a regular. Lungs are clear. Plan: She is mentally stable for discharge. Continue pain control. Discharge to alf.
[2017-01-20] MEDS ORDERED: FLUARIX QUAD 2017-18 36MOS UP/PF 0.5 ML SYRINGE IM ONE (10:11)
--- NOTE | 2017-01-20 10:16 | Physician Discharge Referral ---
ExtendedCare Referral Info Transfer To: [facility] Provider in Charge after Transfer: PCP, [employer] Institutional Level of Care: Skilled - Diagnosis (1) Cancer related pain Priority: Primary Status: Chronic (2) Adenocarcinoma of left lung, stage 4 Priority: Secondary Status: Chronic (3) Diabetes mellitus type 2 in nonobese Priority: Secondary Status: Acute (4) Hydronephrosis Priority: Secondary Status: Acute (5) DVT (deep venous thrombosis) Priority: Secondary Status: Resolved Prognosis: Poor Aware of Diagnosis: Patient Aware of Prognosis: Family - Transfer Medications Prescriptions: FentaNYL PATCH [Duragesic] 100 mcg TD Q48H #10 patch.td72 FentaNYL PATCH [Duragesic] 25 mcg TD Q48H #10 patch.td72 Gabapentin [Neurontin] 400 mg PO TID 7 Days #21 capsule HYDROmorphone [Dilaudid] 8 mg PO Q2H PRN #120 tablet PRN Reason: Cancer related pain LORazepam [Ativan] 0.5 mg PO TID PRN 7 Days #21 tablet PRN Reason: Anxiety Home Medications: Baclofen [Lioresal] 10 mg PO TID 04/02/16 [History] Omeprazole 40 mg PO DAILY 04/02/16 [History] Zolpidem [Ambien] 10 mg PO HS PRN 04/02/16 [History] Loratadine [Claritin] 10 mg PO DAILY #30 tablet 05/07/16 [Rx] Magic Mouthwash [Magic Mouthwash BLM] 10 ml PO QID PRN #240 ml 05/07/16 [Rx] Ondansetron HCl [Zofran] 4 mg PO Q6H PRN #30 tablet 05/07/16 [Rx] Prochlorperazine Maleate [Compazine] 10 mg PO Q6HR PRN #60 tablet 05/07/16 [Rx] Lidocaine/Prilocaine CREAM [Emla] 5 gm TP PRN PRN #1 tube 05/19/16 [Rx] Ferrous Sulfate [Iron] 325 mg PO DAILY #30 tablet 09/21/16 [Rx] Dexamethasone [Decadron] 1 mg PO QID PRN 10/04/16 [History] Polyethylene Glycol 3350 [MiraLAX] 17 gm PO DAILY PRN 10/04/16 [History] metFORMIN [Glucophage] 500 mg PO BIDWM 10/04/16 [History] Hydromorphone HCl [Dilaudid] 4 mg PO Q2-3H PRN 10/14/16 [History] FentaNYL PATCH [Duragesic] 75 mcg TD Q48H 10/20/16 [History] Apixaban [Eliquis] 5 mg PO BID #60 tablet 12/06/16 [Rx] Docusate Sodium [Colace] 100 mg PO BID #60 cap 12/06/16 [Rx] GuaiFENesin ER [Mucinex] 600 mg PO BID #21 tbbp.12hr 12/06/16 [Rx] Pantoprazole Sodium [Protonix] 40 mg PO DAILY #30 tablet. 12/30/16 [Rx] Folic Acid 1 mg PO DAILY #30 tablet 12/31/16 [Rx] FentaNYL PATCH [Duragesic] 25 mcg TD Q48H #10 patch.td72 01/19/17 [Rx] FentaNYL PATCH [Duragesic] 100 mcg TD Q48H #10 patch.td72 01/19/17 [Rx] HYDROmorphone [Dilaudid] 8 mg PO Q2H PRN #120 tablet 01/19/17 [Rx] Gabapentin [Neurontin] 400 mg PO TID 7 Days #21 capsule 01/20/17 [Rx] LORazepam [Ativan] 0.5 mg PO TID PRN 7 Days #21 tablet 01/20/17 [Rx] Allergies/Adverse Reactions: 3 Allergy/AdvReac Type Severity Reaction Status Date / Time menthol Allergy See Verified 12/31/16 19:54 Comments meperidine Allergy See Verified 12/31/16 19:54 Comments methyl salicylate Allergy See Verified 12/31/16 19:54 Comments Psyllium [From Hydrocil] Allergy See Verified 12/31/16 19:54 Comments codeine AdvReac Muscle Pain Verified 12/31/16 19:53 - Respiratory Orders None Smoking Cessation: Smoking cessation has been advised. For more information, call the [place] Tobacco Quit Line at 7-722-UGBL-NOW. - Advance Directives Code Status: DNR-Arrest - Mobility Orders Ambulate - Rehabiliation Orders Rehab Potential: Poor - Diet Orders Regular CERTIFICATION: I certify that the transfer of the above named patient to an Extended Care Facility is necessary for the continuing treatment of the diagnosis listed. The above information is true and accurate reflection of patient's current condition. primary adenocarcinoma of left lung stage 4 with mets to spine and pelvis Confidential - Redisclosure prohibited without a patient's written consent. Miladys Worthington DO
== END 2017-01-20 10:59 | DRG 871 ==
LOC: 2ANU 16:29 → EMEROO 16:29 → SUATTDRO 21:12 → 2ANU 21:50
PROVIDERS: ADMIT Internal Medicine Hematology & Oncology; ATTEND Internal Medicine